=== PATIENT | female | born 1945 | race Caucasian/White ===

== ENCOUNTER 2019-04-20 18:06 | Inpatient (IN) | payer MEDICARE, OTHER ==
--- NOTE | 2019-04-20 18:42 | PDOC ---
History of Present Illness - General Chief Complaint: Respiratory Stated Complaint: CHEST PAIN Time Seen by Provider: 04/20/19 18:40 - History of Present Illness Initial Comments: 04/20/19 20:43 73F with pmh of emphysema presenting with chest pain and sob with non- productive cough since 3pm today, sudden collapse today when her legs suddenly couldn't hold her anymore. She didn't lose consciousness but she since complains of lumbar and left hip pain. The chest pain is still 10/10 and sternal at time of presentation, exacerbated with dry coughing. Due to her emphysema she chronically coughs and is sob but today was worse. Denies fever, chills, abdominal pain, dysuria, nausea and dizziness. Past History - Past Medical History Allergies/Adverse Reactions: Allergies Allergy/AdvReac Type Severity Reaction Status Date / Time No Known Allergies Allergy Verified 04/20/19 18:13 Asthma: Yes COPD: Yes - Surgical History Appendectomy: Yes Neurologic Surgery: Yes (neck) - Immunization History Immunization Up to Date: No - Suicide/Smoking/Psychosocial Hx Smoking History: Current every day smoker Have you smoked in the past 12 months: Yes Number of Cigarettes Smoked Daily: 20 Information on smoking cessation initiated: No Hx Alcohol Use: No Drug/Substance Use Hx: No Review of Systems - Review of Systems Able to Perform ROS?: Yes Is the patient limited Palestinian proficient: No Constitutional: No: Symptoms Reported HEENTM: No: Symptoms Reported Respiratory: Yes: See HPI Cardiac (ROS): Yes: See HPI ABD/GI: No: Symptoms Reported : No: Symptoms Reported Musculoskeletal: No: Symptoms Reported Integumentary: No: Symptoms Reported Neurological: No: Symptoms reported All Other Systems: Reviewed and Negative *Physical Exam - Vital Signs Last Vital Signs Temp Pulse Resp BP Pulse Ox 98.3 F 85 20 100/61 95 04/20/19 18:13 04/20/19 18:13 04/20/19 18:13 04/20/19 18:13 04/20/19 18:13 - Physical Exam General Appearance: Yes: Nourished, Appropriately Dressed, Apparent Distress. No: Moderate Distress HEENT: positive: EOMI, KELLIE, Normal ENT Inspection Respiratory/Chest: positive: Lungs Clear, Normal Breath Sounds. negative: Chest Tender, Respiratory Distress Cardiovascular: positive: Regular Rhythm, Regular Rate, S1, S2 Gastrointestinal/Abdominal: positive: Normal Bowel Sounds, Flat, Soft. negative : Tender Musculoskeletal: positive: Other ED Treatment Course - LABORATORY CBC & Chemistry Diagram: 04/20/19 19:10 04/20/19 19:10 - RADIOLOGY Radiology Studies Ordered: Category Date Time Status CXRPORT [CHEST X-RAY PORTABLE*] [RAD] Stat Radiology 04/20/19 18:41 Ordered Medical Decision Making - Medical Decision Making 04/20/19 23:52 73F with pmh of emphysema presenting with chest pain and sob with non- productive cough since 3pm today, sudden collapse today when her legs suddenly couldn't hold her anymore. Considering PE due to sudden chest pain, cough, sob, however low risk. D dimer positive. Will obtain CTA but also CT lumbar spine, and ct abdomen/pelvis and ct head. . 04/21/19 00:10 Patient signed out to Dr. Loya. *DC/Admit/Observation/Transfer Diagnosis at time of Disposition: Fall, Chest pain - Referrals Referrals: Javed Simental MD [Primary Care Provider] - - Patient Instructions - Post Discharge Activity
[2019-04-20 19:16] LABS: BASO % 0.7 % (0-2.0); EOS % 6.2 % (0-4.5); HEMATOCRIT 40.9 % (32.4-45.2); HEMOGLOBIN 13.6 GM/dL (10.7-15.3); LYMPH % 29.6 % (8-40); MCH 31.3 pg (25.7-33.7); MCHC 33.2 g/dl (32.0-36.0); MEAN CELL VOLUME 94.3 fl (80-96); MEAN PLT VOLUME 10.2 fl (7.5-11.1); MONO % 6.3 % (3.8-10.2); NEUT % 57.2 % (42.8-82.8); PLATELET COUNT 182 K/MM3 (134-434); RBC 4.34 M/mm3 (3.60-5.2); RDW 13.9 % (11.6-15.6); WHITE BLOOD COUNT 9.1 K/mm3 (4.0-10.0)
--- NOTE | 2019-04-20 19:47 | PDOC ---
Attending Attestation - Resident Resident Name: Raymundo Fernandez - ED Attending Attestation I have performed the following: I have examined & evaluated the patient, The case was reviewed & discussed with the resident, I agree w/resident's findings & plan - HPI HPI: 04/21/19 01:21 73-year-old female with shortness of breath dizziness and fall now with low back and left hip pain Patient still complaining of dizziness and difficulty walking. She denies active chest pain. - Physicial Exam PE: 04/21/19 01:26 GENERAL: Awake, in no acute distress HEAD: No signs of trauma EYES: ENT:clear without exudates. Moist mucosa NECK: Normal ROM, LUNGS:. Normal work of breathing. HEART: Regular rate and rhythm, ABDOMEN: Soft, nondistended CHEST WALL: BACK: tenderness lumbar spine midline , left lateral hip NEUROLOGICAL: Alert, SKIN: Warm, Dry - Medical Decision Making 04/21/19 03:45 73 yo female s/p sob,near syncopal episode and fall CTA of the chest showed no PE or aortic dissection CT abdomen and pelvis showed no significant abnormality CTA of the lumbar spine showed no fracture EKG showed no significant abnormality Plan for admission for further evaluation
[2019-04-20 19:48] LABS: ALBUMIN 3.2 g/dl (3.4-5.0); BILIRUBIN,TOTAL 0.2 mg/dL (0.2-1); BLOOD UREA NITROGEN 12.5 mg/dL (7-18); CALCIUM 8.8 mg/dL (8.5-10.1); CREATININE 0.6 mg/dL (0.55-1.3); POTASSIUM 3.3 mmol/L (3.5-5.1); TOT PROT 5.6 g/dl (6.4-8.2)
--- NOTE | 2019-04-21 00:14 | PDOC ---
*Physical Exam - Vital Signs Last Vital Signs Temp Pulse Resp BP Pulse Ox 98.3 F 85 20 100/61 95 04/20/19 18:13 04/20/19 18:13 04/20/19 18:13 04/20/19 18:13 04/20/19 18:13 ED Treatment Course - LABORATORY CBC & Chemistry Diagram: 04/20/19 19:10 04/20/19 19:10 - ADDITIONAL ORDERS Additional order review: Laboratory Results 04/20/19 04/20/19 04/20/19 20:40 19:10 19:10 D-Dimer 882 H Sodium 145 Potassium 3.3 L Chloride 109 H Carbon Dioxide 25 Anion Gap 10 BUN 12.5 Creatinine 0.6 Est GFR (CKD-EPI)AfAm 106.28 Est GFR (CKD-EPI)NonAf 91.70 Random Glucose 141 H Calcium 8.8 Total Bilirubin 0.2 AST 10 L ALT 19 Alkaline Phosphatase 95 Troponin I < 0.02 Total Protein 5.6 L Albumin 3.2 L 04/20/19 19:10 RBC 4.34 MCV 94.3 MCHC 33.2 RDW 13.9 MPV 10.2 Neutrophils % 57.2 Lymphocytes % 29.6 Monocytes % 6.3 Eosinophils % 6.2 H Basophils % 0.7 Medical Decision Making - Medical Decision Making Sign out received from Dr. Fernandez. 73 F with hx emphysema presenting s/p syncope at home, shortness of breath, chest pain, dimer elevation pending CT imaging. Pending: CTA Chest r/o PE CT head CT Lumbar spine CT abdomen/pelvis w/contrast Dispo: Admit, pending imaging --- CT imaging negative for acute process. --- Case discussed with Dr. Cerda. Plan for admission to telemetry obs. *DC/Admit/Observation/Transfer Diagnosis at time of Disposition: Fall Qualifiers: Encounter type: initial encounter Qualified Code(s): W19.XXXA - Unspecified fall, initial encounter Chest pain Qualifiers: Chest pain type: unspecified Qualified Code(s): R07.9 - Chest pain, unspecified Syncope Qualifiers: Syncope type: unspecified Qualified Code(s): R55 - Syncope and collapse - Discharge Dispostion Condition at time of disposition: Stable Decision to Admit order: Yes - Referrals - Patient Instructions - Post Discharge Activity
--- NOTE | 2019-04-21 05:26 | HP ---
CHIEF COMPLAINT: syncope, chest pain PCP: Hola HISTORY OF PRESENT ILLNESS: 73F with pmh of emphysema presenting with chest pain and sob with non- productive cough since 3pm on 04/20/19. Questionable loss of consciousness. Reported falling when her legs suddenly couldn't hold her anymore. Complains of lumbar and left hip pain. Imaging studies prelim report without overt fracture. CTA neg for aortic dissection or PE. ER course was notable for: (1) ct lumbar spine (2) cta chest (3) Recent Travel: no PAST MEDICAL HISTORY: emphysema PAST SURGICAL HISTORY: no Social History: Smoking: prior smoking Alcohol: no Drugs: no Family History: no Allergies No Known Allergies Allergy (Verified 04/20/19 18:13) HOME MEDICATIONS: Home Medications Medication Instructions Recorded Budesonide/Formeterol Fumarate 1 inh PO BID 04/21/19 [SYMBICORT 160/4.5mcg -] REVIEW OF SYSTEMS CONSTITUTIONAL: Absent: fever, chills, diaphoresis, generalized weakness, malaise, loss of appetite, weight change HEENT: Absent: rhinorrhea, nasal congestion, throat pain, throat swelling, difficulty swallowing, mouth swelling, ear pain, eye pain, visual changes CARDIOVASCULAR: Absent: , palpitations, irregular heart rate, lightheadedness, peripheral edema present- chest pain, syncope RESPIRATORY: Absent: cough, shortness of breath, dyspnea with exertion, orthopnea, wheezing, stridor, hemoptysis GASTROINTESTINAL: Absent: abdominal pain, abdominal distension, nausea, vomiting, diarrhea, constipation, melena, hematochezia GENITOURINARY: Absent: dysuria, frequency, urgency, hesitancy, hematuria, flank pain, genital pain MUSCULOSKELETAL: Absent: , joint swelling, back pain, neck pain present- myalgia, arthralgia SKIN: Absent: rash, itching, pallor HEMATOLOGIC/IMMUNOLOGIC: Absent: easy bleeding, easy bruising, lymphadenopathy, frequent infections ENDOCRINE: Absent: unexplained weight gain, unexplained weight loss, heat intolerance, cold intolerance NEUROLOGIC: Absent: headache, focal weakness or paresthesias, dizziness, unsteady gait, seizure, mental status changes, bladder or bowel incontinence PSYCHIATRIC: Absent: anxiety, depression, suicidal or homicidal ideation, hallucinations. PHYSICAL EXAMINATION Vital Signs - 24 hr 04/20/19 04/21/19 18:13 04:36 Temperature 98.3 F Pulse Rate 85 Respiratory 20 Rate Blood Pressure 100/61 O2 Sat by Pulse 95 97 Oximetry (%) GENERAL: Awake, alert, and fully oriented, in no acute distress. HEAD: Normal with no signs of trauma. EYES: Pupils equal, round and reactive to light, extraocular movements intact, sclera anicteric, conjunctiva clear. No lid lag. EARS, NOSE, THROAT: Ears normal, nares patent, oropharynx clear without exudates. Moist mucous membranes. NECK: Normal range of motion, supple without lymphadenopathy, JVD, or masses. LUNGS: Breath sounds equal, clear to auscultation bilaterally. No wheezes, and no crackles. No accessory muscle use. HEART: Regular rate and rhythm, normal S1 and S2 without murmur, rub or gallop. ABDOMEN: Soft, nontender, not distended, normoactive bowel sounds, no guarding, no rebound, no masses. MUSCULOSKELETAL: Normal range of motion at all joints. No bony deformities or tenderness. No CVA tenderness. UPPER EXTREMITIES: 2+ pulses, warm, well-perfused. No cyanosis. No clubbing. No peripheral edema. LOWER EXTREMITIES: 2+ pulses, warm, well-perfused. No calf tenderness. No peripheral edema. NEUROLOGICAL: Cranial nerves II-XII intact. Normal speech. Normal gait. PSYCHIATRIC: Cooperative. Good eye contact. Appropriate mood and affect. SKIN: Warm, dry, normal turgor, no rashes or lesions noted, normal capillary refill. Laboratory Results - last 24 hr 04/20/19 04/20/19 04/20/19 19:10 19:10 19:10 WBC 9.1 RBC 4.34 Hgb 13.6 Hct 40.9 MCV 94.3 MCH 31.3 MCHC 33.2 RDW 13.9 Plt Count 182 MPV 10.2 Absolute Neuts (auto) 5.2 Neutrophils % 57.2 Lymphocytes % 29.6 Monocytes % 6.3 Eosinophils % 6.2 H Basophils % 0.7 Nucleated RBC % 0 D-Dimer Sodium 145 Potassium 3.3 L Chloride 109 H Carbon Dioxide 25 Anion Gap 10 BUN 12.5 Creatinine 0.6 Est GFR (CKD-EPI)AfAm 106.28 Est GFR (CKD-EPI)NonAf 91.70 Random Glucose 141 H Calcium 8.8 Total Bilirubin 0.2 AST 10 L ALT 19 Alkaline Phosphatase 95 Troponin I < 0.02 Total Protein 5.6 L Albumin 3.2 L 04/20/19 20:40 WBC RBC Hgb Hct MCV MCH MCHC RDW Plt Count MPV Absolute Neuts (auto) Neutrophils % Lymphocytes % Monocytes % Eosinophils % Basophils % Nucleated RBC % D-Dimer 882 H Sodium Potassium Chloride Carbon Dioxide Anion Gap BUN Creatinine Est GFR (CKD-EPI)AfAm Est GFR (CKD-EPI)NonAf Random Glucose Calcium Total Bilirubin AST ALT Alkaline Phosphatase Troponin I Total Protein Albumin imaging studies- prelim reports reviewed- head ct- neg for fracture or bleed, cta chest, abdomen- no overt fracture reported- post traumatic changes- right iliac wing? empyshematous lung changes ASSESSMENT/PLAN: syncope chest pain S/p fall emphysema -tele obs -cardiac monitoring -bed rest -fall precautions -monitor VS closely -trend tronponin -ibuprofen prn for pain -f/u official read of imaging studies -gentle IV fluid hydration -check othostatics -echo -cardiology evaluation -c/w symbicort for emphysema -dvt ppx- heparin sc Visit type - Emergency Visit Emergency Visit: Yes ED Registration Date: 04/21/19 Care time: The patient presented to the Emergency Department on the above date and was hospitalized for further evaluation of their emergent condition. - New Patient This patient is new to me today: Yes Date on this admission: 04/21/19 - Critical Care Critical Care patient: No
[2019-04-21] MEDS ORDERED: POTASSIUM CHLORIDE ORAL LIQUID 20 MEQ/15 ML PO ONE (05:32)
[2019-04-21] MEDS ORDERED: POTASSIUM CHLORIDE ORAL LIQUID 20 MEQ/15 ML ONE (06:15)
[2019-04-21] MEDS: SODIUM CHLORIDE 1,000 ML IV SCH (06:21)
[2019-04-21 09:34] LABS: HEMATOCRIT 40.9 % (32.4-45.2); HEMOGLOBIN 13.6 GM/dL (10.7-15.3); MCH 31.3 pg (25.7-33.7); MCHC 33.3 g/dl (32.0-36.0); MEAN CELL VOLUME 93.8 fl (80-96); MEAN PLT VOLUME 9.6 fl (7.5-11.1); PLATELET COUNT 173 K/MM3 (134-434); RBC 4.36 M/mm3 (3.60-5.2); RDW 13.9 % (11.6-15.6)
[2019-04-21] MEDS ORDERED: ACETAMINOPHEN 1000 MG/100 ML VIAL (NON FORMULARY) IVPB ONE (10:03)
[2019-04-21 10:04] LABS: ANION GAP 7 MMOL/L (8-16); BLOOD UREA NITROGEN 8.6 mg/dL (7-18); CHLORIDE 110 mmol/L (98-107); CO2 27 mmol/L (21-32); CREATININE 0.6 mg/dL (0.55-1.3); GLUCOSE,RANDOM 99 mg/dL (74-106); POTASSIUM 3.8 mmol/L (3.5-5.1); SODIUM 144 mmol/L (136-145)
[2019-04-21] MEDS ORDERED: HEPARIN NA (PORCINE) 5,000 UNITS/ML 1ML VIAL ONE (10:06)
[2019-04-21] MEDS ORDERED: ACETAMINOPHEN INJECTION 100 ML IVPB ONE (10:06)
[2019-04-21] MEDS: HEPARIN NA (PORCINE) 5,000 UNITS/ML 1ML VIAL SQ SCH ×2 (10:07→21:34)
--- NOTE | 2019-04-21 10:07 | CON.CARD ---
Consult Consult Specialty:: Cardiology Referred by:: Hola Reason for Consultation:: chest pain - History of Present Illness Chief Complaint: chest pain History of Present Illness: 73F with pmh of emphysema presenting with chest pain and sob with non- productive cough since 3pm on 04/20/19, with dizziness and diaphoresis, no LOC. The pain is nonexertional. No orthopnea, pnd or edema. ECG normal CTA normal Echo done Robinson negative. - History Source History Provided By: Patient, Medical Record - Alcohol/Substance Use Hx Alcohol Use: No - Smoking History Smoking history: Never smoked Have you smoked in the past 12 months: No Aproximately how many cigarettes per day: 20 Home Medications - Allergies Allergies/Adverse Reactions: Allergies Allergy/AdvReac Type Severity Reaction Status Date / Time No Known Allergies Allergy Verified 04/20/19 18:13 - Home Medications Home Medications: Ambulatory Orders Budesonide/Formeterol Fumarate [SYMBICORT 160/4.5mcg -] 1 inh PO BID 04/21/19 Vital Signs: Vital Signs Temperature 97.8 F 04/21/19 09:36 Pulse Rate 71 04/21/19 09:36 Respiratory Rate 16 04/21/19 09:36 Blood Pressure 114/77 04/21/19 09:36 O2 Sat by Pulse Oximetry (%) 98 04/21/19 09:36 Constitutional: Yes: No Distress, Calm Eyes: Yes: Conjunctiva Clear, EOM Intact HENT: Yes: Atraumatic, Normocephalic Neck: Yes: Trachea Midline Respiratory: Yes: CTA Bilaterally Gastrointestinal: Yes: Normal Bowel Sounds, Soft Renal/: Yes: WNL Cardiovascular: Yes: Regular Rate and Rhythm JVD: No Carotid Bruit: No PMI: Non-Displaced Heart Sounds: Yes: S1, S2 Musculoskeletal: Yes: WNL Extremities: Yes: WNL Edema: No Peripheral Pulses WNL: Yes - Other Data Labs, Other Data: CBC, BMP 04/21/19 09:15 04/21/19 09:15 Troponin, BNP 04/20/19 04/21/19 19:10 09:15 Troponin I < 0.02 < 0.02 Troponin, BNP 04/20/19 04/21/19 19:10 09:15 Troponin I < 0.02 < 0.02 Imaging - Results Chest X-ray: Report Reviewed (zeus) Cat Scan: Report Reviewed (no pe) EKG: Report Reviewed (nl) Assessment/Plan 73F with pmh of emphysema presenting with chest pain and sob with non- productive cough since 3pm on 04/20/19, with dizziness and diaphoresis, no LOC. The pain is nonexertional. No orthopnea, pnd or edema. ECG normal CTA normal Echo done Robinson negative. Plan -follow echo results -nuclear stress test today
--- NOTE | 2019-04-21 10:17 | ECHO ---
Name: EARL TY Exam:Adult Echocardiogram Study Date: 04/21/2019 08:26 AM Age: 73 yrs Reason For Study: s/p syncope, rule out Height: 65 in Weight: 135 lb BSA: 1.7 m2 MMode/2D Measurements & Calculations IVSd: 0.69 cm Ao root diam: 2.5 cm LVIDd: 4.0 cm LA dimension: 3.1 cm LVIDs: 2.5 cm LVPWd: 1.0 cm LVPWs: 1.0 cm EDV(Teich): 71.4 ml ESV(Teich): 22.0 ml Doppler Measurements & Calculations MV E max david: 66.6 cm/sec Ao V2 max: 140.6 cm/sec MV A max david: 107.1 cm/sec Ao max P.9 mmHg MV E/A: 0.62 Ao V2 mean: 97.0 cm/sec MV dec time: 0.19 sec Ao mean P.5 mmHg Ao V2 VTI: 32.1 cm LV V1 max P.5 mmHg PA V2 max: 88.2 cm/sec LV V1 mean P.2 mmHg PA max P.1 mmHg LV V1 max: 106.1 cm/sec LV V1 mean: 69.4 cm/sec LV V1 VTI: 28.9 cm Med Peak E' David: 5.0 cm/sec Med E/e': 13.3 Lat Peak E' David: 7.6 cm/sec Lat E/e': 8.8 Procedure A complete two-dimensional transthoracic echocardiogram was performed (2D, M-mode, Doppler and color flow Doppler). Left Ventricle The left ventricular size, thickness and function are normal. Ejection Fraction = 65%. E/A reversal c onsistent with but not diagnostic of poor LV compliance. The left ventricular wall motion is normal. Right Ventricle The right ventricle is normal in size and function. Atria Normal left and right atrial size and function. A prominent eustachian valve is noted. Mitral Valve The mitral valve is normal in structure and function. There is trace mitral regurgitation. Tricuspid Valve The tricuspid valve is normal in structure and function. There was insufficient TR detected to calcul ate RV systolic pressure. Aortic Valve The aortic valve is normal in structure and function. Great Vessels The aortic root is normal size. Pericardium/Pleura There is no pericardial effusion. There is no pleural effusion. Interpretation Summary The left ventricular size, thickness and function are normal Ejection Fraction = 65%. The right ventricle is normal in size and function. There is trace mitral regurgitation. MD Ari Nagel 04/21/2019 10:17 AM
[2019-04-21] MEDS: BUDESONIDE/FORMETEROL FUMARATE 160/4.5 mcg INHALER IH SCH ×2 (10:25→21:32)
[2019-04-21] MEDS ORDERED: ACETAMINOPHEN 325 MG TABLET (FP) PO PRN (10:44)
--- NOTE | 2019-04-21 10:51 | EKG ---
Test Reason : Blood Pressure : / mmHG Vent. Rate : 085 BPM Atrial Rate : 085 BPM P-R Int : 140 ms QRS Dur : 076 ms QT Int : 400 ms P-R-T Axes : 073 031 058 degrees QTc Int : 476 ms NORMAL SINUS RHYTHM NORMAL ECG NO PREVIOUS ECGS AVAILABLE Confirmed by Ari Nagel MD ([id number]) on 04/21/2019 10:50:42 AM Referred By: Confirmed By:Ari Nagel MD
[2019-04-21] MEDS ORDERED: REGADENOSON 0.4 MG/5 ML PRE-FILLED SYRINGE IVPUSH ONE ×2 (10:52→11:00)
--- NOTE | 2019-04-21 10:52 | PN ---
Progress Note, Physician Chief Complaint: SOB Fall Lower back pain Left hip pain - Current Medication List Current Medications: Active Medications Acetaminophen (Tylenol -) 650 mg PO Q4H PRN PRN Reason: PAIN OR FEVER Budesonide/Formoterol Fumarate (Symbicort 160/4.5mcg -) 1 puff IH BID [facility] Last Admin: 04/21/19 10:25 Dose: 1 puff Heparin Sodium (Porcine) (Heparin -) 5,000 unit SQ BID [facility] Last Admin: 04/21/19 10:07 Dose: 5,000 unit Sodium Chloride (Normal Saline -) 1,000 mls @ 75 mls/hr IV ASDIR [facility] Last Admin: 04/21/19 06:21 Dose: 75 mls/hr - Objective Vital Signs: Vital Signs Temperature 97.8 F 04/21/19 09:36 Pulse Rate 75 04/21/19 10:40 Respiratory Rate 16 04/21/19 09:36 Blood Pressure 130/71 04/21/19 10:40 O2 Sat by Pulse Oximetry (%) 98 04/21/19 09:36 Constitutional: Yes: Well Nourished, No Distress, Calm Cardiovascular: Yes: Regular Rate and Rhythm Respiratory: Yes: Regular Gastrointestinal: Yes: Normal Bowel Sounds, Soft Musculoskeletal: Yes: WNL Extremities: Yes: WNL Edema: No Peripheral Pulses WNL: Yes Neurological: Yes: Alert, Oriented Psychiatric: Yes: Alert, Oriented Labs: CBC, BMP 04/21/19 09:15 04/21/19 09:15 Problem List - Problems (1) SOB (shortness of breath) Assessment/Plan: -CXR negative -CTA-mild copd -pulmonary consult -Continue Symbicort -Add MILLIE prn Code(s): R06.02 - SHORTNESS OF BREATH (2) Lower extremity weakness Assessment/Plan: -CT lumbar- shows multiple central canal stenosis -Neurosurgery consult Code(s): R29.898 - OTH SYMPTOMS AND SIGNS INVOLVING THE MUSCULOSKELETAL SYSTEM (3) Degenerative lumbar spinal stenosis Assessment/Plan: -CT lumbar- shows multiple central canal stenosis -Neurosurgery consult Code(s): M48.061 - SPINAL STENOSIS, LUMBAR REGION WITHOUT NEUROGENIC CARISA (4) Fall Assessment/Plan: -Neurosurgery consult -CT lumbar- shows multiple central canal stenosis -Check B12 -Echo-65%, trace MV regurgitation -ECG negative -Trops negative -Seen by cardiology -orthostatic negative -Left hip xray-left hip arthritis, old avulsion at left acetabular root -Nuclear stress test pending Code(s): W19.XXXA - UNSPECIFIED FALL, INITIAL ENCOUNTER Qualifiers: Encounter type: initial encounter Qualified Code(s): W19.XXXA - Unspecified fall, initial encounter
[2019-04-21 11:22] LABS: URINE APPEARANCE Clear; URINE BILIRUBIN Negative (NEGATIVE); URINE COLOR Yellow; URINE GLUCOSE (UA) Negative (NEGATIVE); URINE KETONE Negative (NEGATIVE); URINE LEUK ESTERASE Negative (NEGATIVE); URINE NITRITE Negative (NEGATIVE); URINE PROTEIN Negative (NEGATIVE); URINE UROBILINOGEN 0.2 mg/dL (0.2-1.0)
[2019-04-21] MEDS ORDERED: AMINOPHYLLINE 250 MG/10 ML VIAL ONE (12:30)
[2019-04-21] MEDS ORDERED: AMINOPHYLLINE 250 MG/10 ML VIAL IVPUSH ONE (12:45)
[2019-04-21] MEDS ORDERED: PNEUMOC 13-VAL CONJ-DIP CRM/PF 0.5 ML DISP.SYRIN IM ONE (18:24)
[2019-04-22] MEDS: ALBUTEROL SO4 0.083% IH SOL 2.5 MG/3 ML VIAL.NEB. NEB PRN ×2 (03:08→12:14)
[2019-04-22] MEDS: SODIUM CHLORIDE 1,000 ML IV SCH ×2 (07:00→08:40)
--- NOTE | 2019-04-22 09:06 | PN ---
Progress Note, Physician Chief Complaint: awake alert c/o severe left leg pain no fever foot drop when she stands and walks - Current Medication List Current Medications: Active Medications Acetaminophen (Tylenol -) 650 mg PO Q4H PRN PRN Reason: FEVER Albuterol Sulfate (Ventolin 0.083% Nebulizer Soln -) 1 amp NEB Q4H PRN PRN Reason: SHORT OF BREATH/WHEEZING Last Admin: 04/22/19 03:08 Dose: 1 amp Budesonide/Formoterol Fumarate (Symbicort 160/4.5mcg -) 1 puff IH BID [facility] Last Admin: 04/21/19 21:32 Dose: 1 puff Gabapentin (Neurontin -) 100 mg PO TID [facility] Heparin Sodium (Porcine) (Heparin -) 5,000 unit SQ BID [facility] Last Admin: 04/21/19 21:34 Dose: 5,000 unit Sodium Chloride (Normal Saline -) 1,000 mls @ 75 mls/hr IV ASDIR [facility] Last Admin: 04/22/19 08:40 Dose: 75 mls/hr Tramadol HCl (Ultram -) 50 mg PO Q6H PRN PRN Reason: PAIN LEVEL 6-10 - Objective Vital Signs: Vital Signs Temperature 98.2 F 04/22/19 08:00 Pulse Rate 66 04/22/19 08:00 Respiratory Rate 22 H 04/22/19 08:00 Blood Pressure 125/64 04/22/19 08:00 O2 Sat by Pulse Oximetry (%) 92 L 04/22/19 08:00 Constitutional: Yes: Severe Distress Cardiovascular: Yes: Regular Rate and Rhythm Respiratory: Yes: Wheezes Gastrointestinal: Yes: WNL Genitourinary: Yes: WNL Musculoskeletal: Yes: Back Pain, Muscle Pain, Muscle Weakness Edema: No Peripheral Pulses WNL: Yes Integumentary: Yes: WNL Wound/Incision: Yes: Clean/Dry Neurological: Yes: Loss of Sensation, Numbness, Paresthesia, Weakness ...Motor Strength: LLE Psychiatric: Yes: WNL Labs: CBC, BMP 04/21/19 09:15 04/21/19 09:15 Problem List - Problems (1) COPD (chronic obstructive pulmonary disease) Code(s): J44.9 - CHRONIC OBSTRUCTIVE PULMONARY DISEASE, UNSPECIFIED (2) Tobacco dependence Code(s): F17.200 - NICOTINE DEPENDENCE, UNSPECIFIED, UNCOMPLICATED (3) Smoker Code(s): F17.200 - NICOTINE DEPENDENCE, UNSPECIFIED, UNCOMPLICATED (4) Chest pain Code(s): R07.9 - CHEST PAIN, UNSPECIFIED Qualifiers: Chest pain type: unspecified Qualified Code(s): R07.9 - Chest pain, unspecified (5) Degenerative lumbar spinal stenosis Code(s): M48.061 - SPINAL STENOSIS, LUMBAR REGION WITHOUT NEUROGENIC CARISA (6) Fall Code(s): W19.XXXA - UNSPECIFIED FALL, INITIAL ENCOUNTER Qualifiers: Encounter type: initial encounter Qualified Code(s): W19.XXXA - Unspecified fall, initial encounter (7) Lower extremity weakness Code(s): R29.898 - OTH SYMPTOMS AND SIGNS INVOLVING THE MUSCULOSKELETAL SYSTEM (8) SOB (shortness of breath) Code(s): R06.02 - SHORTNESS OF BREATH Assessment/Plan cardiac workup negative ct head no acute changes lumbar ct shows severe l4-l5 changes ordering mri lumbar gabapentin started with tramadol for pain neurology and neurosurgery eval smoking cessation duoneb/symbicort
[2019-04-22] MEDS ORDERED: PT OWN MED DRAWER 7, Y5N ONE (09:28)
[2019-04-22] MEDS: HEPARIN NA (PORCINE) 5,000 UNITS/ML 1ML VIAL SQ SCH ×2 (09:30→21:51)
[2019-04-22] MEDS: NICOTINE 21 MG/24 HOURS TOPICAL PATCH TD SCH (09:30)
[2019-04-22] MEDS: BUDESONIDE/FORMETEROL FUMARATE 160/4.5 mcg INHALER IH SCH ×2 (09:35→21:52)
--- NOTE | 2019-04-22 12:06 | CON.PULM ---
Consult Consult Specialty:: PULMONARY Referred by:: Dr Simental Reason for Consultation:: shortness of breath - History of Present Illness Chief Complaint: shortness of breath History of Present Illness: 73yo female with h/o COPD/emphysema, smoker who was admitted with worsening shortness of breath, chest discomfort and cough. No fevers, chills or sweats. + cough is nonproductive and she has been wheezing. She had a CTA chest which was negative for PE or dissection but showed emphysematous changes. She is a long time smoker, smokes 1 PPD. Currently feels better than presentation. - History Source History Provided By: Patient, Medical Record Limitations to Obtaining History: Language Barrier - Past Medical History Pulmonary: Yes: COPD - Alcohol/Substance Use Hx Alcohol Use: No - Smoking History Smoking history: Current every day smoker Have you smoked in the past 12 months: Yes Aproximately how many cigarettes per day: 20 Home Medications - Allergies Allergies/Adverse Reactions: Allergies Allergy/AdvReac Type Severity Reaction Status Date / Time No Known Allergies Allergy Verified 04/20/19 18:13 - Home Medications Home Medications: Ambulatory Orders Budesonide/Formeterol Fumarate [SYMBICORT 160/4.5mcg -] 1 inh PO BID 04/21/19 Review of Systems - Review of Systems Constitutional: reports: Weakness. denies: Chills, Fever Eyes: denies: Recent Change in Vision HENT: denies: Nasal Congestion, Throat Pain Neck: denies: Stiffness, Tenderness Cardiovascular: reports: Chest Pain, Shortness of Breath. denies: Edema Respiratory: reports: Cough, SOB on Exertion, Wheezing. denies: Hemoptysis Gastrointestinal: denies: Abdominal Pain, Nausea, Vomiting Genitourinary: denies: Dysuria, Hematuria Neurological: denies: Headache Endocrine: denies: Unexplained Weight Loss Physical Exam Vital Sings: Vital Signs Temperature 98.0 F 04/22/19 10:00 Pulse Rate 76 04/22/19 10:00 Respiratory Rate 04/22/19 10:00 Blood Pressure 126/65 04/22/19 10:00 O2 Sat by Pulse Oximetry (%) 92 L 04/22/19 08:00 Constitutional: Yes: Calm Eyes: Yes: Conjunctiva Clear, EOM Intact HENT: Yes: Atraumatic, Normocephalic Neck: Yes: Supple, Trachea Midline Respiratory: Yes: Poor Air Entry, Wheezes ...Clubbing: No Gastrointestinal: Yes: Normal Bowel Sounds, Soft. No: Tenderness Edema: No Neurological: Yes: Alert, Oriented Labs: CBC, BMP 04/21/19 09:15 04/21/19 09:15 Imaging - Results Chest X-ray: Report Reviewed, Image Reviewed Cat Scan: Report Reviewed, Image Reviewed (no infiltrates, +emphysema) Problem List - Problems (1) COPD exacerbation Code(s): J44.1 - CHRONIC OBSTRUCTIVE PULMONARY DISEASE W (ACUTE) EXACERBATION (2) Smoker Code(s): F17.200 - NICOTINE DEPENDENCE, UNSPECIFIED, UNCOMPLICATED Assessment/Plan Acute COPD Exacerbation Emphysema Lumbar Spinal Stenosis Smoker - short course of medrol - inhaled bronchodilators standing and PRN - O2 to keep SpO2 >90% - outpt PFTs - smoking cessation - DVT prophylaxis Thank you for this consult Winston Hayward MD
[2019-04-22] MEDS: methylPREDNISolone NA SUCC 40 MG/1 ML VIAL IVPUSH SCH ×2 (12:16→17:39)
[2019-04-22] MEDS: traMADol HCL 50 MG TABLET PO PRN (12:32)
--- NOTE | 2019-04-22 13:50 | CONSULT ---
Consult - text type - Consultation Consultation Note: NEUROLOGY CONSULT GREATLY APPRECIATED: Events reviewed. Cardiology and pulmonary consults read and appreciated. This 73 yo RH single woman with no children lives with her brother. Previous office patient Barrera Tyler aides in translation. PMHX: COPD, Nicotine dependence (1PPD), S/P ACD and LS surgery "many years ago. " Brother describes approximately 1 year of gait decline with "near tripping," imbalance, with LBP with radiation into left leg. Pt currently ambulates independently. Admitted after 3 days of dyspnea, chest pains, "dizziness" and "weakness" in the knees, with a subsequent fall on the left side without obvious headstrike/ LOC. C/O ongoing LBP and left hip pain. Now on IV solumedrol and steroids for COPD exacerbation. Review of systems sig for few months of daily bitemporal headaches that usually occur in morning hours with photophobia, phonophobia, kinesiophobia, N/V. These usually dissipate with AM caffeine. She describes at least 1 year of ongoing insomnia with "numbness" "tingling" first involving the left hand and leg and now within past 6 months, her right side as well. This is somewhat improved with movement. FH++ Baseem notes he has similar headaches and insomnia/paresthesia that interupt sleep WBC= 7 B12= 788 TSH- 1.45 BUN/CR 12.5/0.[address] (reviewed): Chronic, scattered periventricular ischemic changes. No acute pathology L Hip Xray- arthritic changes and old avulsion of left acetabellar root CT of LS spine (reviewed): Multi-level central canal stenosis secondary to posterior osteophyte complexes marked biju @ L4/L5, L5/S1. L stenosis at L5 lateral recess and L paracentral stenosis @ S1. Duplex of arteries L/E: (?) scattered plaques throughout. Abnormal flow. EKG NSR. ECHO Normal EF. Stress test normal SUMANTH: BPs 130s/70s without orthostatic changes. Cor reg. No bruit. Normal neck ROM. Neg SLR. + Solo's on L. Neg Tinel's. S/P ACD. LS scar. NEURO: Awake, alert, responsive. [facility] Apr 2019. [place]. + glabella CNII-CNXII: EOM's full with full michaels. No facial. Gag ok. Motor: No drift or tremor. Min cogwheel. Strength normal. Reflexes normal except absent L AJ. Toes downgoing. Coordination: No FTN dystaxia. Sensation: Reduced vibration to ankles. Romberg + Gait: Flexed, sl shuffle. Difficulty with L toe walk. Can walk on heels. Impression: Lumbosacral spinal stenosis with L S1 (+/-L5) radiculopathy ? L hip arthropathy Migraine Headaches/Restless Limbs Suggest: Agree with MRI of LS spine (C+/C-) as renal function allows and to r/o scar tissue from the prior surgery Check ESR, CRP, Fe++, TIBC, Ferritin Carotid duplex Agree with gabapentin 100 mg TID. Can adjust for mostly nocturnal complaints to gabapentin 300 mg HS. Orthopedic consult for L hip Pt eval for gait safety with walker Thank you very much, Juan C Tobias MD
[2019-04-22] MEDS: GABAPENTIN 100 MG CAPSULE (FP) PO SCH ×2 (14:55→21:52)
--- NOTE | 2019-04-22 23:25 | CONSULT ---
Consult - text type - Consultation Consultation Note: NEUROSURGERY CONSULT Patient is a 73-year-old Georgian speaking female who was admitted with acute progression of chronic back pain, left leg radicular pain and a nonproductive cough. Patient found to have severe stenosis at L34 and L45 on CT scan Lumbar spine with moderate L5S1 central disc protrusion. MRI redemonstrates these findings with fairly significant lateral recess stenosis at L34 and L45. Patient ambulating with stooped posture due to neurogenic claudication most likely. Limited history available due to language barrier. Will discuss case with Dr. Simental and interview patient with principal software engineer in a.m. Patient has significant pulmonary disease and medical comorbidities, however she may benefit from a minimally invasive decompression of her worst levels of stenosis. If necessary, it may be possible to do this with spinal/local anesthesia to minimize pulmonary complications. However decision-making regarding potential role for surgical decompression will follow further analysis of her case and medical condition.
[2019-04-23] MEDS: SODIUM CHLORIDE 1,000 ML IV SCH ×2 (02:00→05:47)
[2019-04-23] MEDS: methylPREDNISolone NA SUCC 40 MG/1 ML VIAL IVPUSH SCH ×3 (02:34→17:52)
[2019-04-23] MEDS: GABAPENTIN 100 MG CAPSULE (FP) PO SCH ×3 (05:48→21:15)
[2019-04-23] MEDS: ALBUTEROL SO4 0.083% IH SOL 2.5 MG/3 ML VIAL.NEB. NEB PRN (06:38)
[2019-04-23 06:45] LABS: IRON SERUM 52 ug/dL (50-175); TOTAL IRON BINDING CAPACITY 242 ug/dL (250-450)
[2019-04-23 07:00] LABS: HDL CHOLESTEROL 70 mg/dL (40-60)
[2019-04-23 08:04] LABS: CHOLESTEROL 186 mg/dL (50-200)
[2019-04-23 08:05] LABS: TRIGLYCERIDES 62 mg/dL (0-150)
--- NOTE | 2019-04-23 08:59 | PN ---
Progress Note, Physician Chief Complaint: AWAKE ALERT C/O LEFT LEG PAIN/WEAKNESS DENIES CP DOES HAVE DYSPNEA ON EXERTION - Current Medication List Current Medications: Active Medications Acetaminophen (Tylenol -) 650 mg PO Q4H PRN PRN Reason: FEVER Albuterol Sulfate (Ventolin 0.083% Nebulizer Soln -) 1 amp NEB Q4H PRN PRN Reason: SHORT OF BREATH/WHEEZING Last Admin: 04/23/19 06:38 Dose: 1 amp Budesonide/Formoterol Fumarate (Symbicort 160/4.5mcg -) 1 puff IH BID [facility] Last Admin: 04/22/19 21:52 Dose: 1 puff Gabapentin (Neurontin -) 100 mg PO TID [facility] Last Admin: 04/23/19 05:48 Dose: 100 mg Heparin Sodium (Porcine) (Heparin -) 5,000 unit SQ BID [facility] Last Admin: 04/22/19 21:51 Dose: 5,000 unit Sodium Chloride (Normal Saline -) 1,000 mls @ 75 mls/hr IV ASDIR [facility] Last Admin: 04/23/19 05:47 Dose: 75 mls/hr Methylprednisolone Sodium Succinate (Solu-Medrol -) 40 mg IVPUSH Q8H-IV [facility] Last Admin: 04/23/19 02:34 Dose: 40 mg Nicotine (Nicoderm Patch -) 21 mg TD DAILY [facility] Last Admin: 04/22/19 09:30 Dose: 21 mg Tramadol HCl (Ultram -) 50 mg PO Q6H PRN PRN Reason: PAIN LEVEL 6-10 Last Admin: 04/22/19 12:32 Dose: 50 mg - Objective Vital Signs: Vital Signs Temperature 98.2 F 04/23/19 06:00 Pulse Rate 82 04/23/19 06:00 Respiratory Rate 25 H 04/23/19 06:00 Blood Pressure 126/70 04/23/19 06:00 O2 Sat by Pulse Oximetry (%) 92 L 04/22/19 21:00 Constitutional: Yes: Moderate Distress Cardiovascular: Yes: Regular Rate and Rhythm Respiratory: Yes: Diminished, On Nasal O2 Gastrointestinal: Yes: WNL Genitourinary: Yes: WNL Musculoskeletal: Yes: Back Pain, Muscle Pain, Muscle Weakness Extremities: Yes: Other Edema: No Peripheral Pulses WNL: Yes Integumentary: Yes: WNL Wound/Incision: Yes: Clean/Dry Neurological: Yes: Loss of Sensation, Pre-Existing Deficit, Weakness ...Motor Strength: LLE Psychiatric: Yes: WNL Labs: CBC, BMP 04/21/19 09:15 04/21/19 09:15 Problem List - Problems (1) COPD (chronic obstructive pulmonary disease) Code(s): J44.9 - CHRONIC OBSTRUCTIVE PULMONARY DISEASE, UNSPECIFIED (2) Tobacco dependence Code(s): F17.200 - NICOTINE DEPENDENCE, UNSPECIFIED, UNCOMPLICATED (3) Smoker Code(s): F17.200 - NICOTINE DEPENDENCE, UNSPECIFIED, UNCOMPLICATED (4) Chest pain Code(s): R07.9 - CHEST PAIN, UNSPECIFIED Qualifiers: Chest pain type: unspecified Qualified Code(s): R07.9 - Chest pain, unspecified (5) Degenerative lumbar spinal stenosis Code(s): M48.061 - SPINAL STENOSIS, LUMBAR REGION WITHOUT NEUROGENIC CARISA (6) Fall Code(s): W19.XXXA - UNSPECIFIED FALL, INITIAL ENCOUNTER Qualifiers: Encounter type: initial encounter Qualified Code(s): W19.XXXA - Unspecified fall, initial encounter (7) Lower extremity weakness Code(s): R29.898 - OTH SYMPTOMS AND SIGNS INVOLVING THE MUSCULOSKELETAL SYSTEM (8) SOB (shortness of breath) Code(s): R06.02 - SHORTNESS OF BREATH Assessment/Plan SCHEDULED FOR DECOMPRESSION OF L3-L5 SATURDAY WITH DR CHANTELLE ODONNELL NEUROSURGEON I TRANSLATED IN [place] TO PATIENT THAT IT WILL BE A QUICK 45MIN DECOMPRESSION LONG THE VERTEBRAL BODIES ARE INTACT AND NO HARDWARE IS NEEDED. SPINAL BLOCK VS GENERALIZD ANESTHESIA WILL BE DETERMINED WITH ANESTHESIA. PAIN CONTROL STEROIDS IV FOR COPD NEBS/02 SUPPORT/INCENTIVE SPIROMETRY DVT PROPHYLAXIS
[2019-04-23] MEDS: NICOTINE 21 MG/24 HOURS TOPICAL PATCH TD SCH (09:12)
[2019-04-23] MEDS: HEPARIN NA (PORCINE) 5,000 UNITS/ML 1ML VIAL SQ SCH ×2 (09:12→21:15)
[2019-04-23] MEDS: BUDESONIDE/FORMETEROL FUMARATE 160/4.5 mcg INHALER IH SCH ×2 (09:14→21:15)
[2019-04-23] MEDS ORDERED: ALBUTEROL SO4 2.5/IPRATROPIUM 0.5 INH SOL 3 ML VIAL.NEB. NEB PRN (09:15)
--- NOTE | 2019-04-23 12:07 | PN ---
Progress Note (short form) - Note Progress Note: Patient is a 73-year-old Lithuanian speaking female who was admitted with acute progression of chronic back pain, left leg radicular pain and a nonproductive cough. Patient found to have severe stenosis at L34 and L45 on CT scan Lumbar spine with moderate L5S1 central disc protrusion. MRI redemonstrates these findings with fairly significant lateral recess stenosis at L34 and L45. Patient ambulating with stooped posture due to neurogenic claudication most likely. Limited history available due to language barrier. Will discuss case with Dr. Simental and interview patient with qa tester in a.m. Patient has significant pulmonary disease and medical comorbidities, however she may benefit from a minimally invasive decompression of her worst levels of stenosis. If necessary, it may be possible to do this with spinal/local anesthesia to minimize pulmonary complications. However decision-making regarding potential role for surgical decompression will follow further analysis of her case and medical condition. I met with the patient twice on April 23, 2019 and discussed her course of care with [employer] Lithuanian speaking physicians acting as translators. The patient relates a long history of low back pain and Neurogenic claudication and was recommended to have surgery in [place], however, due to her medical comorbidities , she was advised to come to the [place] for the procedure. She has had recent deterioration which prompted the presentation to the ER. She has been having difficulty with Left leg radicular pain as well as tripping from her forced flexed posture. She describes aggravation with vibration and jostling such as riding in a car over a railroad tracks, pot holes or a bumpy road. She walks substantially better while bent forward, especially while pushing a shopping cart. She does not describe particular increase in pain associated with Valsalva 's maneuver. The patient describes severe limitations of activities of daily living and a poor quality of life. I described the potential role of injections, bracing, and Physical Therapy as well as medical management in detail. After review of the patients symptoms and imaging, the patient would likely benefit from decompression and possible stabilization in the Lumbar spine. With the Lithuanian speaking interpreters, I described the risks, benefits and alternativesof L34 & L45 laminectomies and onlay fusion with possible pedicle screws in great detail. I explained that the risks included, but were not limited to: , coma, paralysis, bleeding, infection, CSF leak possibly requiring spinal drainage or additional surgery, failure to fuse, failure to improve, instrumentation migration/malposition/malfunction and the need for additional surgery. I offered the patient the option to seek another opinion or another surgeon. All questions were answered. Informed consent was obtained. I outlined the anatomy, pathology, surgical approachesand potential complications. Due to her medical comorbidities, a comprehensive preoperative evaluation by Anesthesia and clearance by Dr. Simental will be performed. Every attempt will be made to avoid the need to place instrumentation to expedite the planned procedure. Instrumentation placement will be reserved for gross instability revealed in the setting of an otherwise very smooth procedure where no significant additional time would be required and the benefits would be anticipated to outweigh the associated risks. The patient asks that we proceed with Lumbar surgery as described. - Surgery scheduled for Sunday April 28, 2019
--- NOTE | 2019-04-23 13:51 | PN ---
Progress Note (short form) - Note Progress Note: Resting in NAD. No CP or SOB. Some dry cough. Intake & Output 04/20/19 04/21/19 04/22/19 04/23/19 23:59 23:59 23:59 23:59 Intake Total 615 1340 1140 Balance 615 1340 1140 Weight 135 lb 2.173 oz Last Vital Signs Temp Pulse Resp BP Pulse Ox 98.5 F 85 20 116/60 91 L 04/23/19 13:45 04/23/19 13:45 04/23/19 13:45 04/23/19 13:45 04/23/19 12:00 Active Medications Acetaminophen (Tylenol -) 650 mg PO Q4H PRN PRN Reason: FEVER Albuterol Sulfate (Ventolin 0.083% Nebulizer Soln -) 1 amp NEB Q4H PRN PRN Reason: SHORT OF BREATH/WHEEZING Last Admin: 04/23/19 06:38 Dose: 1 amp Albuterol/Ipratropium (Duoneb -) 1 amp NEB Q6H PRN PRN Reason: SHORTNESS OF BREATH Last Admin: 04/23/19 11:12 Dose: 1 amp Budesonide/Formoterol Fumarate (Symbicort 160/4.5mcg -) 1 puff IH BID [facility] Last Admin: 04/23/19 09:14 Dose: 1 puff Gabapentin (Neurontin -) 100 mg PO TID [facility] Last Admin: 04/23/19 05:48 Dose: 100 mg Heparin Sodium (Porcine) (Heparin -) 5,000 unit SQ BID [facility] Last Admin: 04/23/19 09:12 Dose: 5,000 unit Sodium Chloride (Normal Saline -) 1,000 mls @ 75 mls/hr IV ASDIR [facility] Last Admin: 04/23/19 05:47 Dose: 75 mls/hr Lidocaine (Lidoderm Patch -) 1 patch TP DAILY [facility] Methylprednisolone Sodium Succinate (Solu-Medrol -) 40 mg IVPUSH Q8H-IV [facility] Last Admin: 04/23/19 09:12 Dose: 40 mg Miscellaneous (Lidoderm Patch Removal) 1 each [facility] DAILY@2200 [facility] Nicotine (Nicoderm Patch -) 21 mg TD DAILY [facility] Last Admin: 04/23/19 09:12 Dose: 21 mg Tramadol HCl (Ultram -) 50 mg PO Q6H PRN PRN Reason: PAIN LEVEL 6-10 Last Admin: 04/22/19 12:32 Dose: 50 mg Constitutional: Yes: NAD Eyes: Yes: Conjunctiva Clear, EOM Intact HENT: Yes: Atraumatic, Normocephalic Neck: Yes: Supple, Trachea Midline Respiratory: Yes: scattered rhonchi and expiratory wheezes ...Clubbing: No Gastrointestinal: Yes: Normal Bowel Sounds, Soft. No: Tenderness Edema: No Neurological: Yes: Alert, Oriented Labs: Laboratory Results - last 24 hr 04/22/19 04/23/19 04/23/19 17:36 05:15 05:15 ESR POC Glucometer 173 Hemoglobin A1c % 5.7 Iron TIBC Iron Saturation Unsaturated IBC Ferritin C-Reactive Protein Triglycerides 62 Cholesterol 186 Total LDL Cholesterol Cancelled HDL Cholesterol 70 H 04/23/19 04/23/19 04/23/19 05:15 05:15 05:15 ESR 4 POC Glucometer Hemoglobin A1c % Iron 52 TIBC 242 L Iron Saturation 21 Unsaturated IBC 190 L Ferritin 52.2 C-Reactive Protein < 0.3 Triglycerides Cancelled Cholesterol Cancelled Total LDL Cholesterol Cancelled HDL Cholesterol Cancelled 04/23/19 06:23 ESR POC Glucometer 140 Hemoglobin A1c % Iron TIBC Iron Saturation Unsaturated IBC Ferritin C-Reactive Protein Triglycerides Cholesterol Total LDL Cholesterol HDL Cholesterol Problem List - Problems (1) COPD exacerbation Code(s): J44.1 - CHRONIC OBSTRUCTIVE PULMONARY DISEASE W (ACUTE) EXACERBATION (2) Smoker Code(s): F17.200 - NICOTINE DEPENDENCE, UNSPECIFIED, UNCOMPLICATED Assessment/Plan Acute COPD Exacerbation Emphysema Lumbar Spinal Stenosis Smoker - Medrol - inhaled bronchodilators standing and PRN - O2 to keep SpO2 >90% - outpt PFTs once stable - smoking cessation - DVT prophylaxis - Anticipated surgical intervention next week once stable Dr Garcia
[2019-04-23] MEDS: LIDOCAINE 5% TOPICAL PATCH TP SCH (15:57)
--- NOTE | 2019-04-23 21:25 | PN ---
Progress Note (short form) - Note Progress Note: NEUROLOGY PROGRESS: Events and MRI reviewed. Dr. Max's follow up note read and appreciated. MRI of LS spine shows mild R scoliosis, probably s/p L5/S1 laminectomy, severe, diffuse degenerative disease, multi-level disc desiccation and loss of disc space height, end plate sclerosis and prominent osteophytes and facet hypertrophy most severe at L3/L4 > L4/L5, but L2/L3 also displays moderately severe stenosis. Agree that patient could benefit from L3/L4 and L4/L5 decompressive laminectomies and foraminotomies if cleared medically. Would consider preop pulmonary function testing. Thank you very much, Juan C Tobias MD
[2019-04-23] MEDS: LIDOCAINE PATCH REMOVAL MC SCH (22:35)
[2019-04-24] MEDS: methylPREDNISolone NA SUCC 40 MG/1 ML VIAL IVPUSH SCH ×3 (02:17→18:07)
[2019-04-24] MEDS: SODIUM CHLORIDE 1,000 ML IV SCH ×2 (05:32→18:09)
[2019-04-24] MEDS: GABAPENTIN 100 MG CAPSULE (FP) PO SCH ×3 (05:43→21:55)
[2019-04-24] MEDS: HEPARIN NA (PORCINE) 5,000 UNITS/ML 1ML VIAL SQ SCH ×2 (10:20→21:54)
[2019-04-24] MEDS: LIDOCAINE 5% TOPICAL PATCH TP SCH (10:21)
[2019-04-24] MEDS: NICOTINE 21 MG/24 HOURS TOPICAL PATCH TD SCH (10:23)
[2019-04-24] MEDS: BUDESONIDE/FORMETEROL FUMARATE 160/4.5 mcg INHALER IH SCH ×2 (10:25→21:54)
--- NOTE | 2019-04-24 11:40 | PN ---
Progress Note (short form) - Note Progress Note: Resting in NAD. No CP or SOB. No acute events overnight. Intake & Output 04/21/19 04/22/19 04/23/19 04/24/19 23:59 23:59 23:59 23:59 Intake Total 615 1340 3090 525 Balance 615 1340 3090 525 Weight 2.173 oz Last Vital Signs Temp Pulse Resp BP Pulse Ox 98.4 F 79 18 127/76 93 L 04/24/19 07:30 04/24/19 07:30 04/24/19 07:30 04/24/19 07:30 04/24/19 07:30 Active Medications Acetaminophen (Tylenol -) 650 mg PO Q4H PRN PRN Reason: FEVER Albuterol Sulfate (Ventolin 0.083% Nebulizer Soln -) 1 amp NEB Q4H PRN PRN Reason: SHORT OF BREATH/WHEEZING Last Admin: 04/23/19 06:38 Dose: 1 amp Albuterol/Ipratropium (Duoneb -) 1 amp NEB Q6H PRN PRN Reason: SHORTNESS OF BREATH Last Admin: 04/23/19 11:12 Dose: 1 amp Budesonide/Formoterol Fumarate (Symbicort 160/4.5mcg -) 1 puff IH BID [facility] Last Admin: 04/24/19 10:25 Dose: 1 puff Gabapentin (Neurontin -) 100 mg PO TID [facility] Last Admin: 04/24/19 05:43 Dose: 100 mg Heparin Sodium (Porcine) (Heparin -) 5,000 unit SQ BID [facility] Last Admin: 04/24/19 10:20 Dose: 5,000 unit Sodium Chloride (Normal Saline -) 1,000 mls @ 75 mls/hr IV ASDIR [facility] Last Admin: 04/24/19 05:32 Dose: Not Given Lidocaine (Lidoderm Patch -) 1 patch TP DAILY [facility] Last Admin: 04/24/19 10:21 Dose: 1 patch Methylprednisolone Sodium Succinate (Solu-Medrol -) 40 mg IVPUSH Q8H-IV [facility] Last Admin: 04/24/19 10:24 Dose: 40 mg Miscellaneous (Lidoderm Patch Removal) 1 each [facility] DAILY@2200 [facility] Last Admin: 04/23/19 22:35 Dose: 1 each Nicotine (Nicoderm Patch -) 21 mg TD DAILY [facility] Last Admin: 04/24/19 10:23 Dose: 21 mg Tramadol HCl (Ultram -) 50 mg PO Q6H PRN PRN Reason: PAIN LEVEL 6-10 Last Admin: 04/22/19 12:32 Dose: 50 mg Constitutional: Yes: NAD Eyes: Yes: Conjunctiva Clear, EOM Intact HENT: Yes: Atraumatic, Normocephalic Neck: Yes: Supple, Trachea Midline Respiratory: Yes: scattered rhonchi, few scattered expiratory wheezes ..Clubbing: No Gastrointestinal: Yes: Normal Bowel Sounds, Soft. No: Tenderness Edema: No Neurological: Yes: Alert, Oriented Labs: Laboratory Results - last 24 hr 04/24/19 04/24/19 00:05 06:45 POC Glucometer 135 113 Problem List - Problems (1) COPD exacerbation Code(s): J44.1 - CHRONIC OBSTRUCTIVE PULMONARY DISEASE W (ACUTE) EXACERBATION (2) Smoker Code(s): F17.200 - NICOTINE DEPENDENCE, UNSPECIFIED, UNCOMPLICATED Assessment/Plan Acute COPD Exacerbation Emphysema Lumbar Spinal Stenosis Smoker - Medrol - inhaled bronchodilators standing and PRN - O2 to keep SpO2 >90% - outpt PFTs once stable - smoking cessation - DVT prophylaxis - Anticipated surgical intervention next week once stable Dr Garcia
--- NOTE | 2019-04-24 11:51 | PN ---
Progress Note, Physician Chief Complaint: AWAKE ALERT C/O COUGH, ABD BURNING NO FEVER - Current Medication List Current Medications: Active Medications Acetaminophen (Tylenol -) 650 mg PO Q4H PRN PRN Reason: FEVER Albuterol Sulfate (Ventolin 0.083% Nebulizer Soln -) 1 amp NEB Q4H PRN PRN Reason: SHORT OF BREATH/WHEEZING Last Admin: 04/23/19 06:38 Dose: 1 amp Albuterol/Ipratropium (Duoneb -) 1 amp NEB Q6H PRN PRN Reason: SHORTNESS OF BREATH Last Admin: 04/23/19 11:12 Dose: 1 amp Budesonide/Formoterol Fumarate (Symbicort 160/4.5mcg -) 1 puff IH BID [facility] [place] Last Admin: 04/24/19 10:25 Dose: 1 puff Gabapentin (Neurontin -) 100 mg PO TID [facility] [place] Last Admin: 04/24/19 05:43 Dose: 100 mg Heparin Sodium (Porcine) (Heparin -) 5,000 unit SQ BID [facility] [place] Last Admin: 04/24/19 10:20 Dose: 5,000 unit Sodium Chloride (Normal Saline -) 1,000 mls @ 75 mls/hr IV ASDIR [facility] [place] Last Admin: 04/24/19 05:32 Dose: Not Given Lidocaine (Lidoderm Patch -) 1 patch TP DAILY [facility] [place] Last Admin: 04/24/19 10:21 Dose: 1 patch Methylprednisolone Sodium Succinate (Solu-Medrol -) 40 mg IVPUSH Q8H-IV [facility] [place] Last Admin: 04/24/19 10:24 Dose: 40 mg Miscellaneous (Lidoderm Patch Removal) 1 each MC DAILY@2200 [facility] [place] Last Admin: 04/23/19 22:35 Dose: 1 each Nicotine (Nicoderm Patch -) 21 mg TD DAILY [facility] [place] Last Admin: 04/24/19 10:23 Dose: 21 mg Tramadol HCl (Ultram -) 50 mg PO Q6H PRN PRN Reason: PAIN LEVEL 6-10 Last Admin: 04/22/19 12:32 Dose: 50 mg - Objective Vital Signs: Vital Signs Temperature 98.4 F 04/24/19 07:30 Pulse Rate 79 04/24/19 07:30 Respiratory Rate 18 04/24/19 07:30 Blood Pressure 127/76 04/24/19 07:30 O2 Sat by Pulse Oximetry (%) 93 L 04/24/19 07:30 Constitutional: Yes: Mild Distress Eyes: Yes: WNL HENT: Yes: WNL Neck: Yes: WNL Cardiovascular: Yes: Regular Rate and Rhythm Respiratory: Yes: Diminished, On Nasal O2 Gastrointestinal: Yes: Soft, Tenderness Genitourinary: Yes: WNL Musculoskeletal: Yes: Back Pain, Muscle Pain, Muscle Weakness Extremities: Yes: Cold Edema: No Integumentary: Yes: WNL Wound/Incision: Yes: Clean/Dry Neurological: Yes: Paresthesia, Pre-Existing Deficit, Tingling ...Motor Strength: LLE Psychiatric: Yes: WNL Labs: CBC, BMP 04/21/19 09:15 04/21/19 09:15 Problem List - Problems (1) COPD (chronic obstructive pulmonary disease) Code(s): J44.9 - CHRONIC OBSTRUCTIVE PULMONARY DISEASE, UNSPECIFIED (2) Tobacco dependence Code(s): F17.200 - NICOTINE DEPENDENCE, UNSPECIFIED, UNCOMPLICATED (3) Smoker Code(s): F17.200 - NICOTINE DEPENDENCE, UNSPECIFIED, UNCOMPLICATED (4) Chest pain Code(s): R07.9 - CHEST PAIN, UNSPECIFIED Qualifiers: Chest pain type: unspecified Qualified Code(s): R07.9 - Chest pain, unspecified (5) Degenerative lumbar spinal stenosis Code(s): M48.061 - SPINAL STENOSIS, LUMBAR REGION WITHOUT NEUROGENIC CARISA (6) Fall Code(s): W19.XXXA - UNSPECIFIED FALL, INITIAL ENCOUNTER Qualifiers: Encounter type: initial encounter Qualified Code(s): W19.XXXA - Unspecified fall, initial encounter (7) Lower extremity weakness Code(s): R29.898 - OTH SYMPTOMS AND SIGNS INVOLVING THE MUSCULOSKELETAL SYSTEM (8) SOB (shortness of breath) Code(s): R06.02 - SHORTNESS OF BREATH (9) PAD (peripheral artery disease) Code(s): I73.9 - PERIPHERAL VASCULAR DISEASE, UNSPECIFIED (10) GERD (gastroesophageal reflux disease) Code(s): K21.9 - GASTRO-ESOPHAGEAL REFLUX DISEASE WITHOUT ESOPHAGITIS Assessment/Plan START PPI, PEPCID X 1 STAT VASC SX EVAL LEFT LEG PAD SCHEDULED FOR SURGERY SATURDAY LUMBAR DECOMPRESSION STEROIDS IV FOR COPD NEBS OPTIMIZE PULM FUNCTION PRIOR TO SURGERY STRESS TEST NO ISCHEMIA/NEGATIVE OVERALL STUDY
[2019-04-24] MEDS ORDERED: FAMOTIDINE 20 MG/50 ML IVPB 20 MG/50 ML MG IVPB SCH (12:00)
[2019-04-24] MEDS ORDERED: PNEUMOC 13-VAL CONJ-DIP CRM/PF 0.5 ML DISP.SYRIN IM ONE (18:00)
[2019-04-24] MEDS: FAMOTIDINE 20 MG/50 ML IVPB 20 MG/50 ML MG IVPB SCH (18:05)
[2019-04-24] MEDS: LIDOCAINE PATCH REMOVAL MC SCH (21:55)
[2019-04-25] MEDS: methylPREDNISolone NA SUCC 40 MG/1 ML VIAL IVPUSH SCH ×3 (02:50→17:33)
[2019-04-25] MEDS: FAMOTIDINE 20 MG/50 ML IVPB 20 MG/50 ML MG IVPB SCH ×2 (05:44→17:33)
[2019-04-25] MEDS: GABAPENTIN 100 MG CAPSULE (FP) PO SCH ×3 (05:44→21:21)
[2019-04-25] MEDS: SODIUM CHLORIDE 1,000 ML IV SCH ×2 (05:45→22:00)
[2019-04-25 07:46] LABS: HEMATOCRIT 42.5 % (32.4-45.2); MCH 31.1 pg (25.7-33.7); MEAN CELL VOLUME 94.3 fl (80-96); MEAN PLT VOLUME 9.9 fl (7.5-11.1); PLATELET COUNT 200 K/MM3 (134-434); RDW 14.3 % (11.6-15.6); WHITE BLOOD COUNT 13.4 K/mm3 (4.0-10.0)
[2019-04-25 08:16] LABS: ALBUMIN 3.3 g/dl (3.4-5.0); BILIRUBIN,TOTAL 0.4 mg/dL (0.2-1); BLOOD UREA NITROGEN 14.8 mg/dL (7-18); CALCIUM 9.1 mg/dL (8.5-10.1); CREATININE 0.7 mg/dL (0.55-1.3); MAGNESIUM 2.1 mg/dL (1.8-2.4); POTASSIUM 4.1 mmol/L (3.5-5.1); TOT PROT 5.8 g/dl (6.4-8.2)
[2019-04-25] MEDS: HEPARIN NA (PORCINE) 5,000 UNITS/ML 1ML VIAL SQ SCH ×2 (09:39→21:21)
[2019-04-25] MEDS: LIDOCAINE 5% TOPICAL PATCH TP SCH (09:39)
[2019-04-25] MEDS: NICOTINE 21 MG/24 HOURS TOPICAL PATCH TD SCH (09:39)
[2019-04-25] MEDS: PANTOPRAZOLE 40 MG TABLET (FP) PO SCH (09:40)
[2019-04-25] MEDS: BUDESONIDE/FORMETEROL FUMARATE 160/4.5 mcg INHALER IH SCH ×2 (09:40→21:23)
--- NOTE | 2019-04-25 10:02 | PN ---
Progress Note, Physician Chief Complaint: AWAKE ALERT NO NEW EVENTS - Current Medication List Current Medications: Active Medications Acetaminophen (Tylenol -) 650 mg PO Q4H PRN PRN Reason: FEVER Albuterol Sulfate (Ventolin 0.083% Nebulizer Soln -) 1 amp NEB Q4H PRN PRN Reason: SHORT OF BREATH/WHEEZING Last Admin: 04/23/19 06:38 Dose: 1 amp Albuterol/Ipratropium (Duoneb -) 1 amp NEB Q6H PRN PRN Reason: SHORTNESS OF BREATH Last Admin: 04/23/19 11:12 Dose: 1 amp Budesonide/Formoterol Fumarate (Symbicort 160/4.5mcg -) 1 puff IH BID [facility] Last Admin: 04/25/19 09:40 Dose: 1 puff Gabapentin (Neurontin -) 100 mg PO TID [facility] Last Admin: 04/25/19 05:44 Dose: 100 mg Heparin Sodium (Porcine) (Heparin -) 5,000 unit SQ BID [facility] Last Admin: 04/25/19 09:39 Dose: 5,000 unit Sodium Chloride (Normal Saline -) 1,000 mls @ 75 mls/hr IV ASDIR [facility] Last Admin: 04/25/19 05:45 Dose: 75 mls/hr Famotidine/Sodium Chloride (Pepcid 20 Mg Premixed Ivpb -) 20 mg in 50 mls @ 100 mls/hr IVPB BID@0600,1800 [facility] Stop: 04/25/19 18:29 Last Admin: 04/25/19 05:44 Dose: 100 mls/hr Lidocaine (Lidoderm Patch -) 1 patch TP DAILY [facility] Last Admin: 04/25/19 09:39 Dose: 1 patch Methylprednisolone Sodium Succinate (Solu-Medrol -) 40 mg IVPUSH Q8H-IV [facility] Last Admin: 04/25/19 09:40 Dose: 40 mg Miscellaneous (Lidoderm Patch Removal) 1 each MC DAILY@2200 [facility] Last Admin: 04/24/19 21:55 Dose: Not Given Nicotine (Nicoderm Patch -) 21 mg TD DAILY [facility] Last Admin: 04/25/19 09:39 Dose: 21 mg Pantoprazole Sodium (Protonix -) 40 mg PO DAILY [facility] Last Admin: 04/25/19 09:40 Dose: 40 mg Tramadol HCl (Ultram -) 50 mg PO Q6H PRN PRN Reason: PAIN LEVEL 6-10 Last Admin: 04/22/19 12:32 Dose: 50 mg - Objective Vital Signs: Vital Signs Temperature 98.2 F 04/25/19 08:00 Pulse Rate 50 L 04/25/19 08:00 Respiratory Rate 16 04/25/19 08:00 Blood Pressure 139/79 04/25/19 08:00 O2 Sat by Pulse Oximetry (%) 95 04/24/19 21:00 Constitutional: Yes: Mild Distress Eyes: Yes: WNL HENT: Yes: WNL Neck: Yes: WNL Cardiovascular: Yes: WNL Respiratory: Yes: Diminished Gastrointestinal: Yes: Soft Labs: CBC, BMP 04/25/19 06:53 04/25/19 06:53 Problem List - Problems (1) COPD (chronic obstructive pulmonary disease) Code(s): J44.9 - CHRONIC OBSTRUCTIVE PULMONARY DISEASE, UNSPECIFIED (2) Tobacco dependence Code(s): F17.200 - NICOTINE DEPENDENCE, UNSPECIFIED, UNCOMPLICATED (3) Smoker Code(s): F17.200 - NICOTINE DEPENDENCE, UNSPECIFIED, UNCOMPLICATED (4) Chest pain Code(s): R07.9 - CHEST PAIN, UNSPECIFIED Qualifiers: Chest pain type: unspecified Qualified Code(s): R07.9 - Chest pain, unspecified (5) Degenerative lumbar spinal stenosis Code(s): M48.061 - SPINAL STENOSIS, LUMBAR REGION WITHOUT NEUROGENIC CARISA (6) Fall Code(s): W19.XXXA - UNSPECIFIED FALL, INITIAL ENCOUNTER Qualifiers: Encounter type: initial encounter Qualified Code(s): W19.XXXA - Unspecified fall, initial encounter (7) Lower extremity weakness Code(s): R29.898 - OTH SYMPTOMS AND SIGNS INVOLVING THE MUSCULOSKELETAL SYSTEM (8) SOB (shortness of breath) Code(s): R06.02 - SHORTNESS OF BREATH (9) PAD (peripheral artery disease) Code(s): I73.9 - PERIPHERAL VASCULAR DISEASE, UNSPECIFIED (10) GERD (gastroesophageal reflux disease) Code(s): K21.9 - GASTRO-ESOPHAGEAL REFLUX DISEASE WITHOUT ESOPHAGITIS Assessment/Plan VASC SX EVAL LEFT LEG PAD SCHEDULED FOR SURGERY SATURDAY LUMBAR DECOMPRESSION CAROTID DOPPLER R/O STENOSIS STEROIDS IV FOR COPD NEBS OPTIMIZE PULM FUNCTION PRIOR TO SURGERY STRESS TEST NO ISCHEMIA/NEGATIVE OVERALL STUDY
--- NOTE | 2019-04-25 11:14 | PN ---
Progress Note (short form) - Note Progress Note: Resting in NAD. No CP or SOB. No acute events overnight. Intake & Output 04/22/19 04/23/19 04/24/19 04/25/19 23:59 23:59 23:59 23:59 Intake Total 1340 3090 1570 1025 Balance 1340 3090 1570 1025 Weight 135 lb 12.876 oz 135 lb 13 oz Last Vital Signs Temp Pulse Resp BP Pulse Ox 98.2 F 50 L 16 139/79 96 04/25/19 08:00 04/25/19 08:00 04/25/19 09:00 04/25/19 08:00 04/25/19 09:00 Active Medications Acetaminophen (Tylenol -) 650 mg PO Q4H PRN PRN Reason: FEVER Albuterol Sulfate (Ventolin 0.083% Nebulizer Soln -) 1 amp NEB Q4H PRN PRN Reason: SHORT OF BREATH/WHEEZING Last Admin: 04/23/19 06:38 Dose: 1 amp Albuterol/Ipratropium (Duoneb -) 1 amp NEB Q6H PRN PRN Reason: SHORTNESS OF BREATH Last Admin: 04/23/19 11:12 Dose: 1 amp Budesonide/Formoterol Fumarate (Symbicort 160/4.5mcg -) 1 puff IH BID [facility] Last Admin: 04/25/19 09:40 Dose: 1 puff Gabapentin (Neurontin -) 100 mg PO TID [facility] Last Admin: 04/25/19 05:44 Dose: 100 mg Heparin Sodium (Porcine) (Heparin -) 5,000 unit SQ BID [facility] Last Admin: 04/25/19 09:39 Dose: 5,000 unit Sodium Chloride (Normal Saline -) 1,000 mls @ 75 mls/hr IV ASDIR [facility] Last Admin: 04/25/19 05:45 Dose: 75 mls/hr Famotidine/Sodium Chloride (Pepcid 20 Mg Premixed Ivpb -) 20 mg in 50 mls @ 100 mls/hr IVPB BID@0600,1800 [facility] Stop: 04/25/19 18:29 Last Admin: 04/25/19 05:44 Dose: 100 mls/hr Lidocaine (Lidoderm Patch -) 1 patch TP DAILY [facility] Last Admin: 04/25/19 09:39 Dose: 1 patch Methylprednisolone Sodium Succinate (Solu-Medrol -) 40 mg IVPUSH Q8H-IV [facility] Last Admin: 04/25/19 09:40 Dose: 40 mg Miscellaneous (Lidoderm Patch Removal) 1 each MC DAILY@2200 [facility] Last Admin: 04/24/19 21:55 Dose: Not Given Nicotine (Nicoderm Patch -) 21 mg TD DAILY [facility] Last Admin: 04/25/19 09:39 Dose: 21 mg Pantoprazole Sodium (Protonix -) 40 mg PO DAILY [facility] Last Admin: 04/25/19 09:40 Dose: 40 mg Tramadol HCl (Ultram -) 50 mg PO Q6H PRN PRN Reason: PAIN LEVEL 6-10 Last Admin: 04/22/19 12:32 Dose: 50 mg Constitutional: Yes: NAD Eyes: Yes: Conjunctiva Clear, EOM Intact HENT: Yes: Atraumatic, Normocephalic Neck: Yes: Supple, Trachea Midline Respiratory: Yes: scattered rhonchi, few scattered expiratory wheezes ..Clubbing: No Gastrointestinal: Yes: Normal Bowel Sounds, Soft. No: Tenderness Edema: No Neurological: Yes: Alert, Oriented Labs: Laboratory Results - last 24 hr 04/24/19 04/24/19 04/25/19 12:41 18:20 01:08 WBC RBC Hgb Hct MCV MCH MCHC RDW Plt Count MPV Sodium Potassium Chloride Carbon Dioxide Anion Gap BUN Creatinine Est GFR (CKD-EPI)AfAm Est GFR (CKD-EPI)NonAf POC Glucometer 194 140 171 Random Glucose Calcium Phosphorus Magnesium Total Bilirubin AST ALT Alkaline Phosphatase Total Protein Albumin 04/25/19 04/25/19 04/25/19 05:56 06:53 06:53 WBC 13.4 H RBC 4.50 Hgb 14.0 Hct 42.5 MCV 94.3 MCH 31.1 MCHC 33.0 RDW 14.3 Plt Count 200 MPV 9.9 Sodium 140 Potassium 4.1 Chloride 106 Carbon Dioxide 27 Anion Gap 7 L BUN 14.8 Creatinine 0.7 Est GFR (CKD-EPI)AfAm 100.32 Est GFR (CKD-EPI)NonAf 86.56 POC Glucometer 97 Random Glucose 121 H Calcium 9.1 Phosphorus 3.0 Magnesium 2.1 Total Bilirubin 0.4 AST 17 ALT 36 Alkaline Phosphatase 86 Total Protein 5.8 L Albumin 3.3 L 04/25/19 10:24 WBC RBC Hgb Hct MCV MCH MCHC RDW Plt Count MPV Sodium Potassium Chloride Carbon Dioxide Anion Gap BUN Creatinine Est GFR (CKD-EPI)AfAm Est GFR (CKD-EPI)NonAf POC Glucometer 161 Random Glucose Calcium Phosphorus Magnesium Total Bilirubin AST ALT Alkaline Phosphatase Total Protein Albumin Problem List - Problems (1) COPD exacerbation Code(s): J44.1 - CHRONIC OBSTRUCTIVE PULMONARY DISEASE W (ACUTE) EXACERBATION (2) Smoker Code(s): F17.200 - NICOTINE DEPENDENCE, UNSPECIFIED, UNCOMPLICATED Assessment/Plan Acute COPD Exacerbation Emphysema Lumbar Spinal Stenosis Smoker - Medrol - inhaled bronchodilators standing and PRN - O2 to keep SpO2 >90% - outpt PFTs once stable - smoking cessation - DVT prophylaxis - Anticipated surgical intervention next week once stable Dr Garcia
[2019-04-25] MEDS: traMADol HCL 50 MG TABLET PO PRN (21:25)
[2019-04-25] MEDS: LIDOCAINE PATCH REMOVAL MC SCH (21:28)
[2019-04-26] MEDS: methylPREDNISolone NA SUCC 40 MG/1 ML VIAL IVPUSH SCH ×3 (01:20→18:06)
[2019-04-26] MEDS: SODIUM CHLORIDE 1,000 ML IV SCH (05:50)
[2019-04-26] MEDS: GABAPENTIN 100 MG CAPSULE (FP) PO SCH ×3 (05:51→22:00)
--- NOTE | 2019-04-26 09:30 | PN ---
Progress Note (short form) - Note Progress Note: Resting in NAD. No CP or SOB. No acute events overnight. Intake & Output 04/23/19 04/24/19 04/25/19 04/26/19 23:59 23:59 23:59 23:59 Intake Total 3090 1570 2800 450 Balance 3090 1570 2800 450 Weight 135 lb 12.876 oz 135 lb 13 oz 149 lb 7.574 oz Last Vital Signs Temp Pulse Resp BP Pulse Ox 98 F 52 L 18 122/68 97 04/25/19 16:00 04/26/19 04:08 04/26/19 04:08 04/26/19 04:08 04/26/19 01:17 Active Medications Acetaminophen (Tylenol -) 650 mg PO Q4H PRN PRN Reason: FEVER Albuterol Sulfate (Ventolin 0.083% Nebulizer Soln -) 1 amp NEB Q4H PRN PRN Reason: SHORT OF BREATH/WHEEZING Last Admin: 04/23/19 06:38 Dose: 1 amp Albuterol/Ipratropium (Duoneb -) 1 amp NEB Q6H PRN PRN Reason: SHORTNESS OF BREATH Last Admin: 04/23/19 11:12 Dose: 1 amp Budesonide/Formoterol Fumarate (Symbicort 160/4.5mcg -) 1 puff IH BID [facility] Last Admin: 04/25/19 21:23 Dose: 1 puff Gabapentin (Neurontin -) 100 mg PO TID [facility] Last Admin: 04/26/19 05:51 Dose: 100 mg Heparin Sodium (Porcine) (Heparin -) 5,000 unit SQ BID [facility] Last Admin: 04/25/19 21:21 Dose: 5,000 unit Sodium Chloride (Normal Saline -) 1,000 mls @ 75 mls/hr IV ASDIR [facility] Last Admin: 04/26/19 05:50 Dose: Not Given Lidocaine (Lidoderm Patch -) 1 patch TP DAILY [facility] Last Admin: 04/25/19 09:39 Dose: 1 patch Methylprednisolone Sodium Succinate (Solu-Medrol -) 40 mg IVPUSH Q8H-IV [facility] Last Admin: 04/26/19 01:20 Dose: 40 mg Miscellaneous (Lidoderm Patch Removal) 1 each MC DAILY@2200 [facility] Last Admin: 04/25/19 21:28 Dose: 1 each Nicotine (Nicoderm Patch -) 21 mg TD DAILY [facility] Last Admin: 04/25/19 09:39 Dose: 21 mg Pantoprazole Sodium (Protonix -) 40 mg PO DAILY [facility] Last Admin: 04/25/19 09:40 Dose: 40 mg Tramadol HCl (Ultram -) 50 mg PO Q6H PRN PRN Reason: PAIN LEVEL 6-10 Last Admin: 04/25/19 21:25 Dose: 50 mg Constitutional: Yes: NAD Eyes: Yes: Conjunctiva Clear, EOM Intact HENT: Yes: Atraumatic, Normocephalic Neck: Yes: Supple, Trachea Midline Respiratory: Yes: scattered rhonchi, no expiratory wheezes ..Clubbing: No Gastrointestinal: Yes: Normal Bowel Sounds, Soft. No: Tenderness Edema: No Neurological: Yes: Alert, Oriented Labs: Laboratory Results - last 24 hr 04/25/19 04/25/19 04/26/19 10:24 16:43 01:08 POC Glucometer 161 123 123 04/26/19 05:48 POC Glucometer 131 Problem List - Problems (1) COPD exacerbation Code(s): J44.1 - CHRONIC OBSTRUCTIVE PULMONARY DISEASE W (ACUTE) EXACERBATION (2) Smoker Code(s): F17.200 - NICOTINE DEPENDENCE, UNSPECIFIED, UNCOMPLICATED Assessment/Plan Acute COPD Exacerbation Emphysema Lumbar Spinal Stenosis Smoker - Medrol - inhaled bronchodilators standing and PRN - O2 to keep SpO2 >90% - outpt PFTs once stable - smoking cessation - DVT prophylaxis - Will D?W team optimal timing of anticipated surgical intervention as her respiratory status is improving Dr Garcia
[2019-04-26] MEDS: NICOTINE 21 MG/24 HOURS TOPICAL PATCH TD SCH (11:37)
[2019-04-26] MEDS: PANTOPRAZOLE 40 MG TABLET (FP) PO SCH (11:37)
[2019-04-26] MEDS: HEPARIN NA (PORCINE) 5,000 UNITS/ML 1ML VIAL SQ SCH ×2 (11:37→22:00)
[2019-04-26] MEDS: LIDOCAINE 5% TOPICAL PATCH TP SCH (11:38)
[2019-04-26] MEDS: BUDESONIDE/FORMETEROL FUMARATE 160/4.5 mcg INHALER IH SCH ×2 (11:38→22:00)
--- NOTE | 2019-04-26 17:41 | PN ---
Progress Note, Physician Chief Complaint: SOB Fall Lower back pain Left hip pain History of Present Illness: NAD resting comfortably Seen by Pulmonary - Current Medication List Current Medications: Active Medications Acetaminophen (Tylenol -) 650 mg PO Q4H PRN PRN Reason: FEVER Albuterol Sulfate (Ventolin 0.083% Nebulizer Soln -) 1 amp NEB Q4H PRN PRN Reason: SHORT OF BREATH/WHEEZING Last Admin: 04/23/19 06:38 Dose: 1 amp Albuterol/Ipratropium (Duoneb -) 1 amp NEB Q6H PRN PRN Reason: SHORTNESS OF BREATH Last Admin: 04/23/19 11:12 Dose: 1 amp Budesonide/Formoterol Fumarate (Symbicort 160/4.5mcg -) 1 puff IH BID [facility] Last Admin: 04/26/19 11:38 Dose: 1 puff Gabapentin (Neurontin -) 100 mg PO TID [facility] Last Admin: 04/26/19 14:59 Dose: 100 mg Heparin Sodium (Porcine) (Heparin -) 5,000 unit SQ BID [facility] Last Admin: 04/26/19 11:37 Dose: 5,000 unit Sodium Chloride (Normal Saline -) 1,000 mls @ 75 mls/hr IV ASDIR [facility] Last Admin: 04/26/19 05:50 Dose: Not Given Lidocaine (Lidoderm Patch -) 1 patch TP DAILY [facility] Last Admin: 04/26/19 11:38 Dose: 1 patch Methylprednisolone Sodium Succinate (Solu-Medrol -) 40 mg IVPUSH Q8H-IV [facility] Last Admin: 04/26/19 11:37 Dose: 40 mg Miscellaneous (Lidoderm Patch Removal) 1 each MC DAILY@2200 [facility] Last Admin: 04/25/19 21:28 Dose: 1 each Nicotine (Nicoderm Patch -) 21 mg TD DAILY [facility] Last Admin: 04/26/19 11:37 Dose: 21 mg Pantoprazole Sodium (Protonix -) 40 mg PO DAILY [facility] Last Admin: 04/26/19 11:37 Dose: 40 mg Tramadol HCl (Ultram -) 50 mg PO Q6H PRN PRN Reason: PAIN LEVEL 6-10 Last Admin: 04/25/19 21:25 Dose: 50 mg - Objective Vital Signs: Vital Signs Temperature 98 F 04/25/19 16:00 Pulse Rate 60 04/26/19 08:00 Respiratory Rate 17 04/26/19 09:00 Blood Pressure 116/72 04/26/19 08:00 O2 Sat by Pulse Oximetry (%) 97 04/26/19 09:00 Constitutional: Yes: Well Nourished, No Distress, Calm Cardiovascular: Yes: Regular Rate and Rhythm Respiratory: Yes: Regular Gastrointestinal: Yes: Normal Bowel Sounds, Soft Genitourinary: Yes: WNL Musculoskeletal: Yes: WNL Extremities: Yes: WNL Edema: No Peripheral Pulses WNL: Yes Neurological: Yes: Alert, Oriented Psychiatric: Yes: Alert, Oriented Labs: CBC, BMP 04/25/19 06:53 04/25/19 06:53 Problem List - Problems (1) SOB (shortness of breath) Assessment/Plan: -CXR negative -CTA-mild copd -pulmonary consult -Continue Symbicort -Add MILLIE prn -Medrol IVP Q8h Code(s): R06.02 - SHORTNESS OF BREATH (2) Lower extremity weakness Assessment/Plan: -CT lumbar- shows multiple central canal stenosis -Neurosurgery consult Code(s): R29.898 - OTH SYMPTOMS AND SIGNS INVOLVING THE MUSCULOSKELETAL SYSTEM (3) Degenerative lumbar spinal stenosis Assessment/Plan: -CT lumbar- shows multiple central canal stenosis -Neurosurgery consult -Needs Pulmonary clearance for Lumbar surgery on 04/28/19 Code(s): M48.061 - SPINAL STENOSIS, LUMBAR REGION WITHOUT NEUROGENIC CARISA (4) Fall Assessment/Plan: -Neurosurgery consult -CT lumbar- shows multiple central canal stenosis -Check B12 -Echo-65%, trace MV regurgitation -ECG negative -Trops negative -Seen by cardiology -orthostatic negative -Left hip xray-left hip arthritis, old avulsion at left acetabular root -Nuclear stress test normal Code(s): W19.XXXA - UNSPECIFIED FALL, INITIAL ENCOUNTER Qualifiers: Encounter type: initial encounter Qualified Code(s): W19.XXXA - Unspecified fall, initial encounter Assessment/Plan See problem list
[2019-04-26] MEDS ORDERED: PT OWN MED DRAWER 7, Y5N ONE (20:55)
[2019-04-26] MEDS: LIDOCAINE PATCH REMOVAL MC SCH (22:00)
[2019-04-27] MEDS: methylPREDNISolone NA SUCC 40 MG/1 ML VIAL IVPUSH SCH ×3 (04:00→21:27)
[2019-04-27] MEDS: SODIUM CHLORIDE 1,000 ML IV SCH (06:07)
[2019-04-27] MEDS: GABAPENTIN 100 MG CAPSULE (FP) PO SCH ×3 (06:08→21:27)
--- NOTE | 2019-04-27 08:33 | PN ---
Progress Note, Physician Chief Complaint: AWAKE ALERT FEELING BETTER SOB RESOLVED - Current Medication List Current Medications: Active Medications Acetaminophen (Tylenol -) 650 mg PO Q4H PRN PRN Reason: FEVER Albuterol Sulfate (Ventolin 0.083% Nebulizer Soln -) 1 amp NEB Q4H PRN PRN Reason: SHORT OF BREATH/WHEEZING Last Admin: 04/23/19 06:38 Dose: 1 amp Albuterol/Ipratropium (Duoneb -) 1 amp NEB Q6H PRN PRN Reason: SHORTNESS OF BREATH Last Admin: 04/23/19 11:12 Dose: 1 amp Budesonide/Formoterol Fumarate (Symbicort 160/4.5mcg -) 1 puff IH BID [facility] Last Admin: 04/26/19 22:00 Dose: 1 puff Gabapentin (Neurontin -) 100 mg PO TID [facility] Last Admin: 04/27/19 06:08 Dose: 100 mg Heparin Sodium (Porcine) (Heparin -) 5,000 unit SQ BID [facility] Last Admin: 04/26/19 22:00 Dose: 5,000 unit Sodium Chloride (Normal Saline -) 1,000 mls @ 75 mls/hr IV ASDIR [facility] Last Admin: 04/27/19 06:07 Dose: 75 mls/hr Lidocaine (Lidoderm Patch -) 1 patch TP DAILY [facility] Last Admin: 04/26/19 11:38 Dose: 1 patch Methylprednisolone Sodium Succinate (Solu-Medrol -) 40 mg IVPUSH Q8H-IV [facility] Last Admin: 04/27/19 04:00 Dose: 40 mg Miscellaneous (Lidoderm Patch Removal) 1 each MC DAILY@2200 [facility] Last Admin: 04/26/19 22:00 Dose: 1 each Nicotine (Nicoderm Patch -) 21 mg TD DAILY [facility] Last Admin: 04/26/19 11:37 Dose: 21 mg Pantoprazole Sodium (Protonix -) 40 mg PO DAILY [facility] Last Admin: 04/26/19 11:37 Dose: 40 mg Tramadol HCl (Ultram -) 50 mg PO Q6H PRN PRN Reason: PAIN LEVEL 6-10 Last Admin: 04/25/19 21:25 Dose: 50 mg - Objective Vital Signs: Vital Signs Temperature 98 F 04/25/19 16:00 Pulse Rate 57 L 04/27/19 06:00 Respiratory Rate 16 04/27/19 06:00 Blood Pressure 147/77 04/27/19 06:00 O2 Sat by Pulse Oximetry (%) 98 04/26/19 21:00 Constitutional: Yes: Mild Distress Cardiovascular: Yes: Regular Rate and Rhythm Respiratory: Yes: WNL Gastrointestinal: Yes: WNL Genitourinary: Yes: WNL Musculoskeletal: Yes: Back Pain, Muscle Weakness Extremities: Yes: Other Neurological: Yes: Loss of Sensation, Numbness, Pre-Existing Deficit, Tingling, Weakness ...Motor Strength: LLE Psychiatric: Yes: WNL Labs: CBC, BMP 04/25/19 06:53 04/25/19 06:53 Problem List - Problems (1) COPD (chronic obstructive pulmonary disease) Code(s): J44.9 - CHRONIC OBSTRUCTIVE PULMONARY DISEASE, UNSPECIFIED (2) Tobacco dependence Code(s): F17.200 - NICOTINE DEPENDENCE, UNSPECIFIED, UNCOMPLICATED (3) Smoker Code(s): F17.200 - NICOTINE DEPENDENCE, UNSPECIFIED, UNCOMPLICATED (4) Chest pain Code(s): R07.9 - CHEST PAIN, UNSPECIFIED Qualifiers: Chest pain type: unspecified Qualified Code(s): R07.9 - Chest pain, unspecified (5) Degenerative lumbar spinal stenosis Code(s): M48.061 - SPINAL STENOSIS, LUMBAR REGION WITHOUT NEUROGENIC CRAISA (6) Fall Code(s): W19.XXXA - UNSPECIFIED FALL, INITIAL ENCOUNTER Qualifiers: Encounter type: initial encounter Qualified Code(s): W19.XXXA - Unspecified fall, initial encounter (7) Lower extremity weakness Code(s): R29.898 - OTH SYMPTOMS AND SIGNS INVOLVING THE MUSCULOSKELETAL SYSTEM (8) SOB (shortness of breath) Code(s): R06.02 - SHORTNESS OF BREATH (9) PAD (peripheral artery disease) Code(s): I73.9 - PERIPHERAL VASCULAR DISEASE, UNSPECIFIED (10) GERD (gastroesophageal reflux disease) Code(s): K21.9 - GASTRO-ESOPHAGEAL REFLUX DISEASE WITHOUT ESOPHAGITIS Assessment/Plan MEDICALLY CLEARED FOR SURGERY TOMORROW FOR LUMBAR DECOMPRESION S VASC SX EVAL LEFT LEG ARTERIAL FLOW REDUCED ON ARTERIAL DOPPLER STEROIDS TAPER PER PULMONARY PPI DVT PROPHYLAXIS PT EVAL
[2019-04-27] MEDS: NICOTINE 21 MG/24 HOURS TOPICAL PATCH TD SCH (09:24)
[2019-04-27] MEDS: LIDOCAINE 5% TOPICAL PATCH TP SCH (09:24)
[2019-04-27] MEDS: HEPARIN NA (PORCINE) 5,000 UNITS/ML 1ML VIAL SQ SCH ×2 (09:24→21:27)
[2019-04-27] MEDS: PANTOPRAZOLE 40 MG TABLET (FP) PO SCH (09:25)
[2019-04-27] MEDS: traMADol HCL 50 MG TABLET PO PRN (09:30)
[2019-04-27] MEDS: BUDESONIDE/FORMETEROL FUMARATE 160/4.5 mcg INHALER IH SCH ×2 (09:31→23:34)
--- NOTE | 2019-04-27 13:14 | PN ---
Progress Note (short form) - Note Progress Note: PULMONARY Breathing better. Less cough. Vital Signs Period Temp Pulse Resp BP Sys/Gallardo Pulse Ox Last 24 Hr 46-57 16-20 136-150/71-77 97-98 Gen: NAD at rest Heart: RRR Lung: decreased breath sounds at the bases Abd: soft, nontender Ext: no edema CBC, BMP 04/25/19 06:53 04/25/19 06:53 Active Medications Acetaminophen (Tylenol -) 650 mg PO Q4H PRN PRN Reason: FEVER Albuterol Sulfate (Ventolin 0.083% Nebulizer Soln -) 1 amp NEB Q4H PRN PRN Reason: SHORT OF BREATH/WHEEZING Last Admin: 04/23/19 06:38 Dose: 1 amp Albuterol/Ipratropium (Duoneb -) 1 amp NEB Q6H PRN PRN Reason: SHORTNESS OF BREATH Last Admin: 04/23/19 11:12 Dose: 1 amp Budesonide/Formoterol Fumarate (Symbicort 160/4.5mcg -) 1 puff IH BID [facility] Last Admin: 04/27/19 09:31 Dose: Not Given Gabapentin (Neurontin -) 100 mg PO TID [facility] Last Admin: 04/27/19 06:08 Dose: 100 mg Heparin Sodium (Porcine) (Heparin -) 5,000 unit SQ BID [facility] Last Admin: 04/27/19 09:24 Dose: 5,000 unit Sodium Chloride (Normal Saline -) 1,000 mls @ 75 mls/hr IV ASDIR [facility] Last Admin: 04/27/19 06:07 Dose: 75 mls/hr Lidocaine (Lidoderm Patch -) 1 patch TP DAILY [facility] Last Admin: 04/27/19 09:24 Dose: 1 patch Methylprednisolone Sodium Succinate (Solu-Medrol -) 40 mg IVPUSH Q8H-IV [facility] Last Admin: 04/27/19 09:25 Dose: 40 mg Miscellaneous (Lidoderm Patch Removal) 1 each MC DAILY@2200 [facility] Last Admin: 04/26/19 22:00 Dose: 1 each Nicotine (Nicoderm Patch -) 21 mg TD DAILY [facility] Last Admin: 04/27/19 09:24 Dose: 21 mg Pantoprazole Sodium (Protonix -) 40 mg PO DAILY [facility] Last Admin: 04/27/19 09:25 Dose: 40 mg A/P Acute COPD Exacerbation Emphysema Lumbar Spinal Stenosis Smoker - will decrease medrol to q12h, can likely change to PO prednisone in AM - inhaled bronchodilators standing and PRN - O2 to keep SpO2 >90% - outpt PFTs - smoking cessation - DVT prophylaxis Problem List - Problems (1) COPD exacerbation Code(s): J44.1 - CHRONIC OBSTRUCTIVE PULMONARY DISEASE W (ACUTE) EXACERBATION (2) Smoker Code(s): F17.200 - NICOTINE DEPENDENCE, UNSPECIFIED, UNCOMPLICATED
[2019-04-27] MEDS: ALBUTEROL SO4 2.5/IPRATROPIUM 0.5 INH SOL 3 ML VIAL.NEB. NEB SCH ×2 (14:40→20:48)
--- NOTE | 2019-04-27 15:18 | PN ---
Progress Note (short form) - Note Progress Note: Patient is stable with improvement in Pulmonary function. Plans are in place for surgery SaturdayMay 2019 at 0800
--- NOTE | 2019-04-27 16:54 | SPA.PREOP ---
- PRE-OP NOTE Dx: spinal stenosis Planned Procedure: L34& [id number] & onlay fusion with possible pedicle screws Surgeon: Saige Max Last Vital Signs Temp Pulse Resp BP Pulse Ox 98.0 F 74 18 149/71 97 04/27/19 14:00 04/27/19 14:00 04/27/19 14:00 04/27/19 14:00 04/27/19 08:41 Lab Results WBC 13.4 K/mm3 (4.0-10.0) H 04/25/19 06:53 RBC 4.50 M/mm3 (3.60-5.2) 04/25/19 06:53 Hgb 14.0 GM/dL (10.7-15.3) 04/25/19 06:53 Hct 42.5 % (32.4-45.2) 04/25/19 06:53 MCV 94.3 fl (80-96) 04/25/19 06:53 MCHC 33.0 g/dl (32.0-36.0) 04/25/19 06:53 RDW 14.3 % (11.6-15.6) 04/25/19 06:53 Plt Count 200 K/MM3 (134-434) 04/25/19 06:53 Sodium 140 mmol/L (136-145) 04/25/19 06:53 Potassium 4.1 mmol/L (3.5-5.1) 04/25/19 06:53 Chloride 106 mmol/L (98-107) 04/25/19 06:53 Carbon Dioxide 27 mmol/L (21-32) 04/25/19 06:53 Anion Gap 7 MMOL/L (8-16) L 04/25/19 06:53 BUN 14.8 mg/dL (7-18) 04/25/19 06:53 Creatinine 0.7 mg/dL (0.55-1.3) 04/25/19 06:53 Random Glucose 121 mg/dL (74-106) H 04/25/19 06:53 Calcium 9.1 mg/dL (8.5-10.1) 04/25/19 06:53 - IMAGING MRI: Image Reviewed Problem List - Problems (1) Lumbar stenosis Assessment/Plan: 1. Make NPO after midnight except po meds 2. GI/DVT PPX 3. Medical optimization / clearance 4. Consent to be obtained by surgeon after risks, benefits and alternatives discussed with patient and or Health Care Proxy. Code(s): M48.061 - SPINAL STENOSIS, LUMBAR REGION WITHOUT NEUROGENIC CARISA
[2019-04-27] MEDS: LIDOCAINE PATCH REMOVAL MC SCH (21:28)
[2019-04-28] MEDS: SODIUM CHLORIDE 1,000 ML IV SCH ×2 (05:00→12:40)
[2019-04-28] MEDS: GABAPENTIN 100 MG CAPSULE (FP) PO SCH ×3 (06:07→21:52)
[2019-04-28 06:44] LABS: PROTHROMBIN TIME (PATIENT) 11.8 SEC (9.7-13.0)
[2019-04-28 06:45] LABS: BLOOD UREA NITROGEN 14.6 mg/dL (7-18); CALCIUM 8.8 mg/dL (8.5-10.1); CREATININE 0.7 mg/dL (0.55-1.3); POTASSIUM 4.1 mmol/L (3.5-5.1)
[2019-04-28 06:50] LABS: HEMATOCRIT 41.3 % (32.4-45.2); HEMOGLOBIN 13.8 GM/dL (10.7-15.3); MCH 31.1 pg (25.7-33.7); MCHC 33.4 g/dl (32.0-36.0); MEAN CELL VOLUME 93.1 fl (80-96); MEAN PLT VOLUME 9.9 fl (7.5-11.1); PLATELET COUNT 200 K/MM3 (134-434); RBC 4.43 M/mm3 (3.60-5.2); RDW 14.1 % (11.6-15.6); WHITE BLOOD COUNT 11.6 K/mm3 (4.0-10.0)
[2019-04-28] MEDS ORDERED: VANCOMYCIN 1,000 MG VIAL (RESTRICTED TO ID ONLY) ONE ×2 (07:18→07:51)
[2019-04-28] MEDS ORDERED: LIDOCAINE 1%-EPI 1:100,000 30 ML MDV IJ ONE (07:18)
[2019-04-28] MEDS ORDERED: BUPIVACAINE HCL/PF 0.5% (5 MG/ML) 30 ML VIAL IJ ONE (07:19)
[2019-04-28] MEDS ORDERED: GENTAMICIN SO4 80 MG/2 ML VIAL ONE (07:25)
[2019-04-28] MEDS ORDERED: DEXAMETHASONE SOD PHOSPHATE 4 MG/1 ML VIAL ONE (07:26)
[2019-04-28] MEDS ORDERED: SODIUM CHLORIDE 0.9% P/F 10 ML VIAL IJ ONE (07:26)
[2019-04-28] MEDS ORDERED: ceFAZolin SODIUM 1 GM VIAL ONE ×2 (07:26→18:08)
[2019-04-28] MEDS ORDERED: LIDOCAINE HCL/PF 2% SDV 5ML VIAL ONE (07:26)
[2019-04-28] MEDS ORDERED: PROPOFOL 20 ML ONE ×2 (07:27→11:16)
[2019-04-28] MEDS ORDERED: KETAMINE HCL 200 MG/20 ML VIAL ONE (07:27)
[2019-04-28] MEDS ORDERED: SUCCINYLCHOLINE CHLORIDE 200 MG/10 ML SYRINGE ONE (07:27)
[2019-04-28] MEDS: ALBUTEROL SO4 2.5/IPRATROPIUM 0.5 INH SOL 3 ML VIAL.NEB. NEB SCH ×3 (07:35→21:00)
[2019-04-28] MEDS ORDERED: DEXMEDETOMIDINE HCL 200 MCG/2 ML IVPB ONE ×2 (07:37→08:26)
[2019-04-28] MEDS ORDERED: VANCOMYCIN 1,000 MG VIAL (RESTRICTED TO ID ONLY) IVPB ONE (08:00)
[2019-04-28] MEDS ORDERED: THROMBIN (BOVINE) 20,000 UNIT VIAL TP ONE ×2 (08:23→09:46)
[2019-04-28] MEDS ORDERED: BUPIVACAINE LIPOSOME/PF (EXPAREL) 266 MG/20 ML VIAL ONE (08:34)
[2019-04-28] MEDS ORDERED: BUPIVACAINE HCL/PF 0.25% (2.5MG/ML) 10 ML VIAL ONE (08:35)
[2019-04-28] MEDS ORDERED: MIDAZOLAM HCL 2 MG/2 ML SINGLE DOSE VIAL ONE (08:37)
[2019-04-28] MEDS ORDERED: BACITRACIN 50,000 UNITS VIAL TP ONE (08:47)
[2019-04-28] MEDS ORDERED: GENTAMICIN SO4 80 MG/2 ML VIAL IVPB ONE (08:47)
[2019-04-28] MEDS ORDERED: ceFAZolin SODIUM 1 GM VIAL IVPB ONE (09:23)
[2019-04-28] MEDS: LIDOCAINE 5% TOPICAL PATCH TP SCH (09:31)
[2019-04-28] MEDS: HEPARIN NA (PORCINE) 5,000 UNITS/ML 1ML VIAL SQ SCH (09:32)
[2019-04-28] MEDS: PANTOPRAZOLE 40 MG TABLET (FP) PO SCH (09:34)
[2019-04-28] MEDS: NICOTINE 21 MG/24 HOURS TOPICAL PATCH TD SCH (09:34)
[2019-04-28] MEDS: BUDESONIDE/FORMETEROL FUMARATE 160/4.5 mcg INHALER IH SCH ×2 (09:35→21:54)
[2019-04-28] MEDS: methylPREDNISolone NA SUCC 40 MG/1 ML VIAL IVPUSH SCH ×2 (09:35→21:52)
[2019-04-28] MEDS ORDERED: LIDOCAINE 1%/EPI 1:100000 (50 ML MULTI DOSE VIAL) NR ONE (09:50)
--- NOTE | 2019-04-28 10:01 | PN ---
Progress Note, Physician Chief Complaint: SOB Fall Lower back pain Left hip pain History of Present Illness: NAD resting comfortably Seen by NS s/p L34& [id number] today drowsy post op - Current Medication List Current Medications: Active Medications Acetaminophen (Tylenol -) 650 mg PO Q4H PRN PRN Reason: FEVER Albuterol Sulfate (Ventolin 0.083% Nebulizer Soln -) 1 amp NEB Q4H PRN PRN Reason: SHORT OF BREATH/WHEEZING Last Admin: 04/23/19 06:38 Dose: 1 amp Albuterol/Ipratropium (Duoneb -) 1 amp NEB RTID [facility] Last Admin: 04/28/19 07:35 Dose: 1 amp Budesonide/Formoterol Fumarate (Symbicort 160/4.5mcg -) 1 puff IH BID [facility] Last Admin: 04/27/19 23:34 Dose: 1 puff Gabapentin (Neurontin -) 100 mg PO TID [facility] Last Admin: 04/28/19 06:07 Dose: Not Given Heparin Sodium (Porcine) (Heparin -) 5,000 unit SQ BID [facility] Last Admin: 04/27/19 21:27 Dose: 5,000 unit Sodium Chloride (Normal Saline -) 1,000 mls @ 75 mls/hr IV ASDIR [facility] Last Admin: 04/28/19 05:00 Dose: 75 mls/hr Lidocaine (Lidoderm Patch -) 1 patch TP DAILY [facility] Last Admin: 04/27/19 09:24 Dose: 1 patch Methylprednisolone Sodium Succinate (Solu-Medrol -) 40 mg IVPUSH Q12H [facility] Last Admin: 04/27/19 21:27 Dose: 40 mg Miscellaneous (Lidoderm Patch Removal) 1 each MC DAILY@2200 [facility] Last Admin: 04/27/19 21:28 Dose: Not Given Nicotine (Nicoderm Patch -) 21 mg TD DAILY [facility] Last Admin: 04/27/19 09:24 Dose: 21 mg Pantoprazole Sodium (Protonix -) 40 mg PO DAILY [facility] Last Admin: 04/27/19 09:25 Dose: 40 mg - Objective Vital Signs: Vital Signs Temperature 97.6 F 04/28/19 08:00 Pulse Rate 66 04/28/19 08:00 Respiratory Rate 16 04/28/19 08:00 Blood Pressure 119/69 04/28/19 08:00 O2 Sat by Pulse Oximetry (%) 96 04/27/19 20:45 Constitutional: Yes: Well Nourished, No Distress, Calm Cardiovascular: Yes: Regular Rate and Rhythm Respiratory: Yes: Regular Gastrointestinal: Yes: Normal Bowel Sounds, Soft Genitourinary: Yes: Blood Present Musculoskeletal: Yes: Back Pain Extremities: Yes: WNL Edema: No Peripheral Pulses WNL: Yes Neurological: Yes: Alert, Lethargy Labs: CBC, BMP 04/28/19 05:55 04/28/19 05:55 INR, PTT INR 1.00 (0.83-1.09) 04/28/19 05:55 Problem List - Problems (1) SOB (shortness of breath) Assessment/Plan: -CXR negative -CTA-mild copd -pulmonary consult -Continue Symbicort -Add MILLIE prn -Medrol IVP Q8h Code(s): R06.02 - SHORTNESS OF BREATH (2) Degenerative lumbar spinal stenosis Assessment/Plan: -CT lumbar- shows multiple central canal stenosis -Neurosurgery consult -Pre-Operative Diagnosis: Lumbar stenosis Operation: L3-L5 lumbar laminectomy Code(s): M48.061 - SPINAL STENOSIS, LUMBAR REGION WITHOUT NEUROGENIC CARISA (3) Lower extremity weakness Assessment/Plan: -CT lumbar- shows multiple central canal stenosis -Neurosurgery consult Code(s): R29.898 - OTH SYMPTOMS AND SIGNS INVOLVING THE MUSCULOSKELETAL SYSTEM (4) Fall Assessment/Plan: -Neurosurgery consult -CT lumbar- shows multiple central canal stenosis -Check B12 -Echo-65%, trace MV regurgitation -ECG negative -Trops negative -Seen by cardiology -orthostatic negative -Left hip xray-left hip arthritis, old avulsion at left acetabular root -Nuclear stress test normal Code(s): W19.XXXA - UNSPECIFIED FALL, INITIAL ENCOUNTER Qualifiers: Encounter type: initial encounter Qualified Code(s): W19.XXXA - Unspecified fall, initial encounter Assessment/Plan see problem list
[2019-04-28] MEDS ORDERED: NEOSTIGMINE METHYLSULFATE 0.5 MG/ML - 10 ML MDV ONE (10:09)
[2019-04-28] MEDS ORDERED: GLYCOPYRROLATE 0.2 MG/1 ML VIAL ONE (10:10)
[2019-04-28] MEDS ORDERED: EPHEDRINE SULFATE/0.9% NACL/PF 50 MG/10 ML SYRINGE NR ONE (10:19)
[2019-04-28] MEDS ORDERED: BUPIVACAINE LIPOSOME/PF (EXPAREL) 266 MG/20 ML VIAL NR ONE (11:30)
[2019-04-28] MEDS ORDERED: BUPIVACAINE HCL/PF 2.5 MG/ML - 30 ML VIAL IJ ONE (11:30)
--- NOTE | 2019-04-28 12:04 | OP ---
Operative Note - Note: Operative Date: 04/28/19 Pre-Operative Diagnosis: Lumbar stenosis Operation: 1. Bilateral L3-4 Laminectomies for stenosis. 2. Bilateral reoperative L45 Laminectomies for stenosis. 3. Local autograft. 4. L34 Posterior/lateral arthodesis. 5. L45 Posterior/lateral arthrodesis. 6. Bilateral soft tissue advancement flaps (50cm2) Findings: as dictated Implants: none Post-Operative Diagnosis: Same as Pre-op Surgeon: Rohit Max Assembling Machine Operator: Son Gupta Anesthesiologist/CINDER PIT WORKER: Aubrey Gambino Anesthesia: General, Spinal (DURAMORPH SPINAL), Local (Exparel ) Estimated Blood Loss (mls): 25 (ml) Drains, Volume Out (mls): 1,190 (ml yellow urine) Fluid Volume Replaced (mls): 1 (L LR) Operative Report Dictated: Yes
[2019-04-28] MEDS ORDERED: ONDANSETRON 4 MG/2 ML VIAL IVPUSH PRN (12:14)
[2019-04-28] MEDS ORDERED: ALBUTEROL SO4 0.083% IH SOL 2.5 MG/3 ML VIAL.NEB. NEB PRN (12:14)
[2019-04-28] MEDS ORDERED: ACETAMINOPHEN 325 MG TABLET (FP) PO PRN (12:14)
[2019-04-28] MEDS ORDERED: LIDOCAINE PATCH REMOVAL MC SCH ×2 (12:14→22:00)
--- NOTE | 2019-04-28 13:12 | PN ---
Progress Note (short form) - Note Progress Note: PULMONARY s/p L3-L5 Laminectomy. Denies shortness of breath. Vital Signs Period Temp Pulse Resp BP Sys/Gallardo Pulse Ox Last 24 Hr 97.5 F-98.4 F 54-80 16-18 100-149/46-85 96-97 Gen: NAD at rest Heart: RRR Lung: decreased breath sounds at the bases Abd: soft, nontender Ext: no edema CBC, BMP 04/28/19 05:55 04/28/19 05:55 Active Medications Acetaminophen (Tylenol -) 650 mg PO Q4H PRN PRN Reason: FEVER Albuterol Sulfate (Ventolin 0.083% Nebulizer Soln -) 1 amp NEB Q4H PRN PRN Reason: SHORT OF BREATH/WHEEZING Albuterol/Ipratropium (Duoneb -) 1 amp NEB RTID [facility] Budesonide/Formoterol Fumarate (Symbicort 160/4.5mcg -) 1 puff IH BID [facility] Docusate Sodium (Colace -) 100 mg PO TID [facility] Ferrous Sulfate (Feosol -) 325 mg PO DAILY [facility] Folic Acid (Folic Acid -) 1 mg PO DAILY [facility] Gabapentin (Neurontin -) 100 mg PO TID [facility] Heparin Sodium (Porcine) (Heparin -) 5,000 unit SQ BID [facility] Sodium Chloride (Normal Saline -) 1,000 mls @ 75 mls/hr IV [facility] Last Admin: 04/28/19 12:40 Dose: 0 mls Cefazolin Sodium 1 gm/ (Dextrose) 50 mls @ 100 mls/hr IVPB Q8H-IV [facility] Stop: 04/29/19 17:44 Lidocaine (Lidoderm Patch -) 1 patch TP DAILY [facility] Methylprednisolone Sodium Succinate (Solu-Medrol -) 40 mg IVPUSH Q12H [facility] Miscellaneous (Lidoderm Patch Removal) 1 each MC DAILY@2200 [facility] Nicotine (Nicoderm Patch -) 21 mg TD DAILY [facility] Ondansetron HCl (Zofran Injection) 4 mg IVPUSH Q6H PRN PRN Reason: NAUSEA Pantoprazole Sodium (Protonix -) 40 mg PO DAILY [facility] A/P Acute COPD Exacerbation Emphysema Lumbar Spinal Stenosis with Radiculopathy and Neurogenic Claudication s/p L3-L5 Laminectomies Smoker - pain control - incentive spirometry - can change prednisone to PO - inhaled bronchodilators standing and PRN - O2 to keep SpO2 >90% - outpt PFTs - smoking cessation - DVT prophylaxis Problem List - Problems (1) COPD exacerbation Code(s): J44.1 - CHRONIC OBSTRUCTIVE PULMONARY DISEASE W (ACUTE) EXACERBATION (2) Smoker Code(s): F17.200 - NICOTINE DEPENDENCE, UNSPECIFIED, UNCOMPLICATED
[2019-04-28] MEDS: DOCUSATE SODIUM 100 MG CAPSULE (FP) PO SCH ×2 (14:31→21:52)
[2019-04-28 16:21] VITALS: BMI 24.7
[2019-04-28] MEDS ORDERED: DEXTROSE 5%-WATER - 50 ML IVPB ONE (18:08)
[2019-04-28] MEDS: CEFAZOLIN 1 GM in DEXTROSE 5%-WATER - 50 ML IVPB SCH ×2 (18:20→18:53)
[2019-04-29] MEDS ORDERED: ceFAZolin SODIUM 1 GM VIAL ONE ×2 (01:59→08:59)
[2019-04-29] MEDS ORDERED: DEXTROSE 5%-WATER - 50 ML IVPB ONE ×2 (02:00→09:00)
[2019-04-29] MEDS: CEFAZOLIN 1 GM in DEXTROSE 5%-WATER - 50 ML IVPB SCH ×2 (02:01→09:09)
[2019-04-29] MEDS: SODIUM CHLORIDE 1,000 ML IV SCH (02:04)
[2019-04-29] MEDS: DOCUSATE SODIUM 100 MG CAPSULE (FP) PO SCH (05:37)
[2019-04-29] MEDS: GABAPENTIN 100 MG CAPSULE (FP) PO SCH (05:37)
[2019-04-29 06:09] LABS: HEMATOCRIT 40.8 % (32.4-45.2); MCH 31.1 pg (25.7-33.7); MCHC 33.2 g/dl (32.0-36.0); WHITE BLOOD COUNT 15.5 K/mm3 (4.0-10.0)
[2019-04-29 06:32] LABS: HEMOGLOBIN 13.5 GM/dL (10.7-15.3); MEAN CELL VOLUME 93.7 fl (80-96); MEAN PLT VOLUME 9.8 fl (7.5-11.1); PLATELET COUNT 181 K/MM3 (134-434); RBC 4.35 M/mm3 (3.60-5.2); RDW 14.6 % (11.6-15.6)
[2019-04-29 06:34] LABS: BLOOD UREA NITROGEN 15.2 mg/dL (7-18); CALCIUM 8.5 mg/dL (8.5-10.1); CREATININE 0.8 mg/dL (0.55-1.3); POTASSIUM 4.7 mmol/L (3.5-5.1)
[2019-04-29] MEDS ORDERED: ONDANSETRON 4 MG/2 ML VIAL IVPUSH PRN (07:58)
[2019-04-29] MEDS ORDERED: oxyCODONE HCL 5 MG TABLET PO PRN ×2 (07:58)
[2019-04-29] MEDS ORDERED: morphine SULFATE/PF 0.5 MG/ML (2cc Syringe - QUVA) IT ONE (07:58)
[2019-04-29] MEDS ORDERED: NALOXONE HCL 0.4 MG/ML VIAL IVPUSH PRN (07:58)
[2019-04-29] MEDS: ALBUTEROL SO4 2.5/IPRATROPIUM 0.5 INH SOL 3 ML VIAL.NEB. NEB SCH (08:12)
--- NOTE | 2019-04-29 08:52 | PN ---
Progress Note (short form) - Note Progress Note: POD #1 L3-L5 lumbar laminectomies. patient seen and examined at the bedside. nursing reports no issues overnight. Patient states she is having LBP with some radiculopathy which is slightly improved from her pre op symptoms. She has been OOB ambulating to the bathroom. She is tolerating her diet and denies any CP, SOB, N/V fever, chills or H/A Vital Signs Temp 98.0 F 04/29/ 05:49 Pulse 66 04/29/19 07:55 Resp 18 04/29/19 07:55 BP 112/72 04/29/19 07:55 Pulse Ox 98 04/28/19 22:00 Intake & Output 04/28/19 04/28/19 04/29/19 11:59 23:59 11:59 Intake Total 1999 935 815 Output Total 1215 900 Balance 785 35 815 Weight 149 lb Intake: IV 1999 685 525 LFA#22, 04/26/19, s/l 10 Normal Saline - 1,000 ml 900 @ 75 mls/hr IV ASDIR [facility] Rx#:[id number] Normal Saline - 1,000 ml 675 525 @ 75 mls/hr IV ASDIR [facility] Rx#:[id number] IVPB 50 50 Oral 0 200 240 Output: Urine 1190 900 Blood 700 Estimated Blood Loss 25 Other: Voiding Method Toilet # Unmeasured Voids Void 2 Bowel Movement No No Height 5 ft 5 in Body Mass Index (BMI) 24.7 CBC, BMP 04/29/19 05:25 04/29/19 05:25 PE: A&Ox3,NAD unlabored resp on RA Lumbar spine, dressing c/d/i with surrounding tissue intact and no evidence of tracking erythema, no evidence of collection or d/c. B/L LE compartment soft, supple and non-tender with 5/5 dorsi/plantar flexion Problem List - Problems (1) Lumbar stenosis Assessment/Plan: POD #1 L3-L5 lami/decompression doing well and cleared from a surgical standpoint to go home. -DVT prophylaxis with SQ haparin, teds and scds -OOB with assist as tolerated -keep incision clean and dry -regular diet -d/c planning for home Evaluation and plan discussed with Dr Barney Code(s): M48.061 - SPINAL STENOSIS, LUMBAR REGION WITHOUT NEUROGENIC CARISA
--- NOTE | 2019-04-29 09:17 | PN ---
Progress Note (short form) - Note Progress Note: Anesthesia POD#1 S/P PLF UNDER GA VSS,No N/V ,pain is moderate on PO meds. Food is advanced. No complications to anesthesia seen. Lindsey Guillen MD.
[2019-04-29] MEDS ORDERED: DOCUSATE SODIUM 100 MG CAPSULE (FP) PO SCH (10:00)
[2019-04-29] MEDS ORDERED: NICOTINE 21 MG/24 HOURS TOPICAL PATCH TD SCH (10:00)
[2019-04-29] MEDS ORDERED: PANTOPRAZOLE 40 MG TABLET (FP) PO SCH (10:00)
[2019-04-29] MEDS: BUDESONIDE/FORMETEROL FUMARATE 160/4.5 mcg INHALER IH SCH ×2 (10:00→10:50)
[2019-04-29] MEDS ORDERED: FERROUS SO4 325 MG TABLET (FP) PO SCH (10:00)
[2019-04-29] MEDS ORDERED: LIDOCAINE 5% TOPICAL PATCH TP SCH (10:00)
[2019-04-29] MEDS ORDERED: FOLIC ACID 1 MG TABLET (FP) PO SCH (10:00)
[2019-04-29] MEDS ORDERED: HEPARIN NA (PORCINE) 5,000 UNITS/ML 1ML VIAL SQ SCH (10:00)
[2019-04-29] MEDS ORDERED: MAGNESIUM HYDROX 2400MG/30ML ORAL SUSPENSION 30 ML CUP PO ONE (10:30)
[2019-04-29] MEDS: methylPREDNISolone NA SUCC 40 MG/1 ML VIAL IVPUSH SCH (10:42)
[2019-04-29] MEDS: ACETAMINOPHEN 325 MG TABLET (FP) PO SCH ×2 (10:48→15:06)
--- NOTE | 2019-04-29 11:26 | PN ---
Progress Note, Physician Chief Complaint: SOB Fall Lower back pain Left hip pain History of Present Illness: NAD resting comfortably Seen by NS s/p L34& [id number] today Pt OOB to bathroom Cleared by Surgical team to be discharged home - Current Medication List Current Medications: Active Medications Acetaminophen (Tylenol -) 650 mg PO Q4H PRN PRN Reason: FEVER Acetaminophen (Tylenol -) 650 mg PO Q6H [facility] Last Admin: 04/29/19 10:48 Dose: 650 mg Albuterol Sulfate (Ventolin 0.083% Nebulizer Soln -) 1 amp NEB Q4H PRN PRN Reason: SHORT OF BREATH/WHEEZING Albuterol/Ipratropium (Duoneb -) 1 amp NEB RTID [facility] Last Admin: 04/29/19 08:12 Dose: 1 amp Budesonide/Formoterol Fumarate (Symbicort 160/4.5mcg -) 1 puff IH BID [facility] Last Admin: 04/28/19 21:54 Dose: 1 puff Diphenhydramine HCl (Benadryl Injection -) 25 mg IVPUSH ONCE PRN PRN Reason: FOR ITCHING Docusate Sodium (Colace -) 100 mg PO TID [facility] Last Admin: 04/29/19 05:37 Dose: 100 mg Docusate Sodium (Colace -) 100 mg PO BID [facility] Last Admin: 04/29/19 10:45 Dose: 100 mg Ferrous Sulfate (Feosol -) 325 mg PO DAILY [facility] Last Admin: 04/29/19 10:43 Dose: 325 mg Folic Acid (Folic Acid -) 1 mg PO DAILY [facility] Last Admin: 04/29/19 10:42 Dose: 1 mg Gabapentin (Neurontin -) 100 mg PO TID [facility] Last Admin: 04/29/19 05:37 Dose: 100 mg Heparin Sodium (Porcine) (Heparin -) 5,000 unit SQ BID [facility] Last Admin: 04/29/19 10:44 Dose: 5,000 unit Sodium Chloride (Normal Saline -) 1,000 mls @ 75 mls/hr IV ASDIR [facility] Last Admin: 04/29/19 02:04 Dose: 75 mls/hr Cefazolin Sodium 1 gm/ (Dextrose) 50 mls @ 100 mls/hr IVPB Q8H-IV [facility] Stop: 04/29/19 17:44 Last Admin: 04/29/19 09:09 Dose: 100 mls/hr Lidocaine (Lidoderm Patch -) 1 patch TP DAILY [facility] Last Admin: 04/29/19 10:44 Dose: 1 patch Methylprednisolone Sodium Succinate (Solu-Medrol -) 40 mg IVPUSH Q12H [facility] Last Admin: 04/29/19 10:42 Dose: 40 mg Miscellaneous (Lidoderm Patch Removal) 1 each MC DAILY@2200 [facility] Last Admin: 04/28/19 21:54 Dose: Not Given Naloxone HCl (Narcan -) 0.4 mg IVPUSH ONCE PRN PRN Reason: Sedation Nicotine (Nicoderm Patch -) 21 mg TD DAILY [facility] Last Admin: 04/29/19 10:43 Dose: 21 mg Ondansetron HCl (Zofran Injection) 4 mg IVPUSH Q6H PRN PRN Reason: NAUSEA Ondansetron HCl (Zofran Injection) 4 mg IVPUSH ONCE PRN PRN Reason: NAUSEA Oxycodone HCl (Roxicodone -) 5 mg PO Q3H PRN PRN Reason: Mild Pain 1-3 Oxycodone HCl (Roxicodone -) 10 mg PO Q3H PRN PRN Reason: Moderate Pain 4-6 Last Admin: 04/29/19 09:07 Dose: 10 mg Pantoprazole Sodium (Protonix -) 40 mg PO DAILY [facility] Last Admin: 04/29/19 10:42 Dose: 40 mg - Objective Vital Signs: Vital Signs Temperature 98.0 F 04/29/19 05:49 Pulse Rate 66 04/29/19 07:55 Respiratory Rate 18 04/29/19 07:55 Blood Pressure 112/72 04/29/19 07:55 O2 Sat by Pulse Oximetry (%) 98 04/28/19 22:00 Constitutional: Yes: Well Nourished, No Distress, Calm Cardiovascular: Yes: Regular Rate and Rhythm Respiratory: Yes: Regular Gastrointestinal: Yes: Normal Bowel Sounds, Soft Genitourinary: Yes: WNL Musculoskeletal: Yes: Back Pain, Muscle Weakness Extremities: Yes: WNL Edema: No Peripheral Pulses WNL: Yes Neurological: Yes: Alert, Oriented Psychiatric: Yes: Alert, Oriented Labs: CBC, BMP 04/29/19 05:25 04/29/19 05:25 INR, PTT INR 1.00 (0.83-1.09) 04/28/19 05:55 Problem List - Problems (1) SOB (shortness of breath) Assessment/Plan: -CXR negative -CTA-mild copd -pulmonary consult -Continue Symbicort -Add MILLIE prn -D/C on Prednisone 40 mg po BID, tapered over 10 days Code(s): R06.02 - SHORTNESS OF BREATH (2) Degenerative lumbar spinal stenosis Assessment/Plan: -CT lumbar- shows multiple central canal stenosis -Neurosurgery consult -Pre-Operative Diagnosis: Lumbar stenosis Operation: L3-L5 lumbar laminectomy -OOB -Will have PT re-eval for safe d/c home today Code(s): M48.061 - SPINAL STENOSIS, LUMBAR REGION WITHOUT NEUROGENIC CARISA (3) Lower extremity weakness Assessment/Plan: -CT lumbar- shows multiple central canal stenosis -Neurosurgery consult Code(s): R29.898 - OTH SYMPTOMS AND SIGNS INVOLVING THE MUSCULOSKELETAL SYSTEM (4) Fall Assessment/Plan: -Neurosurgery consult -CT lumbar- shows multiple central canal stenosis -Check B12 -Echo-65%, trace MV regurgitation -ECG negative -Trops negative -Seen by cardiology -orthostatic negative -Left hip xray-left hip arthritis, old avulsion at left acetabular root -Nuclear stress test normal Code(s): W19.XXXA - UNSPECIFIED FALL, INITIAL ENCOUNTER Qualifiers: Encounter type: initial encounter Qualified Code(s): W19.XXXA - Unspecified fall, initial encounter Assessment/Plan see problem list
--- NOTE | 2019-04-29 11:31 | DS ---
Physical Examination Vital Signs: Vital Signs Temperature 98.0 F 04/29/19 05:49 Pulse Rate 66 04/29/19 07:55 Respiratory Rate 18 04/29/19 07:55 Blood Pressure 112/72 04/29/19 07:55 O2 Sat by Pulse Oximetry (%) 98 04/28/19 22:00 Findings/Remarks: 73F with pmh of emphysema presenting with chest pain and sob with non- productive cough since 3pm on 04/20/19. Questionable loss of consciousness. Reported falling when her legs suddenly couldn't hold her anymore. Complains of lumbar and left hip pain. Imaging studies prelim report without overt fracture. CTA neg for aortic dissection or PE. Constitutional: Yes: Well Nourished, No Distress, Calm Cardiovascular: Yes: Regular Rate and Rhythm Respiratory: Yes: Regular Gastrointestinal: Yes: Normal Bowel Sounds, Soft Renal/: Yes: WNL Musculoskeletal: Yes: Back Pain, Muscle Weakness Extremities: Yes: WNL Edema: No Peripheral Pulses WNL: Yes Neurological: Yes: Alert, Oriented Psychiatric: Yes: Alert, Oriented Labs: CBC, BMP 04/29/19 05:25 04/29/19 05:25 Discharge Summary Reason For Visit: SYNCOPE Current Active Problems COPD (chronic obstructive pulmonary disease) (Acute) COPD exacerbation (Acute) Chest pain (Acute) Degenerative lumbar spinal stenosis (Acute) Fall (Acute) GERD (gastroesophageal reflux disease) (Acute) Lower extremity weakness (Acute) Lumbar stenosis (Acute) PAD (peripheral artery disease) (Acute) SOB (shortness of breath) (Acute) Smoker (Acute) Syncope (Acute) Tobacco dependence (Acute) Other Procedures: Lumbar Laminectomy L3-4,L4-5 Hospital Course: Laboratory Last Values WBC 15.5 K/mm3 (4.0-10.0) H 04/29/19 05:25 RBC 4.35 M/mm3 (3.60-5.2) 04/29/19 05:25 Hgb 13.5 GM/dL (10.7-15.3) 04/29/19 05:25 Hct 40.8 % (32.4-45.2) 04/29/19 05:25 MCV 93.7 fl (80-96) 04/29/19 05:25 MCH 31.1 pg (25.7-33.7) 04/29/19 05:25 MCHC 33.2 g/dl (32.0-36.0) 04/29/19 05:25 RDW 14.6 % (11.6-15.6) 04/29/19 05:25 Plt Count 181 K/MM3 (134-434) 04/29/19 05:25 MPV 9.8 fl (7.5-11.1) 04/29/19 05:25 Absolute Neuts (auto) 5.2 K/mm3 (1.5-8.0) 04/20/19 19:10 Neutrophils % 57.2 % (42.8-82.8) 04/20/19 19:10 Lymphocytes % 29.6 % (8-40) 04/20/19 19:10 Monocytes % 6.3 % (3.8-10.2) 04/20/19 19:10 Eosinophils % 6.2 % (0-4.5) H 04/20/19 19:10 Basophils % 0.7 % (0-2.0) 04/20/19 19:10 Nucleated RBC % 0 % (0-0) 04/20/19 19:10 ESR 4 mm/hr (0-30) 04/23/19 05:15 PT with INR 11.80 SEC (9.7-13.0) 04/28/19 05:55 INR 1.00 (0.83-1.09) 04/28/19 05:55 D-Dimer 882 ng/ml (0-500) H 04/20/19 20:40 Sodium 141 mmol/L (136-145) 04/29/19 05:25 Potassium 4.7 mmol/L (3.5-5.1) 04/29/19 05:25 Chloride 105 mmol/L (98-107) 04/29/19 05:25 Carbon Dioxide 31 mmol/L (21-32) 04/29/19 05:25 Anion Gap 5 MMOL/L (8-16) L 04/29/19 05:25 BUN 15.2 mg/dL (7-18) 04/29/19 05:25 Creatinine 0.8 mg/dL (0.55-1.3) 04/29/19 05:25 Est GFR (CKD-EPI)AfAm 85.37 04/29/19 05:25 Est GFR (CKD-EPI)NonAf 73.65 09/18/19 05:25 POC Glucometer 127 UNITS (80-120) 04/29/19 05:35 Random Glucose 123 mg/dL (74-106) H 04/29/19 05:25 Hemoglobin A1c % 5.7 % (4.2-6.3) 04/23/19 05:15 Calcium 8.5 mg/dL (8.5-10.1) 04/29/19 05:25 Phosphorus 3.0 mg/dL (2.5-4.9) 04/25/19 06:53 Magnesium 2.1 mg/dL (1.8-2.4) 04/25/19 06:53 Iron 52 ug/dL (50-175) 04/23/19 05:15 TIBC 242 ug/dL (250-450) L 04/23/19 05:15 Iron Saturation 21 % (17.5-39) 04/23/19 05:15 Unsaturated IBC 190 ug/dL (200-275) L 04/23/19 05:15 Ferritin 52.2 ng/ml (8-388) 04/23/19 05:15 Total Bilirubin 0.4 mg/dL (0.2-1) 04/25/19 06:53 AST 17 U/L (15-37) 04/25/19 06:53 ALT 36 U/L (13-61) 04/25/19 06:53 Alkaline Phosphatase 86 U/L (45-117) 04/25/19 06:53 Troponin I < 0.02 ng/ml (0.00-0.05) 04/21/19 09:15 C-Reactive Protein < 0.3 MG/DL (0.00-0.3) 04/23/19 05:15 Total Protein 5.8 g/dl (6.4-8.2) L 04/25/19 06:53 Albumin 3.3 g/dl (3.4-5.0) L 04/25/19 06:53 Triglycerides 62 mg/dL (0-150) 04/23/19 05:15 Cholesterol 186 mg/dL (50-200) 04/23/19 05:15 Total LDL Cholesterol Cancelled 04/23/19 05:15 HDL Cholesterol 70 mg/dL (40-60) H 04/23/19 05:15 Vitamin B12 788 pg/ml (193-986) 04/21/19 09:15 TSH 1.45 uIU/ml (0.358-3.74) 04/21/19 09:15 Urine Color Yellow 04/21/19 10:14 Urine Appearance Clear 04/21/19 10:14 Urine pH 6.0 (5.0-8.0) 04/21/19 10:14 Ur Specific [place] 1.073 (1.010-1.035) H 04/21/19 10:14 Urine Protein Negative (NEGATIVE) 04/21/19 10:14 Urine Glucose (UA) Negative (NEGATIVE) 04/21/19 10:14 Urine Ketones Negative (NEGATIVE) 04/21/19 10:14 Urine Blood Negative (NEGATIVE) 04/21/19 10:14 Urine Nitrite Negative (NEGATIVE) 04/21/19 10:14 Urine Bilirubin Negative (NEGATIVE) 04/21/19 10:14 Urine Urobilinogen 0.2 mg/dL (0.2-1.0) 04/21/19 10:14 Ur Leukocyte Esterase Negative (NEGATIVE) 04/21/19 10:14 Blood Type B POSITIVE 04/28/19 05:55 Antibody Screen Negative 04/28/19 05:55 Vital Signs Temp 98.0 F 04/29/19 05:49 Pulse 66 04/29/19 07:55 Resp 18 04/29/19 07:55 BP 112/72 04/29/19 07:55 Pulse Ox 98 04/28/19 22:00 Intake & Output 04/28/19 04/28/19 04/29/19 11:59 23:59 11:59 Intake Total 1999 935 995 Output Total 1215 900 Balance 785 35 995 Weight 67.585 kg Intake: IV 1999 685 525 LFA#22, 04/26/19, s/l 10 Normal Saline - 1,000 ml 900 @ 75 mls/hr IV ASDIR KAROLINA Rx#:[id number] Normal Saline - 1,000 ml 675 525 @ 75 mls/hr IV ASDIR KAROLINA Rx#:[id number] IVPB 50 50 Oral 0 200 420 Output: Urine 1190 900 Blood 700 Estimated Blood Loss 25 Other: Voiding Method Toilet # Unmeasured Voids Void 2 1 Bowel Movement No No Height 5 ft 5 in Body Mass Index (BMI) 24.7 Condition: Stable - Instructions Referrals: Rohit Max MD, FAANS [Staff Physician] - Winston Hayward MD, MD [Staff Physician] - Disposition: [facility]/HOME HEALTH CARE - Home Medications Comprehensive Discharge Medication List: Ambulatory Orders Budesonide/Formeterol Fumarate [SYMBICORT 160/4.5mcg -] 1 inh PO BID 04/21/19
[2019-04-29 11:54] VITALS: BP 105/68; PULSE 85; TEMP 98.2
--- NOTE | 2019-04-29 11:56 | PN ---
Progress Note (short form) - Note Progress Note: NEUROLOGY PROGRESS: Now POD # 1 L3-L5 laminectomies. Sister at bedside aiding in translation. Reporting she feels well and has been ambulating to bathroom independently without assistive device. No longer with radiating "pains" down the left leg. Iron studies revealed Ferritin 52.2; Iron sat 21%, TIBC 242, Iron 52; now on FeSO4 325 mg po daily. ESR/CRP normal. CT of LS spine C- (reviewed): shows post surgical changes c/w b/l L3-L5 laminectomies. Bone grafts at L3/L4, L4/L5 SUMANTH: LS scar covered and dry. Wearing soft abdominal binder. NEURO: A Mild OMS may be present. CNII-CNXII: Normal. Motor: Min cogwheel. Strength normal. Reflexes normal in arms, but reduced L KJ and absent L AJ. Toes downgoing. Coordination: No FTN dystaxia. Sensation: Feels vibration at ankles. Gait: Improved posture. Sl flexed. Impression: 1. Severe LSSS with neurogenic claudication- improved s/p L3-L5 laminectomies Suggest: Outpatient physical therapy/rehabilitation Thank you very much, Juan C Tobias MD
--- NOTE | 2019-04-29 13:37 | PN ---
Progress Note (short form) - Note Progress Note: PULMONARY Denies shortness of breath, cough or wheezing. Vital Signs Period Temp Pulse Resp BP Sys/Gallardo Pulse Ox Last 24 Hr 97.7 F-98.2 F 56-85 14-18 83-119/45-72 98 Gen: NAD at rest Heart: RRR Lung: decreased breath sounds at the bases Abd: soft, nontender Ext: no edema CBC, BMP 04/29/19 05:25 04/29/19 05:25 Active Medications Acetaminophen (Tylenol -) 650 mg PO Q4H PRN PRN Reason: FEVER Acetaminophen (Tylenol -) 650 mg PO Q6H [facility] Last Admin: 04/29/19 10:48 Dose: 650 mg Albuterol Sulfate (Ventolin 0.083% Nebulizer Soln -) 1 amp NEB Q4H PRN PRN Reason: SHORT OF BREATH/WHEEZING Albuterol/Ipratropium (Duoneb -) 1 amp NEB RTID [facility] Last Admin: 04/29/19 08:12 Dose: 1 amp Budesonide/Formoterol Fumarate (Symbicort 160/4.5mcg -) 1 puff IH BID [facility] Last Admin: 04/28/19 21:54 Dose: 1 puff Diphenhydramine HCl (Benadryl Injection -) 25 mg IVPUSH ONCE PRN PRN Reason: FOR ITCHING Docusate Sodium (Colace -) 100 mg PO TID [facility] Last Admin: 04/29/19 05:37 Dose: 100 mg Docusate Sodium (Colace -) 100 mg PO BID [facility] Last Admin: 04/29/19 10:45 Dose: 100 mg Ferrous Sulfate (Feosol -) 325 mg PO DAILY [facility] Last Admin: 04/29/19 10:43 Dose: 325 mg Folic Acid (Folic Acid -) 1 mg PO DAILY [facility] Last Admin: 04/29/19 10:42 Dose: 1 mg Gabapentin (Neurontin -) 100 mg PO TID [facility] Last Admin: 04/29/19 05:37 Dose: 100 mg Heparin Sodium (Porcine) (Heparin -) 5,000 unit SQ BID [facility] Last Admin: 04/29/19 10:44 Dose: 5,000 unit Sodium Chloride (Normal Saline -) 1,000 mls @ 75 mls/hr IV ASDIR [facility] Last Admin: 04/29/19 02:04 Dose: 75 mls/hr Cefazolin Sodium 1 gm/ (Dextrose) 50 mls @ 100 mls/hr IVPB Q8H-IV [place] Stop: 04/29/19 17:44 Last Admin: 04/29/19 09:09 Dose: 100 mls/hr Lidocaine (Lidoderm Patch -) 1 patch TP DAILY [facility] Last Admin: 04/29/19 10:44 Dose: 1 patch Methylprednisolone Sodium Succinate (Solu-Medrol -) 40 mg IVPUSH Q12H [facility] Last Admin: 04/29/19 10:42 Dose: 40 mg Miscellaneous (Lidoderm Patch Removal) 1 each MC DAILY@2200 [facility] Last Admin: 04/28/19 21:54 Dose: Not Given Naloxone HCl (Narcan -) 0.4 mg IVPUSH ONCE PRN PRN Reason: Sedation Nicotine (Nicoderm Patch -) 21 mg TD DAILY [facility] Last Admin: 04/29/19 10:43 Dose: 21 mg Ondansetron HCl (Zofran Injection) 4 mg IVPUSH Q6H PRN PRN Reason: NAUSEA Ondansetron HCl (Zofran Injection) 4 mg IVPUSH ONCE PRN PRN Reason: NAUSEA Oxycodone HCl (Roxicodone -) 5 mg PO Q3H PRN PRN Reason: Mild Pain 1-3 Oxycodone HCl (Roxicodone -) 10 mg PO Q3H PRN PRN Reason: Moderate Pain 4-6 Last Admin: 04/29/19 09:07 Dose: 10 mg Pantoprazole Sodium (Protonix -) 40 mg PO DAILY [facility] Last Admin: 04/29/19 10:42 Dose: 40 mg A/P Acute COPD Exacerbation improved Emphysema Lumbar Spinal Stenosis with Radiculopathy and Neurogenic Claudication s/p L3-L5 Laminectomies Smoker - pain control - incentive spirometry - prednisone taper - inhaled bronchodilators standing and PRN - O2 to keep SpO2 >90% - outpt PFTs - smoking cessation discussed - DVT prophylaxis Problem List - Problems (1) COPD exacerbation Code(s): J44.1 - CHRONIC OBSTRUCTIVE PULMONARY DISEASE W (ACUTE) EXACERBATION (2) Smoker Code(s): F17.200 - NICOTINE DEPENDENCE, UNSPECIFIED, UNCOMPLICATED
--- NOTE | 2019-05-01 12:54 | SURG ---
Surgery Tax Manager Cpa Note Tax Manager Cpa: Son Gupta PA-C (Suzy) Date of Service: 04/28/19 Diagnosis: Lumbar stenosis Procedure: 1. Bilateral L3-4 Laminectomies for stenosis 2. Bilateral reoperative L45 Laminectomies for stenosis 3. Local autograft 4. L34 Posterior/lateral arthodesis 5. L45 Posterior/lateral arthrodesis 6. Bilateral soft tissue advancement flaps (50cm2) I was present for the entirety of the operative procedure. For further detail, please refer to operative report.
== END 2019-04-29 15:20 | disposition home health service (06) | DRG 304 ==
LOC: EDBD → JER 18:06 → JERBED 04-21 04:44 → J2W 04-21 15:41 → OBSVTOIN 04-23 13:05 → MERGE 04-23 13:05
PROVIDERS: ADMIT Family Medicine; ATTEND Family Medicine
PROC: 0SG1071 Fusion of 2 or more Lumbar Vertebral Joints with Autologous Tissue Substitute, Posterior Approach, Posterior Column, Open Approach (ICD-10-PCS; principal; 2019-04-23)
PROC: 01NB0ZZ Release Lumbar Nerve, Open Approach (ICD-10-PCS; 2019-04-23)
PROC: B01BZZZ Fluoroscopy of Spinal Cord (ICD-10-PCS; 2019-04-23)
PROC: 0JX70ZB Transfer Back Subcutaneous Tissue and Fascia with Skin and Subcutaneous Tissue, Open Approach (ICD-10-PCS; 2019-04-23)
DX: M48.062 Spinal stenosis, lumbar region with neurogenic claudication (principal); J44.1 Chronic obstructive pulmonary disease with (acute) exacerbation; M41.9 Scoliosis, unspecified; M51.16 Intervertebral disc disorders with radiculopathy, lumbar region; R07.9 Chest pain, unspecified; K21.9 Gastro-esophageal reflux disease without esophagitis; I73.9 Peripheral vascular disease, unspecified; R55 Syncope and collapse; R29.898 Other symptoms and signs involving the musculoskeletal system; G43.909 Migraine, unspecified, not intractable, without status migrainosus; G25.81 Restless legs syndrome; F17.210 Nicotine dependence, cigarettes, uncomplicated; R06.02 Shortness of breath
CPT/HCPCS: 36415; 70450-TC; 71045-TC-FY; 71275-TC; 72131-TC; 72148-TC; 73523-TC-FY; 74177-TC; 78452-TC; 80048; 80053; 80061; 81003; 82607; 82728; 82962; 83036; 83540; 83550; 83721; 83735; 84100; 84443; 84484; 85025; 85027; 85379; 85610; 85651; 86140; 86850; 86900; 86901; 90670; 93005; 93010; 93017; 93306-TC; 93880-TC; 93925-TC; 94010; 94640; 94760; 97116-GP; 97162-GP; 99285-25; A9502; G0378; J0131; J1644; J2785; J7030

== ENCOUNTER 2019-05-01 10:06 | Inpatient (IN) | payer OTHER ==
[2019-05-01] MEDS ORDERED: ONDANSETRON 4 MG/2 ML VIAL ONE (11:10)
[2019-05-01] MEDS ORDERED: morphine SULFATE 4 MG/ML VIAL ONE (11:10)
[2019-05-01 11:34] LABS: BASO % 0.4 % (0-2.0); HEMATOCRIT 47.6 % (32.4-45.2); HEMOGLOBIN 15.7 GM/dL (10.7-15.3); LYMPH % 3.1 % (8-40); MCH 30.8 pg (25.7-33.7); MCHC 32.9 g/dl (32.0-36.0); MEAN CELL VOLUME 93.6 fl (80-96); MEAN PLT VOLUME 10.1 fl (7.5-11.1); MONO % 4.9 % (3.8-10.2); NEUT % 91.6 % (42.8-82.8); PLATELET COUNT 213 K/MM3 (134-434); RBC 5.09 M/mm3 (3.60-5.2); RDW 14.5 % (11.6-15.6); WHITE BLOOD COUNT 23.8 K/mm3 (4.0-10.0)
[2019-05-01 11:47] LABS: INR 0.94 (0.83-1.09); PROTHROMBIN TIME (PATIENT) 11.1 SEC (9.7-13.0)
[2019-05-01 11:51] LABS: ALBUMIN 2.9 g/dl (3.4-5.0); BILIRUBIN,TOTAL 1.1 mg/dL (0.2-1); BLOOD UREA NITROGEN 11.6 mg/dL (7-18); CALCIUM 9.1 mg/dL (8.5-10.1); CREATININE 0.8 mg/dL (0.55-1.3); MAGNESIUM 2.7 mg/dL (1.8-2.4); POTASSIUM 3.9 mmol/L (3.5-5.1); TOT PROT 5.8 g/dl (6.4-8.2)
[2019-05-01 11:56] LABS: ACTIVATED PTT 26.7 SECONDS (25.2-36.5)
[2019-05-01] MEDS ORDERED: ONDANSETRON 4 MG/2 ML VIAL IVPUSH ONE (12:17)
[2019-05-01] MEDS ORDERED: morphine CARPU-JECT 4 MG/1 ML DISP.SYRIN IVPUSH ONE (12:17)
[2019-05-01 12:57] LABS: ANISOCYTOSIS 0; MACROCYTOSIS 0; PLATELET ESTIMATE NORMAL
[2019-05-01] MEDS ORDERED: SODIUM CHLORIDE 1,000 ML IV STA (13:15)
[2019-05-01 13:50] LABS: EPI CELLS 1.6 /HPF (0-5/HPF); HYALINE CASTS 7 /lpf (0-8); URINE APPEARANCE CLEAR; URINE BACTERIA 3.9 /hpf (NEGATIVE); URINE BILIRUBIN 1+ (NEGATIVE); URINE COLOR DK YELLOW; URINE GLUCOSE (UA) NEGATIVE (NEGATIVE); URINE KETONE TRACE (NEGATIVE); URINE LEUK ESTERASE TRACE (NEGATIVE); URINE NITRITE NEGATIVE (NEGATIVE); URINE PROTEIN TRACE (NEGATIVE); URINE RBC 1 /hpf (0-4); URINE WBC 2 /hpf (0-5)
[2019-05-01] MEDS ORDERED: LACTATED RINGERS SOLUTION 1,000 ML/1,000 ML INFUS.BAG IV SCH (14:30)
--- NOTE | 2019-05-01 15:35 | HP ---
Admitting History and Physical - Primary Care Physician PCP: Javed Simental - Admission Chief Complaint: abdominal pain and vomitting History of Present Illness: The patient is a 74 year old female, with no significant PMH, who presents to the ED for evaluation of abdominal pain, nausea, and vomiting for 9 days. Patient notes she had spinal surgery with Dr. Isabel last week, and has been vomiting since the procedure was completed (thought it was originally secondary to anesthesia, but it has not stopped). She reports multiple episodes of nausea and NBNB vomit, which she states is yellow in color. Patient additionally complains of diffuse abdominal pain, and notes she has not passed a bowel movement in 6 days. She has been unable to eat or drink at this time secondary to her pain. Patient has not taken any medications since her surgery, and denies the use of painkillers. patient says she tried to take tylenol yesterday but she vomitted it out and has been vomitting in the night in AM caled her PMD who told her to come to ER. History Source: Patient - Smoking History Smoking history: Never smoked - Alcohol/Substance Use Hx Alcohol Use: No Home Medications - Allergies Allergies/Adverse Reactions: Allergies Allergy/AdvReac Type Severity Reaction Status Date / Time No Known Allergies Allergy Verified 05/01/19 10:14 - Home Medications Home Medications: Ambulatory Orders NK [No Known Home Medication] 05/01/19 Physical Examination Vital Signs: Vital Signs Temperature 99.2 F 05/01/19 10:14 Pulse Rate 72 05/01/19 11:00 Respiratory Rate 18 05/01/19 11:00 Blood Pressure 102/53 L 05/01/19 11:00 O2 Sat by Pulse Oximetry (%) 98 05/01/19 11:00 Labs: CBC, BMP 05/01/19 11:13 05/01/19 11:13 Problem List - Problems (1) Abdominal pain Assessment/Plan: NPO IV fluids surgical consult NG tube analgesic dvt ppx inc leukocytes and hemoconcentration - intravascular volume depletion Code(s): R10.9 - UNSPECIFIED ABDOMINAL PAIN
[2019-05-01] MEDS ORDERED: GLUCAGON 1 MG KIT IVPUSH ONE (15:36)
[2019-05-01] MEDS ORDERED: DEXTROSE 50%-WATER - 25 GM/50 ML VIAL IVPUSH ONE (15:37)
[2019-05-01] MEDS ORDERED: ONDANSETRON 4 MG/2 ML VIAL IVPUSH PRN (16:02)
[2019-05-01] MEDS ORDERED: SODIUM CHLORIDE 1,000 ML IV SCH (16:15)
--- NOTE | 2019-05-01 17:11 | CONSULT ---
Consult Consult Specialty:: General Surgery Referred by:: Serina Metcalf Reason for Consultation:: colonic distention, n/v - History of Present Illness Chief Complaint: constipation, abd pain, n/v, postop pain (laminectomy 3d ago) History of Present Illness: 74yo [place] F with COPD, GERD, spinal stenosis, was just in hospital - had L3-4/4-5 laminectomy 3 days ago here, was d/c home 2d ago and is staying with her brother. He assisted with Slovenian translation at bedside, and reports that they did not get her medications from the [place] [facility] on discharge ( including steroid taper), so she had no prescription pain medicine at home. She has not had a BM since last week, days before her surgery. She had pain from surgery, and her brother got her tylenol XS. Yesterday at home, she began having lower abdominal pain radiating all over, associated with nausea and vomiting, including the tylenol that she was trying to take for pain. She also had chills, and some abdominal bloating. In the ER, she has wbc 23 (was 15.5 postop/day of discharge 2d ago), dehydration by labs, normal lactate, and CT shows dilated, more fluid than gas-filled colon with transition point in lower sigmoid but no mass, no free air or fluid, no SB or gastric distention, + intraspinal and extraspinal air in lumbar spine/surgical area, s/p parish. Surgery was asked to assess. She is seen and examined in ER holding with family present. She is still somewhat nauseated. She has pain in her back and in her abdomen. She has an abdominal binder on, loosely, for back support. She reports having had a normal colonoscopy in [place] 6 months ago. She came to the [place] only about 2 months ago, for a family . - History Source History Provided By: Patient, Family Member, Medical Record Limitations to Obtaining History: Language Barrier (Slovenian - brother translated at bedside) - Past Medical History Pulmonary: Yes: COPD Gastrointestinal: Yes: GERD Reproductive: Yes: Postmenopausal Musculoskeletal: Yes: Chronic low back pain, Osteoarthritis - Past Surgical History Past Surgical History: Yes: Appendectomy, Cholecystectomy, Colonoscopy (per pt, 6m ago in [place], normal), Laminectomy (L3-4, 4-5 (3 days ago, Dr. Max)) Additional Surgical History: cervical spine surgery - Alcohol/Substance Use Hx Alcohol Use: Yes (occasional) History of Substance Use: reports: None - Smoking History Smoking history: Former smoker Have you smoked in the past 12 months: Yes Aproximately how many cigarettes per day: 20 If you are a former smoker, when did you quit?: 2 wks ago - Social History Usual Living Arrangement: Other (staying with brother) ADL: Independent Place of : Other ([place]) Came to [place] (year[place] 2 months ago Home Medications - Allergies Allergies/Adverse Reactions: Allergies Allergy/AdvReac Type Severity Reaction Status Date / Time No Known Allergies Allergy Verified 05/01/19 10:14 - Home Medications Home Medications: Ambulatory Orders NK [No Known Home Medication] 05/01/19 Home Medications (free text): per discharge from recent admission, was on Symbicort bid. was prescribed a number of meds on d/c (including steroid taper) , but per brother were not picked up. Tylenol 500mg 2 pills prn pain (but has been vomiting them) Family Medical History Family Hx Cardiac Disorders: Father Family Hx Diabetes: Mother (also with hypertension), Brother (also with hypertension) Review of Systems - Review of Systems Constitutional: reports: Chills, Loss of Appetite (poor appetite). denies: Fever Eyes: denies: Blurred Vision, Recent Change in Vision HENT: denies: Difficult Swallowing, Throat Pain Neck: denies: Swollen Glands, Tenderness Cardiovascular: denies: Chest Pain, Palpitations Respiratory: denies: Cough, SOB Gastrointestinal: reports: Abdominal Pain (with hpi), Constipation (with hpi), Nausea (with hpi), Vomiting (with hpi). denies: Diarrhea Genitourinary: denies: Burning, Dysuria Musculoskeletal: reports: Back Pain (postop). denies: Joint Pain Integumentary: reports: Bruising (around incision), Incision (lumbar spine - dressed). denies: Rash Neurological: denies: Dizziness, Headache Physical Exam Vital Signs: Vital Signs Temperature 99.2 F 05/01/19 10:14 Pulse Rate 72 05/01/19 11:00 Respiratory Rate 18 05/01/19 11:00 Blood Pressure 102/53 L 05/01/19 11:00 O2 Sat by Pulse Oximetry (%) 98 05/01/19 11:00 Constitutional: Yes: Well Nourished, Calm, Mild Distress (pain and nausea) Eyes: Yes: Conjunctiva Clear, EOM Intact HENT: Yes: Atraumatic, Normocephalic Neck: Yes: Supple, Trachea Midline Cardiovascular: Yes: Regular Rate and Rhythm, Tachycardia (mild) Respiratory: Yes: Regular, CTA Bilaterally Gastrointestinal: Yes: Normal Bowel Sounds (normal to hyperactive, high-pitched) , Soft, Distention (soft, with tympany), Tenderness (diffuse, more in lower quadrants, with mild rebound, no guarding) ...Rectal Exam: Yes: Sphincter Tone Normal, Other (vault empty with small bits of brown stool on glove). No: Hemorrhoids/External, Mass Renal/: Yes: CVA Tenderness - Left (more postop from lumbar incision), CVA Tenderness - Right (more postop from lumbar incision) Musculoskeletal: Yes: Back Pain (tender over lumbar region). No: Joint Swelling Extremities: No: Cool, Cyanosis Edema: No Peripheral Pulses WNL: Yes Integumentary: Yes: Bruising (inferior lumbosacral area, inferiorly around incisional dressing), Incision (lumbar - dressed, clean and dry). No: Jaundice , Rash Wound/Incision: Yes: Dressing Dry and Intact (lumbar). No: Dressing Removed Neurological: Yes: Alert, Oriented Psychiatric: Yes: Alert, Oriented Labs: CBC, BMP 05/01/19 11:13 05/01/19 11:13 CMP Sodium 136 mmol/L (136-145) 05/01/19 11:13 Potassium 3.9 mmol/L (3.5-5.1) 05/01/19 11:13 Chloride 97 mmol/L (98-107) L 05/01/19 11:13 Carbon Dioxide 30 mmol/L (21-32) 05/01/19 11:13 Anion Gap 8 MMOL/L (8-16) 05/01/19 11:13 BUN 11.6 mg/dL (7-18) 05/01/19 11:13 Creatinine 0.8 mg/dL (0.55-1.3) 05/01/19 11:13 Est GFR (CKD-EPI)AfAm 85.37 05/01/19 11:13 Est GFR (CKD-EPI)NonAf 73.65 05/01/19 11:13 Random Glucose 133 mg/dL (74-106) H 05/01/19 11:13 Lactic Acid 1.8 mmol/L (0.4-2.0) 05/01/19 11:13 Calcium 9.1 mg/dL (8.5-10.1) 05/01/19 11:13 Magnesium 2.7 mg/dL (1.8-2.4) H 05/01/19 11:13 Total Bilirubin 1.1 mg/dL (0.2-1) H 05/01/19 11:13 AST 18 U/L (15-37) 05/01/19 11:13 ALT 36 U/L (13-61) 05/01/19 11:13 Alkaline Phosphatase 79 U/L (45-117) 05/01/19 11:13 Troponin I < 0.02 ng/ml (0.00-0.05) 05/01/19 11:13 Total Protein 5.8 g/dl (6.4-8.2) L 05/01/19 11:13 Albumin 2.9 g/dl (3.4-5.0) L 05/01/19 11:13 Lipase 40 U/L (73-393) L 05/01/19 11:13 INR, PTT INR 0.94 (0.83-1.09) 05/01/19 11:13 Urine Test Results Urine Color Dk yellow 05/01/19 13:23 Urine Appearance Clear 05/01/19 13:23 Urine pH 6.0 (5.0-8.0) 05/01/19 13:23 Ur Specific [place] 1.015 (1.010-1.035) 05/01/19 13:23 Urine Protein Trace (NEGATIVE) 05/01/19 13:23 Urine Glucose (UA) Negative (NEGATIVE) 05/01/19 13:23 Urine Ketones Trace (NEGATIVE) H 05/01/19 13:23 Urine Blood Negative (NEGATIVE) 05/01/19 13:23 Urine Nitrite Negative (NEGATIVE) 05/01/19 13:23 Urine Bilirubin 1+ (NEGATIVE) H 05/01/19 13:23 Ur Leukocyte Esterase Trace (NEGATIVE) 05/01/19 13:23 dehydrated leukocytosis - could be related to recent steroid use in hospital? postop? Imaging - Results Cat Scan: Report Reviewed, Image Reviewed (reviewed with Dr. Araiza by phone - colon with diffuse dilation, fluid and gas, with transition at lower sigmoid but no apparent mass lesion, no free fluid or air, no small bowel abnormalities , oral contrast does not reach colon yet, no gastric distention, s/p parish) Problem List - Problems (1) Colon distention Code(s): K63.89 - OTHER SPECIFIED DISEASES OF INTESTINE (2) Constipation Code(s): K59.00 - CONSTIPATION, UNSPECIFIED Qualifiers: Constipation type: other constipation type Qualified Code(s): K59.09 - Other constipation (3) Generalized abdominal pain Code(s): R10.84 - GENERALIZED ABDOMINAL PAIN (4) Nausea and vomiting Code(s): R11.2 - NAUSEA WITH VOMITING, UNSPECIFIED Qualifiers: Vomiting type: unspecified Vomiting Intractability: non-intractable Qualified Code(s): R11.2 - Nausea with vomiting, unspecified (5) S/P lumbar laminectomy Code(s): Z98.890 - OTHER SPECIFIED POSTPROCEDURAL STATES (6) Postoperative pain after spinal surgery Code(s): G89.18 - OTHER ACUTE POSTPROCEDURAL PAIN (7) COPD (chronic obstructive pulmonary disease) Code(s): J44.9 - CHRONIC OBSTRUCTIVE PULMONARY DISEASE, UNSPECIFIED Qualifiers: COPD type: unspecified COPD Qualified Code(s): J44.9 - Chronic obstructive pulmonary disease, unspecified (8) GERD without esophagitis Code(s): K21.9 - GASTRO-ESOPHAGEAL REFLUX DISEASE WITHOUT ESOPHAGITIS Assessment/Plan admitted to medicine NPO/IVF - continue fluid resuscitation NGT will not help with decompression of colon, but may be considered if N/V continue consults placed to Dr. Max and GI (discussed with Dr. Kelly) pain meds prn zofran prn GI/DVT prophylaxis attempted rectal tube placement in ER, with passage palpated up into sigmoid, but no return of air or liquid efforts aborted will try a dose of Relistor oral contrast will likely progress into colon - may help facilitate evacuation? would f/u with AXR in am, depending on response to Relistor GI to see tomorrow blood cultures ordered, given high leukocytosis trend labs keep lytes normal defer to neurosurgery regarding surgical site evaluation will follow with you discussed with Dr. Sorto
--- NOTE | 2019-05-01 17:31 | PDOC ---
Documentation entered by Starr Patterson SCRIBE, acting as scribe for Manju Metcalf MD. Manju Metcalf MD: This documentation has been prepared by the Yesenia rosenberg Adrianna, SCRIBE, under my direction and personally reviewed by me in its entirety. I confirm that the documentation accurately reflects all work, treatment, procedures, and medical decision making performed by me. History of Present Illness - General Chief Complaint: Pain Stated Complaint: ABD PAIN Time Seen by Provider: 05/01/19 10:33 - History of Present Illness Initial Comments: The patient is a 74 year old female, with no significant PMH, who presents to the ED for evaluation of abdominal pain, nausea, and vomiting for 3 days. Patient notes she had spinal surgery with Dr. Isabel 3 days ago, and has been vomiting since the procedure was completed (thought it was originally secondary to anesthesia, but it has not stopped). She reports multiple episodes of nausea and NBNB vomit, which she states is yellow in color. Patient additionally complains of diffuse abdominal pain, and notes she has not passed a bowel movement in 6 days. She has been unable to eat or drink at this time secondary to her pain. Patient has not taken any medications since her surgery, and denies the use of painkillers. Denies fever, chills, chest pain, SOB, dysuria, hematuria, Dizziness, focal weakness/numbness Allergies: NKA, NKDA Surgical History: Recent spinal surgery (9 days ago) Social History: Denies EtOH, tobacco, or illicit drug use PCP: Dr. Simental Past History - Past Medical History Allergies/Adverse Reactions: Allergies Allergy/AdvReac Type Severity Reaction Status Date / Time No Known Allergies Allergy Verified 05/01/19 10:14 Home Medications: Ambulatory Orders NK [No Known Home Medication] 05/01/19 COPD: No - Immunization History Immunization Up to Date: Yes - Suicide/Smoking/Psychosocial Hx Smoking History: Never smoked Information on smoking cessation initiated: No Hx Alcohol Use: No Drug/Substance Use Hx: No Review of Systems - Review of Systems Comments:: GENERAL/CONSTITUTIONAL: No fever or chills. No weakness. HEAD, EYES, EARS, NOSE AND THROAT: No change in vision. No ear pain or discharge. No sore throat. GASTROINTESTINAL: +Nausea. +Vomit. +Constipation. +Diffuse abdominal pain. No diarrhea. GENITOURINARY: No dysuria, frequency, or change in urination. CARDIOVASCULAR: No chest pain or shortness of breath. RESPIRATORY: No cough, wheezing, or hemoptysis. MUSCULOSKELETAL: No joint or muscle swelling. No neck or back pain. SKIN: No rash NEUROLOGIC: No headache, vertigo, loss of consciousness, or change in strength/ sensation. ENDOCRINE: No increased thirst. No abnormal weight change. HEMATOLOGIC/LYMPHATIC: No anemia, easy bleeding, or history of blood clots. ALLERGIC/IMMUNOLOGIC: No hives or skin allergy. *Physical Exam - Vital Signs Last Vital Signs Temp Pulse Resp BP Pulse Ox 99.2 F 92 H 16 99/62 93 L 05/01/19 10:14 05/01/19 10:14 05/01/19 10:14 05/01/19 10:14 05/01/19 10:14 - Physical Exam Comments: GENERAL: Awake, alert, and fully oriented, in no acute distress but appears uncomfortable HEAD: No signs of trauma EYES: PERRLA, EOMI, sclera anicteric, conjunctiva clear ENT: Dry MM NECK: Normal ROM, supple, no lymphadenopathy, JVD, or masses LUNGS: Breath sounds equal, clear to auscultation bilaterally. No wheezes, and no crackles HEART: Regular rate and rhythm, normal S1 and S2, no murmurs, rubs or gallops ABDOMEN: +Distended. +Diffusely tender to palpation. decreased bowel sounds. No guarding, no rebound. No masses EXTREMITIES: Normal range of motion, no edema. No clubbing or cyanosis. No cords , erythema, or tenderness BACK: +Binder on. Lumbar incision dressing is intact, dry, and clean. No erythema. NEUROLOGICAL: Normal speech, cranial nerves intact, equal strength and sensation b/l SKIN: Warm, Dry, normal turgor, no rashes or lesions noted. ED Treatment Course - LABORATORY CBC & Chemistry Diagram: 05/03/19 07:24 05/03/19 07:24 - ADDITIONAL ORDERS Additional order review: Laboratory Results 05/01/19 05/01/19 05/01/19 11:13 11:13 11:13 PT with INR Cancelled INR Cancelled PTT (Actin FS) Sodium 136 Potassium 3.9 Chloride 97 L Carbon Dioxide 30 Anion Gap 8 BUN 11.6 Creatinine 0.8 Est GFR (CKD-EPI)AfAm 85.37 Est GFR (CKD-EPI)NonAf 73.65 Random Glucose 133 H Lactic Acid Calcium 9.1 Magnesium 2.7 H Total Bilirubin 1.1 H AST 18 ALT 36 Alkaline Phosphatase 79 Troponin I < 0.02 Total Protein 5.8 L Albumin 2.9 L Lipase 40 L 05/01/19 05/01/19 11:13 11:13 PT with INR 11.10 INR 0.94 PTT (Actin FS) 26.7 Sodium Potassium Chloride Carbon Dioxide Anion Gap BUN Creatinine Est GFR (CKD-EPI)AfAm Est GFR (CKD-EPI)NonAf Random Glucose Lactic Acid 1.8 Calcium Magnesium Total Bilirubin AST ALT Alkaline Phosphatase Troponin I Total Protein Albumin Lipase 05/01/19 11:13 RBC 5.09 MCV 93.6 MCHC 32.9 RDW 14.5 MPV 10.1 Neutrophils % 91.6 H Lymphocytes % 3.1 L Monocytes % 4.9 Eosinophils % 0.0 Basophils % 0.4 - RADIOLOGY Radiology Studies Ordered: Category Date Time Status ABDOMEN & PELVIS CT WITH CONTR [CT] Stat CT Scan 05/01/19 10:45 Completed CHEST X-RAY PORTABLE* [RAD] Stat Radiology 05/01/19 10:48 Completed Radiograph Interpretation: EXAM#: TYPE/EXAM: [id number] RAD/CHEST X-RAY PORTABLE Chest: Vomiting. A single AP view the chest is submitted. Since the prior study of 04/25/2009, there is a weak inspiration with some coarse central changes, prominent mediastinum and slight elevation of the right hemidiaphragm with some minimal atelectatic changes at the bases. There appears to be contrast in the stomach from a CT scan. The bones and soft tissues are intact. Correlation recommended. Reported By: Daquan Horvath MD 05/01/19 11:48 - Medications Given in the ED: ED Medications Discontinued Medications Generic Name Dose Route Start Last Admin Trade Name Freq PRN Reason Stop Dose Admin Sodium Chloride 1,000 mls @ 1,000 mls/hr 05/01/19 13:15 05/01/19 13:42 Normal Saline - IV 05/01/19 14:14 1,000 mls/hr ASDIR STA Administration Morphine Sulfate 4 mg 05/01/19 12:17 05/01/19 11:15 Morphine Injection - IVPUSH 05/01/19 12:18 4 mg ONCE ONE Administration Ondansetron HCl 4 mg 05/01/19 12:17 05/01/19 11:12 Zofran Injection IVPUSH 05/01/19 12:18 4 mg ONCE ONE Administration Medical Decision Making - Medical Decision Making 05/01/19 15:27 74yo F presents to the ED 3 days post op after lumbar surgery with abd pain, N/V , abdominal distention Concern for SBO, no BM for 5 days No fecal impaction CTAP with SBO vs LBO Dr. Olson consulted Call to Dr. Max ([facility] awaiting call back Updated Dr. Simental, states Dr Barrera to admit Case discussed with Dr. Barrera, pt admitted for further mgmt/dispo Case discussed in detail with admitting physician including history, physical exam and ancillary studies. Admitting physician has assumed care for the patient, will follow all pending diagnostics and will complete the evaluation and treatment. *DC/Admit/Observation/Transfer Diagnosis at time of Disposition: Abdominal pain Nausea and vomiting Qualifiers: Vomiting type: unspecified Vomiting Intractability: non-intractable Qualified Code(s): R11.2 - Nausea with vomiting, unspecified - Discharge Dispostion Condition at time of disposition: Stable - Referrals - Patient Instructions - Post Discharge Activity - Attestations Physician Attestion: 05/03/19 10:21 I, Dr. Manju Metcalf MD, attest that this document has been prepared under my direction and personally reviewed by me in its entirety. I further attest, that it accurately reflects all work, treatment, procedures and medical decision -making performed by me.
[2019-05-01] MEDS ORDERED: Methylnaltrexone Bromide 12 MG/0.6 ML KIT SQ ONE ×2 (19:43→22:15)
[2019-05-01] MEDS ORDERED: PT OWN MED DRAWER 7, Y5N ONE (20:17)
[2019-05-01 20:45] VITALS: BMI 24.3
[2019-05-01] MEDS: morphine SULFATE 4 MG/ML VIAL IVPUSH PRN (21:10)
[2019-05-01] MEDS: SODIUM CHLORIDE 0.45%/POT 20 MEQ/1,000 ML INFUS.BAG IV SCH (21:15)
[2019-05-01] MEDS ORDERED: HEPARIN NA (PORCINE) 5,000 UNITS/ML 1ML VIAL SQ SCH (22:00)
[2019-05-02] MEDS: SODIUM CHLORIDE 0.45%/POT 20 MEQ/1,000 ML INFUS.BAG IV SCH ×2 (05:15→17:29)
[2019-05-02] MEDS: morphine SULFATE 4 MG/ML VIAL IVPUSH PRN (06:00)
[2019-05-02 08:49] LABS: BASO % 0.3 % (0-2.0); HEMATOCRIT 37.8 % (32.4-45.2); HEMOGLOBIN 12.5 GM/dL (10.7-15.3); MCH 30.9 pg (25.7-33.7); MEAN CELL VOLUME 93.8 fl (80-96); MEAN PLT VOLUME 9.2 fl (7.5-11.1); MONO % 7.2 % (3.8-10.2); NEUT % 83.5 % (42.8-82.8); PLATELET COUNT 179 K/MM3 (134-434); RBC 4.03 M/mm3 (3.60-5.2); RDW 14.6 % (11.6-15.6); WHITE BLOOD COUNT 18.7 K/mm3 (4.0-10.0)
[2019-05-02 09:09] LABS: ALBUMIN 2.1 g/dl (3.4-5.0); ALK PHOS 85 U/L (45-117); ANION GAP 8 MMOL/L (8-16); BLOOD UREA NITROGEN 10.7 mg/dL (7-18); CALCIUM 7.8 mg/dL (8.5-10.1); CHLORIDE 103 mmol/L (98-107); CO2 28 mmol/L (21-32); CREATININE 0.5 mg/dL (0.55-1.3); GLUCOSE,RANDOM 77 mg/dL (74-106); LIPASE 36 U/L (73-393); MAGNESIUM 2.3 mg/dL (1.8-2.4); N-TERMINAL BNP 365.6 pg/ml (5-125); PHOSPHOROUS 2.2 mg/dL (2.5-4.9); POTASSIUM 4.1 mmol/L (3.5-5.1); SGOT/AST 14 U/L (15-37); SGPT/ALT 35 U/L (13-61); SODIUM 139 mmol/L (136-145); TOT PROT 4.3 g/dl (6.4-8.2)
[2019-05-02] MEDS ORDERED: LACTULOSE 20 GM/30 ML UDC (FOR RECTAL USE ONLY) PR ONE (12:33)
[2019-05-02] MEDS ORDERED: ACETAMINOPHEN 1000 MG/100 ML VIAL (NON FORMULARY) IVPB PRN (12:35)
[2019-05-02] MEDS ORDERED: ACETAMINOPHEN 325 MG TABLET (FP) PO PRN (12:35)
[2019-05-02] MEDS ORDERED: CEFTRIAXONE 1 GM in DEXTROSE 5%-WATER - 50 ML IVPB SCH (12:45)
[2019-05-02] MEDS ORDERED: cefTRIAXone SODIUM 1 GM VIAL ONE (12:52)
[2019-05-02] MEDS ORDERED: DEXTROSE 5%-WATER - 50 ML IVPB ONE (12:52)
--- NOTE | 2019-05-02 13:07 | CON.GI ---
Consult Consult Specialty:: GI - History of Present Illness History of Present Illness: I was asked to see patient because inability to insert rectal tube. Attempted rectal tube insertion by Dr Olson last night was unsuccessful. FUA ordered this morning consistent with retained contrast and stool. Relistor was given homero lange The patient is a 74 year old female, with no significant PMH, who presents to the ED for evaluation of abdominal pain, nausea, and vomiting for 3 days. Patient notes she had spinal surgery with Dr. Isabel 3 days ago, and has been vomiting since the procedure was completed (thought it was originally secondary to anesthesia, but it has not stopped). She reports multiple episodes of nausea and NBNB vomit, which she states is yellow in color. Patient additionally complains of diffuse abdominal pain, and notes she has not passed a bowel movement in 6 days. She has been unable to eat or drink at this time secondary to her pain. Patient has not taken any medications since her surgery, and denies the use of painkillers. - Past Medical History Pulmonary: Yes: COPD Gastrointestinal: Yes: GERD ...: No Musculoskeletal: Yes: Chronic low back pain, Osteoarthritis - Past Surgical History Past Surgical History: Yes: Appendectomy, Cholecystectomy, Colonoscopy (per pt, 6m ago in [place], normal), Laminectomy (L3-4, 4-5 (3 days ago, Dr. Max)) Additional Surgical History: cervical spine surgery - Alcohol/Substance Use Hx Alcohol Use: Yes (occasional) History of Substance Use: reports: None - Smoking History Smoking history: Former smoker Have you smoked in the past 12 months: Yes Aproximately how many cigarettes per day: 20 If you are a former smoker, when did you quit?: 2 wks ago - Social History Usual Living Arrangement: Other (staying with brother) ADL: Independent Home Medications - Allergies Allergies/Adverse Reactions: Allergies Allergy/AdvReac Type Severity Reaction Status Date / Time No Known Allergies Allergy Verified 05/01/19 10:14 - Home Medications Home Medications: Ambulatory Orders NK [No Known Home Medication] 05/01/19 Physical Exam-GI Vital Signs: Vital Signs Temperature 98.8 F 05/02/19 07:48 Pulse Rate 88 05/02/19 07:48 Respiratory Rate 16 05/02/19 07:48 Blood Pressure 123/68 05/02/19 07:48 O2 Sat by Pulse Oximetry (%) 98 05/02/19 09:00 Constitutional: Yes: Well Nourished Eyes: Yes: Conjunctiva Clear HENT: Yes: Atraumatic Neck: Yes: Trachea Midline Cardiovascular: Yes: Regular Rate and Rhythm Respiratory: Yes: CTA Bilaterally Gastrointestinal Inspection: Yes: Distention ...Palpate: Yes: Soft. No: Firm/Rigid, Hepatomegaly, Mass, Pulsatile Mass, Splenomegaly Labs: CBC, BMP 05/02/19 07:23 05/02/19 07:23 INR, PTT INR 0.94 (0.83-1.09) 05/01/19 11:13 Problem List - Problems (1) Colon distention Assessment/Plan: R> will need to be decompressed will need rectal tube placed with endoscopic guidance Code(s): K63.89 - OTHER SPECIFIED DISEASES OF INTESTINE
[2019-05-02] MEDS: SODIUM PHOSPHATE/NA BIPHOS 133 ML ENEMA PR SCH ×2 (13:31→13:34)
--- NOTE | 2019-05-02 16:53 | PN ---
Progress Note (short form) - Note Progress Note: ID consult dictated 74 yo female s/pl umbar laminectomy last week discharged on on prednisone has not had a BM since the surgery no fevers has had vomiting, abdominal pain, and constipation ct scan done in ED with colonic distention rectal tube could not be placed now going to endoscopy for flex sig suspect leukocytosis may partially be steroids, ?stress from GI symptoms agree with cultures currently on ceftriaxone will follow unable to examine post laminectomy site as patient on her way to endoscopy- neurosurgeon has been consulted nurse reports dressing changed by RN last night and is clean and dry d/w dr vargas
[2019-05-02] MEDS ORDERED: ONDANSETRON 4 MG/2 ML VIAL IVPUSH PRN ×2 (16:56→17:00)
[2019-05-02] MEDS ORDERED: LACTATED RINGERS SOLUTION 1,000 ML IV SCH (17:00)
[2019-05-02] MEDS: METOCLOPRAMIDE HCL INJECTION 10 MG/2 ML VIAL IVPB SCH (17:28)
--- NOTE | 2019-05-02 17:28 | CONS ---
DATE OF CONSULTATION: 05/02/2019 This is a 74-year-old woman with spinal stenosis who was just hospitalized from April 23 to April 29 for an L3-4-5 laminectomy. She had surgery on last Saturday and was discharged home on . Her brother, who is serving as particleboard factory worker, reports that she states she has not had a bowel movement since the surgery on Saturday. After going home, she has been having lower abdominal pain with nausea and vomiting. She has had some abdominal bloating. In the ER, she had an elevated white count and was noted to be dehydrated. She had a CT scan that showed a dilated colon but no free air and no small bowel or gastric distention. She was noted to have air at the surgical site. Placement of a rectal tube was attempted which was unsuccessful. She denies any fevers or chills at home. She reports that she received two Fleet enemas. She is scheduled for flexible sigmoidoscopy and had two small bowel movements. This was confirmed by the nurse. I am seeing her as she gets ready to leave for endoscopy. Per the nurse, her laminectomy dressing was changed last night and the area is dry and clean. I am unable to change it as she is on her way to endoscopy. Her white count at the time of discharge was 15,000. PAST MEDICAL HISTORY: Notable for COPD and GERD. She is postmenopausal. She has chronic low back pain and spinal stenosis. PAST SURGICAL HISTORY: Notable for appendectomy, cholecystectomy, laminectomy which was done on April 28. SOCIAL HISTORY: No history of cigarette, alcohol or substance use. ALLERGIES: No known drug allergies. DISCHARGE MEDICATIONS: Acetaminophen, DuoNebs, Colace, Feosol, folic acid, Neurontin, Roxycodone, Protonix, prednisone. It is unclear whether or not she was taking the steroids. SOCIAL HISTORY: She is staying with her brother. She is from [place]. She came [place] the [place] two months ago. FAMILY HISTORY: Notable for heart disease in her father and diabetes mellitus in her mother. REVIEW OF SYSTEMS: Notable for vomiting. She has had no appetite and she is constipated with lower abdominal pain. She denies dysuria. She denies any fevers or chills. PHYSICAL EXAMINATION: GENERAL: She is alert. She has no tremors and appears well. VITALS: Temperature is 98.9. T-max is 100 yesterday. Pulse is 70, blood pressure 120/70, respiratory rate 16, oxygen saturation 98% on room air. HEENT: Normocephalic. Eyes are anicteric. NECK: Supple. LUNGS: Clear to auscultation. HEART: Regular rate and rhythm. ABDOMEN: Soft. She has lower abdominal discomfort on palpation. EXTREMITIES: No edema. She has no phlebitis. BACK: She has a dressing on her lower back. LABS: Her white count is 18.7. Yesterday, it was 23.8. Hemoglobin is 12.5. It was 15.7 yesterday. Her platelets are 179. Her BUN is 10, creatinine is 0.5. LFTs are normal. A urinalysis shows [address] scan findings are as previously stated. IN SUMMARY: This is a 74-year-old woman admitted with constipation and vomiting. I suspect her leukocytosis may be partially due to steroids, although it is not clear if she was taking them, and questionably due to stress from the GI symptoms. I would agree with cultures. She is currently on ceftriaxone, which I would continue, and would follow her. I am currently unable to examine the post-laminectomy site as she is on her way to endoscopy. The neurosurgeon has been consulted as well. The nurse reports her dressing was changed by the nurse last night after admission and the area is clean and dry. The case was discussed with Dr. Simental. BHUPINDER RAYMOND M.D. [facility]/[id number]
--- NOTE | 2019-05-02 17:39 | CONSULT ---
Consult - text type - Consultation Consultation Note: NEUROSURGERY CONSULTATION Patient is known to me from recent surgery for Lumbar decompression earlier this week. She has done well with resolution of many of her presenting complaints and expected incisional discomfort. She was discharged and recovering at her brother's home when she developed significant nausea and vomiting which prompted return for further medical evaluation. Although she was passing flatus, ileus versus bowel obstruction was considered and patient is undergoing evaluation and treatment under supervision of Drs. Kelly and Whitney. At this point, her wound is clean, dry and intact and although her GI discomfort may be associated with dehydration, anesthesia, narcotics and prone positioning, there is no current concern that there is a direct relationship to her surgical site. Case discussed with and I agree with current plans of Dr. Kelly.
[2019-05-02] MEDS: ACETAMINOPHEN 1000 MG/100 ML VIAL (NON FORMULARY) IVPB PRN (19:56)
[2019-05-02] MEDS ORDERED: PANTOPRAZOLE SODIUM 40 MG in SODIUM CHLORIDE 100 ML IVPB SCH (22:00)
[2019-05-02] MEDS: PANTOPRAZOLE SODIUM 40 MG VIAL IVPB SCH (22:11)
[2019-05-02] MEDS ORDERED: Methylnaltrexone Bromide 12 MG/0.6 ML KIT SQ ONE (22:15)
--- NOTE | 2019-05-02 23:52 | EKG ---
Test Reason : Blood Pressure : / mmHG Vent. Rate : 088 BPM Atrial Rate : 088 BPM P-R Int : 128 ms QRS Dur : 084 ms QT Int : 356 ms P-R-T Axes : 061 006 063 degrees QTc Int : 430 ms NORMAL SINUS RHYTHM POSSIBLE LEFT ATRIAL ENLARGEMENT NONSPECIFIC T WAVE ABNORMALITY ABNORMAL ECG WHEN COMPARED WITH ECG OF 25-APR-2009 16:29, NO SIGNIFICANT CHANGE WAS FOUND Confirmed by MAX WELLS MD ([id number]) on 05/02/2019 11:51:58 PM Referred By: Confirmed By:MAX WELLS MD
[2019-05-03] MEDS: METOCLOPRAMIDE HCL INJECTION 10 MG/2 ML VIAL IVPB SCH (02:02)
[2019-05-03] MEDS: SODIUM CHLORIDE 0.45%/POT 20 MEQ/1,000 ML INFUS.BAG IV SCH ×4 (03:17→22:11)
[2019-05-03] MEDS: morphine SULFATE 4 MG/ML VIAL IVPUSH PRN (05:40)
[2019-05-03 08:33] LABS: HEMATOCRIT 35.9 % (32.4-45.2); HEMOGLOBIN 11.9 GM/dL (10.7-15.3); RBC 3.81 M/mm3 (3.60-5.2); WHITE BLOOD COUNT 14.3 K/mm3 (4.0-10.0)
[2019-05-03 08:34] LABS: MCH 31.3 pg (25.7-33.7); MCHC 33.2 g/dl (32.0-36.0); MEAN CELL VOLUME 94.3 fl (80-96); PLATELET COUNT 182 K/MM3 (134-434); RDW 14.5 % (11.6-15.6)
[2019-05-03 08:46] LABS: BILIRUBIN,TOTAL 1.1 mg/dL (0.2-1); BLOOD UREA NITROGEN 7.5 mg/dL (7-18); CREATININE 0.5 mg/dL (0.55-1.3); MAGNESIUM 2.1 mg/dL (1.8-2.4); TOT PROT 4.3 g/dl (6.4-8.2)
[2019-05-03] MEDS ORDERED: cefTRIAXone SODIUM 1 GM VIAL ONE (09:20)
[2019-05-03] MEDS ORDERED: DEXTROSE 5%-WATER - 50 ML IVPB ONE (09:21)
[2019-05-03] MEDS: PANTOPRAZOLE SODIUM 40 MG VIAL IVPB SCH ×2 (09:39→22:07)
[2019-05-03] MEDS: METOCLOPRAMIDE HCL INJECTION 10 MG/2 ML VIAL IVPUSH SCH ×2 (09:39→17:14)
[2019-05-03] MEDS: CEFTRIAXONE 1 GM in DEXTROSE 5%-WATER - 50 ML IVPB SCH (09:40)
--- NOTE | 2019-05-03 10:03 | PN ---
Progress Note, Physician Chief Complaint: AWAKE STILL WITH MILD DISTRESS ABDOMINAL PAIN NO N/V OR FEVERS S/P FLEX-SIG - Current Medication List Current Medications: Active Medications Acetaminophen (Tylenol -) 650 mg PO Q6H PRN PRN Reason: PAIN LEVEL 1-6 OR FEVER Acetaminophen (Ofirmev Injection -) 1,000 mg IVPB Q6H PRN PRN Reason: PAIN LEVEL 7 - 10 Last Admin: 05/02/19 19:56 Dose: 1,000 mg Ceftriaxone Sodium 1 gm/ (Dextrose) 50 mls @ 100 mls/hr IVPB DAILY [facility]; Protocol Last Admin: 05/03/19 09:40 Dose: 100 mls/hr Potassium Chloride/Sodium Chloride (1/2ns+20meq Kcl) 20 meq in 1,000 mls @ 125 mls/hr IV ASDIR [facility] Last Admin: 05/03/19 03:17 Dose: 125 mls/hr Metoclopramide HCl (Reglan Injection -) 10 mg IVPUSH Q8H [facility] Last Admin: 05/03/19 09:39 Dose: 10 mg Morphine Sulfate (Morphine Sulfate) 2 mg IVPUSH Q4H PRN PRN Reason: PAIN LEVEL 7 - 10 Last Admin: 05/03/19 05:40 Dose: 2 mg Ondansetron HCl (Zofran Injection) 4 mg IVPUSH Q6H PRN PRN Reason: NAUSEA AND/OR VOMITING Pantoprazole Sodium (Protonix Iv) 40 mg IVPB BID [facility] Last Admin: 05/03/19 09:39 Dose: 40 mg - Objective Vital Signs: Vital Signs Temperature 98.4 F 05/03/19 09:49 Pulse Rate 79 05/03/19 09:49 Respiratory Rate 18 05/02/19 18:14 Blood Pressure 104/52 L 05/03/19 09:49 O2 Sat by Pulse Oximetry (%) 97 05/02/19 22:00 Constitutional: Yes: Mild Distress Cardiovascular: Yes: Regular Rate and Rhythm Respiratory: Yes: WNL Gastrointestinal: Yes: Distention, Tenderness Genitourinary: Yes: WNL Musculoskeletal: Yes: Back Pain, Muscle Weakness Edema: No Integumentary: Yes: WNL Wound/Incision: Yes: Clean/Dry Neurological: Yes: Pre-Existing Deficit ...Motor Strength: LLE Psychiatric: Yes: WNL Labs: CBC, BMP 05/03/19 07:24 05/03/19 07:24 INR, PTT INR 0.94 (0.83-1.09) 05/01/19 11:13 Problem List - Problems (1) Abdominal pain Code(s): R10.9 - UNSPECIFIED ABDOMINAL PAIN (2) Colon distention Code(s): K63.89 - OTHER SPECIFIED DISEASES OF INTESTINE (3) Constipation Code(s): K59.00 - CONSTIPATION, UNSPECIFIED Qualifiers: Constipation type: other constipation type Qualified Code(s): K59.09 - Other constipation (4) Nausea and vomiting Code(s): R11.2 - NAUSEA WITH VOMITING, UNSPECIFIED Qualifiers: Vomiting type: unspecified Vomiting Intractability: non-intractable Qualified Code(s): R11.2 - Nausea with vomiting, unspecified (5) Postoperative pain after spinal surgery Code(s): G89.18 - OTHER ACUTE POSTPROCEDURAL PAIN (6) S/P lumbar laminectomy Code(s): Z98.890 - OTHER SPECIFIED POSTPROCEDURAL STATES Assessment/Plan RECTAL TUBE FOR DECOMPRESSION GI/SX CONSULTS APPRECIATED PAIN CONTROL IVF/ANTIEMETICS OOB TO CHAIR IV ABX FOR UTI
--- NOTE | 2019-05-03 12:36 | PN ---
Progress Note (short form) - Note Progress Note: had rigid sigmoidoscopy and rectal tube yesterday multiple BMS now tube has fallen out still some abdominal discomfort no vomiting no fever Vital Signs Period Temp Pulse Resp BP Sys/Gallardo Pulse Ox Last 24 Hr 98.2 F-99.3 F 79-94 16-18 104-149/52-85 97-97 cor-rrr lungs clear abd soft, +Bs tender to palpation lower abdomen bilaterally ext no edema dressing intact and dry over back incision CBC, BMP 05/03/19 07:24 05/03/19 07:24 Microbiology 05/01/19 13:23 Urine - Urine Clean Catch Urine Culture - Final Escherichia Coli Lactose Fermenting Neg Bacilli#2 05/01/19 21:00 Blood - Peripheral Venous Blood Culture - Preliminary NO GROWTH OBTAINED AFTER 24 HOURS, INCUBATION TO CONTINUE FOR 4 DAYS. 05/01/19 21:00 Blood - Peripheral Venous Blood Culture - Preliminary NO GROWTH OBTAINED AFTER 24 HOURS, INCUBATION TO CONTINUE FOR 4 DAYS. a/p suspect leukocytosis may partially be steroids, ?stress from GI symptoms agree with cultures currently on ceftriaxone will follow s/p lumbar laminectomy
--- NOTE | 2019-05-03 13:05 | PN ---
Progress Note, Physician History of Present Illness: 74yo [place] F with COPD, GERD, spinal stenosis, was just in hospital - had L3-4/4-5 laminectomy on Saturday, with no BM since last week, days before her surgery, abdominal and back pain. She had CT showing colon distended and fluid-filled, and required rectal tube placement with rigid sigmoidoscopic guidance yesterday by Dr. Kelly. She did have liquid stool output from tube and around it, and the tube came out a short while ago in her bed on the floor. Per nursing, no BM this morning/yet today. She is seen and examined in bed, with a family member present. She reports feeling better, but still has pains in her abdomen and back and is still distended. Denies flatus today. She has tolerated clear liquids. - Current Medication List Current Medications: Active Medications Acetaminophen (Tylenol -) 650 mg PO Q6H PRN PRN Reason: PAIN LEVEL 1-6 OR FEVER Acetaminophen (Ofirmev Injection -) 1,000 mg IVPB Q6H PRN PRN Reason: PAIN LEVEL 7 - 10 Last Admin: 05/02/19 19:56 Dose: 1,000 mg Ceftriaxone Sodium 1 gm/ (Dextrose) 50 mls @ 100 mls/hr IVPB DAILY [facility]; Protocol Last Admin: 05/03/19 09:40 Dose: 100 mls/hr Potassium Chloride/Sodium Chloride (1/2ns+20meq Kcl) 20 meq in 1,000 mls @ 125 mls/hr IV ASDIR [facility] Last Admin: 05/03/19 03:17 Dose: 125 mls/hr Metoclopramide HCl (Reglan Injection -) 10 mg IVPUSH Q8H [facility] Last Admin: 05/03/19 09:39 Dose: 10 mg Morphine Sulfate (Morphine Sulfate) 2 mg IVPUSH Q4H PRN PRN Reason: PAIN LEVEL 7 - 10 Last Admin: 05/03/19 05:40 Dose: 2 mg Ondansetron HCl (Zofran Injection) 4 mg IVPUSH Q6H PRN PRN Reason: NAUSEA AND/OR VOMITING Pantoprazole Sodium (Protonix Iv) 40 mg IVPB BID [facility] Last Admin: 05/03/19 09:39 Dose: 40 mg - Objective Vital Signs: Vital Signs Temperature 98.4 F 05/03/19 09:49 Pulse Rate 79 05/03/19 09:49 Respiratory Rate 18 05/02/19 18:14 Blood Pressure 104/52 L 05/03/19 09:49 O2 Sat by Pulse Oximetry (%) 97 05/02/19 22:00 Constitutional: Yes: Well Nourished, No Distress, Calm Eyes: Yes: Conjunctiva Clear, EOM Intact HENT: Yes: Atraumatic, Normocephalic Gastrointestinal: Yes: Soft, Distention (with tympany), Tenderness (diffuse, without rebound) ...Rectal Exam: Yes: Deferred Musculoskeletal: Yes: Back Pain, Other (lumbar dressing needs to be redone - discussed with nurse) Extremities: No: Cool, Cyanosis Integumentary: Yes: Incision (lumbar, dressed - gauze and tape/tegaderm but not occlusive). No: Jaundice, Rash Wound/Incision: No: Dressing Dry and Intact (lumbar incision), Dressing Removed (nurse will replace (small telfa strip, occlusive tegaderm - keep clean/covered/ dry)) Neurological: Yes: Alert, Oriented Labs: CBC, BMP 05/03/19 07:24 05/03/19 07:24 CMP Sodium 139 mmol/L (136-145) 05/03/19 07:24 Potassium 4.0 mmol/L (3.5-5.1) 05/03/19 07:24 Chloride 104 mmol/L (98-107) 05/03/19 07:24 Carbon Dioxide 27 mmol/L (21-32) 05/03/19 07:24 Anion Gap 7 MMOL/L (8-16) L 05/03/19 07:24 BUN 7.5 mg/dL (7-18) 05/03/19 07:24 Creatinine 0.5 mg/dL (0.55-1.3) L 05/03/19 07:24 Est GFR (CKD-EPI)AfAm 112.07 05/03/19 07:24 Est GFR (CKD-EPI)NonAf 96.69 05/03/19 07:24 Random Glucose 89 mg/dL (74-106) 05/03/19 07:24 Lactic Acid 1.8 mmol/L (0.4-2.0) 05/01/19 11:13 Calcium 8.0 mg/dL (8.5-10.1) L 05/03/19 07:24 Phosphorus 2.2 mg/dL (2.5-4.9) L 05/02/19 07:23 Magnesium 2.1 mg/dL (1.8-2.4) 05/03/19 07:24 Total Bilirubin 1.1 mg/dL (0.2-1) H 05/03/19 07:24 AST 12 U/L (15-37) L 05/03/19 07:24 ALT 26 U/L (13-61) 05/03/19 07:24 Alkaline Phosphatase 76 U/L (45-117) 05/03/19 07:24 Troponin I < 0.02 ng/ml (0.00-0.05) 05/02/19 07:23 B-Natriuretic Peptide 365.6 pg/ml (5-125) H 05/02/19 07:23 Total Protein 4.3 g/dl (6.4-8.2) L 05/03/19 07:24 Albumin 2.0 g/dl (3.4-5.0) L 05/03/19 07:24 Total Amylase 21 U/L (25-115) L 05/01/19 21:00 Lipase 36 U/L (73-393) L 05/02/19 07:23 Microbiology 05/01/19 13:23 Urine Culture - Final Urine - Urine Clean Catch Escherichia Coli Lactose Fermenting Neg Bacilli#2 05/01/19 21:00 Blood Culture - Preliminary Blood - Peripheral Venous NO GROWTH OBTAINED AFTER 24 HOURS, INCUBATION TO CONTINUE FOR 4 DAYS. 05/01/19 21:00 Blood Culture - Preliminary Blood - Peripheral Venous NO GROWTH OBTAINED AFTER 24 HOURS, INCUBATION TO CONTINUE FOR 4 DAYS. urine cx with <<100K organisms (both) Problem List - Problems (1) Colon distention Code(s): K63.89 - OTHER SPECIFIED DISEASES OF INTESTINE (2) Constipation Code(s): K59.00 - CONSTIPATION, UNSPECIFIED Qualifiers: Constipation type: other constipation type Qualified Code(s): K59.09 - Other constipation (3) Generalized abdominal pain Code(s): R10.84 - GENERALIZED ABDOMINAL PAIN (4) Nausea and vomiting Code(s): R11.2 - NAUSEA WITH VOMITING, UNSPECIFIED Qualifiers: Vomiting type: unspecified Vomiting Intractability: non-intractable Qualified Code(s): R11.2 - Nausea with vomiting, unspecified (5) S/P lumbar laminectomy Code(s): Z98.890 - OTHER SPECIFIED POSTPROCEDURAL STATES (6) Postoperative pain after spinal surgery Code(s): G89.18 - OTHER ACUTE POSTPROCEDURAL PAIN (7) COPD (chronic obstructive pulmonary disease) Code(s): J44.9 - CHRONIC OBSTRUCTIVE PULMONARY DISEASE, UNSPECIFIED Qualifiers: COPD type: unspecified COPD Qualified Code(s): J44.9 - Chronic obstructive pulmonary disease, unspecified (8) GERD without esophagitis Code(s): K21.9 - GASTRO-ESOPHAGEAL REFLUX DISEASE WITHOUT ESOPHAGITIS Assessment/Plan admitted to medicine s/p endoscopic placement of rectal tube with + liquid stool output, now with tube out still with abd distention and tenderness, though soft GI following - defer to them regarding possible replacement of rectal tube tolerating clears - would avoid carbonated drinks pain meds prn - try to minimize narcotics zofran prn GI/DVT prophylaxis blood cultures negative to date wbc trending down trend labs keep lytes normal will follow peripherally discussed with Dr. Simental and Dr. Brady
--- NOTE | 2019-05-03 13:40 | PN.GI ---
GI Progress Note Subjective: abdominal pain less today, tolerating clear liquids, no fever, no chills - Objective Vital Signs: Vital Signs Temperature 98.4 F 05/03/19 09:49 Pulse Rate 79 05/03/19 09:49 Respiratory Rate 18 05/02/19 18:14 Blood Pressure 104/52 L 05/03/19 09:49 O2 Sat by Pulse Oximetry (%) 97 05/02/19 22:00 Constitutional: Obese Eyes: Yes: Conjunctiva Clear HENT: Yes: Atraumatic Neck: Yes: Supple Cardiovascular: Yes: Regular Rate and Rhythm Respiratory: Yes: CTA Bilaterally ...Auscultate: Yes: Normoactive Bowel Sounds ...Palpate: Yes: Soft, Tenderness (--diffude). No: Firm/Rigid, Guarding, Hepatomegaly, Splenomegaly Labs: CBC, BMP 05/03/19 07:24 05/03/19 07:24 INR, PTT INR 0.94 (0.83-1.09) 05/01/19 11:13 Problem List - Problems (1) Colon distention Assessment/Plan: associated with ileus secondary to opiod use and possibly underlying SIBO R> add relistor Xifaxan do not advance diet until abdominal pain is negligible Code(s): K63.89 - OTHER SPECIFIED DISEASES OF INTESTINE
[2019-05-03] MEDS: Methylnaltrexone Bromide 12 MG/0.6 ML KIT SQ SCH (15:54)
[2019-05-03] MEDS: RIFAXIMIN 550 MG TABLET (UD) PO SCH ×2 (15:55→22:07)
[2019-05-04] MEDS: METOCLOPRAMIDE HCL INJECTION 10 MG/2 ML VIAL IVPUSH SCH ×3 (00:22→18:49)
[2019-05-04] MEDS: morphine SULFATE 4 MG/ML VIAL IVPUSH PRN ×2 (06:10→11:19)
[2019-05-04 07:41] LABS: BLOOD UREA NITROGEN 5.5 mg/dL (7-18); CALCIUM 8.1 mg/dL (8.5-10.1); CREATININE 0.5 mg/dL (0.55-1.3); POTASSIUM 4.2 mmol/L (3.5-5.1)
[2019-05-04 07:53] LABS: HEMATOCRIT 36.4 % (32.4-45.2); HEMOGLOBIN 12.3 GM/dL (10.7-15.3); MCH 31.8 pg (25.7-33.7); MCHC 33.9 g/dl (32.0-36.0); MEAN CELL VOLUME 93.7 fl (80-96); MEAN PLT VOLUME 9.1 fl (7.5-11.1); PLATELET COUNT 203 K/MM3 (134-434); RBC 3.88 M/mm3 (3.60-5.2); RDW 14.5 % (11.6-15.6); WHITE BLOOD COUNT 10.3 K/mm3 (4.0-10.0)
[2019-05-04] MEDS ORDERED: SODIUM PHOSPHATE/NA BIPHOS 133 ML ENEMA PR ONE (08:01)
--- NOTE | 2019-05-04 08:14 | PN.GI ---
GI Progress Note Subjective: Patient complain of lower abdominal pain and still reports not having a BM. Denies nausea, vomiting, rectal bleeding. - Objective Vital Signs: Vital Signs Temperature 98 F 05/03/19 20:00 Pulse Rate 80 05/03/19 20:00 Respiratory Rate 19 05/03/19 20:00 Blood Pressure 109/63 05/03/19 20:00 O2 Sat by Pulse Oximetry (%) 97 05/03/19 09:00 Constitutional: No Distress, Calm Eyes: Yes: Conjunctiva Clear HENT: Yes: Atraumatic Cardiovascular: Yes: Regular Rate and Rhythm Respiratory: Yes: Regular, CTA Bilaterally Gastrointestinal Inspection: Yes: Distention. No: WNL, Ascites, Hernia, Scars, Other ...Auscultate: Yes: Normoactive Bowel Sounds. No: Hyperactive Bowel Sounds, Hypoactive Bowel Sounds, No Bowel Sounds, Other ...Palpate: Yes: Soft, Tenderness (lower abdomen). No: Firm/Rigid, Guarding, Hepatomegaly, Mass, Pulsatile Mass, Splenomegaly, Tenderness, Epigastium, Tenderness, Rebound, Other ...Percussion: Yes: Other (high tympany). No: Dullness, Fluid Wave, Tympanitic Neurological: Yes: Alert, Oriented Psychiatric: Yes: Alert, Oriented Labs: CBC, BMP 05/04/19 06:25 INR, PTT INR 0.94 (0.83-1.09) 05/01/19 11:13 Active Medications Generic Name Dose Route Start Last Admin Trade Name Freq PRN Reason Stop Dose Admin Acetaminophen 650 mg 05/02/19 16:56 Tylenol - PO Q6H PRN PAIN LEVEL 1-6 OR FEVER Acetaminophen 1,000 mg 05/02/19 16:56 05/02/19 19:56 Ofirmev Injection - IVPB 1,000 mg Q6H PRN Administration PAIN LEVEL 7 - 10 Ceftriaxone Sodium 1 gm/ 50 mls @ 100 mls/hr 05/03/19 10:00 05/03/19 09:40 Dextrose IVPB 100 mls/hr DAILY [facility] Administration Protocol Potassium Chloride/Sodium Chloride 20 meq in 1,000 mls @ 125 mls/hr 05/02/19 16:56 05/03/19 22:11 1/2ns+20meq Kcl IV 125 mls/hr ASD[facility] Administration Methylnaltrexone [place] 12 mg 05/03/19 13:45 05/03/19 15:54 Relistor - SQ 12 mg DAILY [facility] Administration Metoclopramide HCl 10 mg 05/03/19 08:45 05/04/19 00:22 Reglan Injection - IVPUSH 10 mg Q8H [facility] Administration Morphine Sulfate 2 mg 05/02/19 16:56 05/04/19 06:10 Morphine Sulfate IVPUSH 2 mg Q4H PRN Administration PAIN LEVEL 7 - 10 Ondansetron HCl 4 mg 05/02/19 17:00 Zofran Injection IVPUSH Q6H PRN NAUSEA AND/OR VOMITING Pantoprazole Sodium 40 mg 05/02/19 22:00 05/03/19 22:07 Protonix Iv IVPB 40 mg BID [facility] Administration Rifaximin 550 mg 05/03/19 13:45 05/03/19 22:07 Xifaxan - PO 550 mg BID [facility] Administration Sodium Phosphate 133 ml 05/04/19 08:01 Fleet Adult Rectal Enema - OR 05/04/19 08:02 ONCE ONE Problem List - Problems (1) Colon distention Assessment/Plan: associated with ileus secondary to opiod use and possibly underlying SIBO R> FUA if neg will order Citroma x 1 Fleet enema x 1 IV hydration Relistor Xifaxan do not advance diet until abdominal pain is negligible Code(s): K63.89 - OTHER SPECIFIED DISEASES OF INTESTINE
[2019-05-04] MEDS ORDERED: cefTRIAXone SODIUM 1 GM VIAL ONE (11:07)
[2019-05-04] MEDS ORDERED: DEXTROSE 5%-WATER - 50 ML IVPB ONE (11:07)
[2019-05-04] MEDS: CEFTRIAXONE 1 GM in DEXTROSE 5%-WATER - 50 ML IVPB SCH (11:18)
[2019-05-04] MEDS: RIFAXIMIN 550 MG TABLET (UD) PO SCH ×2 (11:18→21:07)
[2019-05-04] MEDS: Methylnaltrexone Bromide 12 MG/0.6 ML KIT SQ SCH (11:18)
[2019-05-04] MEDS: PANTOPRAZOLE SODIUM 40 MG VIAL IVPB SCH ×2 (11:23→21:07)
--- NOTE | 2019-05-04 14:55 | PN ---
Progress Note, Physician Chief Complaint: patient seen and examined vomiting up clears has abdominal pain - Current Medication List Current Medications: Active Medications Acetaminophen (Tylenol -) 650 mg PO Q6H PRN PRN Reason: PAIN LEVEL 1-6 OR FEVER Acetaminophen (Ofirmev Injection -) 1,000 mg IVPB Q6H PRN PRN Reason: PAIN LEVEL 7 - 10 Last Admin: 05/02/19 19:56 Dose: 1,000 mg Ceftriaxone Sodium 1 gm/ (Dextrose) 50 mls @ 100 mls/hr IVPB DAILY [facility]; Protocol Last Admin: 05/04/19 11:18 Dose: 100 mls/hr Potassium Chloride/Sodium Chloride (1/2ns+20meq Kcl) 20 meq in 1,000 mls @ 125 mls/hr IV ASDIR [facility] Last Admin: 05/03/19 22:11 Dose: 125 mls/hr Dextrose/Sodium Chloride (D5-1/2ns -) 1,000 mls @ 83 mls/hr IV ASDIR [facility] Methylnaltrexone [place] (Relistor -) 12 mg SQ DAILY [facility] Last Admin: 05/04/19 11:18 Dose: 12 mg Metoclopramide HCl (Reglan Injection -) 10 mg IVPUSH Q8H [facility] Last Admin: 05/04/19 08:45 Dose: 10 mg Morphine Sulfate (Morphine Sulfate) 2 mg IVPUSH Q4H PRN PRN Reason: PAIN LEVEL 7 - 10 Last Admin: 05/04/19 11:19 Dose: 2 mg Ondansetron HCl (Zofran Injection) 4 mg IVPUSH Q6H PRN PRN Reason: NAUSEA AND/OR VOMITING Pantoprazole Sodium (Protonix Iv) 40 mg IVPB BID [facility] Last Admin: 05/04/19 11:23 Dose: 40 mg Rifaximin (Xifaxan -) 550 mg PO BID [facility] Last Admin: 05/04/19 11:18 Dose: 550 mg - Objective Vital Signs: Vital Signs Temperature 97.8 F 05/04/19 10:45 Pulse Rate 78 05/04/19 10:45 Respiratory Rate 05/04/19 10:45 Blood Pressure 117/70 05/04/19 10:45 O2 Sat by Pulse Oximetry (%) 97 05/03/19 09:00 Constitutional: Yes: Calm Cardiovascular: Yes: Regular Rate and Rhythm, Tachycardia, S1, S2 Respiratory: Yes: CTA Bilaterally Gastrointestinal: Yes: Tenderness Edema: No Neurological: Yes: Alert, Oriented Labs: CBC, BMP 05/04/19 06:25 05/04/19 06:25 INR, PTT INR 0.94 (0.83-1.09) 05/01/19 11:13 Problem List - Problems (1) Abdominal pain Assessment/Plan: NPO again stop clear liquid diet xray of abdomen noted IV fluids Code(s): R10.9 - UNSPECIFIED ABDOMINAL PAIN
[2019-05-04] MEDS: DEXTROSE 5%-0.45% SALINE 1,000 ML IV SCH (15:17)
[2019-05-04] MEDS: SODIUM CHLORIDE 0.45%/POT 20 MEQ/1,000 ML INFUS.BAG IV SCH (18:48)
[2019-05-05] MEDS: METOCLOPRAMIDE HCL INJECTION 10 MG/2 ML VIAL IVPUSH SCH ×3 (01:24→17:35)
[2019-05-05] MEDS: morphine SULFATE 4 MG/ML VIAL IVPUSH PRN (06:01)
[2019-05-05] MEDS: DEXTROSE 5%-0.45% SALINE 1,000 ML IV SCH ×2 (06:44→18:18)
--- NOTE | 2019-05-05 07:50 | PN.GI ---
GI Progress Note Subjective: Patient continues with lower abdominal pain, having loose BMs as per RN. She had episodes of vomiting yesterday after ingesting food, placed NPO and no further episodes reported. No reports of rectal bleeding or blood in stool. - Objective Vital Signs: Vital Signs Temperature 98.6 F 05/05/19 05:36 Pulse Rate 76 05/05/19 05:36 Respiratory Rate 20 05/05/19 05:36 Blood Pressure 105/57 L 05/05/19 05:36 O2 Sat by Pulse Oximetry (%) 98 05/04/19 21:00 Constitutional: No Distress, Calm Eyes: Yes: Conjunctiva Clear HENT: Yes: Atraumatic Cardiovascular: Yes: Regular Rate and Rhythm Respiratory: Yes: Regular, CTA Bilaterally Gastrointestinal Inspection: Yes: Distention. No: WNL, Ascites, Hernia, Scars, Other ...Auscultate: Yes: Normoactive Bowel Sounds. No: Hyperactive Bowel Sounds, Hypoactive Bowel Sounds, No Bowel Sounds, Other ...Palpate: Yes: Soft, Tenderness (lower abdomen). No: Firm/Rigid, Guarding, Hepatomegaly, Mass, Pulsatile Mass, Splenomegaly, Tenderness, Epigastium, Tenderness, Rebound, Other ...Percussion: Yes: Other (high tympany). No: Dullness, Fluid Wave, Tympanitic Neurological: Yes: Alert, Oriented Psychiatric: Yes: Alert, Oriented Labs: CBC, BMP 05/04/19 06:25 05/04/19 06:25 INR, PTT INR 0.94 (0.83-1.09) 05/01/19 11:13 Active Medications Generic Name Dose Route Start Last Admin Trade Name Estephanie PRN Reason Stop Dose Admin Acetaminophen 650 mg 05/02/19 16:56 Tylenol - PO Q6H PRN PAIN LEVEL 1-6 OR FEVER Acetaminophen 1,000 mg 05/02/19 16:56 05/02/19 19:56 Ofirmev Injection - IVPB 1,000 mg Q6H PRN Administration PAIN LEVEL 7 - 10 Ceftriaxone Sodium 1 gm/ 50 mls @ 100 mls/hr 05/03/19 10:00 05/04/19 11:18 Dextrose IVPB 100 mls/hr DAILY [facility] Administration Protocol Potassium Chloride/Sodium Chloride 20 meq in 1,000 mls @ 125 mls/hr 05/02/19 16:56 05/04/19 18:48 1/2ns+20meq Kcl IV Not Given ASDIR [facility] Dextrose/Sodium Chloride 1,000 mls @ 83 mls/hr 05/04/19 15:00 05/05/19 06:44 D5-1/2ns - IV 83 mls/hr ASDIR [facility] Administration Methylnaltrexone [place] 12 mg 05/03/19 13:45 05/04/19 11:18 Relistor - SQ 12 mg DAILY [facility] Administration Metoclopramide HCl 10 mg 05/03/19 08:45 05/05/19 01:24 Reglan Injection - IVPUSH 10 mg Q8H [facility] Administration Ondansetron HCl 4 mg 05/02/19 17:00 Zofran Injection IVPUSH Q6H PRN NAUSEA AND/OR VOMITING Pantoprazole Sodium 40 mg 05/02/19 22:00 05/04/19 21:07 Protonix Iv IVPB 40 mg BID [facility] Administration Rifaximin 550 mg 05/03/19 13:45 05/04/19 21:07 Xifaxan - PO 550 mg BID [facility] Administration Problem List - Problems (1) Colon distention Assessment/Plan: associated with ileus secondary to opiod use and possibly underlying SIBO R> FUA reviewed showing decreasing retention of contrast in colon with dilated loops IV hydration Relistor Xifaxan do not advance diet until abdominal pain is negligible Code(s): K63.89 - OTHER SPECIFIED DISEASES OF INTESTINE
[2019-05-05] MEDS ORDERED: FLUCONAZOLE 50 MG TABLET PO ONE (08:54)
--- NOTE | 2019-05-05 08:54 | PN ---
Progress Note, Physician Chief Complaint: AWAKE STILL IN PAIN +BOWEL MOVEMENT - Current Medication List Current Medications: Active Medications Acetaminophen (Tylenol -) 650 mg PO Q6H PRN PRN Reason: PAIN LEVEL 1-6 OR FEVER Acetaminophen (Ofirmev Injection -) 1,000 mg IVPB Q6H PRN PRN Reason: PAIN LEVEL 7 - 10 Last Admin: 05/02/19 19:56 Dose: 1,000 mg Ceftriaxone Sodium 1 gm/ (Dextrose) 50 mls @ 100 mls/hr IVPB DAILY [facility]; Protocol Last Admin: 05/04/19 11:18 Dose: 100 mls/hr Potassium Chloride/Sodium Chloride (1/2ns+20meq Kcl) 20 meq in 1,000 mls @ 125 mls/hr IV ASDIR [facility] Last Admin: 05/04/19 18:48 Dose: Not Given Dextrose/Sodium Chloride (D5-1/2ns -) 1,000 mls @ 83 mls/hr IV ASDIR [facility] Last Admin: 05/05/19 06:44 Dose: 83 mls/hr Methylnaltrexone [place] (Relistor -) 12 mg SQ DAILY [facility] Last Admin: 05/04/19 11:18 Dose: 12 mg Metoclopramide HCl (Reglan Injection -) 10 mg IVPUSH Q8H [facility] Last Admin: 05/05/19 01:24 Dose: 10 mg Ondansetron HCl (Zofran Injection) 4 mg IVPUSH Q6H PRN PRN Reason: NAUSEA AND/OR VOMITING Pantoprazole Sodium (Protonix Iv) 40 mg IVPB BID [facility] Last Admin: 05/04/19 21:07 Dose: 40 mg Rifaximin (Xifaxan -) 550 mg PO BID [facility] Last Admin: 05/04/19 21:07 Dose: 550 mg - Objective Vital Signs: Vital Signs Temperature 98.6 F 05/05/19 05:36 Pulse Rate 76 05/05/19 05:36 Respiratory Rate 20 05/05/19 05:36 Blood Pressure 105/57 L 05/05/19 05:36 O2 Sat by Pulse Oximetry (%) 98 05/04/19 21:00 Constitutional: Yes: Mild Distress Cardiovascular: Yes: Regular Rate and Rhythm Respiratory: Yes: WNL Gastrointestinal: Yes: Distention, Tenderness Genitourinary: Yes: WNL Musculoskeletal: Yes: Back Pain Edema: No Wound/Incision: Yes: Clean/Dry Labs: CBC, BMP 05/04/19 06:25 05/04/19 06:25 INR, PTT INR 0.94 (0.83-1.09) 05/01/19 11:13 Problem List - Problems (1) Abdominal pain Code(s): R10.9 - UNSPECIFIED ABDOMINAL PAIN (2) Colon distention Code(s): K63.89 - OTHER SPECIFIED DISEASES OF INTESTINE (3) Constipation Code(s): K59.00 - CONSTIPATION, UNSPECIFIED Qualifiers: Constipation type: other constipation type Qualified Code(s): K59.09 - Other constipation (4) Nausea and vomiting Code(s): R11.2 - NAUSEA WITH VOMITING, UNSPECIFIED Qualifiers: Vomiting type: unspecified Vomiting Intractability: non-intractable Qualified Code(s): R11.2 - Nausea with vomiting, unspecified (5) Postoperative pain after spinal surgery Code(s): G89.18 - OTHER ACUTE POSTPROCEDURAL PAIN (6) S/P lumbar laminectomy Code(s): Z98.890 - OTHER SPECIFIED POSTPROCEDURAL STATES Assessment/Plan IV ABX FOR UTI CEFTRIAXONE CONTINUE ABD XRAY F/U DIFLUCAN X 1 CLEAR DIET ID/GI/SX EVAL APPRECIATED OOB TO CHAIR
[2019-05-05] MEDS ORDERED: FLUCONAZOLE 150 MG TABLET PO ONE (09:30)
[2019-05-05] MEDS ORDERED: DEXTROSE 5%-WATER - 50 ML IVPB ONE (10:37)
[2019-05-05] MEDS ORDERED: cefTRIAXone SODIUM 1 GM VIAL ONE (10:37)
[2019-05-05] MEDS: PANTOPRAZOLE SODIUM 40 MG VIAL IVPB SCH ×2 (10:48→22:36)
[2019-05-05] MEDS: RIFAXIMIN 550 MG TABLET (UD) PO SCH ×2 (10:49→22:36)
[2019-05-05] MEDS: ACETAMINOPHEN 325 MG TABLET (FP) PO PRN ×2 (10:49→18:19)
[2019-05-05] MEDS: CEFTRIAXONE 1 GM in DEXTROSE 5%-WATER - 50 ML IVPB SCH (10:50)
[2019-05-05] MEDS: Methylnaltrexone Bromide 12 MG/0.6 ML KIT SQ SCH (10:52)
[2019-05-05] MEDS: SODIUM CHLORIDE 0.45%/POT 20 MEQ/1,000 ML INFUS.BAG IV SCH (18:19)
--- NOTE | 2019-05-05 19:48 | PN ---
Progress Note, Physician History of Present Illness: 74yo [place]ian F with COPD, GERD, spinal stenosis, was just in hospital 04/23- - had L3-4/4-5 laminectomy 04/28, with no BM since weekend prior/days before her surgery, presented with abdominal and back pain. She had CT showing colon distended and fluid-filled, and required rectal tube placement with rigid sigmoidoscopic guidance by Dr. Kelly, which came out just under 24 hours later. She had been taking clear liquids. No bowel movements today, but per nurse, Dr. Kelly was here ~2:30/3:00 and replaced a rectal tube with some gas output only. She is seen and examined in bed, with a family member present. She indicates more discomfort in her abdomen than her back, and that her belly is still big. Appears generally comfortable. - Current Medication List Current Medications: Active Medications Acetaminophen (Tylenol -) 650 mg PO Q6H PRN PRN Reason: PAIN LEVEL 1-6 OR FEVER Last Admin: 05/05/19 18:19 Dose: 650 mg Acetaminophen (Ofirmev Injection -) 1,000 mg IVPB Q6H PRN PRN Reason: PAIN LEVEL 7 - 10 Last Admin: 05/02/19 19:56 Dose: 1,000 mg Ceftriaxone Sodium 1 gm/ (Dextrose) 50 mls @ 100 mls/hr IVPB DAILY [facility]; Protocol Last Admin: 05/05/19 10:50 Dose: 100 mls/hr Potassium Chloride/Sodium Chloride (1/2ns+20meq Kcl) 20 meq in 1,000 mls @ 125 mls/hr IV ASDIR [facility] Last Admin: 05/05/19 18:19 Dose: Not Given Dextrose/Sodium Chloride (D5-1/2ns -) 1,000 mls @ 83 mls/hr IV ASDIR [facility] Last Admin: 05/05/19 18:18 Dose: 83 mls/hr Methylnaltrexone [place] (Relistor -) 12 mg SQ DAILY [facility] Last Admin: 05/05/19 10:52 Dose: 12 mg Metoclopramide HCl (Reglan Injection -) 10 mg IVPUSH Q8H [facility] Last Admin: 05/05/19 17:35 Dose: 10 mg Ondansetron HCl (Zofran Injection) 4 mg IVPUSH Q6H PRN PRN Reason: NAUSEA AND/OR VOMITING Pantoprazole Sodium (Protonix Iv) 40 mg IVPB BID [facility] Last Admin: 05/05/19 10:48 Dose: 40 mg Rifaximin (Xifaxan -) 550 mg PO BID [facility] Last Admin: 05/05/19 10:49 Dose: 550 mg - Objective Vital Signs: Vital Signs Temperature 97.8 F 05/05/19 15:52 Pulse Rate 78 05/05/19 15:52 Respiratory Rate 20 05/05/19 15:52 Blood Pressure 118/62 05/05/19 15:52 O2 Sat by Pulse Oximetry (%) 98 05/05/19 09:00 Constitutional: Yes: Well Nourished, No Distress, Calm Eyes: Yes: Conjunctiva Clear, EOM Intact HENT: Yes: Atraumatic, Normocephalic Gastrointestinal: Yes: Soft, Distention (with tympany). No: Tenderness (minimal , no R/G) ...Rectal Exam: Yes: Sphincter Tone Normal, Other (pt rolled over to show me the tube and it was already out of rectum, though still taped to leg; attempted reinsertion, but it either coiled in rectal vault or felt like it started to pass toward cecum with no return of gas or fluid -- no further attempt made) Extremities: No: Cool, Cyanosis Integumentary: No: Jaundice, Rash Neurological: Yes: Alert, Oriented Labs: CBC, BMP 05/04/19 06:25 05/04/19 06:25 INR, PTT INR 0.94 (0.83-1.09) 05/01/19 11:13 - ....Imaging X-ray: Report Reviewed, Image Reviewed (AXR - pancolonic distention with contrast and stool in right colon, no significant SB dilation) Problem List - Problems (1) Colon distention Code(s): K63.89 - OTHER SPECIFIED DISEASES OF INTESTINE (2) Constipation Code(s): K59.00 - CONSTIPATION, UNSPECIFIED Qualifiers: Constipation type: other constipation type Qualified Code(s): K59.09 - Other constipation (3) Generalized abdominal pain Code(s): R10.84 - GENERALIZED ABDOMINAL PAIN (4) Nausea and vomiting Code(s): R11.2 - NAUSEA WITH VOMITING, UNSPECIFIED Qualifiers: Vomiting type: unspecified Vomiting Intractability: non-intractable Qualified Code(s): R11.2 - Nausea with vomiting, unspecified (5) S/P lumbar laminectomy Code(s): Z98.890 - OTHER SPECIFIED POSTPROCEDURAL STATES (6) Postoperative pain after spinal surgery Code(s): G89.18 - OTHER ACUTE POSTPROCEDURAL PAIN (7) COPD (chronic obstructive pulmonary disease) Code(s): J44.9 - CHRONIC OBSTRUCTIVE PULMONARY DISEASE, UNSPECIFIED Qualifiers: COPD type: unspecified COPD Qualified Code(s): J44.9 - Chronic obstructive pulmonary disease, unspecified (8) GERD without esophagitis Code(s): K21.9 - GASTRO-ESOPHAGEAL REFLUX DISEASE WITHOUT ESOPHAGITIS Assessment/Plan s/p endoscopic placement of rectal tube, lasted almost a day still with abd distention, discomfort not passing much without tube tube was reinserted about 4 hrs ago, but is already out GI following - probably needs endoscopic replacement, flexible sigmoidoscopy tolerating clears, but would go slow until colon empties and pain resolves pain meds prn - try to minimize narcotics GI/DVT prophylaxis following peripherally - no surgical intervention indicated
[2019-05-05] MEDS: ACETAMINOPHEN 1000 MG/100 ML VIAL (NON FORMULARY) IVPB PRN (22:58)
[2019-05-06] MEDS: METOCLOPRAMIDE HCL INJECTION 10 MG/2 ML VIAL IVPUSH SCH ×3 (00:44→17:42)
[2019-05-06] MEDS: DEXTROSE 5%-0.45% SALINE 1,000 ML IV SCH ×2 (06:39→17:43)
--- NOTE | 2019-05-06 08:22 | PN.GI ---
GI Progress Note Subjective: Patient states having mild improvement in lower abdominal pain. Rectal tube placed yesterday and became dislodged, surgery attempt to replace rectal tube was unsuccessful. RN reports BM this morning. - Objective Vital Signs: Vital Signs Temperature 98.1 F 05/06/19 07:05 Pulse Rate 70 05/06/19 07:05 Respiratory Rate 18 05/06/19 07:05 Blood Pressure 107/57 L 05/06/19 07:05 O2 Sat by Pulse Oximetry (%) 95 05/05/19 21:00 Constitutional: Well Nourished, No Distress, Calm Eyes: Yes: Conjunctiva Clear HENT: Yes: Atraumatic Cardiovascular: Yes: Regular Rate and Rhythm Respiratory: Yes: Regular, CTA Bilaterally Gastrointestinal Inspection: Yes: Distention (less distended). No: WNL, Ascites , Hernia, Scars, Other ...Auscultate: Yes: Normoactive Bowel Sounds. No: Hyperactive Bowel Sounds, Hypoactive Bowel Sounds, No Bowel Sounds, Other ...Palpate: Yes: Soft, Tenderness (lower abdomen). No: Firm/Rigid, Guarding, Hepatomegaly, Mass, Pulsatile Mass, Splenomegaly, Tenderness, Epigastium, Tenderness, Rebound, Other ...Percussion: Yes: Tympanitic. No: Dullness, Fluid Wave, Other Neurological: Yes: Alert, Oriented Psychiatric: Yes: Alert, Oriented Labs: CBC, BMP 05/04/19 06:25 05/04/19 06:25 INR, PTT INR 0.94 (0.83-1.09) 05/01/19 11:13 Active Medications Generic Name Dose Route Start Last Admin Trade Name Rishabhq PRN Reason Stop Dose Admin Acetaminophen 650 mg 05/02/19 16:56 05/05/19 18:19 Tylenol - PO 650 mg Q6H PRN Administration PAIN LEVEL 1-6 OR FEVER Acetaminophen 1,000 mg 05/02/19 16:56 05/05/19 22:58 Ofirmev Injection - IVPB 1,000 mg Q6H PRN Administration PAIN LEVEL 7 - 10 Ceftriaxone Sodium 1 gm/ 50 mls @ 100 mls/hr 05/03/19 10:00 05/05/19 10:50 Dextrose IVPB 100 mls/hr DAILY [facility] Administration Protocol Potassium Chloride/Sodium Chloride 20 meq in 1,000 mls @ 125 mls/hr 05/02/19 16:56 05/05/19 18:19 1/2ns+20meq Kcl IV Not Given ASDIR [facility] Dextrose/Sodium Chloride 1,000 mls @ 83 mls/hr 05/04/19 15:00 05/06/19 06:39 D5-1/2ns - IV 83 mls/hr ASDIR [facility] Administration Methylnaltrexone [place] 12 mg 05/03/19 13:45 05/05/19 10:52 Relistor - SQ 12 mg DAILY [facility] Administration Metoclopramide HCl 10 mg 05/03/19 08:45 05/06/19 00:44 Reglan Injection - IVPUSH 10 mg Q8H [facility] Administration Ondansetron HCl 4 mg 05/02/19 17:00 Zofran Injection IVPUSH Q6H PRN NAUSEA AND/OR VOMITING Pantoprazole Sodium 40 mg 05/02/19 22:00 05/05/19 22:36 Protonix Iv IVPB 40 mg BID [facility] Administration Rifaximin 550 mg 05/03/19 13:45 05/05/19 22:36 Xifaxan - PO 550 mg BID [facility] Administration Problem List - Problems (1) Colon distention Assessment/Plan: associated with ileus secondary to opiod use colonoscopy up to mid transverwe reveal no colonic obstruction R> repeat FUA ordered IV hydration Relistor Xifaxan do not advance diet until abdominal pain is negligible Code(s): K63.89 - OTHER SPECIFIED DISEASES OF INTESTINE
[2019-05-06] MEDS ORDERED: PT OWN MED DRAWER 7, Y5N ONE (08:41)
[2019-05-06] MEDS ORDERED: cefTRIAXone SODIUM 1 GM VIAL ONE (08:42)
[2019-05-06] MEDS ORDERED: DEXTROSE 5%-WATER - 50 ML IVPB ONE (08:42)
[2019-05-06] MEDS: Methylnaltrexone Bromide 12 MG/0.6 ML KIT SQ SCH (09:14)
[2019-05-06] MEDS: RIFAXIMIN 550 MG TABLET (UD) PO SCH ×2 (09:14→21:38)
[2019-05-06] MEDS: PANTOPRAZOLE SODIUM 40 MG VIAL IVPB SCH ×2 (09:14→21:38)
[2019-05-06] MEDS: ACETAMINOPHEN 1000 MG/100 ML VIAL (NON FORMULARY) IVPB PRN (09:14)
[2019-05-06] MEDS: CEFTRIAXONE 1 GM in DEXTROSE 5%-WATER - 50 ML IVPB SCH (09:15)
--- NOTE | 2019-05-06 11:23 | PN ---
Progress Note, Physician Chief Complaint: SBO History of Present Illness: NAD in bed Had BM x 2 this AM Abdominal pain improved Seen by GI and surgery Is on Relistor - Current Medication List Current Medications: Active Medications Acetaminophen (Tylenol -) 650 mg PO Q6H PRN PRN Reason: PAIN LEVEL 1-6 OR FEVER Last Admin: 05/05/19 18:19 Dose: 650 mg Acetaminophen (Ofirmev Injection -) 1,000 mg IVPB Q6H PRN PRN Reason: PAIN LEVEL 7 - 10 Last Admin: 05/06/19 09:14 Dose: 1,000 mg Ceftriaxone Sodium 1 gm/ (Dextrose) 50 mls @ 100 mls/hr IVPB DAILY [facility]; Protocol Last Admin: 05/06/19 09:15 Dose: 100 mls/hr Potassium Chloride/Sodium Chloride (1/2ns+20meq Kcl) 20 meq in 1,000 mls @ 125 mls/hr IV ASDIR [facility] Last Admin: 05/05/19 18:19 Dose: Not Given Dextrose/Sodium Chloride (D5-1/2ns -) 1,000 mls @ 83 mls/hr IV ASDIR [facility] Last Admin: 05/06/19 06:39 Dose: 83 mls/hr Methylnaltrexone [place] (Relistor -) 12 mg SQ DAILY [facility] Last Admin: 05/06/19 09:14 Dose: 12 mg Metoclopramide HCl (Reglan Injection -) 10 mg IVPUSH Q8H [facility] Last Admin: 05/06/19 09:14 Dose: 10 mg Ondansetron HCl (Zofran Injection) 4 mg IVPUSH Q6H PRN PRN Reason: NAUSEA AND/OR VOMITING Pantoprazole Sodium (Protonix Iv) 40 mg IVPB BID [facility] Last Admin: 05/06/19 09:14 Dose: 40 mg Rifaximin (Xifaxan -) 550 mg PO BID [facility] Last Admin: 05/06/19 09:14 Dose: 550 mg - Objective Vital Signs: Vital Signs Temperature 98.2 F 05/06/19 09:11 Pulse Rate 88 05/06/19 09:11 Respiratory Rate 16 05/06/19 09:11 Blood Pressure 154/80 05/06/19 09:11 O2 Sat by Pulse Oximetry (%) 95 05/06/19 09:00 Constitutional: Yes: Well Nourished, No Distress, Calm Cardiovascular: Yes: Regular Rate and Rhythm Respiratory: Yes: Regular Gastrointestinal: Yes: Normal Bowel Sounds, Soft, Tenderness (diffuse) Genitourinary: Yes: WNL Musculoskeletal: Yes: WNL Extremities: Yes: WNL Edema: No Peripheral Pulses WNL: Yes Neurological: Yes: Alert, Oriented Psychiatric: Yes: Alert, Oriented Labs: CBC, BMP 05/04/19 06:25 05/04/19 06:25 INR, PTT INR 0.94 (0.83-1.09) 05/01/19 11:13 Problem List - Problems (1) Abdominal pain Assessment/Plan: -Improved -GI consult -2/2 to stool retention -Relistor daily -Encouraged ambulation -continue clear liquid diet until abd pain resolved Code(s): R10.9 - UNSPECIFIED ABDOMINAL PAIN (2) Constipation Assessment/Plan: -relistor -Saline enema this am -Fleet enema x 3 ordered by GI -Encouraged ambulation -continue clear liquid diet Code(s): K59.00 - CONSTIPATION, UNSPECIFIED Qualifiers: Constipation type: other constipation type Qualified Code(s): K59.09 - Other constipation (3) Colon distention Code(s): K63.89 - OTHER SPECIFIED DISEASES OF INTESTINE (4) S/P lumbar laminectomy Code(s): Z98.890 - OTHER SPECIFIED POSTPROCEDURAL STATES (5) COPD (chronic obstructive pulmonary disease) Code(s): J44.9 - CHRONIC OBSTRUCTIVE PULMONARY DISEASE, UNSPECIFIED (6) GERD (gastroesophageal reflux disease) Code(s): K21.9 - GASTRO-ESOPHAGEAL REFLUX DISEASE WITHOUT ESOPHAGITIS Assessment/Plan see problem list
[2019-05-06] MEDS: SODIUM PHOSPHATE/NA BIPHOS 133 ML ENEMA PR SCH ×3 (13:17→21:41)
--- NOTE | 2019-05-06 15:03 | PN ---
Progress Note, Physician History of Present Illness: 74yo [place] F with COPD, GERD, spinal stenosis, was just in hospital 04/23- - had L3-4/4-5 laminectomy 04/28, with no BM since weekend prior/days before her surgery, presented with abdominal and back pain. She had CT showing colon distended and fluid-filled, and required rectal tube placement with rigid sigmoidoscopic guidance by Dr. Kelly, which came out just under 24 hours later. She has been taking clear liquids. Dr. Kelly reinserted a rectal tube bedside yesterday with some gas output, which fell out in a few hours. AXRs show persistently distended colon with contrast in right side. She is seen and examined just after getting first 133ml saline enema. She got out of bed to commode, and had multiple flatus and clear liquid stool output. Back in bed, her abdomen is soft, feeling better, flat but still tympanic. GI ordered the enemas x3. - Current Medication List Current Medications: Active Medications Acetaminophen (Tylenol -) 650 mg PO Q6H PRN PRN Reason: PAIN LEVEL 1-6 OR FEVER Last Admin: 05/05/19 18:19 Dose: 650 mg Acetaminophen (Ofirmev Injection -) 1,000 mg IVPB Q6H PRN PRN Reason: PAIN LEVEL 7 - 10 Last Admin: 05/06/19 09:14 Dose: 1,000 mg Ceftriaxone Sodium 1 gm/ (Dextrose) 50 mls @ 100 mls/hr IVPB DAILY [facility]; Protocol Last Admin: 05/06/19 09:15 Dose: 100 mls/hr Potassium Chloride/Sodium Chloride (1/2ns+20meq Kcl) 20 meq in 1,000 mls @ 125 mls/hr IV ASDIR [facility] Last Admin: 05/05/19 18:19 Dose: Not Given Dextrose/Sodium Chloride (D5-1/2ns -) 1,000 mls @ 83 mls/hr IV ASDIR [facility] Last Admin: 05/06/19 06:39 Dose: 83 mls/hr Methylnaltrexone [place] (Relistor -) 12 mg SQ DAILY [facility] Last Admin: 05/06/19 09:14 Dose: 12 mg Metoclopramide HCl (Reglan Injection -) 10 mg IVPUSH Q8H [facility] Last Admin: 05/06/19 09:14 Dose: 10 mg Ondansetron HCl (Zofran Injection) 4 mg IVPUSH Q6H PRN PRN Reason: NAUSEA AND/OR VOMITING Pantoprazole Sodium (Protonix Iv) 40 mg IVPB BID [facility] Last Admin: 05/06/19 09:14 Dose: 40 mg Rifaximin (Xifaxan -) 550 mg PO BID [facility] Last Admin: 05/06/19 09:14 Dose: 550 mg Sodium Phosphate (Fleet Adult Rectal Enema -) 133 ml [place] Q4H [facility] Stop: 05/06/19 21:01 Last Admin: 05/06/19 13:17 Dose: 133 ml - Objective Vital Signs: Vital Signs Temperature 97.9 F 05/06/19 14:49 Pulse Rate 88 05/06/19 14:49 Respiratory Rate 18 05/06/19 14:49 Blood Pressure 135/75 05/06/19 14:49 O2 Sat by Pulse Oximetry (%) 95 05/06/19 09:00 Constitutional: Yes: Well Nourished, No Distress, Calm Eyes: Yes: Conjunctiva Clear, EOM Intact HENT: Yes: Atraumatic, Normocephalic Gastrointestinal: Yes: Soft, Distention (minimal - flat now just after evacuating (see hpi), but tympanic), Tenderness (mild LLQ/suprapubic, no R/G) Extremities: No: Cool, Cyanosis Integumentary: No: Jaundice, Rash Neurological: Yes: Alert, Oriented Labs: no new labs - ....Imaging X-ray: Report Reviewed, Image Reviewed (no significant changes - distended colon , contrast in right) Problem List - Problems (1) Colon distention Code(s): K63.89 - OTHER SPECIFIED DISEASES OF INTESTINE (2) Constipation Code(s): K59.00 - CONSTIPATION, UNSPECIFIED Qualifiers: Constipation type: other constipation type Qualified Code(s): K59.09 - Other constipation (3) Generalized abdominal pain Code(s): R10.84 - GENERALIZED ABDOMINAL PAIN (4) Nausea and vomiting Code(s): R11.2 - NAUSEA WITH VOMITING, UNSPECIFIED Qualifiers: Vomiting type: unspecified Vomiting Intractability: non-intractable Qualified Code(s): R11.2 - Nausea with vomiting, unspecified (5) S/P lumbar laminectomy Code(s): Z98.890 - OTHER SPECIFIED POSTPROCEDURAL STATES (6) Postoperative pain after spinal surgery Code(s): G89.18 - OTHER ACUTE POSTPROCEDURAL PAIN (7) COPD (chronic obstructive pulmonary disease) Code(s): J44.9 - CHRONIC OBSTRUCTIVE PULMONARY DISEASE, UNSPECIFIED Qualifiers: COPD type: unspecified COPD Qualified Code(s): J44.9 - Chronic obstructive pulmonary disease, unspecified (8) GERD without esophagitis Code(s): K21.9 - GASTRO-ESOPHAGEAL REFLUX DISEASE WITHOUT ESOPHAGITIS Assessment/Plan s/p endoscopic placement of rectal tube, lasted almost a day had another tube briefly less abd distention, less discomfort after evacuating post-fleet's enema passing gas and some liquid stool - ? unclear how much is enema fluid vs colon content still with gas/tympany and some discomfort she has not been on narcotics since last week Sat-Sat except for morphine given in ER 05/01 and once (2mg) 05/02 GI following - recommend flexible sigmoidoscopy tolerating clears, but would go slow until colon empties fully and pain/ tenderness resolves pain meds prn - avoid narcotics GI/DVT prophylaxis following peripherally - no surgical intervention indicated
--- NOTE | 2019-05-06 16:34 | PN ---
Progress Note (short form) - Note Progress Note: less abdominal pain +bms +gas Vital Signs Period Temp Pulse Resp BP Sys/Gallardo Pulse Ox Last 24 Hr 97.9 F-98.6 F 70-88 16-20 107-154/57-80 95-95 cor-rrr lungs clear abd soft,mild pelvic pain to palpation ext no edema incison clean and dry CBC, BMP 05/04/19 06:25 05/04/19 06:25 Microbiology 05/01/19 21:00 Blood - Peripheral Venous Blood Culture - Preliminary NO GROWTH OBTAINED AFTER 96 HOURS, INCUBATION TO CONTINUE FOR 1 DAYS. 05/01/19 21:00 Blood - Peripheral Venous Blood Culture - Preliminary NO GROWTH OBTAINED AFTER 96 HOURS, INCUBATION TO CONTINUE FOR 1 DAYS. 05/01/19 13:23 Urine - Urine Clean Catch Urine Culture - Final Escherichia Coli Lactose Fermenting Neg Bacilli#2 a/p constipaiton- being managed by GI leukocytosis resolved- can d/c antibiotics s/p lumbar laminectomy
[2019-05-06] MEDS: SODIUM CHLORIDE 0.45%/POT 20 MEQ/1,000 ML INFUS.BAG IV SCH (17:43)
[2019-05-07] MEDS: METOCLOPRAMIDE HCL INJECTION 10 MG/2 ML VIAL IVPUSH SCH ×3 (00:38→17:40)
[2019-05-07] MEDS: DEXTROSE 5%-0.45% SALINE 1,000 ML IV SCH (06:08)
--- NOTE | 2019-05-07 08:01 | PN.GI ---
GI Progress Note Subjective: Patient received 2 enemas yesterday with poor effect, night RN reports no BM. Patient complain of lower abdominal pain. Patient seen in [facility] at 1:28 pm. Abdominal pain minimal - Objective Vital Signs: Vital Signs Temperature 98.8 F 05/07/19 06:57 Pulse Rate 77 05/07/19 06:57 Respiratory Rate 20 05/07/19 06:57 Blood Pressure 121/58 L 05/07/19 06:57 O2 Sat by Pulse Oximetry (%) 92 L 05/06/19 21:00 Constitutional: No Distress, Calm Eyes: Yes: Conjunctiva Clear HENT: Yes: Atraumatic Cardiovascular: Yes: Regular Rate and Rhythm Respiratory: Yes: Regular, CTA Bilaterally Gastrointestinal Inspection: Yes: Distention (mild much improved since last 3 days). No: WNL, Ascites, Hernia, Scars, Other ...Auscultate: Yes: Normoactive Bowel Sounds. No: Hyperactive Bowel Sounds, Hypoactive Bowel Sounds, No Bowel Sounds, Other ...Palpate: Yes: Soft, Tenderness (suprapubic mild). No: Firm/Rigid, Guarding, Hepatomegaly, Mass, Pulsatile Mass, Splenomegaly, Tenderness, Epigastium, Tenderness, Rebound, Other ...Percussion: Yes: Other (high tympany). No: Dullness, Fluid Wave, Tympanitic ...Rectal Exam: Yes: Other (applied rectal tube) Neurological: Yes: Alert, Oriented Psychiatric: Yes: Alert, Oriented Labs: INR, PTT INR 0.94 (0.83-1.09) 05/01/19 11:13 Active Medications Generic Name Dose Route Start Last Admin Trade Name Freq PRN Reason Stop Dose Admin Acetaminophen 650 mg 05/02/19 16:56 05/05/19 18:19 Tylenol - PO 650 mg Q6H PRN Administration PAIN LEVEL 1-6 OR FEVER Acetaminophen 1,000 mg 05/02/19 16:56 05/06/19 09:14 Ofirmev Injection - IVPB 1,000 mg Q6H PRN Administration PAIN LEVEL 7 - 10 Potassium Chloride/Sodium Chloride 20 meq in 1,000 mls @ 125 mls/hr 05/02/19 16:56 05/06/19 17:43 1/2ns+20meq Kcl IV Not Given ASDIR KAROLINA Dextrose/Sodium Chloride 1,000 mls @ 83 mls/hr 05/04/19 15:00 05/07/19 06:08 D5-1/2ns - IV 83 mls/hr ASDIR KAROLINA Administration Methylnaltrexone [place] 12 mg 05/03/19 13:45 05/06/19 09:14 Relistor - SQ 12 mg DAILY KAROLINA Administration Metoclopramide HCl 10 mg 05/03/19 08:45 05/07/19 00:38 Reglan Injection - IVPUSH 10 mg Q8H KAROLINA Administration Ondansetron HCl 4 mg 05/02/19 17:00 Zofran Injection IVPUSH Q6H PRN NAUSEA AND/OR VOMITING Pantoprazole Sodium 40 mg 05/02/19 22:00 05/06/19 21:38 Protonix Iv IVPB 40 mg BID KAROLINA Administration Rifaximin 550 mg 05/03/19 13:45 05/06/19 21:38 Xifaxan - PO 550 mg BID KAROLINA Administration Problem List - Problems (1) Colon distention Assessment/Plan: associated with ileus secondary to opiod use colonoscopy up to mid transverwe reveal no colonic obstruction R> FUA in am IV hydration Relistor Xifaxan flexig cancelled--clinically much improved,placed rectal tube without difficulty Code(s): K63.89 - OTHER SPECIFIED DISEASES OF INTESTINE
[2019-05-07 08:08] LABS: CALCIUM 8.1 mg/dL (8.5-10.1); CREATININE 0.5 mg/dL (0.55-1.3); POTASSIUM 3.2 mmol/L (3.5-5.1)
[2019-05-07 08:36] LABS: HEMATOCRIT 34.3 % (32.4-45.2); HEMOGLOBIN 11.6 GM/dL (10.7-15.3); MCH 31.7 pg (25.7-33.7); MCHC 33.8 g/dl (32.0-36.0); MEAN CELL VOLUME 93.9 fl (80-96); MEAN PLT VOLUME 8.6 fl (7.5-11.1); PLATELET COUNT 214 K/MM3 (134-434); RBC 3.65 M/mm3 (3.60-5.2); RDW 14.3 % (11.6-15.6); WHITE BLOOD COUNT 5.8 K/mm3 (4.0-10.0)
[2019-05-07] MEDS: Methylnaltrexone Bromide 12 MG/0.6 ML KIT SQ SCH (09:25)
[2019-05-07] MEDS: RIFAXIMIN 550 MG TABLET (UD) PO SCH ×2 (09:25→21:15)
[2019-05-07] MEDS: PANTOPRAZOLE SODIUM 40 MG VIAL IVPB SCH ×2 (09:25→21:15)
--- NOTE | 2019-05-07 10:50 | PN ---
Progress Note, Physician Chief Complaint: SBO History of Present Illness: Previous notes and events reviewed awake and alert NAD pt received enemas x 2 yesterday with poor effect NPO for flex-sig this afternoon - Current Medication List Current Medications: Active Medications Acetaminophen (Tylenol -) 650 mg PO Q6H PRN PRN Reason: PAIN LEVEL 1-6 OR FEVER Last Admin: 05/05/19 18:19 Dose: 650 mg Acetaminophen (Ofirmev Injection -) 1,000 mg IVPB Q6H PRN PRN Reason: PAIN LEVEL 7 - 10 Last Admin: 05/06/19 09:14 Dose: 1,000 mg Potassium Chloride/Sodium Chloride (1/2ns+20meq Kcl) 20 meq in 1,000 mls @ 125 mls/hr IV ASDIR [facility] Last Admin: 05/06/19 17:43 Dose: Not Given Dextrose/Sodium Chloride (D5-1/2ns -) 1,000 mls @ 83 mls/hr IV ASDIR [facility] Last Admin: 05/07/19 06:08 Dose: 83 mls/hr Methylnaltrexone [place] (Relistor -) 12 mg SQ DAILY [facility] Last Admin: 05/07/19 09:25 Dose: 12 mg Metoclopramide HCl (Reglan Injection -) 10 mg IVPUSH Q8H [facility] Last Admin: 05/07/19 09:25 Dose: 10 mg Ondansetron HCl (Zofran Injection) 4 mg IVPUSH Q6H PRN PRN Reason: NAUSEA AND/OR VOMITING Pantoprazole Sodium (Protonix Iv) 40 mg IVPB BID [facility] Last Admin: 05/07/19 09:25 Dose: 40 mg Rifaximin (Xifaxan -) 550 mg PO BID [facility] Last Admin: 05/07/19 09:25 Dose: 550 mg - Objective Vital Signs: Vital Signs Temperature 98.3 F 05/07/19 09:00 Pulse Rate 77 05/07/19 09:00 Respiratory Rate 20 05/07/19 09:00 Blood Pressure 123/73 05/07/19 09:00 O2 Sat by Pulse Oximetry (%) 92 L 05/06/19 21:00 Constitutional: Yes: No Distress, Calm Eyes: Yes: Conjunctiva Clear HENT: Yes: Atraumatic Cardiovascular: Yes: Regular Rate and Rhythm Respiratory: Yes: Regular, CTA Bilaterally Gastrointestinal: Yes: Normal Bowel Sounds, Soft, Tenderness (llq and rlq) Musculoskeletal: Yes: WNL Extremities: Yes: WNL Edema: No Neurological: Yes: Alert, Oriented Psychiatric: Yes: Alert, Oriented Labs: CBC, BMP 05/07/19 06:50 05/07/19 06:50 INR, PTT INR 0.94 (0.83-1.09) 05/01/19 11:13 Microbiology 05/01/19 21:00 Blood - Peripheral Venous Blood Culture - Final NO GROWTH AFTER 5 DAYS INCUBATION 05/01/19 21:00 Blood - Peripheral Venous Blood Culture - Final NO GROWTH AFTER 5 DAYS INCUBATION 05/01/19 13:23 Urine - Urine Clean Catch Urine Culture - Final Escherichia Coli Lactose Fermenting Neg Bacilli#2 Problem List - Problems (1) Abdominal pain Assessment/Plan: -improving -GI on board -Abd Xray shows retained stool and contrast in the right colon with air distended colon and some air distentionof distal small bowel loops -Relistor -resume clear liquids after flex-sig and will advance diet when abdominal pain subsides Code(s): R10.9 - UNSPECIFIED ABDOMINAL PAIN (2) COPD (chronic obstructive pulmonary disease) Assessment/Plan: -keep SpO2 >90% -O2 via NC prn Code(s): J44.9 - CHRONIC OBSTRUCTIVE PULMONARY DISEASE, UNSPECIFIED Qualifiers: COPD type: unspecified COPD Qualified Code(s): J44.9 - Chronic obstructive pulmonary disease, unspecified (3) Constipation Assessment/Plan: -GI on board -Relistor -poor response to enema x 2 -NPO for flex-sig today Code(s): K59.00 - CONSTIPATION, UNSPECIFIED Qualifiers: Constipation type: other constipation type Qualified Code(s): K59.09 - Other constipation (4) GERD without esophagitis Assessment/Plan: -Pantoprazole Code(s): K21.9 - GASTRO-ESOPHAGEAL REFLUX DISEASE WITHOUT ESOPHAGITIS Assessment/Plan see problem list dby ppx
[2019-05-07] MEDS: SODIUM CHLORIDE 0.45%/POT 20 MEQ/1,000 ML INFUS.BAG IV SCH (21:22)
[2019-05-08] MEDS: METOCLOPRAMIDE HCL INJECTION 10 MG/2 ML VIAL IVPUSH SCH ×3 (01:21→18:20)
--- NOTE | 2019-05-08 08:08 | PN.GI ---
GI Progress Note Subjective: Patient states abdominal pain is better. Flex-sig cancelled yesterday and rectal tube was placed. As per RN rectal tube came out this morning at 5am. No reports of BM but admits to passing flatus. Denies nausea or vomiting. - Objective Vital Signs: Vital Signs Temperature 97.2 F L 05/07/19 23:37 Pulse Rate 80 05/07/19 23:37 Respiratory Rate 20 05/07/19 23:37 Blood Pressure 120/70 05/07/19 23:37 O2 Sat by Pulse Oximetry (%) 94 L 05/07/19 21:00 Constitutional: No Distress, Calm Eyes: Yes: Conjunctiva Clear HENT: Yes: Atraumatic Neck: Yes: Supple Respiratory: Yes: Regular, CTA Bilaterally Gastrointestinal Inspection: Yes: WNL. No: Ascites, Distention, Hernia, Scars, Other ...Auscultate: Yes: Normoactive Bowel Sounds. No: Hyperactive Bowel Sounds, Hypoactive Bowel Sounds, No Bowel Sounds, Other ...Palpate: Yes: Soft, Tenderness (mild rlq). No: Firm/Rigid, Guarding, Hepatomegaly, Mass, Pulsatile Mass, Splenomegaly, Tenderness, Epigastium, Tenderness, Rebound, Other ...Percussion: Yes: Tympanitic. No: Dullness, Fluid Wave, Other Neurological: Yes: Alert, Oriented Psychiatric: Yes: Alert, Oriented Labs: CBC, BMP 05/07/19 06:50 05/07/19 06:50 INR, PTT INR 0.94 (0.83-1.09) 05/01/19 11:13 Active Medications Generic Name Dose Route Start Last Admin Trade Name Freq PRN Reason Stop Dose Admin Acetaminophen 650 mg 05/02/19 16:56 05/05/19 18:19 Tylenol - PO 650 mg Q6H PRN Administration PAIN LEVEL 1-6 OR FEVER Acetaminophen 1,000 mg 05/02/19 16:56 05/06/19 09:14 Ofirmev Injection - IVPB 1,000 mg Q6H PRN Administration PAIN LEVEL 7 - 10 Potassium Chloride/Sodium Chloride 20 meq in 1,000 mls @ 125 mls/hr 05/02/19 16:56 05/07/19 21:22 1/2ns+20meq Kcl IV 125 mls/hr ASDIR KAROLINA Administration Methylnaltrexone [place] 12 mg 05/03/19 13:45 05/07/19 09:25 Relistor - SQ 12 mg DAILY KAROLINA Administration Metoclopramide HCl 10 mg 05/03/19 08:45 05/08/19 01:21 Reglan Injection - IVPUSH 10 mg Q8H KAROLINA Administration Ondansetron HCl 4 mg 05/02/19 17:00 Zofran Injection IVPUSH Q6H PRN NAUSEA AND/OR VOMITING Pantoprazole Sodium 40 mg 05/02/19 22:00 05/07/19 21:15 Protonix Iv IVPB 40 mg BID KAROLINA Administration Rifaximin 550 mg 05/03/19 13:45 05/07/19 21:15 Xifaxan - PO 550 mg BID KAROLINA Administration Problem List - Problems (1) Colon distention Assessment/Plan: associated with ileus secondary to opiod use colonoscopy up to mid transverwe reveal no colonic obstruction R> IV hydration Relistor Xifaxan flexig cancelled--clinically much improved,placed rectal tube without difficulty rectal tube displaced this AM Code(s): K63.89 - OTHER SPECIFIED DISEASES OF INTESTINE
[2019-05-08] MEDS: RIFAXIMIN 550 MG TABLET (UD) PO SCH (09:45)
[2019-05-08] MEDS: PANTOPRAZOLE SODIUM 40 MG VIAL IVPB SCH (09:45)
[2019-05-08] MEDS: Methylnaltrexone Bromide 12 MG/0.6 ML KIT SQ SCH (09:45)
[2019-05-08 14:58] VITALS: BP 120/66; PULSE 76; TEMP 97.9
--- NOTE | 2019-05-08 16:05 | DS ---
Physical Examination Vital Signs: Vital Signs Temperature 97.9 F 05/08/19 14:57 Pulse Rate 76 05/08/19 14:57 Respiratory Rate 18 05/08/19 14:57 Blood Pressure 120/66 05/08/19 14:57 O2 Sat by Pulse Oximetry (%) 94 L 05/07/19 21:00 Findings/Remarks: Active Medications Generic Name Dose Route Start Last Admin Trade Name Freq PRN Reason Stop Dose Admin Acetaminophen 650 mg 05/02/19 16:56 05/05/19 18:19 Tylenol - PO 650 mg Q6H PRN Administration PAIN LEVEL 1-6 OR FEVER Acetaminophen 1,000 mg 05/02/19 16:56 05/06/19 09:14 Ofirmev Injection - IVPB 1,000 mg Q6H PRN Administration PAIN LEVEL 7 - 10 Potassium Chloride/Sodium Chloride 20 meq in 1,000 mls @ 125 mls/hr 05/02/19 16:56 05/07/19 21:22 1/2ns+20meq Kcl IV 125 mls/hr ASDIR KAROLINA Administration Methylnaltrexone [place] 12 mg 05/03/19 13:45 05/08/19 09:45 Relistor - SQ 12 mg DAILY KAROLINA Administration Metoclopramide HCl 10 mg 05/03/19 08:45 05/08/19 09:45 Reglan Injection - IVPUSH 10 mg Q8H KAROLINA Administration Ondansetron HCl 4 mg 05/02/19 17:00 Zofran Injection IVPUSH Q6H PRN NAUSEA AND/OR VOMITING Pantoprazole Sodium 40 mg 05/02/19 22:00 05/08/19 09:45 Protonix Iv IVPB 40 mg BID KAROLINA Administration Rifaximin 550 mg 05/03/19 13:45 05/08/19 09:45 Xifaxan - PO 550 mg BID KAROLINA Administration Laboratory Tests 05/01/19 05/01/19 05/01/19 11:13 11:13 11:13 WBC 23.8 H RBC 5.09 Hgb 15.7 H Hct 47.6 H MCV 93.6 MCH 30.8 MCHC 32.9 RDW 14.5 Plt Count 213 MPV 10.1 Absolute Neuts (auto) 21.8 H Neutrophils % 91.6 H Neutrophils % (Manual) 89.7 H Band Neutrophils % 3.1 Lymphocytes % 3.1 L Lymphocytes % (Manual) 4.1 L Monocytes % 4.9 Monocytes % (Manual) 3 L Eosinophils % 0.0 Eosinophils % (Manual) 0.0 Basophils % 0.4 Basophils % (Manual) 0.0 Myelocytes % (Man) 0 Promyelocytes % (Man) 0 Blast Cells % (Manual) 0 Nucleated RBC % 0 Metamyelocytes 0 Hypochromia 0 Platelet Estimate Normal Polychromasia 0 Poikilocytosis 0 Anisocytosis 0 Microcytosis 0 Macrocytosis 0 PT with INR 11.10 INR 0.94 PTT (Actin FS) 26.7 Sodium Potassium Chloride Carbon Dioxide Anion Gap BUN Creatinine Est GFR (CKD-EPI)AfAm Est GFR (CKD-EPI)NonAf Random Glucose Lactic Acid 1.8 Calcium Phosphorus Magnesium Total Bilirubin AST ALT Alkaline Phosphatase Troponin I B-Natriuretic Peptide Total Protein Albumin Total Amylase Lipase Urine Color Urine Appearance Urine pH Ur Specific [place] Urine Protein Urine Glucose (UA) Urine Ketones Urine Blood Urine Nitrite Urine Bilirubin Urine Urobilinogen Ur Leukocyte Esterase Urine WBC (Auto) Urine RBC (Auto) Urine Casts (Auto) U Epithel Cells (Auto) Urine Bacteria (Auto) 05/01/19 05/01/19 05/01/19 11:13 11:13 11:13 WBC RBC Hgb Hct MCV MCH MCHC RDW Plt Count MPV Absolute Neuts (auto) Neutrophils % Neutrophils % (Manual) Band Neutrophils % Lymphocytes % Lymphocytes % (Manual) Monocytes % Monocytes % (Manual) Eosinophils % Eosinophils % (Manual) Basophils % Basophils % (Manual) Myelocytes % (Man) Promyelocytes % (Man) Blast Cells % (Manual) Nucleated RBC % Metamyelocytes Hypochromia Platelet Estimate Polychromasia Poikilocytosis Anisocytosis Microcytosis Macrocytosis PT with INR Cancelled INR Cancelled PTT (Actin FS) Sodium 136 Potassium 3.9 Chloride 97 L Carbon Dioxide 30 Anion Gap 8 BUN 11.6 Creatinine 0.8 Est GFR (CKD-EPI)AfAm 85.37 Est GFR (CKD-EPI)NonAf 73.65 Random Glucose 133 H Lactic Acid Calcium 9.1 Phosphorus Magnesium 2.7 H Total Bilirubin 1.1 H AST 18 ALT 36 Alkaline Phosphatase 79 Troponin I < 0.02 B-Natriuretic Peptide Total Protein 5.8 L Albumin 2.9 L Total Amylase Lipase 40 L Urine Color Urine Appearance Urine pH Ur Specific [place] Urine Protein Urine Glucose (UA) Urine Ketones Urine Blood Urine Nitrite Urine Bilirubin Urine Urobilinogen Ur Leukocyte Esterase Urine WBC (Auto) Urine RBC (Auto) Urine Casts (Auto) U Epithel Cells (Auto) Urine Bacteria (Auto) 05/01/19 05/01/19 05/02/19 13:23 21:00 07:23 WBC 18.7 H RBC 4.03 Hgb 12.5 Hct 37.8 D MCV 93.8 MCH 30.9 MCHC 33.0 RDW 14.6 Plt Count 179 MPV 9.2 Absolute Neuts (auto) 15.6 H Neutrophils % 83.5 H Neutrophils % (Manual) Band Neutrophils % Lymphocytes % 8.0 D Lymphocytes % (Manual) Monocytes % 7.2 Monocytes % (Manual) Eosinophils % 1.0 D Eosinophils % (Manual) Basophils % 0.3 Basophils % (Manual) Myelocytes % (Man) Promyelocytes % (Man) Blast Cells % (Manual) Nucleated RBC % 0 Metamyelocytes Hypochromia Platelet Estimate Polychromasia Poikilocytosis Anisocytosis Microcytosis Macrocytosis PT with INR INR PTT (Actin FS) Sodium Potassium Chloride Carbon Dioxide Anion Gap BUN Creatinine Est GFR (CKD-EPI)AfAm Est GFR (CKD-EPI)NonAf Random Glucose Lactic Acid Calcium Phosphorus Magnesium Total Bilirubin AST ALT Alkaline Phosphatase Troponin I B-Natriuretic Peptide Total Protein Albumin Total Amylase 21 L Lipase Urine Color Dk yellow Urine Appearance Clear Urine pH 6.0 Ur Specific [place] 1.015 Urine Protein Trace Urine Glucose (UA) Negative Urine Ketones Trace H Urine Blood Negative Urine Nitrite Negative Urine Bilirubin 1+ H Urine Urobilinogen 1.0 Ur Leukocyte Esterase Trace Urine WBC (Auto) 2 Urine RBC (Auto) 1 Urine Casts (Auto) 7 U Epithel Cells (Auto) 1.6 Urine Bacteria (Auto) 3.9 05/02/19 05/02/19 05/03/19 07:23 07:23 07:24 WBC 14.3 H RBC 3.81 Hgb 11.9 Hct 35.9 MCV 94.3 MCH 31.3 MCHC 33.2 RDW 14.5 Plt Count 182 MPV 9.0 Absolute Neuts (auto) Neutrophils % Neutrophils % (Manual) Band Neutrophils % Lymphocytes % Lymphocytes % (Manual) Monocytes % Monocytes % (Manual) Eosinophils % Eosinophils % (Manual) Basophils % Basophils % (Manual) Myelocytes % (Man) Promyelocytes % (Man) Blast Cells % (Manual) Nucleated RBC % Metamyelocytes Hypochromia Platelet Estimate Polychromasia Poikilocytosis Anisocytosis Microcytosis Macrocytosis PT with INR INR PTT (Actin FS) 27.6 Sodium 139 Potassium 4.1 Chloride 103 Carbon Dioxide 28 Anion Gap 8 BUN 10.7 Creatinine 0.5 L Est GFR (CKD-EPI)AfAm 112.07 Est GFR (CKD-EPI)NonAf 96.69 Random Glucose 77 Lactic Acid Calcium 7.8 L Phosphorus 2.2 L Magnesium 2.3 Total Bilirubin 1.0 AST 14 L ALT 35 Alkaline Phosphatase 85 Troponin I < 0.02 B-Natriuretic Peptide 365.6 H Total Protein 4.3 L Albumin 2.1 L Total Amylase Lipase 36 L Urine Color Urine Appearance Urine pH Ur Specific [place] Urine Protein Urine Glucose (UA) Urine Ketones Urine Blood Urine Nitrite Urine Bilirubin Urine Urobilinogen Ur Leukocyte Esterase Urine WBC (Auto) Urine RBC (Auto) Urine Casts (Auto) U Epithel Cells (Auto) Urine Bacteria (Auto) 05/03/19 05/04/19 05/04/19 07:24 06:25 06:25 WBC 10.3 H RBC 3.88 Hgb 12.3 Hct 36.4 MCV 93.7 MCH 31.8 MCHC 33.9 RDW 14.5 Plt Count 203 MPV 9.1 Absolute Neuts (auto) Neutrophils % Neutrophils % (Manual) Band Neutrophils % Lymphocytes % Lymphocytes % (Manual) Monocytes % Monocytes % (Manual) Eosinophils % Eosinophils % (Manual) Basophils % Basophils % (Manual) Myelocytes % (Man) Promyelocytes % (Man) Blast Cells % (Manual) Nucleated RBC % Metamyelocytes Hypochromia Platelet Estimate Polychromasia Poikilocytosis Anisocytosis Microcytosis Macrocytosis PT with INR INR PTT (Actin FS) Sodium 139 138 Potassium 4.0 4.2 Chloride 104 104 Carbon Dioxide 27 27 Anion Gap 7 L 7 L BUN 7.5 5.5 L Creatinine 0.5 L 0.5 L Est GFR (CKD-EPI)AfAm 112.07 112.07 Est GFR (CKD-EPI)NonAf 96.69 96.69 Random Glucose 89 98 Lactic Acid Calcium 8.0 L 8.1 L Phosphorus Magnesium 2.1 2.0 Total Bilirubin 1.1 H AST 12 L ALT 26 Alkaline Phosphatase 76 Troponin I B-Natriuretic Peptide Total Protein 4.3 L Albumin 2.0 L Total Amylase Lipase Urine Color Urine Appearance Urine pH Ur Specific [place] Urine Protein Urine Glucose (UA) Urine Ketones Urine Blood Urine Nitrite Urine Bilirubin Urine Urobilinogen Ur Leukocyte Esterase Urine WBC (Auto) Urine RBC (Auto) Urine Casts (Auto) U Epithel Cells (Auto) Urine Bacteria (Auto) 05/07/19 05/07/19 06:50 06:50 WBC 5.8 RBC 3.65 Hgb 11.6 Hct 34.3 MCV 93.9 MCH 31.7 MCHC 33.8 RDW 14.3 Plt Count 214 MPV 8.6 Absolute Neuts (auto) Neutrophils % Neutrophils % (Manual) Band Neutrophils % Lymphocytes % Lymphocytes % (Manual) Monocytes % Monocytes % (Manual) Eosinophils % Eosinophils % (Manual) Basophils % Basophils % (Manual) Myelocytes % (Man) Promyelocytes % (Man) Blast Cells % (Manual) Nucleated RBC % Metamyelocytes Hypochromia Platelet Estimate Polychromasia Poikilocytosis Anisocytosis Microcytosis Macrocytosis PT with INR INR PTT (Actin FS) Sodium 142 Potassium 3.2 L Chloride 107 Carbon Dioxide 27 Anion Gap 8 BUN 3.0 L Creatinine 0.5 L Est GFR (CKD-EPI)AfAm 112.07 Est GFR (CKD-EPI)NonAf 96.69 Random Glucose 97 Lactic Acid Calcium 8.1 L Phosphorus Magnesium Total Bilirubin AST ALT Alkaline Phosphatase Troponin I B-Natriuretic Peptide Total Protein Albumin Total Amylase Lipase Urine Color Urine Appearance Urine pH Ur Specific [place] Urine Protein Urine Glucose (UA) Urine Ketones Urine Blood Urine Nitrite Urine Bilirubin Urine Urobilinogen Ur Leukocyte Esterase Urine WBC (Auto) Urine RBC (Auto) Urine Casts (Auto) U Epithel Cells (Auto) Urine Bacteria (Auto) Microbiology 05/01/19 13:23 Urine - Urine Clean Catch Urine Culture - Final Escherichia Coli Lactose Fermenting Neg Bacilli#2 05/01/19 21:00 Blood - Peripheral Venous Blood Culture - Final NO GROWTH AFTER 5 DAYS INCUBATION 05/01/19 21:00 Blood - Peripheral Venous Blood Culture - Final NO GROWTH AFTER 5 DAYS INCUBATION Constitutional: Yes: Well Nourished, No Distress, Calm Eyes: Yes: Conjunctiva Clear HENT: Yes: Atraumatic Cardiovascular: Yes: Regular Rate and Rhythm Respiratory: Yes: Regular, CTA Bilaterally Gastrointestinal: Yes: Normal Bowel Sounds, Soft, Tenderness (mild lower abdomen ) Musculoskeletal: Yes: WNL, Muscle Weakness Extremities: Yes: WNL Edema: No Neurological: Yes: Alert, Oriented Psychiatric: Yes: Alert, Oriented Labs: CBC, BMP 05/07/19 06:50 05/07/19 06:50 Discharge Summary Problems reviewed: Yes Reason For Visit: SMALL BOWEL OBSTRUCTION Current Active Problems Abdominal pain (Acute) COPD (chronic obstructive pulmonary disease) (Acute) Colon distention (Acute) Constipation (Acute) GERD without esophagitis (Acute) Generalized abdominal pain (Acute) Nausea and vomiting (Acute) Postoperative pain after spinal surgery (Acute) S/P lumbar laminectomy (Acute) Hospital Course: The patient is a 74 year old female, with no significant PMH, who presents to the ED for evaluation of abdominal pain, nausea, and vomiting for 9 days. Patient notes she had spinal surgery with Dr. Isabel last week, and has been vomiting since the procedure was completed (thought it was originally secondary to anesthesia, but it has not stopped). She reports multiple episodes of nausea and NBNB vomit, which she states is yellow in color. Patient additionally complains of diffuse abdominal pain, and notes she has not passed a bowel movement in 6 days. She has been unable to eat or drink at this time secondary to her pain. Patient has not taken any medications since her surgery, and denies the use of painkillers. patient says she tried to take tylenol yesterday but she vomitted it out and has been vomitting in the night in AM caled her PMD who told her to come to ER. While in-patient followed by GI. Xrays show no obstruction and rectal tube was placed with good effect but was displaced. Patient is having BM and passing flatus. Condition: Stable - Instructions Diet, Activity, Other Instructions: Patient to follow up with pmd in 1 week follow up with GI Dr Kelly in 2 weeks continue with medication as prescribed low ffiber/lactose free diet return to ER if develop severe pain, respiratory distress, chest pain, or no bowel movement in more than 48hrs Referrals: Gorge Kelly MD [Staff Physician] - Disposition: HOME - Home Medications Comprehensive Discharge Medication List: Ambulatory Orders Budesonide/Formeterol Fumarate [SYMBICORT 160/4.5mcg -] 1 inh PO BID 04/21/19 Acetaminophen [Tylenol .Regular Strength -] 650 mg PO Q6H #240 tablet 04/29/19 Albuterol 2.5/Ipratropium 0.5 [Duoneb -] 1 amp NEB RTID #90 amp 04/29/19 Docusate Sodium [Colace -] 100 mg PO TID 30 Days #90 capsule 04/29/19 Ferrous Sulfate [Feosol] 325 mg PO DAILY 30 Days #30 ud 04/29/19 Folic Acid - 1 mg PO DAILY 30 Days #30 tablet 04/29/19 Gabapentin [Neurontin -] 100 mg PO TID #90 capsule 04/29/19 Nebulizer [Compact Compressor Nebulizer] 1 each MC Q4H PRN #1 each 04/29/19 Pantoprazole Sodium [Protonix -] 40 mg PO DAILY #30 tablet.ec 04/29/19 Prednisone 10 mg PO ASDIR 10 Days #45 tablet 04/29/19 Rifaximin [Xifaxan -] 550 mg PO BID #60 tablet 05/08/19
== END 2019-05-08 18:00 | disposition home or self-care (01) | DRG 254 ==
LOC: JER 10:06 → JERBED 12:18 → J6S 19:38
PROVIDERS: ADMIT Student in an Organized Health Care Education/Training Program; ATTEND Student in an Organized Health Care Education/Training Program
PROC: 0D9P70Z Drainage of Rectum with Drainage Device, Via Natural or Artificial Opening (ICD-10-PCS; principal; 2019-05-08)
DX: K63.89 Other specified diseases of intestine (principal); R10.9 Unspecified abdominal pain; D72.829 Elevated white blood cell count, unspecified; K59.00 Constipation, unspecified; Z98.890 Other specified postprocedural states; T40.2X5A Adverse effect of other opioids, initial encounter; R11.2 Nausea with vomiting, unspecified; K56.609 Unspecified intestinal obstruction, unspecified as to partial versus complete obstruction; K56.7 Ileus, unspecified; J44.9 Chronic obstructive pulmonary disease, unspecified; N39.0 Urinary tract infection, site not specified; K21.9 Gastro-esophageal reflux disease without esophagitis
CPT/HCPCS: 36415; 71045-TC-FY; 74018-TC-FY; 74019-TC-FY; 74177-TC; 80048; 80053; 81003; 82150; 83605; 83690; 83735; 83880; 84100; 84484; 85025; 85027; 85610; 85730; 87040; 87077; 87086; 87186; 93005; 93010; 93970-TC; 94760; 99285-25; J0131; J3480; J7030; Q9967

== ENCOUNTER 2019-06-08 11:15 | Emergency (ER) | payer OTHER ==
[2019-06-08 11:27] VITALS: BP 145/77; PULSE 76; TEMP 98.4; BMI 21.7
[2019-06-08] MEDS ORDERED: morphine CARPU-JECT 4 MG/1 ML DISP.SYRIN IVPUSH ONE ×2 (12:07→12:11)
[2019-06-08] MEDS ORDERED: ACETAMINOPHEN 1000 MG/100 ML VIAL (NON FORMULARY) IVPB ONE (12:07)
[2019-06-08] MEDS ORDERED: ACETAMINOPHEN INJECTION 100 ML IVPB ONE (12:09)
[2019-06-08] MEDS ORDERED: morphine SULFATE 4 MG/ML VIAL ONE (12:15)
--- NOTE | 2019-06-08 12:15 | PDOC ---
History of Present Illness - General Chief Complaint: Injury Stated Complaint: FALL, BACK PAIN Time Seen by Provider: 06/08/19 11:58 - History of Present Illness Initial Comments: 06/08/19 12:14 74 years old with no significant past medical history slipped and fell while walking downstairs patient states she slid landed on her right side landed predominantly on her right ribs complaining of pain to her right upper back mild pain to her right PIP and a small amount of pain to her left knee denies any head trauma no weakness no numbness pain is moderate to severe persistent constant worse with movement Past History - Past Medical History Allergies/Adverse Reactions: Allergies Allergy/AdvReac Type Severity Reaction Status Date / Time No Known Allergies Allergy Verified 06/08/19 11:21 Home Medications: Ambulatory Orders Budesonide/Formeterol Fumarate [SYMBICORT 160/4.5mcg -] 1 inh PO BID 04/21/19 Acetaminophen [Tylenol .Regular Strength -] 650 mg PO Q6H #240 tablet 04/29/19 Rifaximin [Xifaxan -] 550 mg PO BID #60 tablet 05/08/19 metroNIDAZOLE [Flagyl -] 250 mg PO TID 14 Days tablet 05/08/19 Amoxicillin - [Amoxicillin 500mg Capsule -] 500 mg PO BID 06/08/19 Clarithromycin 500 mg PO BID 06/08/19 Lipase/Protease/Amylase [Zenpep Dr 40,000 Units Capsule] 1 each PO BID 06/08/19 Anemia: No Asthma: Yes Cancer: No Cardiac Disorders: No CVA: No COPD: Yes CHF: No Dementia: No Diabetes: No GI Disorders: No Disorders: No HTN: No Hypercholesterolemia: No Liver Disease: No Seizures: No Thyroid Disease: No - Surgical History Abdominal Surgery: No Appendectomy: Yes Cardiac Surgery: No Cholecystectomy: No Lung Surgery: No Neurologic Surgery: Yes (neck, back) Orthopedic Surgery: No - Immunization History Immunization Up to Date: No - Psycho Social/Smoking Cessation Hx Smoking History: Current every day smoker Have you smoked in the past 12 months: Yes Number of Cigarettes Smoked Daily: 20 If you are a former smoker, when did you quit?: 2 wks ago Information on smoking cessation initiated: Yes 'Breaking Loose' booklet given: 04/21/19 Hx Alcohol Use: No Drug/Substance Use Hx: No Substance Use Type: None Hx Substance Use Treatment: No Review of Systems - Review of Systems Comments:: 06/08/19 12:14 ROS: A complete review of 10 out of 10 review of systems is taken and is negative apart from what is previously mentioned below and in the HPI. *Physical Exam - Vital Signs Last Vital Signs Temp Pulse Resp BP Pulse Ox 98.4 F 76 18 145/77 96 06/08/19 11:20 06/08/19 11:20 06/08/19 11:20 06/08/19 11:20 06/08/19 11:20 - Physical Exam Comments: 06/08/19 12:14 Vitals: Triage Vital signs reviewed General Appearance: No acute distress, well nourished well developed, Head: Atraumatic, Eyes: Pupils equal reactive round, extraocular movement intact Neck: Supple; no Nucal rigidity Chest Wall: Right-sided rib and chest wall tenderness to palpation Cardiac: Regular rate and rhythym, no murmurs, no rubs, no gallops, Lungs: Clear to auscultation bilateral, good air movement bilaterally, Abdomen: Soft, non distended, normal bowel sounds, non tender to palpation Extremities: Full range of motion to all extremities, no cyanosis, clubbing, or edema Musculoskeletal: Tenderness to palpation right paraspinal right ribs in the axillary midline no obvious deformity step-off no bruising mild right hip pain with full range of motion able to ambulate and bear weight neurovascular intact distally Skin: Warm and dry, no rashes or lesions, no rash, no petechiae Neuro: AOX3; cranial Nerves 2-12 grossly intact, strength intact to all extremities, sensation intact to all extremities, gait normal Psych: Normal mood, normal affect ED Treatment Course - RADIOLOGY Radiology Studies Ordered: Category Date Time Status CHEST PA & LAT [RAD] Stat Radiology 06/08/19 12:07 Ordered HIP & PELVIS-RIGHT [RAD] Stat Radiology 06/08/19 12:12 Ordered KNEE 3 POS-LEFT [RAD] Stat Radiology 06/08/19 12:08 Ordered SPINE-LUMBAR ONLY [RAD] Stat Radiology 06/08/19 12:12 Ordered Medical Decision Making - Medical Decision Making 06/08/19 14:45 Mechanical fall downstairs no head trauma. X-rays of chest ribs low back hip knee all negative for acute fracture dislocation patient feels better after pain medication states she cannot take ibuprofen does not want tramadol was discharged on Tylenol with outpatient orthopedic and primary care follow-up Findings, the need for follow-up and strict return instructions discussed with patient. Discharge - Discharge Information Problems reviewed: Yes Clinical Impression/Diagnosis: Rib pain on right side Fall Qualifiers: Encounter type: initial encounter Qualified Code(s): W19.XXXA - Unspecified fall, initial encounter Hip pain Qualifiers: Laterality: right Qualified Code(s): M25.551 - Pain in right hip Knee pain Qualifiers: Chronicity: acute Laterality: right Qualified Code(s): M25.561 - Pain in right knee Condition: Stable - Admission No - Follow up/Referral Referrals: Javed Simental MD [Primary Care Provider] - Rohit Max MD, FAANS [Staff Physician] - Juan C Sahni MD [Staff Physician] - - Patient Discharge Instructions Additional Instructions: Ice all sore affected areas 20 minutes on 20 minutes off take [id number] Tylenol as directed on package follow-up with Dr. Sahni orthopedics for any pain follow-up with your primary care provider this week return to ED for any severe worsening pain any abdominal pain or for any concerns - Post Discharge Activity
[2019-06-08] MEDS ORDERED: ONDANSETRON 4 MG/2 ML VIAL IVPUSH ONE (13:10)
[2019-06-08] MEDS ORDERED: SODIUM CHLORIDE 0.9% 1000 ML INFUS.BAG IV ONE (13:10)
[2019-06-08] MEDS ORDERED: ONDANSETRON 4 MG/2 ML VIAL ONE (13:11)
== END 2019-06-08 15:04 | disposition home or self-care (01) ==
LOC: FER 11:20
PROC: 3E033NZ Introduction of Analgesics, Hypnotics, Sedatives into Peripheral Vein, Percutaneous Approach (ICD-10-PCS; principal; 2019-06-08)
PROC: 3E033GC Introduction of Other Therapeutic Substance into Peripheral Vein, Percutaneous Approach (ICD-10-PCS; 2019-06-08)
DX: R07.81 Pleurodynia (principal); W10.9XXA Fall (on) (from) unspecified stairs and steps, initial encounter; Y93.89 Activity, other specified; Y92.89 Other specified places as the place of occurrence of the external cause; M25.551 Pain in right hip; F17.210 Nicotine dependence, cigarettes, uncomplicated; J45.909 Unspecified asthma, uncomplicated
CPT/HCPCS: 71046-TC-FY; 71101-TC-RT-FY; 72100-TC-FY; 73523-TC-FY; 73562-TC-LT-FY; 96374; 96375; 99283-25; J0131; J7030

== ENCOUNTER 2019-07-01 12:59 | Inpatient (IN) | payer OTHER ==
[2019-07-01] MEDS ORDERED: KETOROLAC TROMETHAMINE 30 MG/1 ML VIAL IVPUSH ONE (15:08)
[2019-07-01] MEDS ORDERED: diazePAM CARPU-JECT 10 MG/2 ML DISP.SYRIN IVPUSH ONE (15:08)
[2019-07-01] MEDS ORDERED: KETOROLAC TROMETHAMINE 30 MG/1 ML VIAL ONE (15:29)
--- NOTE | 2019-07-01 15:29 | PDOC ---
History of Present Illness - General Chief Complaint: Back Pain Stated Complaint: BACK PAIN Time Seen by Provider: 07/01/19 13:26 History Source: Patient, Family Exam Limitations: Language Barrier - History of Present Illness Initial Comments: 07/01/19 15:19 74-year-old female Vietnamese speaking, accompanied by sister who speaks Albanian, history of COPD, GERD, status post lumbar laminectomy mid April [address] Niyah Isabel. Presents complaining of low back pain radiating to the right lower extremity and left lower extremity for 3 weeks worsening over the past 2 weeks. Pain to right lower extremity is greater than the pain to the left lower extremity. Reports difficulty walking, numbness, tingling to bilateral lower extremities, denies buttock pain, fever, chills, urinary or bowel incontinence, recent falls. Patient is unable to take opiates given that it causes severe ileus, therefore patient has been taking acetaminophen intermittently last dose taken yesterday. Sent to ED for evaluation by [facility] [phone]. ROS: GENERAL/CONSTITUTIONAL: No fever, chills, weakness, dizziness HEAD, EYES, EARS, NOSE AND THROAT: No changes in vision, No ear pain or discharge, No sore throat CARDIOVASCULAR: No chest pain RESPIRATORY: No shortness of breath or cough GASTROINTESTINAL: No pain, nausea, vomiting, diarrhea or constipation GENITOURINARY: No dysuria MUSCULOSKELETAL: back pain, numbness and tingling to bilateral lower extremities SKIN: No rash NEUROLOGIC: No headache, vertigo, loss of consciousness, or loss of sensation PE: GENERAL: Appears uncomfortable HEAD: NCAT EYES: Pupils equal, round and reactive to light, sclera anicteric, conjunctiva clear ENT: pharynx: no erythema, no exudate, uvula midline NECK: supple CHEST: nontender RESP: clear, no w/r/r CARDIO: rrr, no m/g/r ABD: +BS, soft, nontender, non distended BACK: midline and paraspinal ttp, no CVAT EXTREMITIES: Decreased range of motion to bilateral lower extremities due to pain, no edema, 4/5 strength and sensation to LLE, 3/5 strength and sensation to RLE NEUROLOGICAL: Normal speech, walking with a limp SKIN: Warm, Dry Past History - Past Medical History Allergies/Adverse Reactions: Allergies Allergy/AdvReac Type Severity Reaction Status Date / Time No Known Allergies Allergy Verified 07/01/19 13:07 Home Medications: Ambulatory Orders Budesonide/Formeterol Fumarate [SYMBICORT 160/4.5mcg -] 1 inh PO BID 04/21/19 Acetaminophen [Tylenol .Regular Strength -] 650 mg PO Q6H #240 tablet 04/29/19 Rifaximin [Xifaxan -] 550 mg PO BID #60 tablet 05/08/19 metroNIDAZOLE [Flagyl -] 250 mg PO TID 14 Days tablet 05/08/19 Amoxicillin - [Amoxicillin 500mg Capsule -] 500 mg PO BID 06/08/19 Clarithromycin 500 mg PO BID 06/08/19 Lipase/Protease/Amylase [Zenpep Dr 40,000 Units Capsule] 1 each PO BID 06/08/19 Anemia: No Asthma: Yes Cancer: No Cardiac Disorders: No CVA: No COPD: Yes CHF: No Dementia: No Diabetes: No GI Disorders: No Disorders: No HTN: No Hypercholesterolemia: No Liver Disease: No Seizures: No Thyroid Disease: No - Surgical History Abdominal Surgery: No Appendectomy: Yes Cardiac Surgery: No Cholecystectomy: No Lung Surgery: No Neurologic Surgery: Yes (neck, back) Orthopedic Surgery: No - Immunization History Immunization Up to Date: No - Psycho Social/Smoking Cessation Hx Smoking History: Current every day smoker Have you smoked in the past 12 months: Yes Number of Cigarettes Smoked Daily: 10 If you are a former smoker, when did you quit?: 2 wks ago Information on smoking cessation initiated: Yes 'Breaking Loose' booklet given: 04/21/19 Hx Alcohol Use: No Drug/Substance Use Hx: No Substance Use Type: None Hx Substance Use Treatment: No *Physical Exam - Vital Signs Last Vital Signs Temp Pulse Resp BP Pulse Ox 97.7 F 98 H 18 108/75 100 07/01/19 13:04 07/01/19 13:04 07/01/19 13:04 07/01/19 13:04 07/01/19 13:04 ED Treatment Course - LABORATORY CBC & Chemistry Diagram: 07/01/19 15:23 07/01/19 15:23 - RADIOLOGY Radiology Studies Ordered: Category Date Time Status LUMBAR SPINE MRI WITH CONTR [MRI] Stat MRI 07/01/19 15:02 Ordered Medical Decision Making - Medical Decision Making 07/01/19 15:29 74-year-old Vietnamese speaking female with history of COPD, GERD, status post lumbar laminectomy [address]Haroun Isabel complaining of low back pain, numbness and tingling, radiating to bilateral lower extremities for 3 weeks worsening over the past week. Patient has history of severe ileus secondary to opiate use. I spoke with Dr. Hola Burt [phone] who spoke with neurosurgeon today. They are requesting an MRI with contrast of the lumbar spine. Patient understands the plan. Labs ordered IV Toradol and IV Valium ordered MRI with contrast of the lumbar spine ordered Reassess 07/01/19 16:10 Patient awaiting MRI Case signed out to PEEWEE Cowan Discharge - Discharge Information Problems reviewed: Yes Clinical Impression/Diagnosis: Low back pain Qualifiers: Chronicity: acute Condition: Stable - Follow up/Referral - Patient Discharge Instructions - Post Discharge Activity
[2019-07-01 15:37] LABS: BASO % 1.1 % (0-2.0); EOS % 1.4 % (0-4.5); HEMOGLOBIN 15.3 GM/dL (10.7-15.3); LYMPH % 37.4 % (8-40); MCH 30.5 pg (25.7-33.7); MCHC 32.6 g/dl (32.0-36.0); MEAN CELL VOLUME 93.6 fl (80-96); MEAN PLT VOLUME 9.9 fl (7.5-11.1); MONO % 8.4 % (3.8-10.2); NEUT % 51.7 % (42.8-82.8); PLATELET COUNT 203 K/MM3 (134-434); RBC 5.02 M/mm3 (3.60-5.2); WHITE BLOOD COUNT 7.2 K/mm3 (4.0-10.0)
--- NOTE | 2019-07-01 15:38 | PDOC ---
*Physical Exam - Vital Signs Last Vital Signs Temp Pulse Resp BP Pulse Ox 97.7 F 98 H 18 108/75 100 07/01/19 13:04 07/01/19 13:04 07/01/19 13:04 07/01/19 13:04 07/01/19 13:04 - Physical Exam Comments: 07/01/19 15:38 The patient was examined by [FIDELINA barrett] under my direct supervision. I personally evaluated the patient. I concur with the above findings and the plan of care. ED Treatment Course - LABORATORY CBC & Chemistry Diagram: 07/08/19 07:30 07/08/19 07:30 - Medications Given in the ED: ED Medications Discontinued Medications Generic Name Dose Route Start Last Admin Trade Name Freq PRN Reason Stop Dose Admin Ketorolac Tromethamine 30 mg 07/01/19 15:08 07/01/19 15:30 Toradol Injection - IVPUSH 07/01/19 15:09 30 mg ONCE ONE Administration Discharge - Discharge Information Problems reviewed: Yes Clinical Impression/Diagnosis: Low back pain Qualifiers: Chronicity: acute Back pain laterality: unspecified Sciatica presence: unspecified whether sciatica present Qualified Code(s): M54.5 - Low back pain Condition: Stable - Follow up/Referral - Patient Discharge Instructions - Post Discharge Activity
[2019-07-01 15:48] LABS: INR 0.95 (0.83-1.09); PROTHROMBIN TIME (PATIENT) 11.2 SEC (9.7-13.0)
[2019-07-01] MEDS ORDERED: diazePAM CARPU-JECT 10 MG/2 ML DISP.SYRIN ONE (15:49)
[2019-07-01 15:51] LABS: ACTIVATED PTT 33.5 SECONDS (25.2-36.5)
[2019-07-01 16:09] LABS: ALBUMIN 3.7 g/dl (3.4-5.0); BILIRUBIN,TOTAL 0.4 mg/dL (0.2-1); BLOOD UREA NITROGEN 10.5 mg/dL (7-18); CALCIUM 9.1 mg/dL (8.5-10.1); CREATININE 0.6 mg/dL (0.55-1.3); POTASSIUM 4.7 mmol/L (3.5-5.1); TOT PROT 6.4 g/dl (6.4-8.2)
--- NOTE | 2019-07-01 16:40 | PDOC ---
*Physical Exam - Vital Signs Last Vital Signs Temp Pulse Resp BP Pulse Ox 97.7 F 98 H 18 108/75 100 07/01/19 13:04 07/01/19 13:04 07/01/19 13:04 07/01/19 13:04 07/01/19 13:04 - Physical Exam General Appearance: Yes: Appropriately Dressed. No: Apparent Distress Respiratory/Chest: positive: Lungs Clear, Normal Breath Sounds. negative: Respiratory Distress, Accessory Muscle Use Cardiovascular: positive: Regular Rhythm, Regular Rate Gastrointestinal/Abdominal: positive: Normal Bowel Sounds, Soft. negative: Tender Musculoskeletal: positive: Normal Inspection. negative: CVA Tenderness Integumentary: positive: Normal Color, Dry, Warm Neurologic: positive: Alert, Sensory Deficit (Bilateral lower extremities with left greater than right.) ED Treatment Course - LABORATORY CBC & Chemistry Diagram: 07/02/19 10:15 07/02/19 10:15 - ADDITIONAL ORDERS Additional order review: Laboratory Results 07/01/19 07/01/19 07/01/19 15:23 15:23 15:23 PT with INR 11.20 INR 0.95 PTT (Actin FS) 33.5 Sodium 140 Potassium 4.7 Chloride 108 H Carbon Dioxide 26 Anion Gap 6 L BUN 10.5 Creatinine 0.6 Est GFR (CKD-EPI)AfAm 105.54 Est GFR (CKD-EPI)NonAf 91.06 Random Glucose 81 Calcium 9.1 Total Bilirubin 0.4 AST 10 L ALT 15 Alkaline Phosphatase 104 Total Protein 6.4 Albumin 3.7 Blood Type B POSITIVE Antibody Screen Negative 07/01/19 15:23 RBC 5.02 MCV 93.6 MCHC 32.6 RDW 14.0 MPV 9.9 D Neutrophils % 51.7 D Lymphocytes % 37.4 D Monocytes % 8.4 Eosinophils % 1.4 Basophils % 1.1 D - Medications Given in the ED: ED Medications Discontinued Medications Generic Name Dose Route Start Last Admin Trade Name Freq PRN Reason Stop Dose Admin Diazepam 5 mg 07/01/19 15:08 07/01/19 15:59 Valium Injection - IVPUSH 07/01/19 15:09 5 mg ONCE ONE Administration Ketorolac Tromethamine 30 mg 07/01/19 15:08 07/01/19 15:30 Toradol Injection - IVPUSH 07/01/19 15:09 30 mg ONCE ONE Administration ED Progress Note - Progress Note Progress Note: 07/01/19 16:40 Received signout from FIDELINA cotto. Briefly this is a 74-year-old woman history of COPD, GERD who presents to the emergency department with lumbar pain status post laminectomy performed April. Surgery was performed here with Dr. Isabel. Patient was sent by her primary doctor for MRI of the lumbar spine with contrast to evaluate for hardware disturbances, abscess or other anomaly. CBC is unremarkable Chemistries are unremarkable MRI is pending Patient is not to get narcotic pain medication as she has had ileus in the past from narcotic use. Medical Decision Making - Medical Decision Making 07/01/19 21:36 Multiple attempts to contact Dr. Simental's office been unsuccessful. Admission orders were placed by Rob Durham the nurse practitioner for Dr. Simental's team. Admit the patient with a diagnosis for back pain and continued evaluation by the inpatient team. Discharge - Discharge Information Problems reviewed: Yes Clinical Impression/Diagnosis: Low back pain Qualifiers: Chronicity: acute Condition: Stable - Admission Yes - Follow up/Referral - Patient Discharge Instructions - Post Discharge Activity
[2019-07-01] MEDS: BUDESONIDE/FORMETEROL FUMARATE 160/4.5 mcg INHALER IH SCH (22:19)
[2019-07-01] MEDS ORDERED: HEPARIN NA (PORCINE) 5,000 UNITS/ML 1ML VIAL ONE (22:24)
[2019-07-01] MEDS: HEPARIN NA (PORCINE) 5,000 UNITS/ML 1ML VIAL SQ SCH (22:39)
[2019-07-02] MEDS: ACETAMINOPHEN 325 MG TABLET (FP) PO SCH ×5 (00:02→23:11)
[2019-07-02] MEDS: DEXAMETHASONE SOD PHOSPHATE 4 MG/1 ML VIAL IVPB SCH ×3 (01:37→17:41)
--- NOTE | 2019-07-02 08:02 | CON.GI ---
Consult Consult Specialty:: GI Referred by:: Dr Javed Simental Reason for Consultation:: Abdominal Pain - History of Present Illness History of Present Illness: Patient is a 74 y/o female with past medical history of COPD, GERD, Laminectomy 04/2019. Consult was placed for abdominal pain. Patient is Japanese speaking and [employer] phone was used with business analytics manager #[phone]. Patient states having generalized abdominal pain which began after her back surgery. Pain would be worse with BM. States having frequent episodes of diarrhea, with one episode of bloody diarrhea last week. Denies night awakening, fever/chills, recent travel. States using antibiotics recently. She states having episodes of nausea with vomiting accompanied with weight loss (amount unknown) and poor appetite. - History Source History Provided By: Patient Limitations to Obtaining History: Language Barrier - Past Medical History Pulmonary: Yes: COPD Gastrointestinal: Yes: GERD ...: No Musculoskeletal: Yes: Chronic low back pain, Osteoarthritis - Past Surgical History Past Surgical History: Yes: Appendectomy, Laminectomy, Colonoscopy, Cholecystectomy - Alcohol/Substance Use Hx Alcohol Use: No History of Substance Use: reports: None - Smoking History Smoking history: Current every day smoker Have you smoked in the past 12 months: Yes Aproximately how many cigarettes per day: 15 If you are a former smoker, when did you quit?: 2 wks ago - Social History Usual Living Arrangement: Other (staying with brother) ADL: Independent Home Medications - Allergies Allergies/Adverse Reactions: Allergies Allergy/AdvReac Type Severity Reaction Status Date / Time acetaminophen [From Percocet] Allergy Intermediate Itching Verified 07/02/19 11: 45 morphine Allergy Intermediate Itching Verified 07/02/19 11:45 oxycodone Allergy Intermediate Hives Verified 07/02/19 11:45 - Home Medications Home Medications: Ambulatory Orders Budesonide/Formeterol Fumarate [SYMBICORT 160/4.5mcg -] 1 inh PO BID 04/21/19 Acetaminophen [Tylenol .Regular Strength -] 650 mg PO Q6H #240 tablet 04/29/19 Rifaximin [Xifaxan -] 550 mg PO BID #60 tablet 05/08/19 metroNIDAZOLE [Flagyl -] 250 mg PO TID 14 Days tablet 05/08/19 Amoxicillin - [Amoxicillin 500mg Capsule -] 500 mg PO BID 06/08/19 Clarithromycin 500 mg PO BID 06/08/19 Lipase/Protease/Amylase [Zenpep Dr 40,000 Units Capsule] 1 each PO BID 06/08/19 Cyclobenzaprine HCl 5 mg PO HS 07/02/19 Gabapentin 100 mg PO AM 07/02/19 Gabapentin 300 mg PO HS 07/02/19 Plecanatide [Trulance] 3 mg PO DAILY 07/02/19 Review of Systems - Review of Systems Constitutional: reports: Loss of Appetite, Unintentional Wgt. Loss Eyes: reports: No Symptoms HENT: reports: No Symptoms Neck: reports: No Symptoms Cardiovascular: reports: No Symptoms Respiratory: reports: No Symptoms Gastrointestinal: reports: Abdominal Pain, Diarrhea, Nausea, Vomiting Genitourinary: reports: No Symptoms Breasts: reports: No Symptoms Reported Musculoskeletal: reports: No Symptoms Integumentary: reports: No Symptoms Neurological: reports: No Symptoms Endocrine: reports: No Symptoms Hematology/Lymphatic: reports: No Symptoms Psychiatric: reports: No Symptoms Physical Exam-GI Vital Signs: Vital Signs Temperature 97.4 F L 07/02/19 06:00 Pulse Rate 84 07/02/19 06:00 Respiratory Rate 20 07/02/19 06:00 Blood Pressure 137/81 07/02/19 06:00 O2 Sat by Pulse Oximetry (%) 98 07/01/19 22:23 Constitutional: Yes: No Distress, Calm Eyes: Yes: Conjunctiva Clear HENT: Yes: Atraumatic Cardiovascular: Yes: Regular Rate and Rhythm Respiratory: Yes: Regular, CTA Bilaterally Gastrointestinal Inspection: Yes: WNL. No: Ascites, Distention, Hernia, Scars, Other ...Auscultate: Yes: Normoactive Bowel Sounds. No: Hyperactive Bowel Sounds, Hypoactive Bowel Sounds, No Bowel Sounds, Other ...Palpate: Yes: Soft, Tenderness (lower abdomen). No: Firm/Rigid, Guarding, Hepatomegaly, Mass, Pulsatile Mass, Splenomegaly, Tenderness, Epigastium, Tenderness, Rebound, Other ...Percussion: Yes: Tympanitic. No: Dullness, Fluid Wave, Other Neurological: Yes: Alert, Oriented Psychiatric: Yes: Alert, Oriented Labs: CBC, BMP 07/01/19 15:23 07/01/19 15:23 INR, PTT INR 0.95 (0.83-1.09) 07/01/19 15:23 Problem List - Problems (1) Abdominal pain Assessment/Plan: >Abdominal/Pelvic CT scan with contrast >enema q4h x 3 doses Code(s): R10.9 - UNSPECIFIED ABDOMINAL PAIN (2) Dilated cbd, acquired Code(s): K83.8 - OTHER SPECIFIED DISEASES OF BILIARY TRACT (3) Dilated cbd, acquired Assessment/Plan: compared to previous ct diameter is now 1.6cm from 1 cm R> will review [facility] radiology Code(s): K83.8 - OTHER SPECIFIED DISEASES OF BILIARY TRACT
--- NOTE | 2019-07-02 09:21 | HP ---
Admitting History and Physical - Primary Care Physician PCP: Javed Simental - Admission Chief Complaint: Lower back pain History of Present Illness: Patient is a 74 y/o female with past medical history of COPD, GERD, s/p lumbar laminectomy 04/2019. Patient presented to ER with complaints of lower back pain radiating to both legs with L>R for 2 weeks. She complains of difficulty ambulating with this pain with numbness and tingling to lower extremities. History Source: Patient, Medical Record Limitations to Obtaining History: Language Barrier - Past Medical History Pulmonary: Yes: COPD Gastrointestinal: Yes: GERD ...: No Musculoskeletal: Yes: Chronic low back pain, Osteoarthritis - Past Surgical History Past Surgical History: Yes: Appendectomy, Laminectomy, Colonoscopy, Cholecystectomy - Smoking History Smoking history: Current every day smoker Have you smoked in the past 12 months: Yes Aproximately how many cigarettes per day: 15 If you are a former smoker, when did you quit?: 2 wks ago - Alcohol/Substance Use Hx Alcohol Use: No History of Substance Use: reports: None - Social History Usual Living Arrangement: Yes: Alone ADL: Independent Home Medications - Allergies Allergies/Adverse Reactions: Allergies Allergy/AdvReac Type Severity Reaction Status Date / Time narcotic AdvReac Uncoded 07/01/19 18:39 - Home Medications Home Medications: Ambulatory Orders Budesonide/Formeterol Fumarate [SYMBICORT 160/4.5mcg -] 1 inh PO BID 04/21/19 Acetaminophen [Tylenol .Regular Strength -] 650 mg PO Q6H #240 tablet 04/29/19 Rifaximin [Xifaxan -] 550 mg PO BID #60 tablet 05/08/19 metroNIDAZOLE [Flagyl -] 250 mg PO TID 14 Days tablet 05/08/19 Amoxicillin - [Amoxicillin 500mg Capsule -] 500 mg PO BID 06/08/19 Clarithromycin 500 mg PO BID 06/08/19 Lipase/Protease/Amylase [Zenpep Dr 40,000 Units Capsule] 1 each PO BID 06/08/19 Cyclobenzaprine HCl 5 mg PO HS 07/02/19 Gabapentin 100 mg PO AM 07/02/19 Gabapentin 300 mg PO HS 07/02/19 Plecanatide [Trulance] 3 mg PO DAILY 07/02/19 Review of Systems - Review of Systems Constitutional: reports: No Symptoms Eyes: reports: No Symptoms HENT: reports: No Symptoms Neck: reports: No Symptoms Cardiovascular: reports: No Symptoms Respiratory: reports: No Symptoms Gastrointestinal: reports: Abdominal Pain, Diarrhea Genitourinary: reports: No Symptoms Breasts: reports: No Symptoms Reported Musculoskeletal: reports: Back Pain, Extremity Pain (LLE), Muscle Weakness Integumentary: reports: No Symptoms Neurological: reports: Numbness (lower extremities) Endocrine: reports: No Symptoms Hematology/Lymphatic: reports: No Symptoms Psychiatric: reports: No Symptoms Physical Examination Vital Signs: Vital Signs Temperature 97.4 F L 07/02/19 06:00 Pulse Rate 84 07/02/19 06:00 Respiratory Rate 20 07/02/19 06:00 Blood Pressure 137/81 07/02/19 06:00 O2 Sat by Pulse Oximetry (%) 98 07/01/19 22:23 Constitutional: Yes: No Distress, Calm Eyes: Yes: Conjunctiva Clear HENT: Yes: Atraumatic Neck: Yes: Supple Cardiovascular: Yes: Regular Rate and Rhythm Respiratory: Yes: Regular, CTA Bilaterally Gastrointestinal: Yes: Normal Bowel Sounds, Soft, Tenderness (lower abdomen) Musculoskeletal: Yes: Back Pain (lower) Extremities: Yes: WNL Edema: No Neurological: Yes: Alert, Oriented Psychiatric: Yes: Alert, Oriented Labs: CBC, BMP 07/01/19 15:23 07/01/19 15:23 Imaging - Results MRI: Pending Problem List - Problems (1) Low back pain Assessment/Plan: -Neurosurgery consult -Lumbar MRI done results pending -Pain control -PT -Decadron 8mg TID Code(s): M54.5 - LOW BACK PAIN Qualifiers: Chronicity: acute (2) Abdominal pain Assessment/Plan: -GI on board -Abdominal/Pelvic CT scan Code(s): R10.9 - UNSPECIFIED ABDOMINAL PAIN (3) COPD (chronic obstructive pulmonary disease) Assessment/Plan: -Symbicort -keep SpO2 >90% -O2 via [place] Code(s): J44.9 - CHRONIC OBSTRUCTIVE PULMONARY DISEASE, UNSPECIFIED Qualifiers: COPD type: unspecified COPD Qualified Code(s): J44.9 - Chronic obstructive pulmonary disease, unspecified (4) GERD (gastroesophageal reflux disease) Assessment/Plan: -Pantoprazole Code(s): K21.9 - GASTRO-ESOPHAGEAL REFLUX DISEASE WITHOUT ESOPHAGITIS (5) Lower extremity weakness Assessment/Plan: -fall precautions -PT Code(s): R29.898 - OTH SYMPTOMS AND SIGNS INVOLVING THE MUSCULOSKELETAL SYSTEM (6) PAD (peripheral artery disease) Assessment/Plan: -Vascular consult Code(s): I73.9 - PERIPHERAL VASCULAR DISEASE, UNSPECIFIED (7) Lumbar stenosis Assessment/Plan: -Neurosurgery consult -Lumbar MRI done results pending -Pain control -PT -Decadron 8mg TID -neuro check q4h Code(s): M48.061 - SPINAL STENOSIS, LUMBAR REGION WITHOUT NEUROGENIC CARISA Assessment/Plan see problem list dvt ppx
[2019-07-02] MEDS: HEPARIN NA (PORCINE) 5,000 UNITS/ML 1ML VIAL SQ SCH ×2 (10:27→22:12)
[2019-07-02] MEDS: PANTOPRAZOLE 40 MG TABLET (FP) PO SCH (10:27)
[2019-07-02 11:15] LABS: BASO % 0.3 % (0-2.0); HEMATOCRIT 44.8 % (32.4-45.2); HEMOGLOBIN 14.8 GM/dL (10.7-15.3); LYMPH % 15.2 % (8-40); MCH 30.8 pg (25.7-33.7); MCHC 33.1 g/dl (32.0-36.0); MEAN CELL VOLUME 93.1 fl (80-96); MONO % 1.3 % (3.8-10.2); NEUT % 83.2 % (42.8-82.8); PLATELET COUNT 205 K/MM3 (134-434); RBC 4.82 M/mm3 (3.60-5.2); RDW 13.6 % (11.6-15.6); WHITE BLOOD COUNT 6.2 K/mm3 (4.0-10.0)
[2019-07-02 12:15] LABS: ALBUMIN 3.4 g/dl (3.4-5.0); BILIRUBIN,TOTAL 0.4 mg/dL (0.2-1); BLOOD UREA NITROGEN 13.1 mg/dL (7-18); CALCIUM 9.3 mg/dL (8.5-10.1); CREATININE 0.7 mg/dL (0.55-1.3); MAGNESIUM 2.1 mg/dL (1.8-2.4); PHOSPHOROUS 3.3 mg/dL (2.5-4.9); POTASSIUM 4.8 mmol/L (3.5-5.1)
[2019-07-02] MEDS ORDERED: SODIUM PHOSPHATE/NA BIPHOS 133 ML ENEMA PR SCH (12:15)
[2019-07-02] MEDS: SODIUM PHOSPHATE/NA BIPHOS 133 ML ENEMA PR SCH ×2 (17:16→20:09)
[2019-07-02] MEDS ORDERED: PT OWN MED DRAWER 7, Y5N ONE (17:27)
[2019-07-02] MEDS: BUDESONIDE/FORMETEROL FUMARATE 160/4.5 mcg INHALER IH SCH ×2 (19:12→22:12)
[2019-07-03] MEDS: SODIUM PHOSPHATE/NA BIPHOS 133 ML ENEMA PR SCH (00:44)
[2019-07-03] MEDS: DEXAMETHASONE SOD PHOSPHATE 4 MG/1 ML VIAL IVPB SCH ×2 (01:35→12:06)
[2019-07-03] MEDS: ACETAMINOPHEN 325 MG TABLET (FP) PO SCH ×4 (06:05→17:59)
--- NOTE | 2019-07-03 08:10 | PN.GI ---
GI Progress Note Subjective: Patient states abdominal pain is improving. Denies nausea, vomiting, constipation, rectal bleeding. Abdominal CT scan shows prominence in CBD measuring 1.6cm. - Objective Vital Signs: Vital Signs Temperature 98.1 F 07/03/19 06:00 Pulse Rate 81 07/03/19 06:00 Respiratory Rate 20 07/03/19 06:00 Blood Pressure 103/60 07/03/19 06:00 O2 Sat by Pulse Oximetry (%) 98 07/01/19 22:23 Constitutional: No Distress, Calm Eyes: Yes: Conjunctiva Clear HENT: Yes: Atraumatic Cardiovascular: Yes: Regular Rate and Rhythm Respiratory: Yes: Regular, CTA Bilaterally Gastrointestinal Inspection: Yes: WNL. No: Ascites, Distention, Hernia, Scars, Other ...Auscultate: Yes: Normoactive Bowel Sounds. No: Hyperactive Bowel Sounds, Hypoactive Bowel Sounds, No Bowel Sounds, Other ...Palpate: Yes: Soft, Tenderness (mild lower abdomen). No: Firm/Rigid, Guarding, Hepatomegaly, Mass, Pulsatile Mass, Splenomegaly, Tenderness, Epigastium, Tenderness, Rebound, Other ...Percussion: Yes: Tympanitic. No: Dullness, Fluid Wave, Other Neurological: Yes: Alert, Oriented Psychiatric: Yes: Alert, Oriented Labs: CBC, BMP 07/02/19 10:15 07/02/19 10:15 INR, PTT INR 0.95 (0.83-1.09) 07/01/19 15:23 Active Medications Generic Name Dose Route Start Last Admin Trade Name Freq PRN Reason Stop Dose Admin Acetaminophen 650 mg 07/02/19 00:00 07/03/19 06:07 Tylenol - PO Not Given Q6HPO KAROLINA Budesonide/Formoterol Fumarate 1 puff 07/01/19 22:00 07/02/19 22:12 Symbicort 160/4.5mcg - IH 1 puff BID KAROLINA Administration Dexamethasone Sodium Phosphate 8 mg 07/02/19 02:00 07/03/19 01:35 Decadron Injection - IVPB 8 mg Q8H-IV KAROLINA Administration Heparin Sodium (Porcine) 5,000 unit 07/01/19 22:00 07/02/19 22:12 Heparin - SQ 5,000 unit BID KAROLINA Administration Ketorolac Tromethamine 15 mg 07/01/19 18:00 Toradol Injection - IVPUSH 07/06/19 17:59 Q6H PRN PAIN LEVEL 6-10 Pantoprazole Sodium 40 mg 07/02/19 10:00 07/02/19 10:27 Protonix - PO 40 mg DAILY KAROLINA Administration Problem List - Problems (1) Abdominal pain Assessment/Plan: >Abdominal/Pelvic CT scan reviewed and dilated CBD at 1.6cm Code(s): R10.9 - UNSPECIFIED ABDOMINAL PAIN (2) Dilated cbd, acquired Assessment/Plan: compared to previous ct diameter is now 1.6cm from 1 cm R> will review [facility] radiology >MRCP ordered Code(s): K83.8 - OTHER SPECIFIED DISEASES OF BILIARY TRACT
[2019-07-03 09:07] LABS: HEMATOCRIT 40.4 % (32.4-45.2); HEMOGLOBIN 13.3 GM/dL (10.7-15.3); MCH 30.4 pg (25.7-33.7); MCHC 32.9 g/dl (32.0-36.0); MEAN CELL VOLUME 92.3 fl (80-96); MEAN PLT VOLUME 10.1 fl (7.5-11.1); PLATELET COUNT 171 K/MM3 (134-434); RBC 4.38 M/mm3 (3.60-5.2); RDW 13.9 % (11.6-15.6); WHITE BLOOD COUNT 13.5 K/mm3 (4.0-10.0)
[2019-07-03 09:26] LABS: ALBUMIN 3.2 g/dl (3.4-5.0); BILIRUBIN,TOTAL 0.3 mg/dL (0.2-1); BLOOD UREA NITROGEN 11.2 mg/dL (7-18); CREATININE 0.7 mg/dL (0.55-1.3); POTASSIUM 4.3 mmol/L (3.5-5.1); TOT PROT 5.6 g/dl (6.4-8.2)
--- NOTE | 2019-07-03 09:52 | PN ---
Progress Note, Physician Chief Complaint: Lumbar Stenosis Lower Back Pain Abdominal Pain History of Present Illness: Previous notes and events reviewed awake and alert NAD complain of lower back pain and numbness/tingling to LLE Lumbar MRI results reviewed leukocytosis 2/2 to Decadron IVPB BC neg - Current Medication List Current Medications: Active Medications Acetaminophen (Tylenol -) 650 mg PO Q6HPO [facility] Last Admin: 07/03/19 06:07 Dose: Not Given Budesonide/Formoterol Fumarate (Symbicort 160/4.5mcg -) 1 puff IH BID [facility] Last Admin: 07/02/19 22:12 Dose: 1 puff Dexamethasone Sodium Phosphate (Decadron Injection -) 8 mg IVPB Q8H-IV [facility] Last Admin: 07/03/19 01:35 Dose: 8 mg Heparin Sodium (Porcine) (Heparin -) 5,000 unit SQ BID [facility] Last Admin: 07/02/19 22:12 Dose: 5,000 unit Ketorolac Tromethamine (Toradol Injection -) 15 mg IVPUSH Q6H PRN PRN Reason: PAIN LEVEL 6-10 Stop: 07/06/19 17:59 Pancrelipase (Creon Dr 36,000 Units Capsule) 1 cap PO TIDCM [facility] Pantoprazole Sodium (Protonix -) 40 mg PO DAILY [facility] Last Admin: 07/02/19 10:27 Dose: 40 mg Rifaximin (Xifaxan -) 550 mg PO TID [facility] Stop: 07/17/19 13:59 - Objective Vital Signs: Vital Signs Temperature 98.1 F 07/03/19 06:00 Pulse Rate 81 07/03/19 06:00 Respiratory Rate 20 07/03/19 06:00 Blood Pressure 103/60 07/03/19 06:00 O2 Sat by Pulse Oximetry (%) 98 07/01/19 22:23 Constitutional: Yes: No Distress, Calm Eyes: Yes: Conjunctiva Clear HENT: Yes: Atraumatic Cardiovascular: Yes: Regular Rate and Rhythm Respiratory: Yes: Regular, CTA Bilaterally Gastrointestinal: Yes: Normal Bowel Sounds, Soft Musculoskeletal: Yes: Back Pain, Muscle Weakness Extremities: Yes: WNL Edema: No Neurological: Yes: Alert, Oriented, Weakness (LLE) Psychiatric: Yes: Alert, Oriented Labs: CBC, BMP 07/03/19 07:10 07/03/19 07:10 INR, PTT INR 0.95 (0.83-1.09) 07/01/19 15:23 Problem List - Problems (1) Low back pain Assessment/Plan: -Neurosurgery consult -Lumbar MRI done shows s/p L4-L5 bilaterally in the neck to me with post-op soft tissue swelling, inflammation, and enhancement, posteriorly extending from upper L3 down to lower L5 level as well as extending to subcutaneous fat, there is an irregular shaped collection seen just posterior to the posterior epidural space extending from upper L4 down to lower L5 level, peripheral enhancement measuring approximately 4.5 x 1.6 x 1.5cm in craniocaudal, AP, and transverse dimension suggestive of postop serosanguinous collection, cannot rule out infection, epidual enhancement within the spinal canal from upper L3 down to upper S1 level compatible with post op changes without gross evidence of an intraspinal collection -Pain control -PT -Decadron 8mg TID -Neurology consult Code(s): M54.5 - LOW BACK PAIN Qualifiers: Chronicity: acute (2) Abdominal pain Assessment/Plan: -GI on board -Abdominal/Pelvic CT scan shows dilated CBD 1.6cm -MRCP pending -Creon and Xifaxin Code(s): R10.9 - UNSPECIFIED ABDOMINAL PAIN (3) COPD (chronic obstructive pulmonary disease) Assessment/Plan: -Symbicort -keep SpO2 >90% -O2 via NC Code(s): J44.9 - CHRONIC OBSTRUCTIVE PULMONARY DISEASE, UNSPECIFIED Qualifiers: COPD type: unspecified COPD Qualified Code(s): J44.9 - Chronic obstructive pulmonary disease, unspecified (4) GERD (gastroesophageal reflux disease) Assessment/Plan: -Pantoprazole Code(s): K21.9 - GASTRO-ESOPHAGEAL REFLUX DISEASE WITHOUT ESOPHAGITIS (5) Lower extremity weakness Assessment/Plan: -fall precautions -PT -Neurology consult -Neurosurgery consult Code(s): R29.898 - OTH SYMPTOMS AND SIGNS INVOLVING THE MUSCULOSKELETAL SYSTEM (6) PAD (peripheral artery disease) Assessment/Plan: -Vascular consult -Arterial US pending Code(s): I73.9 - PERIPHERAL VASCULAR DISEASE, UNSPECIFIED (7) Lumbar stenosis Assessment/Plan: -Neurosurgery consult -Lumbar MRI done shows s/p L4-L5 bilaterally in the neck to me with post-op soft tissue swelling, inflammation, and enhancement, posteriorly extending from upper L3 down to lower L5 level as well as extending to subcutaneous fat, there is an irregular shaped collection seen just posterior to the posterior epidural space extending from upper L4 down to lower L5 level, peripheral enhancement measuring approximately 4.5 x 1.6 x 1.5cm in craniocaudal, AP, and transverse dimension suggestive of postop serosanguinous collection, cannot rule out infection, epidual enhancement within the spinal canal from upper L3 down to upper S1 level compatible with post op changes without gross evidence of an intraspinal collection -Pain control -PT -Decadron 8mg TID -neuro check q4h Code(s): M48.061 - SPINAL STENOSIS, LUMBAR REGION WITHOUT NEUROGENIC CARISA (8) Leukocytosis Assessment/Plan: -WBC 13.5 -ID consult due to Lumbar MRI finding - pending Code(s): D72.829 - ELEVATED WHITE BLOOD CELL COUNT, UNSPECIFIED Assessment/Plan see problem list dvt ppx
[2019-07-03] MEDS: HEPARIN NA (PORCINE) 5,000 UNITS/ML 1ML VIAL SQ SCH ×2 (12:13→22:49)
[2019-07-03] MEDS: BUDESONIDE/FORMETEROL FUMARATE 160/4.5 mcg INHALER IH SCH ×2 (12:15→22:49)
[2019-07-03] MEDS: LIPASE/PROTEASE/AMYLASE 36,000 UNIT CAPSULE PO SCH ×2 (12:17→17:58)
--- NOTE | 2019-07-03 13:33 | CONSULT ---
Consult - text type - Consultation Consultation Note: NEUROLOGY CONSULT GREATLY APPRECIATED: Events reviewed. Pt last seen pre- and post-operatively at [facility] for B/L L4/L5 laminectomies by Dr. Rohit Barney 04/2019. This 74 yo [place]ian speaking woman has COPD, nicotine dependence and GERD. Admitted after 3 weeks of "pain" from low back radiating around groin and into left anterior thigh, now "24." She has been unable to sleep due to pain and describes more recent falls. MRI of LS spine done (C+/C-) in evaluation and reviewed: S/P L4/L5 and L5S1 laminectomies with enhancement from L3-L5. Straightening of nl lumbar lordosis. Multilevel disc desiccation and disc bulges, most sig at L2/L3 with moderate central canal stenosis. WBC= 13.5K; TSH= 0.29 Vascular studies of legs: scattered atherosclerotic plaques without heme sig stenosis. SUMANTH: Afebrile. Neck supple. +/- SLR on L. + Solo's on L. + Spinal tenderness. NEURO: Awake, alert, cooperative. Speech fluent in Bel[place]ian. CNII-CNXII: Normal. Motor: No drift or tremor. Strength normal including hip flexors, adductors and abduction as well as ankle DF/PF B/L. Reflexes normal in arms, KJ' s and R AJ. Absent L AJ. Toes downgoing. Coordination: No FTN dystaxia. Sensation: Reduced vibration in feet. Romberg + Gait: Antalgic L leg. Unable to bear weight with spontaneous retropulsion. Impression: S/P L4/L5 laminectomies. Acute L3 radiculopathy on L. Possible L hip arthopathy. R/O Toxic-Metabolic Encephalopathy Suggest: Check ESR, CRP, CPK and await Blood cultures Adjust for hyperthyroidism as indicated per Endo Xray of Hips/Pelvis Physiatry consultation and PT for gait with walker Pain Rx. Thank you very much, Juan C Tobias MD
[2019-07-03] MEDS: PANTOPRAZOLE 40 MG TABLET (FP) PO SCH ×2 (14:37→16:16)
[2019-07-03] MEDS: RIFAXIMIN 550 MG TABLET (UD) PO SCH ×2 (14:38→22:48)
[2019-07-03] MEDS: KETOROLAC TROMETHAMINE 15 MG/ML VIAL IVPUSH PRN ×2 (14:38→22:47)
--- NOTE | 2019-07-03 16:32 | PN ---
Progress Note (short form) - Note Progress Note: ID CONSULT DICTATED a/p 74 yo female s/p bilateral L3/L4 lumbar laminectomies 04/28- she was discharged home and then readmitted with severe constipation had a transient leukocytosis and was treated for a UTI with rocephin now with worsening pain in her feet reports persistent back pain no fevers recent treatment 06/01 for 14 days with amox/clarithro/omeprazole for h pylori by GI still with abdominal discomfort admitted 07/01 via ER for the above symptoms no fevers no leukocytosis lumbar spine MRI with collection L4/L5- cannot r/o postop collection/seroma/ infection suggest Neurosurgery f/u with her surgeon-?aspiration of collection blood cultures sent esr/crp ordered would consider d/c steroids as infection is in the differential would hold on starting systemic antiibiotics in the hopes that we can get cultures -before starting the antibiotics cllinically has no fever or leukocytosis (prior to steroids) d/w [employer]
--- NOTE | 2019-07-03 18:17 | CONS ---
DATE OF CONSULTATION: DATE OF DICTATION: 07/03/2019 INFECTIOUS DISEASE CONSULTATION HISTORY OF PRESENT ILLNESS: This is a 74-year-old woman who underwent back surgery. On April 28, she had bilateral L3-L4 laminectomies. She was discharged home the next day. She was readmitted 3 days later with severe constipation, which was felt to be secondary to pain medications. She had nausea and vomiting as well. Bowel obstruction was considered, and she was evaluated by GI and Surgery. She had a transient leukocytosis and was found to have a UTI with E. coli, and she was treated with a course of ceftriaxone. She reports after discharge she did okay. She continued to have some low back pain. She noted as well pain radiating to her legs. As well she continued to have some abdominal discomfort. The pain to her legs has increased , and she came to the ER complaining of that. I used the [employer] phone to speak with her. It was extremely difficult to get a history even with the test facility engineer. She denies fevers at home. She has had no vomiting, but she does have vague abdominal pain , and she has been moving her bowels. I called her pharmacy because she reported antibiotic use at home, and on June 01 she was prescribed a 14-day course of amoxicillin, clarithromycin, and omeprazole for H. pylori, which she should have completed several weeks ago. She was now admitted on the with these complaints. She had a lumbar spine MRI done in the emergency room that was notable for an irregular shaped collection, posterior L4-L5 suggestive of a postoperative serosanguineous collection. Infection cannot be ruled out per the reading. I am asked to see her today on the for this MRI reading. She has since admission been treated with rifaximin. She has been evaluated by GI and her neurosurgeon , Dr. Barney, has been called in consultation. I am asked to see her for this collection. On admission, she had no fever, and her white count was normal. It was 7.2, repeat 6.2. She was placed on steroids, and today her white count is 13. PAST MEDICAL HISTORY: Notable for history of COPD and GERD. She is status post recent H. pylori treatment, chronic low back pain, spinal stenosis. SURGICAL HISTORY: Notable for appendectomy, cholecystectomy, laminectomy, which was done on the . SOCIAL HISTORY: She lives with her . No history of cigarette, alcohol, or substance use. She is primarily English speaking. ALLERGIES: No known drug allergies. CURRENT MEDICATIONS: Her current medications at home include Symbicort, Trulance, gabapentin, and Creon. REVIEW OF SYSTEMS: As per HPI. HOSPITAL COURSE: She was started on steroids. She has had abdominal imaging including a CAT scan of the abdomen and pelvis notable for no evidence of acute pathology. She had an MRI done of the abdomen and pelvis status post cholecystectomy, mild extrahepatic biliary ductal dilatation without evidence of choledocholithiasis, and she has a nonspecific tiny, 2-mm pancreatic cyst. She has nonspecific macronodular hepatic contour. MRI: Lumbar MRI study as previously stated. IMPRESSION: In summary, this is a 74-year-old woman with persistent back pain and foot pain with a lumbar MRI with a postoperative collection that by report states cannot rule out infection. I would suggest neurosurgery followup with Dr. Barney for possible aspiration of this collection to rule out infection. Blood cultures have been sent. ESR and CRP have been ordered. Would consider stopping her steroids, as infection is in the differential. Would hold on starting systemic antibiotics in the hopes we can get cultures. She appears to be clinically stable and has no fever or leukocytosis to suggest infection at this time. Case was discussed at length with the nurse practitioner, who was the admitting hospitalist. BHUPINDER RAYMOND M.D. [id number] MTDD
[2019-07-03] MEDS ORDERED: ONDANSETRON 4 MG/2 ML VIAL IVPUSH ONE (21:42)
[2019-07-04] MEDS: ACETAMINOPHEN 325 MG TABLET (FP) PO SCH ×4 (01:51→17:37)
[2019-07-04] MEDS: RIFAXIMIN 550 MG TABLET (UD) PO SCH ×3 (05:50→21:27)
[2019-07-04] MEDS ORDERED: PT OWN MED DRAWER 7, Y5N ONE ×4 (08:51→21:35)
[2019-07-04] MEDS: LIPASE/PROTEASE/AMYLASE 36,000 UNIT CAPSULE PO SCH ×3 (08:56→17:37)
[2019-07-04] MEDS: HEPARIN NA (PORCINE) 5,000 UNITS/ML 1ML VIAL SQ SCH ×2 (09:56→21:27)
[2019-07-04] MEDS: PANTOPRAZOLE 40 MG TABLET (FP) PO SCH (09:56)
[2019-07-04] MEDS: BUDESONIDE/FORMETEROL FUMARATE 160/4.5 mcg INHALER IH SCH ×2 (09:56→22:43)
[2019-07-04 10:30] LABS: HEMATOCRIT 39.9 % (32.4-45.2); HEMOGLOBIN 13.3 GM/dL (10.7-15.3); MCH 30.9 pg (25.7-33.7); MCHC 33.3 g/dl (32.0-36.0); MEAN CELL VOLUME 92.9 fl (80-96); MEAN PLT VOLUME 10.6 fl (7.5-11.1); PLATELET COUNT 169 K/MM3 (134-434); RDW 13.7 % (11.6-15.6); WHITE BLOOD COUNT 12.4 K/mm3 (4.0-10.0)
[2019-07-04 10:46] LABS: ALK PHOS 75 U/L (45-117); ANION GAP 6 MMOL/L (8-16); BILIRUBIN,TOTAL 0.5 mg/dL (0.2-1); CALCIUM 8.9 mg/dL (8.5-10.1); CHLORIDE 107 mmol/L (98-107); CO2 25 mmol/L (21-32); CREATININE 0.7 mg/dL (0.55-1.3); GLUCOSE,RANDOM 83 mg/dL (74-106); POTASSIUM 4.1 mmol/L (3.5-5.1); SGOT/AST 10 U/L (15-37); SGPT/ALT 13 U/L (13-61); SODIUM 139 mmol/L (136-145); TOT PROT 5.4 g/dl (6.4-8.2)
--- NOTE | 2019-07-04 15:17 | PN ---
Progress Note, Physician Chief Complaint: Lumbar Stenosis Lower Back Pain Abdominal Pain History of Present Illness: Previous notes and events reviewed awake and alert NAD continue with lower back pain radiating down LLE BC neg complain of intermittent left sided chest pain - Current Medication List Current Medications: Active Medications Acetaminophen (Tylenol -) 650 mg PO Q6HPO [facility] Last Admin: 07/04/19 12:03 Dose: Not Given Budesonide/Formoterol Fumarate (Symbicort 160/4.5mcg -) 1 puff IH BID [facility] Last Admin: 07/04/19 09:56 Dose: 1 puff Heparin Sodium (Porcine) (Heparin -) 5,000 unit SQ BID [facility] Last Admin: 07/04/19 09:56 Dose: 5,000 unit Ketorolac Tromethamine (Toradol Injection -) 15 mg IVPUSH Q6H PRN PRN Reason: PAIN LEVEL 6-10 Stop: 07/06/19 17:59 Last Admin: 07/03/19 22:47 Dose: 15 mg Pancrelipase (Creon Dr 36,000 Units Capsule) 1 cap PO TIDCM [facility] Last Admin: 07/04/19 12:38 Dose: 1 cap Pantoprazole Sodium (Protonix -) 40 mg PO DAILY [facility] Last Admin: 07/04/19 09:56 Dose: 40 mg Rifaximin (Xifaxan -) 550 mg PO TID [facility] Stop: 07/17/19 13:59 Last Admin: 07/04/19 14:05 Dose: 550 mg - Objective Vital Signs: Vital Signs Temperature 98.1 F 07/04/19 08:30 Pulse Rate 61 07/04/19 08:30 Respiratory Rate 20 07/04/19 08:30 Blood Pressure 116/67 07/04/19 08:30 O2 Sat by Pulse Oximetry (%) 16 L 07/03/19 21:00 Constitutional: Yes: No Distress, Calm Eyes: Yes: Conjunctiva Clear HENT: Yes: Atraumatic Cardiovascular: Yes: Regular Rate and Rhythm Respiratory: Yes: Regular, CTA Bilaterally Gastrointestinal: Yes: Normal Bowel Sounds, Soft, Tenderness, Epigastrium Musculoskeletal: Yes: Back Pain, Muscle Weakness Extremities: Yes: WNL Edema: No Neurological: Yes: Alert, Oriented Psychiatric: Yes: Alert, Oriented Labs: CBC, BMP 07/04/19 08:25 07/04/19 08:25 INR, PTT INR 0.95 (0.83-1.09) 07/01/19 15:23 Microbiology 07/02/19 19:30 Blood - Peripheral Venous Blood Culture - Preliminary NO GROWTH OBTAINED AFTER 24 HOURS, INCUBATION TO CONTINUE FOR 4 DAYS. 07/02/19 19:35 Blood - Peripheral Venous Blood Culture - Preliminary NO GROWTH OBTAINED AFTER 24 HOURS, INCUBATION TO CONTINUE FOR 4 DAYS. - ....Imaging Ultrasound: Report Reviewed Problem List - Problems (1) Low back pain Assessment/Plan: -Neurosurgery consult -Lumbar MRI done shows s/p L4-L5 bilaterally in the neck to me with post-op soft tissue swelling, inflammation, and enhancement, posteriorly extending from upper L3 down to lower L5 level as well as extending to subcutaneous fat, there is an irregular shaped collection seen just posterior to the posterior epidural space extending from upper L4 down to lower L5 level, peripheral enhancement measuring approximately 4.5 x 1.6 x 1.5cm in craniocaudal, AP, and transverse dimension suggestive of postop serosanguinous collection, cannot rule out infection, epidual enhancement within the spinal canal from upper L3 down to upper S1 level compatible with post op changes without gross evidence of an intraspinal collection -Pain control -PT -hip and pelvic xray -ESR and CRP wnl -Neurology on board Code(s): M54.5 - LOW BACK PAIN Qualifiers: Chronicity: acute (2) Abdominal pain Assessment/Plan: -GI on board -Abdominal/Pelvic CT scan shows dilated CBD 1.6cm -MRCP shows mild extrahepatic biliary ductal dilatation measuring 1cm and 8mm distally without evidence of choledocolithiasis, likely physiologic post cholecystectomy, nonspecific 2mm pancreatic neck cyst , nonspecific macronodular hepatic contour -Creon and Xifaxin Code(s): R10.9 - UNSPECIFIED ABDOMINAL PAIN (3) COPD (chronic obstructive pulmonary disease) Assessment/Plan: -Symbicort -keep SpO2 >90% -O2 via [place] Code(s): J44.9 - CHRONIC OBSTRUCTIVE PULMONARY DISEASE, UNSPECIFIED Qualifiers: COPD type: unspecified COPD Qualified Code(s): J44.9 - Chronic obstructive pulmonary disease, unspecified (4) GERD (gastroesophageal reflux disease) Assessment/Plan: -Pantoprazole Code(s): K21.9 - GASTRO-ESOPHAGEAL REFLUX DISEASE WITHOUT ESOPHAGITIS (5) Lower extremity weakness Assessment/Plan: -fall precautions -PT -Neurology on board -Neurosurgery consult -Lumbar MRI done shows s/p L4-L5 bilaterally in the neck to me with post-op soft tissue swelling, inflammation, and enhancement, posteriorly extending from upper L3 down to lower L5 level as well as extending to subcutaneous fat, there is an irregular shaped collection seen just posterior to the posterior epidural space extending from upper L4 down to lower L5 level, peripheral enhancement measuring approximately 4.5 x 1.6 x 1.5cm in craniocaudal, AP, and transverse dimension suggestive of postop serosanguinous collection, cannot rule out infection, epidual enhancement within the spinal canal from upper L3 down to upper S1 level compatible with post op changes without gross evidence of an intraspinal collection Code(s): R29.898 - OT SYMPTOMS AND SIGNS INVOLVING THE MUSCULOSKELETAL SYSTEM (6) PAD (peripheral artery disease) Assessment/Plan: -Vascular consult -Arterial US shows mild atherosclerotic disease with no evidence occlusion or hemodynamically significant stenosis Code(s): I73.9 - PERIPHERAL VASCULAR DISEASE, UNSPECIFIED (7) Lumbar stenosis Assessment/Plan: -Neurosurgery consult -Lumbar MRI done shows s/p L4-L5 bilaterally in the neck to me with post-op soft tissue swelling, inflammation, and enhancement, posteriorly extending from upper L3 down to lower L5 level as well as extending to subcutaneous fat, there is an irregular shaped collection seen just posterior to the posterior epidural space extending from upper L4 down to lower L5 level, peripheral enhancement measuring approximately 4.5 x 1.6 x 1.5cm in craniocaudal, AP, and transverse dimension suggestive of postop serosanguinous collection, cannot rule out infection, epidual enhancement within the spinal canal from upper L3 down to upper S1 level compatible with post op changes without gross evidence of an intraspinal collection -Pain control -PT -Neurology on board -neuro check q4h Code(s): M48.061 - SPINAL STENOSIS, LUMBAR REGION WITHOUT NEUROGENIC CARISA (8) Leukocytosis Assessment/Plan: -WBC 12.4 -ID consult due to Lumbar MRI finding -BC neg Code(s): D72.829 - ELEVATED WHITE BLOOD CELL COUNT, UNSPECIFIED Assessment/Plan see problem list dvt ppx
--- NOTE | 2019-07-04 16:41 | PN ---
Progress Note, Physician History of Present Illness: AWAKE,ALERT SEATED IN BED C/O BACK PAIN AFEBRILE WBC SL ELEVATED ESR 4 CRP <0.3 - Current Medication List Current Medications: Active Medications Acetaminophen (Tylenol -) 650 mg PO Q6HPO [facility] Last Admin: 07/04/19 12:03 Dose: Not Given Budesonide/Formoterol Fumarate (Symbicort 160/4.5mcg -) 1 puff IH BID [facility] Last Admin: 07/04/19 09:56 Dose: 1 puff Heparin Sodium (Porcine) (Heparin -) 5,000 unit SQ BID [facility] Last Admin: 07/04/19 09:56 Dose: 5,000 unit Ketorolac Tromethamine (Toradol Injection -) 15 mg IVPUSH Q6H PRN PRN Reason: PAIN LEVEL 6-10 Stop: 07/06/19 17:59 Last Admin: 07/03/19 22:47 Dose: 15 mg Pancrelipase (Creon Dr 36,000 Units Capsule) 1 cap PO TIDCM [facility] Last Admin: 07/04/19 12:38 Dose: 1 cap Pantoprazole Sodium (Protonix -) 40 mg PO DAILY [facility] Last Admin: 07/04/19 09:56 Dose: 40 mg Rifaximin (Xifaxan -) 550 mg PO TID [facility] Stop: 07/17/19 13:59 Last Admin: 07/04/19 14:05 Dose: 550 mg - Objective Vital Signs: Vital Signs Temperature 98.1 F 07/04/19 08:30 Pulse Rate 61 07/04/19 08:30 Respiratory Rate 20 07/04/19 08:30 Blood Pressure 116/67 07/04/19 08:30 O2 Sat by Pulse Oximetry (%) 16 L 07/03/19 21:00 Constitutional: Yes: No Distress Cardiovascular: Yes: Regular Rate and Rhythm, S1, S2 Respiratory: Yes: CTA Bilaterally Gastrointestinal: Yes: Normal Bowel Sounds, Soft Musculoskeletal: Yes: Other (NO SPINAL TENDERNESS) Labs: CBC, BMP 07/04/19 08:25 07/04/19 08:25 INR, PTT INR 0.95 (0.83-1.09) 07/01/19 15:23 Assessment/Plan EPIDURAL FLUID COLLECTION AWAIT NEUROSURGICAL EVALUATION OBSERVE OFF ANTIBIOTICS
[2019-07-05] MEDS: ACETAMINOPHEN 325 MG TABLET (FP) PO SCH ×5 (00:50→23:21)
[2019-07-05] MEDS: RIFAXIMIN 550 MG TABLET (UD) PO SCH ×3 (06:17→21:16)
[2019-07-05] MEDS ORDERED: PT OWN MED DRAWER 7, Y5N ONE ×4 (08:20→17:05)
[2019-07-05 09:27] LABS: HEMATOCRIT 44.1 % (32.4-45.2); HEMOGLOBIN 14.7 GM/dL (10.7-15.3); MCH 31.3 pg (25.7-33.7); MCHC 33.4 g/dl (32.0-36.0); MEAN CELL VOLUME 93.7 fl (80-96); MEAN PLT VOLUME 10.5 fl (7.5-11.1); PLATELET COUNT 161 K/MM3 (134-434); RDW 14.1 % (11.6-15.6); WHITE BLOOD COUNT 8.1 K/mm3 (4.0-10.0)
[2019-07-05] MEDS: PANTOPRAZOLE 40 MG TABLET (FP) PO SCH (09:44)
[2019-07-05] MEDS: LIPASE/PROTEASE/AMYLASE 36,000 UNIT CAPSULE PO SCH ×3 (09:44→17:21)
[2019-07-05] MEDS: HEPARIN NA (PORCINE) 5,000 UNITS/ML 1ML VIAL SQ SCH ×2 (09:45→21:16)
[2019-07-05] MEDS: BUDESONIDE/FORMETEROL FUMARATE 160/4.5 mcg INHALER IH SCH ×2 (09:45→21:16)
[2019-07-05 09:59] LABS: BILIRUBIN,TOTAL 0.3 mg/dL (0.2-1); BLOOD UREA NITROGEN 17.5 mg/dL (7-18); CALCIUM 8.8 mg/dL (8.5-10.1); CREATININE 0.8 mg/dL (0.55-1.3); POTASSIUM 4.9 mmol/L (3.5-5.1); TOT PROT 5.5 g/dl (6.4-8.2)
--- NOTE | 2019-07-05 12:40 | PN ---
Progress Note, Physician Chief Complaint: Lumbar Stenosis Lower Back Pain Abdominal Pain History of Present Illness: Previous notes and events reviewed awake and alert NAD continue with lower back pain radiating down LLE BC neg no leukocytosis when ambulate feels LLE gives out - Current Medication List Current Medications: Active Medications Acetaminophen (Tylenol -) 650 mg PO Q6HPO [facility] Last Admin: 07/05/19 12:34 Dose: 650 mg Budesonide/Formoterol Fumarate (Symbicort 160/4.5mcg -) 1 puff IH BID [facility] Last Admin: 07/05/19 09:45 Dose: 1 puff Heparin Sodium (Porcine) (Heparin -) 5,000 unit SQ BID [facility] Last Admin: 07/05/19 09:45 Dose: 5,000 unit Ketorolac Tromethamine (Toradol Injection -) 15 mg IVPUSH Q6H PRN PRN Reason: PAIN LEVEL 6-10 Stop: 07/06/19 17:59 Last Admin: 07/03/19 22:47 Dose: 15 mg Pancrelipase (Creon Dr 36,000 Units Capsule) 1 cap PO TIDCM [facility] Last Admin: 07/05/19 12:34 Dose: 1 cap Pantoprazole Sodium (Protonix -) 40 mg PO DAILY [facility] Last Admin: 07/05/19 09:44 Dose: 40 mg Rifaximin (Xifaxan -) 550 mg PO TID [facility] Stop: 07/17/19 13:59 Last Admin: 07/05/19 06:17 Dose: 550 mg - Objective Vital Signs: Vital Signs Temperature 97.7 F 07/05/19 08:10 Pulse Rate 66 07/05/19 08:10 Respiratory Rate 20 07/05/19 08:10 Blood Pressure 111/57 L 07/05/19 08:10 O2 Sat by Pulse Oximetry (%) 16 L 07/04/19 21:00 Constitutional: Yes: No Distress, Calm Eyes: Yes: Conjunctiva Clear HENT: Yes: Atraumatic Cardiovascular: Yes: Regular Rate and Rhythm Respiratory: Yes: Regular, CTA Bilaterally Gastrointestinal: Yes: Normal Bowel Sounds, Soft Musculoskeletal: Yes: Back Pain, Muscle Weakness, Other (LLE pain) Extremities: Yes: WNL Edema: No Neurological: Yes: Alert, Oriented Psychiatric: Yes: Alert, Oriented Labs: CBC, BMP 07/05/19 08:20 07/05/19 08:20 INR, PTT INR 0.95 (0.83-1.09) 07/01/19 15:23 Problem List - Problems (1) Low back pain Assessment/Plan: -Neurosurgery consult -Lumbar MRI done shows s/p L4-L5 bilaterally in the neck to me with post-op soft tissue swelling, inflammation, and enhancement, posteriorly extending from upper L3 down to lower L5 level as well as extending to subcutaneous fat, there is an irregular shaped collection seen just posterior to the posterior epidural space extending from upper L4 down to lower L5 level, peripheral enhancement measuring approximately 4.5 x 1.6 x 1.5cm in craniocaudal, AP, and transverse dimension suggestive of postop serosanguinous collection, cannot rule out infection, epidual enhancement within the spinal canal from upper L3 down to upper S1 level compatible with post op changes without gross evidence of an intraspinal collection -Pain control -PT -hip and pelvic xray reviewed -ESR and CRP wnl -Neurology on board Code(s): M54.5 - LOW BACK PAIN Qualifiers: Chronicity: acute (2) Abdominal pain Assessment/Plan: -GI on board -Abdominal/Pelvic CT scan shows dilated CBD 1.6cm -MRCP shows mild extrahepatic biliary ductal dilatation measuring 1cm and 8mm distally without evidence of choledocolithiasis, likely physiologic post cholecystectomy, nonspecific 2mm pancreatic neck cyst , nonspecific macronodular hepatic contour -Creon and Xifaxin -Ca 19-9 16, CEA 2.4 Code(s): R10.9 - UNSPECIFIED ABDOMINAL PAIN (3) COPD (chronic obstructive pulmonary disease) Assessment/Plan: -Symbicort -keep SpO2 >90% -O2 via [place] Code(s): J44.9 - CHRONIC OBSTRUCTIVE PULMONARY DISEASE, UNSPECIFIED Qualifiers: COPD type: unspecified COPD Qualified Code(s): J44.9 - Chronic obstructive pulmonary disease, unspecified (4) GERD (gastroesophageal reflux disease) Assessment/Plan: -Pantoprazole Code(s): K21.9 - GASTRO-ESOPHAGEAL REFLUX DISEASE WITHOUT ESOPHAGITIS (5) Lower extremity weakness Assessment/Plan: -fall precautions -PT -Neurology on board -Neurosurgery consult -Lumbar MRI done shows s/p L4-L5 bilaterally in the neck to me with post-op soft tissue swelling, inflammation, and enhancement, posteriorly extending from upper L3 down to lower L5 level as well as extending to subcutaneous fat, there is an irregular shaped collection seen just posterior to the posterior epidural space extending from upper L4 down to lower L5 level, peripheral enhancement measuring approximately 4.5 x 1.6 x 1.5cm in craniocaudal, AP, and transverse dimension suggestive of postop serosanguinous collection, cannot rule out infection, epidual enhancement within the spinal canal from upper L3 down to upper S1 level compatible with post op changes without gross evidence of an intraspinal collection Code(s): R29.898 - OTH SYMPTOMS AND SIGNS INVOLVING THE MUSCULOSKELETAL SYSTEM (6) PAD (peripheral artery disease) Assessment/Plan: -Vascular consult -Arterial US shows mild atherosclerotic disease with no evidence occlusion or hemodynamically significant stenosis Code(s): I73.9 - PERIPHERAL VASCULAR DISEASE, UNSPECIFIED (7) Lumbar stenosis Assessment/Plan: -Neurosurgery consult -Lumbar MRI done shows s/p L4-L5 bilaterally in the neck to me with post-op soft tissue swelling, inflammation, and enhancement, posteriorly extending from upper L3 down to lower L5 level as well as extending to subcutaneous fat, there is an irregular shaped collection seen just posterior to the posterior epidural space extending from upper L4 down to lower L5 level, peripheral enhancement measuring approximately 4.5 x 1.6 x 1.5cm in craniocaudal, AP, and transverse dimension suggestive of postop serosanguinous collection, cannot rule out infection, epidual enhancement within the spinal canal from upper L3 down to upper S1 level compatible with post op changes without gross evidence of an intraspinal collection -Pain control -PT -Neurology on board -neuro check q4h Code(s): M48.061 - SPINAL STENOSIS, LUMBAR REGION WITHOUT NEUROGENIC CARISA (8) Leukocytosis Assessment/Plan: -WBC 8.1 -resolved -ID consult due to Lumbar MRI finding -BC neg Code(s): D72.829 - ELEVATED WHITE BLOOD CELL COUNT, UNSPECIFIED Assessment/Plan see problem list dvt ppx
--- NOTE | 2019-07-05 12:41 | PN ---
Progress Note, Physician - Current Medication List Current Medications: Active Medications Acetaminophen (Tylenol -) 650 mg PO Q6HPO [facility] Last Admin: 07/05/19 12:34 Dose: 650 mg Budesonide/Formoterol Fumarate (Symbicort 160/4.5mcg -) 1 puff IH BID [facility] Last Admin: 07/05/19 09:45 Dose: 1 puff Heparin Sodium (Porcine) (Heparin -) 5,000 unit SQ BID [facility] Last Admin: 07/05/19 09:45 Dose: 5,000 unit Ketorolac Tromethamine (Toradol Injection -) 15 mg IVPUSH Q6H PRN PRN Reason: PAIN LEVEL 6-10 Stop: 07/06/19 17:59 Last Admin: 07/03/19 22:47 Dose: 15 mg Pancrelipase (Creon Dr 36,000 Units Capsule) 1 cap PO TIDCM [facility] Last Admin: 07/05/19 12:34 Dose: 1 cap Pantoprazole Sodium (Protonix -) 40 mg PO DAILY [facility] Last Admin: 07/05/19 09:44 Dose: 40 mg Rifaximin (Xifaxan -) 550 mg PO TID [facility] Stop: 07/17/19 13:59 Last Admin: 07/05/19 06:17 Dose: 550 mg - Objective Vital Signs: Vital Signs Temperature 97.7 F 07/05/19 08:10 Pulse Rate 66 07/05/19 08:10 Respiratory Rate 20 07/05/19 08:10 Blood Pressure 111/57 L 07/05/19 08:10 O2 Sat by Pulse Oximetry (%) 16 L 07/04/19 21:00 Labs: CBC, BMP 07/05/19 08:20 07/05/19 08:20 INR, PTT INR 0.95 (0.83-1.09) 07/01/19 15:23 Problem List - Problems (1) Low back pain Code(s): M54.5 - LOW BACK PAIN Qualifiers: Chronicity: acute (2) Abdominal pain Code(s): R10.9 - UNSPECIFIED ABDOMINAL PAIN (3) COPD (chronic obstructive pulmonary disease) Code(s): J44.9 - CHRONIC OBSTRUCTIVE PULMONARY DISEASE, UNSPECIFIED Qualifiers: COPD type: unspecified COPD Qualified Code(s): J44.9 - Chronic obstructive pulmonary disease, unspecified (4) GERD (gastroesophageal reflux disease) Code(s): K21.9 - GASTRO-ESOPHAGEAL REFLUX DISEASE WITHOUT ESOPHAGITIS (5) Lower extremity weakness Code(s): R29.898 - OTH SYMPTOMS AND SIGNS INVOLVING THE MUSCULOSKELETAL SYSTEM (6) PAD (peripheral artery disease) Code(s): I73.9 - PERIPHERAL VASCULAR DISEASE, UNSPECIFIED (7) Lumbar stenosis Code(s): M48.061 - SPINAL STENOSIS, LUMBAR REGION WITHOUT NEUROGENIC CARISA (8) Leukocytosis Code(s): D72.829 - ELEVATED WHITE BLOOD CELL COUNT, UNSPECIFIED
--- NOTE | 2019-07-05 13:50 | EKG ---
Test Reason : Blood Pressure : / mmHG Vent. Rate : 062 BPM Atrial Rate : 062 BPM P-R Int : 138 ms QRS Dur : 072 ms QT Int : 436 ms P-R-T Axes : 058 011 056 degrees QTc Int : 442 ms NORMAL SINUS RHYTHM NORMAL ECG WHEN COMPARED WITH ECG OF 01-JUL-2019 18:22, NONSPECIFIC T WAVE ABNORMALITY NO LONGER EVIDENT IN ANTERIOR LEADS QT HAS SHORTENED Confirmed by MD Farheen, Pollo ([id number]) on 07/05/2019 1:50:07 PM Referred By: Kristy ARIAS Confirmed By:Pollo Zhong MD
[2019-07-05] MEDS: GABAPENTIN 100 MG CAPSULE (FP) PO SCH (21:16)
[2019-07-06] MEDS: RIFAXIMIN 550 MG TABLET (UD) PO SCH ×3 (05:17→22:05)
[2019-07-06] MEDS: GABAPENTIN 100 MG CAPSULE (FP) PO SCH ×3 (05:17→22:00)
[2019-07-06] MEDS: ACETAMINOPHEN 325 MG TABLET (FP) PO SCH ×4 (05:17→22:03)
--- NOTE | 2019-07-06 07:31 | PN.GI ---
GI Progress Note Subjective: Patient denies abdominal pain but has mild tenderness on palpation. Denies nausea, vomiting, diarrhea. States having constipation. Abdominal MRI shows CHD dilated measuring 1cm, proximal CBD dilatation measuring 9-10mm, distal CBD measuring 8mm, non specific tiny 2mm pancreatic neck cyst. CEA and CA 19-9 wnl. - Objective Vital Signs: Vital Signs Temperature 98.5 F 07/06/19 06:00 Pulse Rate 61 07/06/19 06:00 Respiratory Rate 20 07/06/19 06:00 Blood Pressure 116/61 07/06/19 06:00 O2 Sat by Pulse Oximetry (%) 99 07/05/19 21:00 Constitutional: No Distress, Calm Eyes: Yes: Conjunctiva Clear HENT: Yes: Atraumatic Cardiovascular: Yes: Regular Rate and Rhythm Respiratory: Yes: Regular, CTA Bilaterally Gastrointestinal Inspection: Yes: WNL. No: Ascites, Distention, Hernia, Scars, Other ...Auscultate: Yes: Normoactive Bowel Sounds. No: Hyperactive Bowel Sounds, Hypoactive Bowel Sounds, No Bowel Sounds, Other ...Palpate: Yes: Soft, Tenderness (luq), Tenderness, Epigastium. No: Firm/Rigid , Guarding, Hepatomegaly, Mass, Pulsatile Mass, Splenomegaly, Tenderness, Rebound, Other ...Percussion: Yes: Tympanitic. No: Dullness, Fluid Wave, Other Labs: CBC, BMP 07/05/19 08:20 07/05/19 08:20 INR, PTT INR 0.95 (0.83-1.09) 07/01/19 15:23 Problem List - Problems (1) Abdominal pain Assessment/Plan: >Abdominal/Pelvic CT scan reviewed and dilated CBD at 1.6cm >Abdominal MRI shows CHD dilated measuring 1cm, proximal CBD dilatation measuring 9-10mm, distal CBD measuring 8mm, non specific tiny 2mm pancreatic neck cyst Code(s): R10.9 - UNSPECIFIED ABDOMINAL PAIN (2) Dilated cbd, acquired Assessment/Plan: compared to previous ct diameter is now 1.6cm from 1 cm R> will review ct wi radiology >MRCP shows CHD dilated measuring 1cm, proximal CBD dilatation measuring 9-10mm , distal CBD measuring 8mm, non specific tiny 2mm pancreatic neck cyst Code(s): K83.8 - OTHER SPECIFIED DISEASES OF BILIARY TRACT
--- NOTE | 2019-07-06 08:51 | PN ---
Progress Note, Physician Chief Complaint: Lumbar Stenosis Lower Back Pain Abdominal Pain History of Present Illness: Previous notes and events reviewed awake and alert NAD continue with lower back pain radiating down LLE afebrile no leukocytosis - Current Medication List Current Medications: Active Medications Acetaminophen (Tylenol -) 650 mg PO Q6HPO [facility] Last Admin: 07/06/19 05:17 Dose: 650 mg Budesonide/Formoterol Fumarate (Symbicort 160/4.5mcg -) 1 puff IH BID [facility] Last Admin: 07/05/19 21:16 Dose: 1 puff Gabapentin (Neurontin -) 100 mg PO TID [facility] Last Admin: 07/06/19 05:17 Dose: 100 mg Heparin Sodium (Porcine) (Heparin -) 5,000 unit SQ BID [facility] Last Admin: 07/05/19 21:16 Dose: 5,000 unit Ketorolac Tromethamine (Toradol Injection -) 15 mg IVPUSH Q6H PRN PRN Reason: PAIN LEVEL 6-10 Stop: 07/06/19 17:59 Last Admin: 07/03/19 22:47 Dose: 15 mg Pancrelipase (Creon Dr 36,000 Units Capsule) 1 cap PO TIDCM [facility] Last Admin: 07/05/19 17:21 Dose: 1 cap Pantoprazole Sodium (Protonix -) 40 mg PO DAILY [facility] Last Admin: 07/05/19 09:44 Dose: 40 mg Polyethylene Glycol (Miralax (For Daily Use) -) 17 gm PO BID [facility] Rifaximin (Xifaxan -) 550 mg PO TID [facility] Stop: 07/17/19 13:59 Last Admin: 07/06/19 05:17 Dose: 550 mg Simethicone (Mylicon -) 80 mg PO QID PRN PRN Reason: GAS - Objective Vital Signs: Vital Signs Temperature 98.5 F 07/06/19 06:00 Pulse Rate 61 07/06/19 06:00 Respiratory Rate 20 07/06/19 06:00 Blood Pressure 116/61 07/06/19 06:00 O2 Sat by Pulse Oximetry (%) 99 07/05/19 21:00 Constitutional: Yes: No Distress, Calm Eyes: Yes: Conjunctiva Clear HENT: Yes: Atraumatic Cardiovascular: Yes: Regular Rate and Rhythm Respiratory: Yes: Regular, CTA Bilaterally Gastrointestinal: Yes: Normal Bowel Sounds, Soft Musculoskeletal: Yes: Back Pain, Muscle Weakness Extremities: Yes: WNL Edema: No Neurological: Yes: Alert, Oriented, Unsteady Gait, Weakness (LLE) Psychiatric: Yes: Alert, Oriented Labs: CBC, BMP 07/05/19 08:20 07/05/19 08:20 INR, PTT INR 0.95 (0.83-1.09) 07/01/19 15:23 Microbiology 07/02/19 19:30 Blood Culture - Preliminary Blood - Peripheral Venous NO GROWTH OBTAINED AFTER 72 HOURS, INCUBATION TO CONTINUE FOR 2 DAYS. 07/02/19 19:35 Blood Culture - Preliminary Blood - Peripheral Venous NO GROWTH OBTAINED AFTER 72 HOURS, INCUBATION TO CONTINUE FOR 2 DAYS. Problem List - Problems (1) Low back pain Assessment/Plan: -Neurosurgery consult -Lumbar MRI done shows s/p L4-L5 bilaterally in the neck to me with post-op soft tissue swelling, inflammation, and enhancement, posteriorly extending from upper L3 down to lower L5 level as well as extending to subcutaneous fat, there is an irregular shaped collection seen just posterior to the posterior epidural space extending from upper L4 down to lower L5 level, peripheral enhancement measuring approximately 4.5 x 1.6 x 1.5cm in craniocaudal, AP, and transverse dimension suggestive of postop serosanguinous collection, cannot rule out infection, epidual enhancement within the spinal canal from upper L3 down to upper S1 level compatible with post op changes without gross evidence of an intraspinal collection -Pain control -PT -hip and pelvic xray reviewed -ESR and CRP wnl -Neurology on board Code(s): M54.5 - LOW BACK PAIN Qualifiers: Chronicity: acute (2) Abdominal pain Assessment/Plan: -GI on board -Abdominal/Pelvic CT scan shows dilated CBD 1.6cm -MRCP shows mild extrahepatic biliary ductal dilatation measuring 1cm and 8mm distally without evidence of choledocolithiasis, likely physiologic post cholecystectomy, nonspecific 2mm pancreatic neck cyst , nonspecific macronodular hepatic contour -Creon and Xifaxin -Ca 19-9 16, CEA 2.4 -will need to repeat MRI in 1 yr with GI Code(s): R10.9 - UNSPECIFIED ABDOMINAL PAIN (3) COPD (chronic obstructive pulmonary disease) Assessment/Plan: -Symbicort -keep SpO2 >90% -O2 via NC Code(s): J44.9 - CHRONIC OBSTRUCTIVE PULMONARY DISEASE, UNSPECIFIED Qualifiers: COPD type: unspecified COPD Qualified Code(s): J44.9 - Chronic obstructive pulmonary disease, unspecified (4) GERD (gastroesophageal reflux disease) Assessment/Plan: -Pantoprazole Code(s): K21.9 - GASTRO-ESOPHAGEAL REFLUX DISEASE WITHOUT ESOPHAGITIS (5) Lower extremity weakness Assessment/Plan: -fall precautions -PT -Neurology on board -Neurosurgery consult -Lumbar MRI done shows s/p L4-L5 bilaterally in the neck to me with post-op soft tissue swelling, inflammation, and enhancement, posteriorly extending from upper L3 down to lower L5 level as well as extending to subcutaneous fat, there is an irregular shaped collection seen just posterior to the posterior epidural space extending from upper L4 down to lower L5 level, peripheral enhancement measuring approximately 4.5 x 1.6 x 1.5cm in craniocaudal, AP, and transverse dimension suggestive of postop serosanguinous collection, cannot rule out infection, epidual enhancement within the spinal canal from upper L3 down to upper S1 level compatible with post op changes without gross evidence of an intraspinal collection Code(s): R29.898 - OT SYMPTOMS AND SIGNS INVOLVING THE MUSCULOSKELETAL SYSTEM (6) PAD (peripheral artery disease) Assessment/Plan: -Vascular consult -Arterial US shows mild atherosclerotic disease with no evidence occlusion or hemodynamically significant stenosis Code(s): I73.9 - PERIPHERAL VASCULAR DISEASE, UNSPECIFIED (7) Lumbar stenosis Assessment/Plan: -Neurosurgery consult -Lumbar MRI done shows s/p L4-L5 bilaterally in the neck to me with post-op soft tissue swelling, inflammation, and enhancement, posteriorly extending from upper L3 down to lower L5 level as well as extending to subcutaneous fat, there is an irregular shaped collection seen just posterior to the posterior epidural space extending from upper L4 down to lower L5 level, peripheral enhancement measuring approximately 4.5 x 1.6 x 1.5cm in craniocaudal, AP, and transverse dimension suggestive of postop serosanguinous collection, cannot rule out infection, epidual enhancement within the spinal canal from upper L3 down to upper S1 level compatible with post op changes without gross evidence of an intraspinal collection -Pain control -PT -Neurology on board -neuro check q4h Code(s): M48.061 - SPINAL STENOSIS, LUMBAR REGION WITHOUT NEUROGENIC CARISA (8) Leukocytosis Assessment/Plan: -WBC 8.1 -resolved -ID consult due to Lumbar MRI finding - neg Code(s): D72.829 - ELEVATED WHITE BLOOD CELL COUNT, UNSPECIFIED Assessment/Plan see problem list dvt ppx
--- NOTE | 2019-07-06 09:28 | CON.ORTH ---
Consult Reason for Consultation:: LBP, left hip pain - Past Medical History Pulmonary: Yes: COPD Gastrointestinal: Yes: GERD ...: No Musculoskeletal: Yes: Chronic low back pain, Osteoarthritis - Past Surgical History Past Surgical History: Yes: Appendectomy, Laminectomy, Colonoscopy, Cholecystectomy - Alcohol/Substance Use Hx Alcohol Use: No History of Substance Use: reports: None - Smoking History Smoking history: Current every day smoker Have you smoked in the past 12 months: Yes Aproximately how many cigarettes per day: 15 If you are a former smoker, when did you quit?: 2 wks ago - Social History Usual Living Arrangement: Other (staying with brother) ADL: Independent Home Medications - Allergies Allergies/Adverse Reactions: Allergies Allergy/AdvReac Type Severity Reaction Status Date / Time acetaminophen [From Percocet] Allergy Intermediate Itching Verified 07/02/19 11: 45 morphine Allergy Intermediate Itching Verified 07/02/19 11:45 oxycodone Allergy Intermediate Hives Verified 07/02/19 11:45 - Home Medications Home Medications: Ambulatory Orders Budesonide/Formeterol Fumarate [SYMBICORT 160/4.5mcg -] 1 inh PO BID 04/21/19 Acetaminophen [Tylenol .Regular Strength -] 650 mg PO Q6H #240 tablet 04/29/19 Rifaximin [Xifaxan -] 550 mg PO BID #60 tablet 05/08/19 metroNIDAZOLE [Flagyl -] 250 mg PO TID 14 Days tablet 05/08/19 Amoxicillin - [Amoxicillin 500mg Capsule -] 500 mg PO BID 06/08/19 Clarithromycin 500 mg PO BID 06/08/19 Lipase/Protease/Amylase [Zenpep Dr 40,000 Units Capsule] 1 each PO BID 06/08/19 Cyclobenzaprine HCl 5 mg PO HS 07/02/19 Gabapentin 100 mg PO AM 07/02/19 Gabapentin 300 mg PO HS 07/02/19 Plecanatide [Trulance] 3 mg PO DAILY 07/02/19 Physical Exam for Ortho Vital Signs: Vital Signs Temperature 98.5 F 07/06/19 06:00 Pulse Rate 61 07/06/19 06:00 Respiratory Rate 20 07/06/19 06:00 Blood Pressure 116/61 07/06/19 06:00 O2 Sat by Pulse Oximetry (%) 99 07/05/19 21:00 Labs: CBC, BMP 07/05/19 08:20 07/05/19 08:20 INR, PTT INR 0.95 (0.83-1.09) 07/01/19 15:23 - Lower Extremity Hip: Yes: Left, Decreased ROM, Pain, Other (nvi) Imaging - Results X-ray: Image Reviewed Cat Scan: Report Reviewed, Image Reviewed MRI: Report Reviewed, Image Reviewed Assessment/Plan 74 y/o female with past medical history of COPD, GERD, s/p lumbar laminectomy 2018 (Dr. Max). Patient presented to ER with complaints of lower back pain radiating to both legs with L>R for 2 weeks. She complains of difficulty ambulating with this pain with numbness and tingling to lower extremities. She is also c/o pain in her left groin. Denies any bowel/bladder dysfunction. a/p- s/p lumbar laminectomy L3-4, L4-5, left hip djd Risks and benefits were d/w pt and family in detail f/u with Dr. Max Pt has significant left hip djd, will require left THR at some point can be done as outpt PT eval wbat d/w Dr. Sahni
[2019-07-06] MEDS ORDERED: PT OWN MED DRAWER 7, Y5N ONE (09:37)
[2019-07-06] MEDS: PANTOPRAZOLE 40 MG TABLET (FP) PO SCH (10:38)
[2019-07-06] MEDS: HEPARIN NA (PORCINE) 5,000 UNITS/ML 1ML VIAL SQ SCH ×2 (10:40→21:59)
[2019-07-06] MEDS: LIPASE/PROTEASE/AMYLASE 36,000 UNIT CAPSULE PO SCH ×4 (10:40→17:11)
[2019-07-06] MEDS: BUDESONIDE/FORMETEROL FUMARATE 160/4.5 mcg INHALER IH SCH ×2 (12:29→22:01)
--- NOTE | 2019-07-06 12:39 | PN ---
Progress Note (short form) - Note Progress Note: continued back/leg pain abdominal pain improved Vital Signs Period Temp Pulse Resp BP Sys/Gallardo Pulse Ox Last 24 Hr 98 F-98.5 F 61-68 18-20 97-116/56-61 99 cor-rrr llungs clear abd soft,nt incision clean and dry ext no edema CBC, BMP 07/05/19 08:20 07/05/19 08:20 Microbiology 07/02/19 19:30 Blood - Peripheral Venous Blood Culture - Preliminary NO GROWTH OBTAINED AFTER 72 HOURS, INCUBATION TO CONTINUE FOR 2 DAYS. 07/02/19 19:35 Blood - Peripheral Venous Blood Culture - Preliminary NO GROWTH OBTAINED AFTER 72 HOURS, INCUBATION TO CONTINUE FOR 2 DAYS. lumbar spine MRI with collection L4/L5- cannot r/o postop collection/seroma/ infection per radiology report a/p epidural fluid collection- postop lumbar laminectomy awaiting neurosurgery input from dr henley
--- NOTE | 2019-07-06 13:32 | CONS ---
PHYSICAL MEDICINE AND REHABILITATION CONSULTATION DATE OF CONSULTATION: 07/06/2019 HISTORY OF PRESENT ILLNESS: The patient is a 74-year-old woman with a past medical history of COPD, as well as L4-5 and L5-S1 lumbar laminectomy in April 2019, who was admitted after developing pain in her lower back, left groin, and left thigh. Patient evidently underwent surgery with Dr. Barney, including multi-level laminectomy in April of this year. She had some sort of complication involving her stomach and she was hospitalized which set back her rehabilitation. She does complain of some abdominal pain, has undergone GI workup including CAT scan of the abdomen and pelvis which showed no acute pathology. There was a left renal cyst noted and prominence of the common bile duct. Patient was given multiple enemas, but again is also complaining of pain lower back, left groin radiating down into the left anterior thigh associated with numbness. Per a family member, she also had suffered a fall at some point down some stairs, but x-rays were negative. She had an MRI of the lumbar spine on July 01, 2019, which was reviewed and showed multiple findings including multi-level disk desiccation, bulging disk most significantly at L2-3 with moderate canal stenosis. There was also L5-S1 left disk protrusion. X-rays of the hip and pelvis showed some arthritic changes in the left hip. Blood work on admission, WBC 7.2, hemoglobin 15.3, platelet count 203. Sodium 140, potassium 4.7, chloride 108, CO2 of 26, BUN 10.5, creatinine 0.6, albumin normal at 3.7. TSH on July 02 was low at 0.29, but normal T4. Repeat on July 05: WBC is 8.1, hemoglobin 14.7, platelet count 161. BUN 17.5, creatinine 0.8, sodium 141, potassium 4.9, chloride 108, CO2 of 29. Patient is on gabapentin 100 mg 3 times a day. Underwent neurologic consultation and is pending follow up with Dr. Barney from Surgery. Other test includes arterial ultrasound of the lower extremities which showed mild atherosclerotic disease. Patient did also have GI followup which noted some mild tenderness in the abdomen. Patient is seen in rehabilitation evaluation. She was seen by Physical Therapy and was able to ambulate about 20 feet with a rolling walker or min assist of two, on July 04, 2019. REVIEW OF PAST MEDICAL AND SURGICAL HISTORY: As above. Also, history of COPD, a fall as documented previously, gastroesophageal reflux disease, history of appendectomy and cholecystectomy. SOCIAL HISTORY: Per the medical record, every-day smoker, less than a pack a day. She lives with family and apparently stays in a private house with some stairs. Premorbidly independent, ambulatory without assistive device. CURRENT FUNCTION: As above. REVIEW OF SYSTEMS: She does get some lightheadedness at times. No junior dizziness, blurry vision, double vision, chest pain, shortness of breath. She does get some abdominal discomfort, has difficulty moving her bowels at times. Again, pain in the left side of her lower back, left groin, anterior thigh associated with some numbness and possibly some weakness. No pain in the right lower extremity. No numbness, tingling, weakness of the upper extremities. No complaints of neck pain. PHYSICAL EXAMINATION: General: On examination, the patient is an elderly woman seen lying in bed. She is in no acute distress. She is awake and cooperative. HEENT: She is normocephalic and atraumatic. Extraocular muscles appear intact. Neck: Supple. Extremities: Without any edema or calf tenderness. Skin: Without any rash or breakdown. Neuromuscular: She is awake, alert, and cooperative. Responsive to verbal and tactile cues. Good strength and range in the upper extremities with mild arthritic changes in her hands which are not limiting; normal sensation. She has diminished sensation on the left anterior thigh. Pain with active flexion of the hip, but not as much with internal and external rotation actively, but passively she does get some discomfort. She has at least 4 out of 5 strength in the proximal left lower extremity and 5 out of 5 distal strength and normal sensation to pinprick distal to the knee. Good strength and range in the right lower extremity. OVERALL IMPRESSION: 1. Back pain, radiating into the left groin and left anterior thigh. Rule out L3 radiculopathy. 2. Some underlying arthritic changes in the left hip, which may also contribute to pain. 3. Deficits in mobility, activities of daily living. 4. Abdominal pain. Workup in progress with biliary dilatation, pancreatic cyst noted. 5. History of chronic obstructive pulmonary disease. 6. Current tobacco user. 7. History of appendectomy. 8. History of cholecystectomy. PLAN/SUGGESTION: 1. Continue physical therapy bedside, including bed mobility, transfers, gait training, strengthening, and reconditioning. Family training as able. 2. Out of bed to chair. 3. Continue subcutaneous heparin for DVT prophylaxis. 4. Consider increasing gabapentin, if no significant side effects. Currently taking 100 mg 3 times a day. 5. Follow up with Dr. Barney. 6. May require short-term rehab in a senior living facility prior to going home versus home with homecare based on family availability, amount of stairs she needs to negotiate, her response to therapy and pain management. Thank you for this referral. SABI JOHNSON M.D. [id number]
[2019-07-06] MEDS: POLYETHYLENE GLYCOL 3350 119 GM BTL PO SCH ×2 (15:08→21:59)
--- NOTE | 2019-07-06 15:16 | CONSULT ---
Consult - text type - Consultation Consultation Note: NEUROSURGERY CONSULTATION Bertha Tyler is a 74 year old Chinese female who I recently treated for Lumbar Degenerative disease with L4-S1 decompression and onlay fusion. She presented with severe and progressive back pain and Neurogenic claudication which forced her to walk bent at the waist. Surgery was uneventful and she had been making a modest recovery. She was able to ambulate more upright and her incision was clean, dry and intact when I saw her in the clinic. The patient has developed progression of Left hip/inguinal region pain which makes it hard for her to stand and walk although she has been ambulating with Physical Therapy. She describes her Left leg giving way from beneath her and pain on weight bearing. Orthopaedic evaluation of her Left hip is underway. Lumbar MRI demonstrates multilevel spondylosis and a small fluid collection in the region of the decompression. Her wound is clean, dry and intact with no swelling, redness, drainage, warmth, fluctuance, or tenderness. She does not have fevers or leucocytosis. The patient complains of longstanding neck pain and pain with lateral neck bending as well as flexion/extension. She has numbness and tingling in her hands and has been dropping things. She also manifests a loss of fine motor skills. At this point, I do not feel that the fluid collection is responsible for her current symptoms and would not recommend aspiration/drainage. - Agree with evaluation of Left hip - MRI Cervical and Thoracic - will follow
[2019-07-06] MEDS: SIMETHICONE 80 MG TAB.CHEW (FP) PO PRN (15:23)
--- NOTE | 2019-07-06 16:01 | EKG ---
Test Reason : Blood Pressure : / mmHG Vent. Rate : 074 BPM Atrial Rate : 074 BPM P-R Int : 146 ms QRS Dur : 074 ms QT Int : 444 ms P-R-T Axes : 071 025 054 degrees QTc Int : 492 ms NORMAL SINUS RHYTHM PROLONGED QT ABNORMAL ECG WHEN COMPARED WITH ECG OF 01-MAY-2019 11:15, QT HAS LENGTHENED Confirmed by ROXY BRICENO MD ([id number]) on 07/06/2019 4:01:04 PM Referred By: Confirmed By:ROXY BRICENO MD
[2019-07-07] MEDS: ACETAMINOPHEN 325 MG TABLET (FP) PO SCH ×5 (01:22→22:36)
[2019-07-07] MEDS: RIFAXIMIN 550 MG TABLET (UD) PO SCH ×3 (06:32→22:32)
[2019-07-07] MEDS: GABAPENTIN 100 MG CAPSULE (FP) PO SCH ×3 (06:32→22:32)
--- NOTE | 2019-07-07 08:00 | PN.GI ---
GI Progress Note Subjective: Patient denies abdominal pain, nausea, vomiting, diarrhea. - Objective Vital Signs: Vital Signs Temperature 98 F 07/07/19 06:00 Pulse Rate 70 07/07/19 06:00 Respiratory Rate 20 07/07/19 06:00 Blood Pressure 111/72 07/07/19 06:00 O2 Sat by Pulse Oximetry (%) 98 07/06/19 21:00 Constitutional: No Distress, Calm Eyes: Yes: Conjunctiva Clear HENT: Yes: Atraumatic Cardiovascular: Yes: Regular Rate and Rhythm Respiratory: Yes: Regular, CTA Bilaterally Gastrointestinal Inspection: Yes: WNL. No: Ascites, Distention, Hernia, Scars, Other ...Auscultate: Yes: Normoactive Bowel Sounds. No: Hyperactive Bowel Sounds, Hypoactive Bowel Sounds, No Bowel Sounds, Other ...Palpate: Yes: Soft. No: Firm/Rigid, Guarding, Hepatomegaly, Mass, Pulsatile Mass, Splenomegaly, Tenderness, Tenderness, Epigastium, Tenderness, Rebound, Other ...Percussion: Yes: Tympanitic. No: Dullness, Fluid Wave, Other Neurological: Yes: Alert, Oriented Psychiatric: Yes: Alert, Oriented Labs: CBC, BMP 07/05/19 08:20 07/05/19 08:20 INR, PTT INR 0.95 (0.83-1.09) 07/01/19 15:23 Problem List - Problems (1) Abdominal pain Assessment/Plan: >Abdominal/Pelvic CT scan reviewed and dilated CBD at 1.6cm >Abdominal MRI shows CHD dilated measuring 1cm, proximal CBD dilatation measuring 9-10mm, distal CBD measuring 8mm, non specific tiny 2mm pancreatic neck cyst >[facility] #[id number]~patient informed of pancreatic cyst and instructed to follow up and have repeat Abdominal MRI in 1 yr Code(s): R10.9 - UNSPECIFIED ABDOMINAL PAIN (2) Dilated cbd, acquired Assessment/Plan: compared to previous ct diameter is now 1.6cm from 1 cm R> will review ct [facility] radiology >MRCP shows CHD dilated measuring 1cm, proximal CBD dilatation measuring 9-10mm , distal CBD measuring 8mm, non specific tiny 2mm pancreatic neck cyst Code(s): K83.8 - OTHER SPECIFIED DISEASES OF BILIARY TRACT
[2019-07-07] MEDS: LIPASE/PROTEASE/AMYLASE 36,000 UNIT CAPSULE PO SCH ×4 (10:09→17:56)
[2019-07-07] MEDS: PANTOPRAZOLE 40 MG TABLET (FP) PO SCH (10:10)
[2019-07-07] MEDS: HEPARIN NA (PORCINE) 5,000 UNITS/ML 1ML VIAL SQ SCH ×2 (10:10→22:31)
[2019-07-07] MEDS: POLYETHYLENE GLYCOL 3350 119 GM BTL PO SCH ×2 (10:11→22:32)
[2019-07-07] MEDS: BUDESONIDE/FORMETEROL FUMARATE 160/4.5 mcg INHALER IH SCH ×2 (10:11→22:34)
[2019-07-07] MEDS ORDERED: PT OWN MED DRAWER 7, Y5N ONE ×4 (10:13→21:12)
--- NOTE | 2019-07-07 14:14 | PN ---
Progress Note, Physician Chief Complaint: Lumbar Stenosis Lower Back Pain Abdominal Pain History of Present Illness: Previous notes and events reviewed awake and alert NAD continue with lower back pain radiating down LLE afebrile - Current Medication List Current Medications: Active Medications Acetaminophen (Tylenol -) 650 mg PO Q6HPO [facility] Last Admin: 07/07/19 12:07 Dose: Not Given Budesonide/Formoterol Fumarate (Symbicort 160/4.5mcg -) 1 puff IH BID [facility] Last Admin: 07/07/19 10:11 Dose: 1 puff Gabapentin (Neurontin -) 100 mg PO TID [facility] Last Admin: 07/07/19 13:24 Dose: 100 mg Heparin Sodium (Porcine) (Heparin -) 5,000 unit SQ BID [facility] Last Admin: 07/07/19 10:10 Dose: 5,000 unit Pancrelipase (Creon Dr 36,000 Units Capsule) 1 cap PO TIDCM [facility] Last Admin: 07/07/19 13:24 Dose: 1 cap Pantoprazole Sodium (Protonix -) 40 mg PO DAILY [facility] Last Admin: 07/07/19 10:10 Dose: 40 mg Polyethylene Glycol (Miralax (For Daily Use) -) 17 gm PO BID [facility] Last Admin: 07/07/19 10:11 Dose: 17 gm Rifaximin (Xifaxan -) 550 mg PO TID [facility] Stop: 07/17/19 13:59 Last Admin: 07/07/19 13:24 Dose: 550 mg Simethicone (Mylicon -) 80 mg PO QID PRN PRN Reason: GAS Last Admin: 07/06/19 15:23 Dose: 80 mg - Objective Vital Signs: Vital Signs Temperature 98 F 07/07/19 06:00 Pulse Rate 70 07/07/19 06:00 Respiratory Rate 20 07/07/19 06:00 Blood Pressure 111/72 07/07/19 06:00 O2 Sat by Pulse Oximetry (%) 98 07/06/19 21:00 Constitutional: Yes: No Distress, Calm Eyes: Yes: Conjunctiva Clear HENT: Yes: Atraumatic Cardiovascular: Yes: Regular Rate and Rhythm Respiratory: Yes: Regular, CTA Bilaterally Gastrointestinal: Yes: Normal Bowel Sounds, Soft Musculoskeletal: Yes: Muscle Weakness Extremities: Yes: WNL Edema: No Neurological: Yes: Alert, Oriented Psychiatric: Yes: Alert, Oriented Labs: CBC, BMP 07/05/19 08:20 07/05/19 08:20 INR, PTT INR 0.95 (0.83-1.09) 07/01/19 15:23 Microbiology 07/02/19 19:30 Blood - Peripheral Venous Blood Culture - Preliminary NO GROWTH OBTAINED AFTER 96 HOURS, INCUBATION TO CONTINUE FOR 1 DAYS. 07/02/19 19:35 Blood - Peripheral Venous Blood Culture - Preliminary NO GROWTH OBTAINED AFTER 96 HOURS, INCUBATION TO CONTINUE FOR 1 DAYS. Problem List - Problems (1) Low back pain Assessment/Plan: -Neurosurgery on board -Lumbar MRI done shows s/p L4-L5 bilaterally in the neck to me with post-op soft tissue swelling, inflammation, and enhancement, posteriorly extending from upper L3 down to lower L5 level as well as extending to subcutaneous fat, there is an irregular shaped collection seen just posterior to the posterior epidural space extending from upper L4 down to lower L5 level, peripheral enhancement measuring approximately 4.5 x 1.6 x 1.5cm in craniocaudal, AP, and transverse dimension suggestive of postop serosanguinous collection, cannot rule out infection, epidual enhancement within the spinal canal from upper L3 down to upper S1 level compatible with post op changes without gross evidence of an intraspinal collection -Pain control -PT -hip and pelvic xray reviewed -ESR and CRP wnl -Neurology on board -Cervical and Thoracic MRI -Orthopedic on board Code(s): M54.5 - LOW BACK PAIN Qualifiers: Chronicity: acute (2) Abdominal pain Assessment/Plan: -GI on board -Abdominal/Pelvic CT scan shows dilated CBD 1.6cm -MRCP shows mild extrahepatic biliary ductal dilatation measuring 1cm and 8mm distally without evidence of choledocolithiasis, likely physiologic post cholecystectomy, nonspecific 2mm pancreatic neck cyst , nonspecific macronodular hepatic contour -Creon and Xifaxin -Ca 19-9 16, CEA 2.4 -will need to repeat MRI in 1 yr with GI Code(s): R10.9 - UNSPECIFIED ABDOMINAL PAIN (3) COPD (chronic obstructive pulmonary disease) Assessment/Plan: -Symbicort -keep SpO2 >90% -O2 via [place] Code(s): J44.9 - CHRONIC OBSTRUCTIVE PULMONARY DISEASE, UNSPECIFIED Qualifiers: COPD type: unspecified COPD Qualified Code(s): J44.9 - Chronic obstructive pulmonary disease, unspecified (4) GERD (gastroesophageal reflux disease) Assessment/Plan: -Pantoprazole Code(s): K21.9 - GASTRO-ESOPHAGEAL REFLUX DISEASE WITHOUT ESOPHAGITIS (5) Lower extremity weakness Assessment/Plan: -fall precautions -PT -Neurology on board -Neurosurgery onboard -Lumbar MRI done shows s/p L4-L5 bilaterally in the neck to me with post-op soft tissue swelling, inflammation, and enhancement, posteriorly extending from upper L3 down to lower L5 level as well as extending to subcutaneous fat, there is an irregular shaped collection seen just posterior to the posterior epidural space extending from upper L4 down to lower L5 level, peripheral enhancement measuring approximately 4.5 x 1.6 x 1.5cm in craniocaudal, AP, and transverse dimension suggestive of postop serosanguinous collection, cannot rule out infection, epidual enhancement within the spinal canal from upper L3 down to upper S1 level compatible with post op changes without gross evidence of an intraspinal collection -Orthopedic on board -Thoracic and Cervical MRI Code(s): R29.898 - OTH SYMPTOMS AND SIGNS INVOLVING THE MUSCULOSKELETAL SYSTEM (6) PAD (peripheral artery disease) Assessment/Plan: -Vascular consult -Arterial US shows mild atherosclerotic disease with no evidence occlusion or hemodynamically significant stenosis Code(s): I73.9 - PERIPHERAL VASCULAR DISEASE, UNSPECIFIED (7) Lumbar stenosis Assessment/Plan: -Neurosurgery on board -Cervical and Thoracic MRI -Lumbar MRI done shows s/p L4-L5 bilaterally in the neck to me with post-op soft tissue swelling, inflammation, and enhancement, posteriorly extending from upper L3 down to lower L5 level as well as extending to subcutaneous fat, there is an irregular shaped collection seen just posterior to the posterior epidural space extending from upper L4 down to lower L5 level, peripheral enhancement measuring approximately 4.5 x 1.6 x 1.5cm in craniocaudal, AP, and transverse dimension suggestive of postop serosanguinous collection, cannot rule out infection, epidual enhancement within the spinal canal from upper L3 down to upper S1 level compatible with post op changes without gross evidence of an intraspinal collection -Pain control -PT -Neurology on board -neuro check q4h Code(s): M48.061 - SPINAL STENOSIS, LUMBAR REGION WITHOUT NEUROGENIC CARISA (8) Leukocytosis Assessment/Plan: -WBC 8.1 -resolved -ID consult due to Lumbar MRI finding -BC neg Code(s): D72.829 - ELEVATED WHITE BLOOD CELL COUNT, UNSPECIFIED Assessment/Plan see problem list dvt ppx
[2019-07-08] MEDS: ACETAMINOPHEN 325 MG TABLET (FP) PO SCH ×5 (00:17→23:11)
[2019-07-08] MEDS: RIFAXIMIN 550 MG TABLET (UD) PO SCH ×3 (05:50→22:36)
[2019-07-08] MEDS: GABAPENTIN 100 MG CAPSULE (FP) PO SCH ×3 (05:50→22:36)
[2019-07-08 08:43] LABS: HEMATOCRIT 41.5 % (32.4-45.2); HEMOGLOBIN 13.8 GM/dL (10.7-15.3); MCH 30.8 pg (25.7-33.7); MCHC 33.3 g/dl (32.0-36.0); MEAN CELL VOLUME 92.4 fl (80-96); MEAN PLT VOLUME 10.2 fl (7.5-11.1); PLATELET COUNT 176 K/MM3 (134-434); RBC 4.49 M/mm3 (3.60-5.2); RDW 14.1 % (11.6-15.6); WHITE BLOOD COUNT 6.6 K/mm3 (4.0-10.0)
[2019-07-08 09:11] LABS: ALBUMIN 3.1 g/dl (3.4-5.0); BILIRUBIN,TOTAL 0.3 mg/dL (0.2-1); BLOOD UREA NITROGEN 11.5 mg/dL (7-18); CALCIUM 8.9 mg/dL (8.5-10.1); CREATININE 0.7 mg/dL (0.55-1.3); POTASSIUM 4.3 mmol/L (3.5-5.1); TOT PROT 5.5 g/dl (6.4-8.2)
[2019-07-08] MEDS: HEPARIN NA (PORCINE) 5,000 UNITS/ML 1ML VIAL SQ SCH (09:24)
[2019-07-08] MEDS: PANTOPRAZOLE 40 MG TABLET (FP) PO SCH (09:24)
[2019-07-08] MEDS: LIPASE/PROTEASE/AMYLASE 36,000 UNIT CAPSULE PO SCH ×3 (09:25→17:22)
--- NOTE | 2019-07-08 09:29 | PN ---
Progress Note, Physician Chief Complaint: Lumbar Stenosis Lower Back Pain Abdominal Pain History of Present Illness: Previous notes and events reviewed awake and alert NAD continue with lower back pain radiating down LLE pending Cervical and Thoracic MRI result pending - Current Medication List Current Medications: Active Medications Acetaminophen (Tylenol -) 650 mg PO Q6HPO [facility] Last Admin: 07/08/19 05:51 Dose: Not Given Budesonide/Formoterol Fumarate (Symbicort 160/4.5mcg -) 1 puff IH BID [facility] Last Admin: 07/07/19 22:34 Dose: 1 puff Gabapentin (Neurontin -) 100 mg PO TID [facility] Last Admin: 07/08/19 05:50 Dose: 100 mg Heparin Sodium (Porcine) (Heparin -) 5,000 unit SQ BID [facility] Last Admin: 07/08/19 09:24 Dose: 5,000 unit Pancrelipase (Creon Dr 36,000 Units Capsule) 1 cap PO TIDCM [facility] Last Admin: 07/08/19 09:25 Dose: 1 cap Pantoprazole Sodium (Protonix -) 40 mg PO DAILY [facility] Last Admin: 07/08/19 09:24 Dose: 40 mg Polyethylene Glycol (Miralax (For Daily Use) -) 17 gm PO BID [facility] Last Admin: 07/07/19 22:32 Dose: 17 gm Rifaximin (Xifaxan -) 550 mg PO TID [facility] Stop: 07/17/19 13:59 Last Admin: 07/08/19 05:50 Dose: 550 mg Simethicone (Mylicon -) 80 mg PO QID PRN PRN Reason: GAS Last Admin: 07/06/19 15:23 Dose: 80 mg - Objective Vital Signs: Vital Signs Temperature 98.8 F 07/08/19 08:45 Pulse Rate 62 07/08/19 08:45 Respiratory Rate 18 07/08/19 08:45 Blood Pressure 107/66 07/08/19 08:45 O2 Sat by Pulse Oximetry (%) 98 07/07/19 09:00 Constitutional: Yes: No Distress, Calm Eyes: Yes: Conjunctiva Clear HENT: Yes: Atraumatic Cardiovascular: Yes: Regular Rate and Rhythm Respiratory: Yes: Regular, CTA Bilaterally Gastrointestinal: Yes: Normal Bowel Sounds, Soft Musculoskeletal: Yes: Back Pain, Muscle Weakness Extremities: Yes: WNL Edema: No Neurological: Yes: Alert, Oriented Psychiatric: Yes: Alert, Oriented Labs: CBC, BMP 07/08/19 07:30 07/08/19 07:30 INR, PTT INR 0.95 (0.83-1.09) 07/01/19 15:23 Microbiology 07/02/19 19:30 Blood - Peripheral Venous Blood Culture - Final NO GROWTH AFTER 5 DAYS INCUBATION 07/02/19 19:35 Blood - Peripheral Venous Blood Culture - Final NO GROWTH AFTER 5 DAYS INCUBATION - ....Imaging MRI: Pending Problem List - Problems (1) Low back pain Assessment/Plan: -Neurosurgery on board -Lumbar MRI done shows s/p L4-L5 bilaterally in the neck to me with post-op soft tissue swelling, inflammation, and enhancement, posteriorly extending from upper L3 down to lower L5 level as well as extending to subcutaneous fat, there is an irregular shaped collection seen just posterior to the posterior epidural space extending from upper L4 down to lower L5 level, peripheral enhancement measuring approximately 4.5 x 1.6 x 1.5cm in craniocaudal, AP, and transverse dimension suggestive of postop serosanguinous collection, cannot rule out infection, epidual enhancement within the spinal canal from upper L3 down to upper S1 level compatible with post op changes without gross evidence of an intraspinal collection -Pain control -PT -hip and pelvic xray reviewed -ESR and CRP wnl -Neurology on board -Cervical and Thoracic MRI -Orthopedic on board Code(s): M54.5 - LOW BACK PAIN Qualifiers: Chronicity: acute (2) Abdominal pain Assessment/Plan: -GI on board -Abdominal/Pelvic CT scan shows dilated CBD 1.6cm -MRCP shows mild extrahepatic biliary ductal dilatation measuring 1cm and 8mm distally without evidence of choledocolithiasis, likely physiologic post cholecystectomy, nonspecific 2mm pancreatic neck cyst , nonspecific macronodular hepatic contour -Creon and Xifaxin -Ca 19-9 16, CEA 2.4 -will need to repeat MRI in 1 yr with GI Code(s): R10.9 - UNSPECIFIED ABDOMINAL PAIN (3) COPD (chronic obstructive pulmonary disease) Assessment/Plan: -Symbicort -keep SpO2 >90% -O2 via [place] Code(s): J44.9 - CHRONIC OBSTRUCTIVE PULMONARY DISEASE, UNSPECIFIED Qualifiers: COPD type: unspecified COPD Qualified Code(s): J44.9 - Chronic obstructive pulmonary disease, unspecified (4) GERD (gastroesophageal reflux disease) Assessment/Plan: -Pantoprazole Code(s): K21.9 - GASTRO-ESOPHAGEAL REFLUX DISEASE WITHOUT ESOPHAGITIS (5) Lower extremity weakness Assessment/Plan: -fall precautions -PT -Neurology on board -Neurosurgery onboard -Lumbar MRI done shows s/p L4-L5 bilaterally in the neck to me with post-op soft tissue swelling, inflammation, and enhancement, posteriorly extending from upper L3 down to lower L5 level as well as extending to subcutaneous fat, there is an irregular shaped collection seen just posterior to the posterior epidural space extending from upper L4 down to lower L5 level, peripheral enhancement measuring approximately 4.5 x 1.6 x 1.5cm in craniocaudal, AP, and transverse dimension suggestive of postop serosanguinous collection, cannot rule out infection, epidual enhancement within the spinal canal from upper L3 down to upper S1 level compatible with post op changes without gross evidence of an intraspinal collection -Orthopedic on board -Thoracic MRI pending result -Cervical MRI shows C4, C5, C6 osseous fusion, ventral subarachnoid space is almost completely effaced, thickened ligamentum flavum at the level of C6 enroaching on the dorsal subarachnoid space, C3-C4 posterior disc osteophyte complex enroaching ventral subarachnoid space, mild central spinal canal stenosis, C6-C7 broad based disc osteophyte complex enroaching the ventral subarachnoid space, mild central spinal canal stenosis, C7-T1 facet joint arthropathy Code(s): R29.898 - OTH SYMPTOMS AND SIGNS INVOLVING THE MUSCULOSKELETAL SYSTEM (6) PAD (peripheral artery disease) Assessment/Plan: -Vascular consult -Arterial US shows mild atherosclerotic disease with no evidence occlusion or hemodynamically significant stenosis Code(s): I73.9 - PERIPHERAL VASCULAR DISEASE, UNSPECIFIED (7) Lumbar stenosis Assessment/Plan: -Neurosurgery on board -Thoracic MRI pending result -Cervical MRI shows C4, C5, C6 osseous fusion, ventral subarachnoid space is almost completely effaced, thickened ligamentum flavum at the level of C6 enroaching on the dorsal subarachnoid space, C3-C4 posterior disc osteophyte complex enroaching ventral subarachnoid space, mild central spinal canal stenosis, C6-C7 broad based disc osteophyte complex enroaching the ventral subarachnoid space, mild central spinal canal stenosis, C7-T1 facet joint arthropathy -Lumbar MRI done shows s/p L4-L5 bilaterally in the neck to me with post-op soft tissue swelling, inflammation, and enhancement, posteriorly extending from upper L3 down to lower L5 level as well as extending to subcutaneous fat, there is an irregular shaped collection seen just posterior to the posterior epidural space extending from upper L4 down to lower L5 level, peripheral enhancement measuring approximately 4.5 x 1.6 x 1.5cm in craniocaudal, AP, and transverse dimension suggestive of postop serosanguinous collection, cannot rule out infection, epidual enhancement within the spinal canal from upper L3 down to upper S1 level compatible with post op changes without gross evidence of an intraspinal collection -Pain control -PT -Neurology on board -neuro check q4h Code(s): M48.061 - SPINAL STENOSIS, LUMBAR REGION WITHOUT NEUROGENIC CARISA (8) Leukocytosis Assessment/Plan: -WBC 6.6 -resolved -ID consult due to Lumbar MRI finding -BC neg Code(s): D72.829 - ELEVATED WHITE BLOOD CELL COUNT, UNSPECIFIED Assessment/Plan see problem list dvt ppx
--- NOTE | 2019-07-08 10:41 | CONS ---
DATE OF CONSULTATION: ORTHOPEDIC PROGRESS NOTE/[facility] Patient is still complaining of back issues which are being followed by the neurosurgeon with MRI. 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 I have informed the patient that these conditions are chronic and are not an emergent situation. They can be treated conservatively with some nonsteroidals, physical therapy. We can follow her up as an outpatient and potentially do operative intervention if required at a later date. ANGELA CROOKS M.D. [id number]
[2019-07-08] MEDS: BUDESONIDE/FORMETEROL FUMARATE 160/4.5 mcg INHALER IH SCH ×2 (11:18→22:36)
[2019-07-08] MEDS: POLYETHYLENE GLYCOL 3350 119 GM BTL PO SCH ×2 (11:18→22:43)
[2019-07-08] MEDS ORDERED: PT OWN MED DRAWER 7, Y5N ONE (22:33)
[2019-07-09] MEDS: GABAPENTIN 100 MG CAPSULE (FP) PO SCH ×3 (06:08→22:13)
[2019-07-09] MEDS: RIFAXIMIN 550 MG TABLET (UD) PO SCH ×3 (06:08→22:13)
[2019-07-09] MEDS: ACETAMINOPHEN 325 MG TABLET (FP) PO SCH ×4 (06:09→23:06)
--- NOTE | 2019-07-09 10:01 | PN ---
Progress Note, Physician Chief Complaint: AWAKE ALERT STILL HAS LEFT HIP PAIN AND UNSTEADY GAIT - Current Medication List Current Medications: Active Medications Acetaminophen (Tylenol -) 650 mg PO Q6HPO [facility] Last Admin: 07/09/19 06:09 Dose: Not Given Budesonide/Formoterol Fumarate (Symbicort 160/4.5mcg -) 1 puff IH BID [facility] Last Admin: 07/08/19 22:36 Dose: 1 puff Gabapentin (Neurontin -) 100 mg PO TID [facility] Last Admin: 07/09/19 06:08 Dose: 100 mg Pancrelipase (Creon Dr 36,000 Units Capsule) 1 cap PO TIDCM [facility] Last Admin: 07/08/19 17:22 Dose: 1 cap Pantoprazole Sodium (Protonix -) 40 mg PO DAILY [facility] Last Admin: 07/08/19 09:24 Dose: 40 mg Polyethylene Glycol (Miralax (For Daily Use) -) 17 gm PO BID [facility] Last Admin: 07/08/19 22:43 Dose: Not Given Rifaximin (Xifaxan -) 550 mg PO TID [facility] Stop: 07/17/19 13:59 Last Admin: 07/09/19 06:08 Dose: 550 mg Simethicone (Mylicon -) 80 mg PO QID PRN PRN Reason: GAS Last Admin: 07/06/19 15:23 Dose: 80 mg - Objective Vital Signs: Vital Signs Temperature 97.8 F 07/09/19 07:34 Pulse Rate 78 07/09/19 07:34 Respiratory Rate 20 07/09/19 07:34 Blood Pressure 118/70 07/09/19 07:34 O2 Sat by Pulse Oximetry (%) 98 07/07/19 09:00 Constitutional: Yes: Mild Distress Cardiovascular: Yes: Regular Rate and Rhythm Respiratory: Yes: WNL Gastrointestinal: Yes: WNL Genitourinary: Yes: WNL Musculoskeletal: Yes: Back Pain, Joint Stiffness, Muscle Pain, Muscle Weakness Extremities: Yes: Other (LEFT HIP PAIN/TENDERNESS) Edema: No Integumentary: Yes: WNL Wound/Incision: Yes: Other Neurological: Yes: Pre-Existing Deficit, Unsteady Gait ...Motor Strength: LLE Psychiatric: Yes: WNL Labs: CBC, BMP 07/08/19 07:30 07/08/19 07:30 INR, PTT INR 0.95 (0.83-1.09) 07/01/19 15:23 Problem List - Problems (1) Low back pain Code(s): M54.5 - LOW BACK PAIN Qualifiers: Chronicity: acute Back pain laterality: unspecified Sciatica presence: unspecified whether sciatica present Qualified Code(s): M54.5 - Low back pain (2) COPD (chronic obstructive pulmonary disease) Code(s): J44.9 - CHRONIC OBSTRUCTIVE PULMONARY DISEASE, UNSPECIFIED Qualifiers: COPD type: unspecified COPD Qualified Code(s): J44.9 - Chronic obstructive pulmonary disease, unspecified (3) Degenerative lumbar spinal stenosis Code(s): M48.061 - SPINAL STENOSIS, LUMBAR REGION WITHOUT NEUROGENIC CARISA (4) Fall Code(s): W19.XXXA - UNSPECIFIED FALL, INITIAL ENCOUNTER Qualifiers: Encounter type: initial encounter Qualified Code(s): W19.XXXA - Unspecified fall, initial encounter (5) GERD (gastroesophageal reflux disease) Code(s): K21.9 - GASTRO-ESOPHAGEAL REFLUX DISEASE WITHOUT ESOPHAGITIS (6) Hip pain Code(s): M25.559 - PAIN IN UNSPECIFIED HIP Qualifiers: Laterality: right Qualified Code(s): M25.551 - Pain in right hip (7) Lower extremity weakness Code(s): R29.898 - OTH SYMPTOMS AND SIGNS INVOLVING THE MUSCULOSKELETAL SYSTEM (8) Lumbar stenosis Code(s): M48.061 - SPINAL STENOSIS, LUMBAR REGION WITHOUT NEUROGENIC CARISA (9) PAD (peripheral artery disease) Code(s): I73.9 - PERIPHERAL VASCULAR DISEASE, UNSPECIFIED (10) Postoperative pain after spinal surgery Code(s): G89.18 - OTHER ACUTE POSTPROCEDURAL PAIN (11) S/P lumbar laminectomy Code(s): Z98.890 - OTHER SPECIFIED POSTPROCEDURAL STATES (12) Smoker Code(s): F17.200 - NICOTINE DEPENDENCE, UNSPECIFIED, UNCOMPLICATED (13) Syncope Code(s): R55 - SYNCOPE AND COLLAPSE Qualifiers: Syncope type: unspecified Qualified Code(s): R55 - Syncope and collapse Assessment/Plan LEFT HIP JOINT INJECTION ORDERED WITH DR AMIE Pichardo PAIN CONTROL CERVICAL DISC DISEASE F/U NEUROSURGERY OOB TO CHAIR PT EVAL PANCREATIC CYST F/U WITH MRI IN 1 YEAR [facility]?
[2019-07-09] MEDS: PANTOPRAZOLE 40 MG TABLET (FP) PO SCH (10:57)
[2019-07-09] MEDS: LIPASE/PROTEASE/AMYLASE 36,000 UNIT CAPSULE PO SCH ×3 (10:58→17:47)
[2019-07-09] MEDS: POLYETHYLENE GLYCOL 3350 119 GM BTL PO SCH ×2 (10:58→22:13)
[2019-07-09] MEDS: BUDESONIDE/FORMETEROL FUMARATE 160/4.5 mcg INHALER IH SCH ×2 (10:59→22:14)
[2019-07-10] MEDS: ACETAMINOPHEN 325 MG TABLET (FP) PO SCH ×4 (06:08→21:31)
[2019-07-10] MEDS: RIFAXIMIN 550 MG TABLET (UD) PO SCH (06:08)
[2019-07-10] MEDS: GABAPENTIN 100 MG CAPSULE (FP) PO SCH ×3 (06:08→21:30)
[2019-07-10] MEDS: LIPASE/PROTEASE/AMYLASE 36,000 UNIT CAPSULE PO SCH ×4 (08:00→17:29)
--- NOTE | 2019-07-10 09:37 | PN ---
Progress Note, Physician Chief Complaint: Lumbar Stenosis Lower Back Pain Abdominal Pain History of Present Illness: Previous notes and events reviewed awake and alert NAD continue with lower back pain radiating down LLE complain of epigastric pain IR consult for facet joint injection L-S spine - Current Medication List Current Medications: Active Medications Acetaminophen (Tylenol -) 650 mg PO Q6HPO [facility] Last Admin: 07/10/19 06:08 Dose: 650 mg Budesonide/Formoterol Fumarate (Symbicort 160/4.5mcg -) 1 puff IH BID [facility] Last Admin: 07/09/19 22:14 Dose: 1 puff Gabapentin (Neurontin -) 100 mg PO TID [facility] Last Admin: 07/10/19 06:08 Dose: 100 mg Pancrelipase (Creon Dr 36,000 Units Capsule) 1 cap PO TIDCM [facility] Last Admin: 07/09/19 17:47 Dose: 1 cap Pantoprazole Sodium (Protonix -) 40 mg PO DAILY [facility] Last Admin: 07/09/19 10:57 Dose: 40 mg Polyethylene Glycol (Miralax (For Daily Use) -) 17 gm PO BID [facility] Last Admin: 07/09/19 22:13 Dose: 17 gm Rifaximin (Xifaxan -) 550 mg PO TID [facility] Stop: 07/17/19 13:59 Last Admin: 07/10/19 06:08 Dose: 550 mg Simethicone (Mylicon -) 80 mg PO QID PRN PRN Reason: GAS Last Admin: 07/06/19 15:23 Dose: 80 mg - Objective Vital Signs: Vital Signs Temperature 98.1 F 07/10/19 07:50 Pulse Rate 63 07/10/19 07:50 Respiratory Rate 20 07/10/19 07:50 Blood Pressure 122/57 L 07/10/19 07:50 O2 Sat by Pulse Oximetry (%) 97 07/09/19 21:00 Constitutional: Yes: No Distress, Calm Eyes: Yes: Conjunctiva Clear HENT: Yes: Atraumatic Cardiovascular: Yes: Regular Rate and Rhythm Respiratory: Yes: Regular, CTA Bilaterally Gastrointestinal: Yes: Normal Bowel Sounds, Soft, Tenderness, Epigastrium Musculoskeletal: Yes: Back Pain, Muscle Weakness Extremities: Yes: WNL Edema: No Neurological: Yes: Alert, Oriented Psychiatric: Yes: Alert, Oriented Labs: CBC, BMP 07/08/19 07:30 07/08/19 07:30 INR, PTT INR 0.95 (0.83-1.09) 07/01/19 15:23 Problem List - Problems (1) Low back pain Assessment/Plan: -Neurosurgery on board -Lumbar MRI done shows s/p L4-L5 bilaterally in the neck to me with post-op soft tissue swelling, inflammation, and enhancement, posteriorly extending from upper L3 down to lower L5 level as well as extending to subcutaneous fat, there is an irregular shaped collection seen just posterior to the posterior epidural space extending from upper L4 down to lower L5 level, peripheral enhancement measuring approximately 4.5 x 1.6 x 1.5cm in craniocaudal, AP, and transverse dimension suggestive of postop serosanguinous collection, cannot rule out infection, epidual enhancement within the spinal canal from upper L3 down to upper S1 level compatible with post op changes without gross evidence of an intraspinal collection -Pain control -PT -hip and pelvic xray reviewed -ESR and CRP wnl -Neurology on board -Cervical and Thoracic MRI -Orthopedic on board -scheduled for facet joint injection L/S Code(s): M54.5 - LOW BACK PAIN Qualifiers: Chronicity: acute Back pain laterality: unspecified Sciatica presence: unspecified whether sciatica present Qualified Code(s): M54.5 - Low back pain (2) Abdominal pain Assessment/Plan: -GI on board -Abdominal/Pelvic CT scan shows dilated CBD 1.6cm -MRCP shows mild extrahepatic biliary ductal dilatation measuring 1cm and 8mm distally without evidence of choledocolithiasis, likely physiologic post cholecystectomy, nonspecific 2mm pancreatic neck cyst , nonspecific macronodular hepatic contour -Creon and Xifaxin -Ca 19-9 16, CEA 2.4 -will need to repeat MRI in 1 yr with GI Code(s): R10.9 - UNSPECIFIED ABDOMINAL PAIN (3) COPD (chronic obstructive pulmonary disease) Assessment/Plan: -Symbicort -keep SpO2 >90% -O2 via [place] Code(s): J44.9 - CHRONIC OBSTRUCTIVE PULMONARY DISEASE, UNSPECIFIED Qualifiers: COPD type: unspecified COPD Qualified Code(s): J44.9 - Chronic obstructive pulmonary disease, unspecified (4) GERD (gastroesophageal reflux disease) Assessment/Plan: -Pantoprazole Code(s): K21.9 - GASTRO-ESOPHAGEAL REFLUX DISEASE WITHOUT ESOPHAGITIS (5) Lower extremity weakness Assessment/Plan: -fall precautions -PT -Neurology on board -Neurosurgery onboard -Lumbar MRI done shows s/p L4-L5 bilaterally in the neck to me with post-op soft tissue swelling, inflammation, and enhancement, posteriorly extending from upper L3 down to lower L5 level as well as extending to subcutaneous fat, there is an irregular shaped collection seen just posterior to the posterior epidural space extending from upper L4 down to lower L5 level, peripheral enhancement measuring approximately 4.5 x 1.6 x 1.5cm in craniocaudal, AP, and transverse dimension suggestive of postop serosanguinous collection, cannot rule out infection, epidual enhancement within the spinal canal from upper L3 down to upper S1 level compatible with post op changes without gross evidence of an intraspinal collection -Orthopedic on board -Thoracic MRI shows signal intensity of the spinal cord, no evidence of cord compression, T10-T12 moderate facet joint arthropathy with thickened possibly ossified ligamentum flavum enroaching on the dorsal subarachnoid space, mild central spinal canal stenosis -Cervical MRI shows C4, C5, C6 osseous fusion, ventral subarachnoid space is almost completely effaced, thickened ligamentum flavum at the level of C6 enroaching on the dorsal subarachnoid space, C3-C4 posterior disc osteophyte complex enroaching ventral subarachnoid space, mild central spinal canal stenosis, C6-C7 broad based disc osteophyte complex enroaching the ventral subarachnoid space, mild central spinal canal stenosis, C7-T1 facet joint arthropathy Code(s): R29.898 - OTH SYMPTOMS AND SIGNS INVOLVING THE MUSCULOSKELETAL SYSTEM (6) PAD (peripheral artery disease) Assessment/Plan: -Vascular consult -Arterial US shows mild atherosclerotic disease with no evidence occlusion or hemodynamically significant stenosis Code(s): I73.9 - PERIPHERAL VASCULAR DISEASE, UNSPECIFIED (7) Lumbar stenosis Assessment/Plan: -Neurosurgery on board -Thoracic MRI shows signal intensity of the spinal cord, no evidence of cord compression, T10-T12 moderate facet joint arthropathy with thickened possibly ossified ligamentum flavum enroaching on the dorsal subarachnoid space, mild central spinal canal stenosis -Cervical MRI shows C4, C5, C6 osseous fusion, ventral subarachnoid space is almost completely effaced, thickened ligamentum flavum at the level of C6 enroaching on the dorsal subarachnoid space, C3-C4 posterior disc osteophyte complex enroaching ventral subarachnoid space, mild central spinal canal stenosis, C6-C7 broad based disc osteophyte complex enroaching the ventral subarachnoid space, mild central spinal canal stenosis, C7-T1 facet joint arthropathy -Lumbar MRI done shows s/p L4-L5 bilaterally in the neck to me with post-op soft tissue swelling, inflammation, and enhancement, posteriorly extending from upper L3 down to lower L5 level as well as extending to subcutaneous fat, there is an irregular shaped collection seen just posterior to the posterior epidural space extending from upper L4 down to lower L5 level, peripheral enhancement measuring approximately 4.5 x 1.6 x 1.5cm in craniocaudal, AP, and transverse dimension suggestive of postop serosanguinous collection, cannot rule out infection, epidual enhancement within the spinal canal from upper L3 down to upper S1 level compatible with post op changes without gross evidence of an intraspinal collection -Pain control -PT -Neurology on board -neuro check q4h Code(s): M48.061 - SPINAL STENOSIS, LUMBAR REGION WITHOUT NEUROGENIC CARISA (8) Leukocytosis Assessment/Plan: -WBC 6.6 -resolved -ID consult due to Lumbar MRI finding -BC neg Code(s): D72.829 - ELEVATED WHITE BLOOD CELL COUNT, UNSPECIFIED Assessment/Plan see problem list dvt ppx possible SNF when ready for d/c for PT
[2019-07-10] MEDS: POLYETHYLENE GLYCOL 3350 119 GM BTL PO SCH ×2 (10:46→21:29)
[2019-07-10] MEDS: PANTOPRAZOLE 40 MG TABLET (FP) PO SCH (10:47)
[2019-07-10] MEDS: BUDESONIDE/FORMETEROL FUMARATE 160/4.5 mcg INHALER IH SCH ×2 (10:47→21:29)
[2019-07-11] MEDS: ACETAMINOPHEN 325 MG TABLET (FP) PO SCH ×5 (00:38→23:37)
[2019-07-11] MEDS: GABAPENTIN 100 MG CAPSULE (FP) PO SCH ×3 (06:38→21:20)
[2019-07-11] MEDS ORDERED: PT OWN MED DRAWER 7, Y5N ONE ×3 (09:09→17:06)
[2019-07-11] MEDS: LIPASE/PROTEASE/AMYLASE 36,000 UNIT CAPSULE PO SCH ×3 (09:14→17:25)
[2019-07-11] MEDS: POLYETHYLENE GLYCOL 3350 119 GM BTL PO SCH ×2 (09:14→21:19)
[2019-07-11] MEDS: BUDESONIDE/FORMETEROL FUMARATE 160/4.5 mcg INHALER IH SCH ×2 (09:14→21:19)
[2019-07-11] MEDS: PANTOPRAZOLE 40 MG TABLET (FP) PO SCH (09:14)
--- NOTE | 2019-07-11 11:15 | PN ---
Progress Note, Physician - Current Medication List Current Medications: Active Medications Acetaminophen (Tylenol -) 650 mg PO Q6HPO [facility] Last Admin: 07/11/19 06:39 Dose: Not Given Budesonide/Formoterol Fumarate (Symbicort 160/4.5mcg -) 1 puff IH BID [facility] Last Admin: 07/11/19 09:14 Dose: 1 puff Gabapentin (Neurontin -) 100 mg PO TID [facility] Last Admin: 07/11/19 06:38 Dose: 100 mg Pancrelipase (Creon Dr 36,000 Units Capsule) 1 cap PO TIDCM [facility] Last Admin: 07/11/19 09:14 Dose: 1 cap Pantoprazole Sodium (Protonix -) 40 mg PO DAILY [facility] Last Admin: 07/11/19 09:14 Dose: 40 mg Polyethylene Glycol (Miralax (For Daily Use) -) 17 gm PO BID [facility] Last Admin: 07/11/19 09:14 Dose: 17 gm Simethicone (Mylicon -) 80 mg PO QID PRN PRN Reason: GAS Last Admin: 07/06/19 15:23 Dose: 80 mg - Objective Vital Signs: Vital Signs Temperature 98.5 F 07/11/19 09:18 Pulse Rate 61 07/11/19 09:18 Respiratory Rate 18 07/11/19 09:18 Blood Pressure 95/57 L 07/11/19 09:18 O2 Sat by Pulse Oximetry (%) 97 07/09/19 21:00 Cardiovascular: Yes: Regular Rate and Rhythm Respiratory: Yes: Regular, CTA Bilaterally Gastrointestinal: Yes: Normal Bowel Sounds, Soft Labs: CBC, BMP 07/08/19 07:30 07/08/19 07:30 INR, PTT INR 0.95 (0.83-1.09) 07/01/19 15:23 Assessment/Plan - Problems (1) Low back pain Assessment/Plan: -Neurosurgery on board -Lumbar MRI done shows s/p L4-L5 bilaterally in the neck to me with post-op soft tissue swelling, inflammation, and enhancement, posteriorly extending from upper L3 down to lower L5 level as well as extending to subcutaneous fat, there is an irregular shaped collection seen just posterior to the posterior epidural space extending from upper L4 down to lower L5 level, peripheral enhancement measuring approximately 4.5 x 1.6 x 1.5cm in craniocaudal, AP, and transverse dimension suggestive of postop serosanguinous collection, cannot rule out infection, epidual enhancement within the spinal canal from upper L3 down to upper S1 level compatible with post op changes without gross evidence of an intraspinal collection -Pain control -PT -hip and pelvic xray reviewed -ESR and CRP wnl -Neurology on board -Cervical and Thoracic MRI -Orthopedic on board -scheduled for facet joint injection L/S Code(s): M54.5 - LOW BACK PAIN Qualifiers: Chronicity: acute Back pain laterality: unspecified Sciatica presence: unspecified whether sciatica present Qualified Code(s): M54.5 - Low back pain (2) Abdominal pain Assessment/Plan: -GI on board -Abdominal/Pelvic CT scan shows dilated CBD 1.6cm -MRCP shows mild extrahepatic biliary ductal dilatation measuring 1cm and 8mm distally without evidence of choledocolithiasis, likely physiologic post cholecystectomy, nonspecific 2mm pancreatic neck cyst , nonspecific macronodular hepatic contour -Creon and Xifaxin -Ca 19-9 16, CEA 2.4 -will need to repeat MRI in 1 yr with GI Code(s): R10.9 - UNSPECIFIED ABDOMINAL PAIN (3) COPD (chronic obstructive pulmonary disease) Assessment/Plan: -Symbicort -keep SpO2 >90% -O2 via [place] Code(s): J44.9 - CHRONIC OBSTRUCTIVE PULMONARY DISEASE, UNSPECIFIED Qualifiers: COPD type: unspecified COPD Qualified Code(s): J44.9 - Chronic obstructive pulmonary disease, unspecified (4) GERD (gastroesophageal reflux disease) Assessment/Plan: -Pantoprazole Code(s): K21.9 - GASTRO-ESOPHAGEAL REFLUX DISEASE WITHOUT ESOPHAGITIS (5) Lower extremity weakness Assessment/Plan: -fall precautions -PT -Neurology on board -Neurosurgery onboard -Lumbar MRI done shows s/p L4-L5 bilaterally in the neck to me with post-op soft tissue swelling, inflammation, and enhancement, posteriorly extending from upper L3 down to lower L5 level as well as extending to subcutaneous fat, there is an irregular shaped collection seen just posterior to the posterior epidural space extending from upper L4 down to lower L5 level, peripheral enhancement measuring approximately 4.5 x 1.6 x 1.5cm in craniocaudal, AP, and transverse dimension suggestive of postop serosanguinous collection, cannot rule out infection, epidual enhancement within the spinal canal from upper L3 down to upper S1 level compatible with post op changes without gross evidence of an intraspinal collection -Orthopedic on board -Thoracic MRI shows signal intensity of the spinal cord, no evidence of cord compression, T10-T12 moderate facet joint arthropathy with thickened possibly ossified ligamentum flavum enroaching on the dorsal subarachnoid space, mild central spinal canal stenosis -Cervical MRI shows C4, C5, C6 osseous fusion, ventral subarachnoid space is almost completely effaced, thickened ligamentum flavum at the level of C6 enroaching on the dorsal subarachnoid space, C3-C4 posterior disc osteophyte complex enroaching ventral subarachnoid space, mild central spinal canal stenosis, C6-C7 broad based disc osteophyte complex enroaching the ventral subarachnoid space, mild central spinal canal stenosis, C7-T1 facet joint arthropathy Code(s): R29.898 - OT SYMPTOMS AND SIGNS INVOLVING THE MUSCULOSKELETAL SYSTEM (6) PAD (peripheral artery disease) Assessment/Plan: -Vascular consult -Arterial US shows mild atherosclerotic disease with no evidence occlusion or hemodynamically significant stenosis Code(s): I73.9 - PERIPHERAL VASCULAR DISEASE, UNSPECIFIED (7) Lumbar stenosis Assessment/Plan: -Neurosurgery on board -Thoracic MRI shows signal intensity of the spinal cord, no evidence of cord compression, T10-T12 moderate facet joint arthropathy with thickened possibly ossified ligamentum flavum enroaching on the dorsal subarachnoid space, mild central spinal canal stenosis -Cervical MRI shows C4, C5, C6 osseous fusion, ventral subarachnoid space is almost completely effaced, thickened ligamentum flavum at the level of C6 enroaching on the dorsal subarachnoid space, C3-C4 posterior disc osteophyte complex enroaching ventral subarachnoid space, mild central spinal canal stenosis, C6-C7 broad based disc osteophyte complex enroaching the ventral subarachnoid space, mild central spinal canal stenosis, C7-T1 facet joint arthropathy -Lumbar MRI done shows s/p L4-L5 bilaterally in the neck to me with post-op soft tissue swelling, inflammation, and enhancement, posteriorly extending from upper L3 down to lower L5 level as well as extending to subcutaneous fat, there is an irregular shaped collection seen just posterior to the posterior epidural space extending from upper L4 down to lower L5 level, peripheral enhancement measuring approximately 4.5 x 1.6 x 1.5cm in craniocaudal, AP, and transverse dimension suggestive of postop serosanguinous collection, cannot rule out infection, epidual enhancement within the spinal canal from upper L3 down to upper S1 level compatible with post op changes without gross evidence of an intraspinal collection -Pain control -PT -Neurology on board -neuro check q4h Code(s): M48.061 - SPINAL STENOSIS, LUMBAR REGION WITHOUT NEUROGENIC CARISA (8) Leukocytosis Assessment/Plan: -WBC 6.6 -resolved -ID consult due to Lumbar MRI finding - neg Code(s): D72.829 - ELEVATED WHITE BLOOD CELL COUNT, UNSPECIFIED
--- NOTE | 2019-07-11 14:31 | CONSULT ---
Consult - text type - Consultation Consultation Note: Patient remains stable. Ambulating with some persisting pain. No strong clinical suggestion that the Lumbar fluid collection is not a common postoperative seroma. WBC, CRP and ESR are normal. No fevers. Wound is clean, dry and intact. No Neurosurgical contraindication to epidural steroid injection. Patient may have intrinsic hip pathology as well. Cervical spondylosis noted on MRI Cervical spine which may benefit from treatment, however, this does not appear to be causing her current difficulties and can likely be semi-electively addressed. - GI/DVT prophylaxis - Injections for hip and/or Lumbar DOMINICK - Physical Therapy
[2019-07-11] MEDS: METOCLOPRAMIDE HCL 10 MG TABLET (FP) PO SCH (17:26)
[2019-07-11] MEDS: traMADol HCL 50 MG TABLET PO SCH (21:20)
[2019-07-12] MEDS: METOCLOPRAMIDE HCL 10 MG TABLET (FP) PO SCH ×3 (06:45→17:08)
[2019-07-12] MEDS: GABAPENTIN 100 MG CAPSULE (FP) PO SCH ×3 (06:45→21:31)
[2019-07-12] MEDS: ACETAMINOPHEN 325 MG TABLET (FP) PO SCH ×3 (06:46→17:08)
[2019-07-12] MEDS ORDERED: PT OWN MED DRAWER 7, Y5N ONE ×4 (10:21→17:09)
[2019-07-12] MEDS: PANTOPRAZOLE 40 MG TABLET (FP) PO SCH (10:23)
[2019-07-12] MEDS: POLYETHYLENE GLYCOL 3350 119 GM BTL PO SCH (10:23)
[2019-07-12] MEDS: LIPASE/PROTEASE/AMYLASE 36,000 UNIT CAPSULE PO SCH ×3 (10:23→17:09)
[2019-07-12] MEDS: traMADol HCL 50 MG TABLET PO SCH ×2 (10:23→21:31)
[2019-07-12] MEDS: BUDESONIDE/FORMETEROL FUMARATE 160/4.5 mcg INHALER IH SCH ×2 (10:24→22:03)
--- NOTE | 2019-07-12 11:27 | PN ---
Progress Note, Physician - Current Medication List Current Medications: Active Medications Acetaminophen (Tylenol -) 650 mg PO Q6HPO [facility] Last Admin: 07/12/19 06:46 Dose: Not Given Budesonide/Formoterol Fumarate (Symbicort 160/4.5mcg -) 1 puff IH BID [facility] Last Admin: 07/12/19 10:24 Dose: 1 puff Gabapentin (Neurontin -) 100 mg PO TID [facility] Last Admin: 07/12/19 06:45 Dose: 100 mg Metoclopramide HCl (Reglan -) 5 mg PO TIDAC [facility] Last Admin: 07/12/19 10:23 Dose: 5 mg Pancrelipase (Creon Dr 36,000 Units Capsule) 1 cap PO TIDCM [facility] Last Admin: 07/12/19 10:23 Dose: 1 cap Pantoprazole Sodium (Protonix -) 40 mg PO DAILY [facility] Last Admin: 07/12/19 10:23 Dose: 40 mg Polyethylene Glycol (Miralax (For Daily Use) -) 17 gm PO BID [facility] Last Admin: 07/12/19 10:23 Dose: 17 gm Simethicone (Mylicon -) 80 mg PO QID PRN PRN Reason: GAS Last Admin: 07/06/19 15:23 Dose: 80 mg Tramadol HCl (Ultram -) 50 mg PO BID [facility] Last Admin: 07/12/19 10:23 Dose: 50 mg - Objective Vital Signs: Vital Signs Temperature 97.9 F 07/12/19 10:00 Pulse Rate 66 07/12/19 10:00 Respiratory Rate 18 07/12/19 10:00 Blood Pressure 104/60 07/12/19 10:00 O2 Sat by Pulse Oximetry (%) 100 07/11/19 09:00 Cardiovascular: Yes: S1, S2 Respiratory: Yes: Regular, CTA Bilaterally Gastrointestinal: Yes: Normal Bowel Sounds, Soft Labs: CBC, BMP 07/08/19 07:30 07/08/19 07:30 INR, PTT INR 0.95 (0.83-1.09) 07/01/19 15:23 Assessment/Plan - Problems (1) Low back pain Assessment/Plan: -Neurosurgery on board -Lumbar MRI done shows s/p L4-L5 bilaterally in the neck to me with post-op soft tissue swelling, inflammation, and enhancement, posteriorly extending from upper L3 down to lower L5 level as well as extending to subcutaneous fat, there is an irregular shaped collection seen just posterior to the posterior epidural space extending from upper L4 down to lower L5 level, peripheral enhancement measuring approximately 4.5 x 1.6 x 1.5cm in craniocaudal, AP, and transverse dimension suggestive of postop serosanguinous collection, cannot rule out infection, epidual enhancement within the spinal canal from upper L3 down to upper S1 level compatible with post op changes without gross evidence of an intraspinal collection -Pain control -PT -hip and pelvic xray reviewed -ESR and CRP wnl -Neurology on board -Cervical and Thoracic MRI -Orthopedic on board -scheduled for facet joint injection L/S Code(s): M54.5 - LOW BACK PAIN Qualifiers: Chronicity: acute Back pain laterality: unspecified Sciatica presence: unspecified whether sciatica present Qualified Code(s): M54.5 - Low back pain (2) Abdominal pain Assessment/Plan: -GI on board -Abdominal/Pelvic CT scan shows dilated CBD 1.6cm -MRCP shows mild extrahepatic biliary ductal dilatation measuring 1cm and 8mm distally without evidence of choledocolithiasis, likely physiologic post cholecystectomy, nonspecific 2mm pancreatic neck cyst , nonspecific macronodular hepatic contour -Creon and Xifaxin -Ca 19-9 16, CEA 2.4 -will need to repeat MRI in 1 yr with GI Code(s): R10.9 - UNSPECIFIED ABDOMINAL PAIN (3) COPD (chronic obstructive pulmonary disease) Assessment/Plan: -Symbicort -keep SpO2 >90% -O2 via [place] Code(s): J44.9 - CHRONIC OBSTRUCTIVE PULMONARY DISEASE, UNSPECIFIED Qualifiers: COPD type: unspecified COPD Qualified Code(s): J44.9 - Chronic obstructive pulmonary disease, unspecified (4) GERD (gastroesophageal reflux disease) Assessment/Plan: -Pantoprazole Code(s): K21.9 - GASTRO-ESOPHAGEAL REFLUX DISEASE WITHOUT ESOPHAGITIS (5) Lower extremity weakness Assessment/Plan: -fall precautions -PT -Neurology on board -Neurosurgery onboard -Lumbar MRI done shows s/p L4-L5 bilaterally in the neck to me with post-op soft tissue swelling, inflammation, and enhancement, posteriorly extending from upper L3 down to lower L5 level as well as extending to subcutaneous fat, there is an irregular shaped collection seen just posterior to the posterior epidural space extending from upper L4 down to lower L5 level, peripheral enhancement measuring approximately 4.5 x 1.6 x 1.5cm in craniocaudal, AP, and transverse dimension suggestive of postop serosanguinous collection, cannot rule out infection, epidual enhancement within the spinal canal from upper L3 down to upper S1 level compatible with post op changes without gross evidence of an intraspinal collection -Orthopedic on board -Thoracic MRI shows signal intensity of the spinal cord, no evidence of cord compression, T10-T12 moderate facet joint arthropathy with thickened possibly ossified ligamentum flavum enroaching on the dorsal subarachnoid space, mild central spinal canal stenosis -Cervical MRI shows C4, C5, C6 osseous fusion, ventral subarachnoid space is almost completely effaced, thickened ligamentum flavum at the level of C6 enroaching on the dorsal subarachnoid space, C3-C4 posterior disc osteophyte complex enroaching ventral subarachnoid space, mild central spinal canal stenosis, C6-C7 broad based disc osteophyte complex enroaching the ventral subarachnoid space, mild central spinal canal stenosis, C7-T1 facet joint arthropathy Code(s): R29.898 - OT SYMPTOMS AND SIGNS INVOLVING THE MUSCULOSKELETAL SYSTEM (6) PAD (peripheral artery disease) Assessment/Plan: -Vascular consult -Arterial US shows mild atherosclerotic disease with no evidence occlusion or hemodynamically significant stenosis Code(s): I73.9 - PERIPHERAL VASCULAR DISEASE, UNSPECIFIED (7) Lumbar stenosis Assessment/Plan: -Neurosurgery on board -Thoracic MRI shows signal intensity of the spinal cord, no evidence of cord compression, T10-T12 moderate facet joint arthropathy with thickened possibly ossified ligamentum flavum enroaching on the dorsal subarachnoid space, mild central spinal canal stenosis -Cervical MRI shows C4, C5, C6 osseous fusion, ventral subarachnoid space is almost completely effaced, thickened ligamentum flavum at the level of C6 enroaching on the dorsal subarachnoid space, C3-C4 posterior disc osteophyte complex enroaching ventral subarachnoid space, mild central spinal canal stenosis, C6-C7 broad based disc osteophyte complex enroaching the ventral subarachnoid space, mild central spinal canal stenosis, C7-T1 facet joint arthropathy -Lumbar MRI done shows s/p L4-L5 bilaterally in the neck to me with post-op soft tissue swelling, inflammation, and enhancement, posteriorly extending from upper L3 down to lower L5 level as well as extending to subcutaneous fat, there is an irregular shaped collection seen just posterior to the posterior epidural space extending from upper L4 down to lower L5 level, peripheral enhancement measuring approximately 4.5 x 1.6 x 1.5cm in craniocaudal, AP, and transverse dimension suggestive of postop serosanguinous collection, cannot rule out infection, epidual enhancement within the spinal canal from upper L3 down to upper S1 level compatible with post op changes without gross evidence of an intraspinal collection -Pain control -PT -Neurology on board -neuro check q4h Code(s): M48.061 - SPINAL STENOSIS, LUMBAR REGION WITHOUT NEUROGENIC CARISA (8) Leukocytosis Assessment/Plan: -WBC 6.6 -resolved -ID consult and NS noted regarding Lumbar MRI finding (collection) -BC neg Code(s): D72.829 - ELEVATED WHITE BLOOD CELL COUNT, UNSPECIFIED
[2019-07-13] MEDS: POLYETHYLENE GLYCOL 3350 119 GM BTL PO SCH ×3 (01:11→21:11)
[2019-07-13] MEDS: ACETAMINOPHEN 325 MG TABLET (FP) PO SCH ×4 (01:14→17:21)
[2019-07-13] MEDS: METOCLOPRAMIDE HCL 10 MG TABLET (FP) PO SCH ×3 (06:36→17:21)
[2019-07-13] MEDS: GABAPENTIN 100 MG CAPSULE (FP) PO SCH ×3 (06:37→21:08)
[2019-07-13] MEDS ORDERED: PT OWN MED DRAWER 7, Y5N ONE ×3 (08:43→17:39)
[2019-07-13] MEDS: LIPASE/PROTEASE/AMYLASE 36,000 UNIT CAPSULE PO SCH ×3 (09:13→17:22)
[2019-07-13] MEDS: traMADol HCL 50 MG TABLET PO SCH ×2 (09:14→21:11)
[2019-07-13] MEDS: PANTOPRAZOLE 40 MG TABLET (FP) PO SCH (09:15)
[2019-07-13] MEDS: HEPARIN NA (PORCINE) 5,000 UNITS/ML 1ML VIAL SQ SCH ×2 (10:32→21:11)
[2019-07-13] MEDS: BUDESONIDE/FORMETEROL FUMARATE 160/4.5 mcg INHALER IH SCH ×2 (10:32→21:12)
--- NOTE | 2019-07-13 10:57 | EKG ---
Test Reason : Blood Pressure : / mmHG Vent. Rate : 059 BPM Atrial Rate : 059 BPM P-R Int : 154 ms QRS Dur : 072 ms QT Int : 464 ms P-R-T Axes : 062 015 043 degrees QTc Int : 459 ms SINUS BRADYCARDIA OTHERWISE NORMAL ECG WHEN COMPARED WITH ECG OF 05-JUL-2019 13:36, NO SIGNIFICANT CHANGE WAS FOUND Confirmed by ROXY BRICENO MD ([id number]) on 07/13/2019 10:57:27 AM Referred By: LILLIAN DANIELS Confirmed By:ROXY BRICENO MD
--- NOTE | 2019-07-13 12:51 | PN ---
Progress Note, Physician Chief Complaint: Lumbar Stenosis Lower Back Pain Abdominal Pain History of Present Illness: Previous notes and events reviewed awake and alert NAD continue with lower back pain radiating down LLE IR consult for facet joint injection L-S spine complain of cramping to RLE - Current Medication List Current Medications: Active Medications Acetaminophen (Tylenol -) 650 mg PO Q6HPO [facility] Last Admin: 07/13/19 11:26 Dose: 650 mg Budesonide/Formoterol Fumarate (Symbicort 160/4.5mcg -) 1 puff IH BID [facility] Last Admin: 07/13/19 10:32 Dose: 1 puff Gabapentin (Neurontin -) 100 mg PO TID [facility] Last Admin: 07/13/19 06:37 Dose: 100 mg Heparin Sodium (Porcine) (Heparin -) 5,000 unit SQ BID [facility] Last Admin: 07/13/19 10:32 Dose: 5,000 unit Metoclopramide HCl (Reglan -) 5 mg PO TIDAC [facility] Last Admin: 07/13/19 10:59 Dose: 5 mg Pancrelipase (Creon Dr 36,000 Units Capsule) 1 cap PO TIDCM [facility] Last Admin: 07/13/19 11:27 Dose: 1 cap Pantoprazole Sodium (Protonix -) 40 mg PO DAILY [facility] Last Admin: 07/13/19 09:15 Dose: 40 mg Polyethylene Glycol (Miralax (For Daily Use) -) 17 gm PO BID [facility] Last Admin: 07/13/19 10:56 Dose: 17 gm Simethicone (Mylicon -) 80 mg PO QID PRN PRN Reason: GAS Last Admin: 07/06/19 15:23 Dose: 80 mg Tramadol HCl (Ultram -) 50 mg PO BID [facility] Last Admin: 07/13/19 09:14 Dose: 50 mg - Objective Vital Signs: Vital Signs Temperature 97.8 F 07/13/19 09:20 Pulse Rate 70 07/13/19 09:20 Respiratory Rate 20 07/13/19 09:20 Blood Pressure 90/50 L 07/13/19 09:20 O2 Sat by Pulse Oximetry (%) 97 07/13/19 09:00 Constitutional: Yes: No Distress, Calm Eyes: Yes: Conjunctiva Clear HENT: Yes: Atraumatic Cardiovascular: Yes: Regular Rate and Rhythm Respiratory: Yes: Regular, CTA Bilaterally Gastrointestinal: Yes: Normal Bowel Sounds, Soft Musculoskeletal: Yes: Back Pain, Muscle Weakness Extremities: Yes: WNL Edema: No Neurological: Yes: Alert, Oriented Psychiatric: Yes: Alert, Oriented Labs: CBC, BMP 07/08/19 07:30 07/08/19 07:30 INR, PTT INR 0.95 (0.83-1.09) 07/01/19 15:23 Problem List - Problems (1) Low back pain Assessment/Plan: -Neurosurgery on board -Lumbar MRI done shows s/p L4-L5 bilaterally in the neck to me with post-op soft tissue swelling, inflammation, and enhancement, posteriorly extending from upper L3 down to lower L5 level as well as extending to subcutaneous fat, there is an irregular shaped collection seen just posterior to the posterior epidural space extending from upper L4 down to lower L5 level, peripheral enhancement measuring approximately 4.5 x 1.6 x 1.5cm in craniocaudal, AP, and transverse dimension suggestive of postop serosanguinous collection, cannot rule out infection, epidual enhancement within the spinal canal from upper L3 down to upper S1 level compatible with post op changes without gross evidence of an intraspinal collection -Pain control -PT -hip and pelvic xray reviewed -ESR and CRP wnl -Neurology on board -Cervical and Thoracic MRI -Orthopedic on board -scheduled for facet joint injection L/S CLEARED BY NEUROSURGERY FOR JOINT INJECTION Code(s): M54.5 - LOW BACK PAIN Qualifiers: Chronicity: acute Back pain laterality: unspecified Sciatica presence: unspecified whether sciatica present Qualified Code(s): M54.5 - Low back pain (2) Abdominal pain Assessment/Plan: -GI on board -Abdominal/Pelvic CT scan shows dilated CBD 1.6cm -MRCP shows mild extrahepatic biliary ductal dilatation measuring 1cm and 8mm distally without evidence of choledocolithiasis, likely physiologic post cholecystectomy, nonspecific 2mm pancreatic neck cyst , nonspecific macronodular hepatic contour -Creon and Xifaxin -Ca 19-9 16, CEA 2.4 -will need to repeat MRI in 1 yr with GI Code(s): R10.9 - UNSPECIFIED ABDOMINAL PAIN (3) COPD (chronic obstructive pulmonary disease) Assessment/Plan: -Symbicort -keep SpO2 >90% -O2 via [place] Code(s): J44.9 - CHRONIC OBSTRUCTIVE PULMONARY DISEASE, UNSPECIFIED Qualifiers: COPD type: unspecified COPD Qualified Code(s): J44.9 - Chronic obstructive pulmonary disease, unspecified (4) GERD (gastroesophageal reflux disease) Assessment/Plan: -Pantoprazole Code(s): K21.9 - GASTRO-ESOPHAGEAL REFLUX DISEASE WITHOUT ESOPHAGITIS (5) Lower extremity weakness Assessment/Plan: -fall precautions -PT -Neurology on board -Neurosurgery onboard -Lumbar MRI done shows s/p L4-L5 bilaterally in the neck to me with post-op soft tissue swelling, inflammation, and enhancement, posteriorly extending from upper L3 down to lower L5 level as well as extending to subcutaneous fat, there is an irregular shaped collection seen just posterior to the posterior epidural space extending from upper L4 down to lower L5 level, peripheral enhancement measuring approximately 4.5 x 1.6 x 1.5cm in craniocaudal, AP, and transverse dimension suggestive of postop serosanguinous collection, cannot rule out infection, epidual enhancement within the spinal canal from upper L3 down to upper S1 level compatible with post op changes without gross evidence of an intraspinal collection -Orthopedic on board -Thoracic MRI shows signal intensity of the spinal cord, no evidence of cord compression, T10-T12 moderate facet joint arthropathy with thickened possibly ossified ligamentum flavum enroaching on the dorsal subarachnoid space, mild central spinal canal stenosis -Cervical MRI shows C4, C5, C6 osseous fusion, ventral subarachnoid space is almost completely effaced, thickened ligamentum flavum at the level of C6 enroaching on the dorsal subarachnoid space, C3-C4 posterior disc osteophyte complex enroaching ventral subarachnoid space, mild central spinal canal stenosis, C6-C7 broad based disc osteophyte complex enroaching the ventral subarachnoid space, mild central spinal canal stenosis, C7-T1 facet joint arthropathy Code(s): R29.898 - OT SYMPTOMS AND SIGNS INVOLVING THE MUSCULOSKELETAL SYSTEM (6) PAD (peripheral artery disease) Assessment/Plan: -Vascular consult -Arterial US shows mild atherosclerotic disease with no evidence occlusion or hemodynamically significant stenosis Code(s): I73.9 - PERIPHERAL VASCULAR DISEASE, UNSPECIFIED (7) Lumbar stenosis Assessment/Plan: -Neurosurgery on board -Thoracic MRI shows signal intensity of the spinal cord, no evidence of cord compression, T10-T12 moderate facet joint arthropathy with thickened possibly ossified ligamentum flavum enroaching on the dorsal subarachnoid space, mild central spinal canal stenosis -Cervical MRI shows C4, C5, C6 osseous fusion, ventral subarachnoid space is almost completely effaced, thickened ligamentum flavum at the level of C6 enroaching on the dorsal subarachnoid space, C3-C4 posterior disc osteophyte complex enroaching ventral subarachnoid space, mild central spinal canal stenosis, C6-C7 broad based disc osteophyte complex enroaching the ventral subarachnoid space, mild central spinal canal stenosis, C7-T1 facet joint arthropathy -Lumbar MRI done shows s/p L4-L5 bilaterally in the neck to me with post-op soft tissue swelling, inflammation, and enhancement, posteriorly extending from upper L3 down to lower L5 level as well as extending to subcutaneous fat, there is an irregular shaped collection seen just posterior to the posterior epidural space extending from upper L4 down to lower L5 level, peripheral enhancement measuring approximately 4.5 x 1.6 x 1.5cm in craniocaudal, AP, and transverse dimension suggestive of postop serosanguinous collection, cannot rule out infection, epidual enhancement within the spinal canal from upper L3 down to upper S1 level compatible with post op changes without gross evidence of an intraspinal collection -Pain control -PT -Neurology on board -neuro check q4h Code(s): M48.061 - SPINAL STENOSIS, LUMBAR REGION WITHOUT NEUROGENIC CARISA (8) Leukocytosis Assessment/Plan: -WBC 6.6 -resolved -ID consult due to Lumbar MRI finding -BC neg Code(s): D72.829 - ELEVATED WHITE BLOOD CELL COUNT, UNSPECIFIED Assessment/Plan see problem list dvt ppx possible SNF when ready for d/c for PT
[2019-07-14] MEDS: METOCLOPRAMIDE HCL 10 MG TABLET (FP) PO SCH ×3 (06:38→17:18)
[2019-07-14] MEDS: GABAPENTIN 100 MG CAPSULE (FP) PO SCH ×3 (06:38→22:25)
[2019-07-14] MEDS: ACETAMINOPHEN 325 MG TABLET (FP) PO SCH ×4 (06:39→17:18)
[2019-07-14] MEDS: PANTOPRAZOLE 40 MG TABLET (FP) PO SCH (09:20)
[2019-07-14] MEDS: HEPARIN NA (PORCINE) 5,000 UNITS/ML 1ML VIAL SQ SCH (09:21)
[2019-07-14] MEDS: traMADol HCL 50 MG TABLET PO SCH ×2 (09:21→22:25)
[2019-07-14] MEDS: LIPASE/PROTEASE/AMYLASE 36,000 UNIT CAPSULE PO SCH ×3 (09:22→17:19)
[2019-07-14] MEDS: BUDESONIDE/FORMETEROL FUMARATE 160/4.5 mcg INHALER IH SCH ×2 (09:22→22:26)
[2019-07-14] MEDS: POLYETHYLENE GLYCOL 3350 119 GM BTL PO SCH ×2 (09:25→22:26)
--- NOTE | 2019-07-14 12:55 | PN ---
Progress Note, Physician Chief Complaint: Lumbar Stenosis Lower Back Pain Abdominal Pain History of Present Illness: Previous notes and events reviewed awake and alert NAD continue with lower back pain radiating down LLE IR consult for facet joint injection L-S spine Heparin on hold for injection tomorrow - Current Medication List Current Medications: Active Medications Acetaminophen (Tylenol -) 650 mg PO Q6HPO [facility] Last Admin: 07/14/19 11:43 Dose: 650 mg Budesonide/Formoterol Fumarate (Symbicort 160/4.5mcg -) 1 puff IH BID [facility] Last Admin: 07/14/19 09:22 Dose: 1 puff Gabapentin (Neurontin -) 100 mg PO TID [facility] Last Admin: 07/14/19 06:38 Dose: 100 mg Metoclopramide HCl (Reglan -) 5 mg PO TIDAC [facility] Last Admin: 07/14/19 11:42 Dose: 5 mg Pancrelipase (Creon Dr 36,000 Units Capsule) 1 cap PO TIDCM [facility] Last Admin: 07/14/19 11:46 Dose: 1 cap Pantoprazole Sodium (Protonix -) 40 mg PO DAILY [facility] Last Admin: 07/14/19 09:20 Dose: 40 mg Polyethylene Glycol (Miralax (For Daily Use) -) 17 gm PO BID [facility] Last Admin: 07/14/19 09:25 Dose: 17 gm Simethicone (Mylicon -) 80 mg PO QID PRN PRN Reason: GAS Last Admin: 07/06/19 15:23 Dose: 80 mg Tramadol HCl (Ultram -) 50 mg PO BID [facility] Last Admin: 07/14/19 09:21 Dose: 50 mg - Objective Vital Signs: Vital Signs Temperature 97.6 F 07/14/19 09:02 Pulse Rate 61 07/14/19 09:02 Respiratory Rate 20 07/14/19 09:02 Blood Pressure 93/58 L 07/14/19 09:02 O2 Sat by Pulse Oximetry (%) 98 07/14/19 09:00 Constitutional: Yes: No Distress, Calm Eyes: Yes: Conjunctiva Clear HENT: Yes: Atraumatic Cardiovascular: Yes: Regular Rate and Rhythm Respiratory: Yes: Regular, CTA Bilaterally Gastrointestinal: Yes: Normal Bowel Sounds, Soft Musculoskeletal: Yes: Back Pain, Muscle Weakness Extremities: Yes: WNL Edema: No Neurological: Yes: Alert, Oriented Psychiatric: Yes: Alert, Oriented Labs: CBC, BMP 07/08/19 07:30 07/08/19 07:30 INR, PTT INR 0.95 (0.83-1.09) 07/01/19 15:23 Problem List - Problems (1) Low back pain Assessment/Plan: -Neurosurgery on board -Lumbar MRI done shows s/p L4-L5 bilaterally in the neck to me with post-op soft tissue swelling, inflammation, and enhancement, posteriorly extending from upper L3 down to lower L5 level as well as extending to subcutaneous fat, there is an irregular shaped collection seen just posterior to the posterior epidural space extending from upper L4 down to lower L5 level, peripheral enhancement measuring approximately 4.5 x 1.6 x 1.5cm in craniocaudal, AP, and transverse dimension suggestive of postop serosanguinous collection, cannot rule out infection, epidual enhancement within the spinal canal from upper L3 down to upper S1 level compatible with post op changes without gross evidence of an intraspinal collection -Pain control -PT -hip and pelvic xray reviewed -ESR and CRP wnl -Neurology on board -Cervical and Thoracic MRI -Orthopedic on board -scheduled for facet joint injection L/S CLEARED BY NEUROSURGERY FOR JOINT INJECTION Code(s): M54.5 - LOW BACK PAIN Qualifiers: Chronicity: acute Back pain laterality: unspecified Sciatica presence: unspecified whether sciatica present Qualified Code(s): M54.5 - Low back pain (2) Abdominal pain Assessment/Plan: -GI on board -Abdominal/Pelvic CT scan shows dilated CBD 1.6cm -MRCP shows mild extrahepatic biliary ductal dilatation measuring 1cm and 8mm distally without evidence of choledocolithiasis, likely physiologic post cholecystectomy, nonspecific 2mm pancreatic neck cyst , nonspecific macronodular hepatic contour -Creon and Xifaxin -Ca 19-9 16, CEA 2.4 -will need to repeat MRI in 1 yr with GI -Pantoprazole -Simethicone Code(s): R10.9 - UNSPECIFIED ABDOMINAL PAIN (3) COPD (chronic obstructive pulmonary disease) Assessment/Plan: -Symbicort -keep SpO2 >90% -O2 via [place] Code(s): J44.9 - CHRONIC OBSTRUCTIVE PULMONARY DISEASE, UNSPECIFIED Qualifiers: COPD type: unspecified COPD Qualified Code(s): J44.9 - Chronic obstructive pulmonary disease, unspecified (4) GERD (gastroesophageal reflux disease) Assessment/Plan: -Pantoprazole Code(s): K21.9 - GASTRO-ESOPHAGEAL REFLUX DISEASE WITHOUT ESOPHAGITIS (5) Lower extremity weakness Assessment/Plan: -fall precautions -PT -Neurology on board -Neurosurgery onboard -Lumbar MRI done shows s/p L4-L5 bilaterally in the neck to me with post-op soft tissue swelling, inflammation, and enhancement, posteriorly extending from upper L3 down to lower L5 level as well as extending to subcutaneous fat, there is an irregular shaped collection seen just posterior to the posterior epidural space extending from upper L4 down to lower L5 level, peripheral enhancement measuring approximately 4.5 x 1.6 x 1.5cm in craniocaudal, AP, and transverse dimension suggestive of postop serosanguinous collection, cannot rule out infection, epidual enhancement within the spinal canal from upper L3 down to upper S1 level compatible with post op changes without gross evidence of an intraspinal collection -Orthopedic on board -Thoracic MRI shows signal intensity of the spinal cord, no evidence of cord compression, T10-T12 moderate facet joint arthropathy with thickened possibly ossified ligamentum flavum enroaching on the dorsal subarachnoid space, mild central spinal canal stenosis -Cervical MRI shows C4, C5, C6 osseous fusion, ventral subarachnoid space is almost completely effaced, thickened ligamentum flavum at the level of C6 enroaching on the dorsal subarachnoid space, C3-C4 posterior disc osteophyte complex enroaching ventral subarachnoid space, mild central spinal canal stenosis, C6-C7 broad based disc osteophyte complex enroaching the ventral subarachnoid space, mild central spinal canal stenosis, C7-T1 facet joint arthropathy Code(s): R29.898 - [facility] SYMPTOMS AND SIGNS INVOLVING THE MUSCULOSKELETAL SYSTEM (6) PAD (peripheral artery disease) Assessment/Plan: -Vascular consult -Arterial US shows mild atherosclerotic disease with no evidence occlusion or hemodynamically significant stenosis Code(s): I73.9 - PERIPHERAL VASCULAR DISEASE, UNSPECIFIED (7) Lumbar stenosis Assessment/Plan: -Neurosurgery on board -Thoracic MRI shows signal intensity of the spinal cord, no evidence of cord compression, T10-T12 moderate facet joint arthropathy with thickened possibly ossified ligamentum flavum enroaching on the dorsal subarachnoid space, mild central spinal canal stenosis -Cervical MRI shows C4, C5, C6 osseous fusion, ventral subarachnoid space is almost completely effaced, thickened ligamentum flavum at the level of C6 enroaching on the dorsal subarachnoid space, C3-C4 posterior disc osteophyte complex enroaching ventral subarachnoid space, mild central spinal canal stenosis, C6-C7 broad based disc osteophyte complex enroaching the ventral subarachnoid space, mild central spinal canal stenosis, C7-T1 facet joint arthropathy -Lumbar MRI done shows s/p L4-L5 bilaterally in the neck to me with post-op soft tissue swelling, inflammation, and enhancement, posteriorly extending from upper L3 down to lower L5 level as well as extending to subcutaneous fat, there is an irregular shaped collection seen just posterior to the posterior epidural space extending from upper L4 down to lower L5 level, peripheral enhancement measuring approximately 4.5 x 1.6 x 1.5cm in craniocaudal, AP, and transverse dimension suggestive of postop serosanguinous collection, cannot rule out infection, epidual enhancement within the spinal canal from upper L3 down to upper S1 level compatible with post op changes without gross evidence of an intraspinal collection -Pain control -PT -Neurology on board -neuro check q4h Code(s): M48.061 - SPINAL STENOSIS, LUMBAR REGION WITHOUT NEUROGENIC CARISA (8) Leukocytosis Assessment/Plan: -WBC 6.6 -resolved -ID consult due to Lumbar MRI finding -BC neg Code(s): D72.829 - ELEVATED WHITE BLOOD CELL COUNT, UNSPECIFIED Assessment/Plan see problem list dvt ppx possible SNF when ready for d/c for PT
[2019-07-14] MEDS: SIMETHICONE 80 MG TAB.CHEW (FP) PO PRN (13:08)
[2019-07-15] MEDS: SIMETHICONE 80 MG TAB.CHEW (FP) PO PRN ×2 (01:23→09:58)
[2019-07-15] MEDS: ACETAMINOPHEN 325 MG TABLET (FP) PO SCH ×5 (02:50→21:58)
[2019-07-15] MEDS: GABAPENTIN 100 MG CAPSULE (FP) PO SCH ×3 (06:20→21:58)
[2019-07-15] MEDS: METOCLOPRAMIDE HCL 10 MG TABLET (FP) PO SCH ×3 (06:20→17:46)
[2019-07-15 08:41] LABS: HEMATOCRIT 39.3 % (32.4-45.2); MCH 30.9 pg (25.7-33.7); MCHC 33.2 g/dl (32.0-36.0); MEAN PLT VOLUME 10.2 fl (7.5-11.1); PLATELET COUNT 184 K/MM3 (134-434); RBC 4.23 M/mm3 (3.60-5.2); RDW 13.9 % (11.6-15.6); WHITE BLOOD COUNT 6.5 K/mm3 (4.0-10.0)
[2019-07-15] MEDS ORDERED: PT OWN MED DRAWER 7, Y5N ONE (08:47)
[2019-07-15 08:48] LABS: ALBUMIN 3.1 g/dl (3.4-5.0); BILIRUBIN,TOTAL 0.4 mg/dL (0.2-1); BLOOD UREA NITROGEN 17.2 mg/dL (7-18); CALCIUM 9.2 mg/dL (8.5-10.1); CREATININE 0.7 mg/dL (0.55-1.3); POTASSIUM 4.4 mmol/L (3.5-5.1); TOT PROT 5.3 g/dl (6.4-8.2)
[2019-07-15] MEDS: LIPASE/PROTEASE/AMYLASE 36,000 UNIT CAPSULE PO SCH ×3 (08:55→17:50)
[2019-07-15] MEDS: PANTOPRAZOLE 40 MG TABLET (FP) PO SCH (08:59)
[2019-07-15] MEDS: traMADol HCL 50 MG TABLET PO SCH ×2 (08:59→22:00)
[2019-07-15] MEDS: BUDESONIDE/FORMETEROL FUMARATE 160/4.5 mcg INHALER IH SCH ×2 (08:59→22:00)
[2019-07-15] MEDS: POLYETHYLENE GLYCOL 3350 119 GM BTL PO SCH ×2 (08:59→21:59)
--- NOTE | 2019-07-15 09:20 | PN ---
Progress Note, Physician Chief Complaint: Lumbar Stenosis Lower Back Pain Abdominal Pain History of Present Illness: Previous notes and events reviewed awake and alert NAD facet joint injection L-S spine today with IR Heparin on hold - Current Medication List Current Medications: Active Medications Acetaminophen (Tylenol -) 650 mg PO Q6HPO [facility] Last Admin: 07/15/19 06:20 Dose: 650 mg Budesonide/Formoterol Fumarate (Symbicort 160/4.5mcg -) 1 puff IH BID [facility] Last Admin: 07/15/19 08:59 Dose: 1 puff Gabapentin (Neurontin -) 100 mg PO TID [facility] Last Admin: 07/15/19 06:20 Dose: 100 mg Metoclopramide HCl (Reglan -) 5 mg PO TIDAC [facility] Last Admin: 07/15/19 06:20 Dose: 5 mg Pancrelipase (Creon Dr 36,000 Units Capsule) 1 cap PO TIDCM [facility] Last Admin: 07/15/19 08:55 Dose: 1 cap Pantoprazole Sodium (Protonix -) 40 mg PO DAILY [facility] Last Admin: 07/15/19 08:59 Dose: 40 mg Polyethylene Glycol (Miralax (For Daily Use) -) 17 gm PO BID [facility] Last Admin: 07/15/19 08:59 Dose: 17 gm Simethicone (Mylicon -) 80 mg PO QID PRN PRN Reason: GAS Last Admin: 07/15/19 01:23 Dose: 80 mg Tramadol HCl (Ultram -) 50 mg PO BID [facility] Last Admin: 07/15/19 08:59 Dose: 50 mg - Objective Vital Signs: Vital Signs Temperature 97.8 F 07/15/19 09:02 Pulse Rate 67 07/15/19 09:02 Respiratory Rate 19 07/15/19 09:02 Blood Pressure 118/70 07/15/19 09:02 O2 Sat by Pulse Oximetry (%) 98 07/14/19 21:00 Constitutional: Yes: No Distress, Calm Eyes: Yes: Conjunctiva Clear HENT: Yes: Atraumatic Cardiovascular: Yes: Regular Rate and Rhythm Respiratory: Yes: Regular, CTA Bilaterally Gastrointestinal: Yes: Normal Bowel Sounds, Soft Musculoskeletal: Yes: Back Pain, Muscle Weakness Extremities: Yes: WNL Edema: No Neurological: Yes: Alert, Oriented Psychiatric: Yes: Alert, Oriented Labs: CBC, BMP 07/15/19 07:32 07/15/19 07:32 INR, PTT INR 0.95 (0.83-1.09) 07/01/19 15:23 Microbiology 07/02/19 19:30 Blood - Peripheral Venous Blood Culture - Final NO GROWTH AFTER 5 DAYS INCUBATION 07/02/19 19:35 Blood - Peripheral Venous Blood Culture - Final NO GROWTH AFTER 5 DAYS INCUBATION Problem List - Problems (1) Low back pain Assessment/Plan: -Neurosurgery on board -Lumbar MRI done shows s/p L4-L5 bilaterally in the neck to me with post-op soft tissue swelling, inflammation, and enhancement, posteriorly extending from upper L3 down to lower L5 level as well as extending to subcutaneous fat, there is an irregular shaped collection seen just posterior to the posterior epidural space extending from upper L4 down to lower L5 level, peripheral enhancement measuring approximately 4.5 x 1.6 x 1.5cm in craniocaudal, AP, and transverse dimension suggestive of postop serosanguinous collection, cannot rule out infection, epidual enhancement within the spinal canal from upper L3 down to upper S1 level compatible with post op changes without gross evidence of an intraspinal collection -Pain control -PT -hip and pelvic xray reviewed -ESR and CRP wnl -Neurology on board -Cervical and Thoracic MRI -Orthopedic on board -scheduled for facet joint injection L/S CLEARED BY NEUROSURGERY FOR JOINT INJECTION Code(s): M54.5 - LOW BACK PAIN Qualifiers: Chronicity: acute Back pain laterality: unspecified Sciatica presence: unspecified whether sciatica present Qualified Code(s): M54.5 - Low back pain (2) Abdominal pain Assessment/Plan: -GI on board -Abdominal/Pelvic CT scan shows dilated CBD 1.6cm -MRCP shows mild extrahepatic biliary ductal dilatation measuring 1cm and 8mm distally without evidence of choledocolithiasis, likely physiologic post cholecystectomy, nonspecific 2mm pancreatic neck cyst , nonspecific macronodular hepatic contour -Creon and Xifaxin -Ca 19-9 16, CEA 2.4 -will need to repeat MRI in 1 yr with GI -Pantoprazole -Simethicone Code(s): R10.9 - UNSPECIFIED ABDOMINAL PAIN (3) COPD (chronic obstructive pulmonary disease) Assessment/Plan: -Symbicort -keep SpO2 >90% -O2 via NC Code(s): J44.9 - CHRONIC OBSTRUCTIVE PULMONARY DISEASE, UNSPECIFIED Qualifiers: COPD type: unspecified COPD Qualified Code(s): J44.9 - Chronic obstructive pulmonary disease, unspecified (4) GERD (gastroesophageal reflux disease) Assessment/Plan: -Pantoprazole Code(s): K21.9 - GASTRO-ESOPHAGEAL REFLUX DISEASE WITHOUT ESOPHAGITIS (5) Lower extremity weakness Assessment/Plan: -fall precautions -PT -Neurology on board -Neurosurgery onboard -Lumbar MRI done shows s/p L4-L5 bilaterally in the neck to me with post-op soft tissue swelling, inflammation, and enhancement, posteriorly extending from upper L3 down to lower L5 level as well as extending to subcutaneous fat, there is an irregular shaped collection seen just posterior to the posterior epidural space extending from upper L4 down to lower L5 level, peripheral enhancement measuring approximately 4.5 x 1.6 x 1.5cm in craniocaudal, AP, and transverse dimension suggestive of postop serosanguinous collection, cannot rule out infection, epidual enhancement within the spinal canal from upper L3 down to upper S1 level compatible with post op changes without gross evidence of an intraspinal collection -Orthopedic on board -Thoracic MRI shows signal intensity of the spinal cord, no evidence of cord compression, T10-T12 moderate facet joint arthropathy with thickened possibly ossified ligamentum flavum enroaching on the dorsal subarachnoid space, mild central spinal canal stenosis -Cervical MRI shows C4, C5, C6 osseous fusion, ventral subarachnoid space is almost completely effaced, thickened ligamentum flavum at the level of C6 enroaching on the dorsal subarachnoid space, C3-C4 posterior disc osteophyte complex enroaching ventral subarachnoid space, mild central spinal canal stenosis, C6-C7 broad based disc osteophyte complex enroaching the ventral subarachnoid space, mild central spinal canal stenosis, C7-T1 facet joint arthropathy Code(s): R29.898 - OTH SYMPTOMS AND SIGNS INVOLVING THE MUSCULOSKELETAL SYSTEM (6) PAD (peripheral artery disease) Assessment/Plan: -Vascular consult -Arterial US shows mild atherosclerotic disease with no evidence occlusion or hemodynamically significant stenosis Code(s): I73.9 - PERIPHERAL VASCULAR DISEASE, UNSPECIFIED (7) Lumbar stenosis Assessment/Plan: -Neurosurgery on board -Thoracic MRI shows signal intensity of the spinal cord, no evidence of cord compression, T10-T12 moderate facet joint arthropathy with thickened possibly ossified ligamentum flavum enroaching on the dorsal subarachnoid space, mild central spinal canal stenosis -Cervical MRI shows C4, C5, C6 osseous fusion, ventral subarachnoid space is almost completely effaced, thickened ligamentum flavum at the level of C6 enroaching on the dorsal subarachnoid space, C3-C4 posterior disc osteophyte complex enroaching ventral subarachnoid space, mild central spinal canal stenosis, C6-C7 broad based disc osteophyte complex enroaching the ventral subarachnoid space, mild central spinal canal stenosis, C7-T1 facet joint arthropathy -Lumbar MRI done shows s/p L4-L5 bilaterally in the neck to me with post-op soft tissue swelling, inflammation, and enhancement, posteriorly extending from upper L3 down to lower L5 level as well as extending to subcutaneous fat, there is an irregular shaped collection seen just posterior to the posterior epidural space extending from upper L4 down to lower L5 level, peripheral enhancement measuring approximately 4.5 x 1.6 x 1.5cm in craniocaudal, AP, and transverse dimension suggestive of postop serosanguinous collection, cannot rule out infection, epidual enhancement within the spinal canal from upper L3 down to upper S1 level compatible with post op changes without gross evidence of an intraspinal collection -Pain control -PT -Neurology on board -neuro check q4h Code(s): M48.061 - SPINAL STENOSIS, LUMBAR REGION WITHOUT NEUROGENIC CARISA (8) Leukocytosis Assessment/Plan: -WBC 6.6 -resolved -ID consult due to Lumbar MRI finding -BC neg Code(s): D72.829 - ELEVATED WHITE BLOOD CELL COUNT, UNSPECIFIED Assessment/Plan see problem list dvt [facility] home services with PT when discharged
[2019-07-15] MEDS ORDERED: SODIUM CHLORIDE 250 ML IV STA (15:17)
[2019-07-15 19:25] VITALS: BMI 22.9
[2019-07-16] MEDS: ACETAMINOPHEN 325 MG TABLET (FP) PO SCH ×3 (02:13→11:34)
[2019-07-16] MEDS: METOCLOPRAMIDE HCL 10 MG TABLET (FP) PO SCH ×2 (06:34→11:34)
[2019-07-16] MEDS: GABAPENTIN 100 MG CAPSULE (FP) PO SCH (06:35)
[2019-07-16] MEDS ORDERED: PT OWN MED DRAWER 7, Y5N ONE ×2 (09:21→11:31)
[2019-07-16] MEDS: traMADol HCL 50 MG TABLET PO SCH (09:26)
[2019-07-16] MEDS: POLYETHYLENE GLYCOL 3350 119 GM BTL PO SCH (09:26)
[2019-07-16] MEDS: LIPASE/PROTEASE/AMYLASE 36,000 UNIT CAPSULE PO SCH ×2 (09:28→11:35)
[2019-07-16] MEDS: PANTOPRAZOLE 40 MG TABLET (FP) PO SCH (09:30)
[2019-07-16] MEDS: BUDESONIDE/FORMETEROL FUMARATE 160/4.5 mcg INHALER IH SCH (09:30)
--- NOTE | 2019-07-16 09:41 | DS ---
Physical Examination Vital Signs: Vital Signs Temperature 97.8 F 07/16/19 06:00 Pulse Rate 65 07/16/19 06:00 Respiratory Rate 20 07/16/19 06:00 Blood Pressure 106/64 07/16/19 06:00 O2 Sat by Pulse Oximetry (%) 98 07/15/19 21:00 Findings/Remarks: Laboratory Results - last 24 hr 07/15/19 07/15/19 11:57 17:43 POC Glucometer 82 181 Home Medication List Medication Instructions Recorded Confirmed Type Budesonide/Formeterol Fumarate 1 inh PO BID 04/21/19 07/01/19 History [SYMBICORT 160/4.5mcg -] Lipase/Protease/Amylase [Adair Dr 1 each PO BID 06/08/19 07/01/19 History 40,000 Unit Capsule] Cyclobenzaprine HCl 5 mg PO HS 07/02/19 07/02/19 History Plecanatide [Trulance] 3 mg PO DAILY 07/02/19 07/02/19 History Active Medications Generic Name Dose Route Start Last Admin Trade Name Estephanie PRN Reason Stop Dose Admin Acetaminophen 650 mg 07/02/19 00:00 07/16/19 06:35 Tylenol - PO Not Given Q6HPO [facility] Budesonide/Formoterol Fumarate 1 puff 07/01/19 22:00 07/16/19 09:30 Symbicort 160/4.5mcg - IH 1 puff BID [facility] Administration Gabapentin 100 mg 07/05/19 22:00 07/16/19 06:35 Neurontin - PO 100 mg TID [facility] Administration Metoclopramide HCl 5 mg 07/11/19 16:30 07/16/19 06:34 Reglan - PO 5 mg TIDAC [facility] Administration Pancrelipase 1 cap 07/03/19 12:00 07/16/19 09:28 Patrick Huang 36,000 Units Capsule PO 1 cap TIDCM [facility] Administration Pantoprazole Sodium 40 mg 07/02/19 10:00 07/16/19 09:30 Protonix - PO Not Given DAILY [facility] Polyethylene Glycol 17 gm 07/06/19 10:00 07/16/19 09:26 Miralax (For Daily Use) - PO 17 gm BID [facility] Administration Simethicone 80 mg 07/06/19 07:54 07/15/19 09:58 Mylicon - PO 80 mg QID PRN Administration GAS Tramadol HCl 50 mg 07/11/19 22:00 07/16/19 09:26 Ultram - PO 50 mg BID [facility] Administration Microbiology 07/02/19 19:30 Blood - Peripheral Venous Blood Culture - Final NO GROWTH AFTER 5 DAYS INCUBATION 07/02/19 19:35 Blood - Peripheral Venous Blood Culture - Final NO GROWTH AFTER 5 DAYS INCUBATION Constitutional: Yes: No Distress, Calm Eyes: Yes: Conjunctiva Clear HENT: Yes: Atraumatic Cardiovascular: Yes: Regular Rate and Rhythm Respiratory: Yes: Regular, CTA Bilaterally Gastrointestinal: Yes: Normal Bowel Sounds, Soft Musculoskeletal: Yes: Back Pain, Muscle Weakness Extremities: Yes: WNL Edema: No Neurological: Yes: Alert, Oriented Psychiatric: Yes: Alert, Oriented Labs: CBC, BMP 07/15/19 07:32 07/15/19 07:32 Discharge Summary Problems reviewed: Yes Reason For Visit: LOW BACK PAIN Current Active Problems Dilated cbd, acquired (Acute) Dilated cbd, acquired (Acute) Low back pain (Acute) Hospital Course: Patient is a 74 y/o female with past medical history of COPD, GERD, s/p lumbar laminectomy 04/2019. Patient presented to ER with complaints of lower back pain radiating to both legs with L>R for 2 weeks. She complains of difficulty ambulating with this pain with numbness and tingling to lower extremities. Patient was evaluated by Neurosurgery and Orthopedic while in-patient. Lumbar MRI done shows s/p L4-L5 bilaterally in the neck to me with post-op soft tissue swelling, inflammation, and enhancement, posteriorly extending from upper L3 down to lower L5 level as well as extending to subcutaneous fat, there is an irregular shaped collection seen just posterior to the posterior epidural space extending from upper L4 down to lower L5 level, peripheral enhancement measuring approximately 4.5 x 1.6 x 1.5cm in craniocaudal, AP, and transverse dimension suggestive of postop serosanguinous collection, cannot rule out infection, epidual enhancement within the spinal canal from upper L3 down to upper S1 level compatible with post op changes without gross evidence of an intraspinal collection. Thoracic MRI shows signal intensity of the spinal cord , no evidence of cord compression, T10-T12 moderate facet joint arthropathy with thickened possibly ossified ligamentum flavum enroaching on the dorsal subarachnoid space, mild central spinal canal stenosis. Cervical MRI shows C4, C5, C6 osseous fusion, ventral subarachnoid space is almost completely effaced, thickened ligamentum flavum at the level of C6 enroaching on the dorsal subarachnoid space, C3-C4 posterior disc osteophyte complex enroaching ventral subarachnoid space, mild central spinal canal stenosis, C6-C7 broad based disc osteophyte complex enroaching the ventral subarachnoid space, mild central spinal canal stenosis, C7-T1 facet joint arthropathy. IR was consulted and patient had Facet joint Lumbar/Sacral Epidural injection yesterday with good effect. Patient states her pain has improved. 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 of pancreatic cyst and repeat Abdominal MRI in 1 yr continue with medication as prescribed patient will go home with VNS services and in-home PT return to ER if develop severe pain, respiratory distress, chest pain, fall or difficulty walking Referrals: Rohit Max MD, FA[facility] [Staff Physician] - Gorge Kelly MD [Staff Physician] - Juan C Sahni MD [Staff Physician] - Javed Simental MD [Staff Physician] - Disposition: VNS/HOME HEALTH CARE - Home Medications Comprehensive Discharge Medication List: Ambulatory Orders Budesonide/Formeterol Fumarate [SYMBICORT 160/4.5mcg -] 1 inh PO BID 04/21/19 Acetaminophen [Tylenol .Regular Strength -] 650 mg PO Q6H #240 tablet 04/29/19 Rifaximin [Xifaxan -] 550 mg PO BID #60 tablet 05/08/19 Lipase/Protease/Amylase [Zenpep Dr 40,000 Unit Capsule] 1 each PO BID 06/08/19 Cyclobenzaprine HCl 5 mg PO HS 07/02/19 Plecanatide [Trulance] 3 mg PO DAILY 07/02/19 Gabapentin [Neurontin -] 100 mg PO TID #90 capsule 07/16/19 Pantoprazole Sodium [Protonix -] 40 mg PO DAILY #30 tablet.ec 07/16/19 Simethicone [Mylicon -] 80 mg PO QID PRN #45 tab.chew 07/16/19
[2019-07-16 09:59] VITALS: BP 102/69; PULSE 66; TEMP 98.2
--- NOTE | 2019-07-16 10:44 | EKG ---
Test Reason : Blood Pressure : / mmHG Vent. Rate : 070 BPM Atrial Rate : 070 BPM P-R Int : 144 ms QRS Dur : 074 ms QT Int : 430 ms P-R-T Axes : 060 012 059 degrees QTc Int : 464 ms NORMAL SINUS RHYTHM NORMAL ECG WHEN COMPARED WITH ECG OF 13-JUL-2019 10:15, NO SIGNIFICANT CHANGE WAS FOUND Confirmed by TOSHIA CASTILLO MD ([id number]) on 07/16/2019 10:44:06 AM Referred By: Confirmed By:TOSHIA CASTILLO MD
[2019-07-16] MEDS ORDERED: INSULIN (NOVOLOG) ASPART 100 UNITS/ML 10ML VIAL ONE (11:45)
== END 2019-07-16 12:26 | disposition home health service (06) | DRG 813 ==
LOC: JER 12:59 → JERFT 12:59 → JERBED 21:37 → J8W 23:27
PROVIDERS: ADMIT Family Medicine; ATTEND Family Medicine
PROC: 3E0S33Z Introduction of Anti-inflammatory into Epidural Space, Percutaneous Approach (ICD-10-PCS; principal; 2019-07-15)
PROC: 3E0S3NZ Introduction of Analgesics, Hypnotics, Sedatives into Epidural Space, Percutaneous Approach (ICD-10-PCS; 2019-07-15)
DX: G97.63 Postprocedural seroma of a nervous system organ or structure following a nervous system procedure (principal); M48.061 Spinal stenosis, lumbar region without neurogenic claudication; M54.5 Low back pain; R10.9 Unspecified abdominal pain; K21.9 Gastro-esophageal reflux disease without esophagitis; I73.9 Peripheral vascular disease, unspecified; J44.9 Chronic obstructive pulmonary disease, unspecified; D72.829 Elevated white blood cell count, unspecified; K83.8 Other specified diseases of biliary tract; F17.210 Nicotine dependence, cigarettes, uncomplicated; R29.898 Other symptoms and signs involving the musculoskeletal system; M43.02 Spondylolysis, cervical region; M25.559 Pain in unspecified hip; G89.18 Other acute postprocedural pain; M48.062 Spinal stenosis, lumbar region with neurogenic claudication; K86.2 Cyst of pancreas; Y83.9 Surgical procedure, unspecified as the cause of abnormal reaction of the patient, or of later complication, without mention of misadventure at the time of the procedure
CPT/HCPCS: 36415; 64493; 72141-TC; 72146-TC; 72149-TC; 73523-TC-FY; 74177-TC; 74181-TC; 77002-TC-FY; 80053; 82378; 82550; 82962; 83735; 84100; 84436; 84443; 85025; 85027; 85610; 85651; 85730; 86140; 86301; 86850; 86900; 86901; 87040; 93005; 93010; 93925-TC; 93971-TC; 97116-GP; 97162-GP; 99285-25; A9579; J1644; Q9967